=== PATIENT | female | born 1960 | race Caucasian/White ===

== ENCOUNTER 2018-05-06 15:55 | Emergency (ER) | payer MEDICARE, SELFPAY ==
[2018-05-06 15:56] VITALS: BP 143/80; PULSE 103; RESP 16; TEMP 36.6; O2SAT 96; BMI 28.3
[2018-05-06] MEDS: Ondansetron 4 MG/2 ML Vial IV (18:16)
[2018-05-06] MEDS: 0.9% Normal Saline 1,000 ML 1000 ML IV (18:16)
[2018-05-06] MEDS: Ketorolac 30 MG/ML Syringe IV (18:16)
[2018-05-06 18:24] LABS: Absolute Lymphocyte Count 1.89 X10^3/ul (0.83-4.51); Absolute Neutrophil Count 5.5 X10^3/uL (2.0-7.7); Basophil# 0.04 X10^3/uL; Basophil% 0.5 % (0-1); Eosinophil# 0.07 X10^3/uL; Eosinophils% 0.9 % (0-5); Hematocrit 41.3 % (37-47); Hemoglobin 13.6 g/dl (12.0-15.0); Lymphocyte # 1.89 X10^3/ul (4.0); Lymphocyte % 23.6 % (19-41); Mean Corp Hgb Conc 32.9 g/gl (32-36); Mean Corpuscular Hgb 28.6 pg (27.0-32.0); Mean Corpuscular Volume 86.9 fL (81-99); Mean Platelet Vol. 10.9 fl (6.2-12.0); Monocyte% 6.2 % (0-10); Neutrophil % 68.6 % (47-70); Platelet Count 201 K/mm3 (150-450); RBC Distribution Width CV 13.8 % (11.6-14.6); RBC Distribution Width SD 43.7 fl (35.1-43.9); Red Blood Count 4.75 M/mm3 (4.2-5.4)
[2018-05-06 18:24] LABS: Mucous, Urine 0 SEEN /hpf (<or=2+)
[2018-05-06 18:27] LABS: Color, Urine Yellow (Yellow); Glucose, Dipstick 1000 mg/dl (Normal); Ketone-Dipstick Negative (Negative); Leukocyte Esterase-Dipstick 500 /ul (Negative); Nitrite-Dipstick Negative (Negative); Occult Blood-Urine 50 /ul (Negative); Protein-Dipstick 100 mg/dl (Negative); Urine Bilirubin Dipstick Negative (Negative); Urine Clarity Cloudy (Clear); Urine Urobilinogen Normal (Normal)
[2018-05-06 18:29] LABS: POSITIVE COUNT NO; POSITIVE DIFFERENTIAL NO; POSITIVE MORPHOLOGY NO
[2018-05-06 18:36] LABS: Anion Gap 8 (5-15); BUN 15 mg/dL (7-18); BUN/Creat Ratio 17.2 RATIO (10-20); Calcium,Total 9.1 mg/dL (8.5-10.1); Chloride 100 mmol/L (98-107); Creatinine, Serum 0.87 mg/dL (0.55-1.02); EST Glomerular Filtration Rate 71 mL/min (>60); Est Glom Filt Rate - Afr Amer 85 mL/min (>60); Estimated Creatinine Clearance 52.54 ml/min; Glucose 303 mg/dL (74-106); Potassium 3.7 mmol/L (3.5-5.1); Sodium Level 137 mmol/L (136-145)
[2018-05-06 18:36] LABS: Bacteria 2+ /hpf (None Seen); Red Blood Cells-Urine 5-10 SEEN /hpf (0-5); Squamous Epithelial Cells - UA 10-25 SEEN /hpf (5-10); White Blood Cells >100 SEEN /hpf (0-5)
[2018-05-06 19:04] VITALS: BP 139/87; PULSE 89; RESP 18; O2SAT 96
--- NOTE | 2018-05-06 19:08 | ED.VISSUMM ---
- ER Visit Summary Date of Service: 05/06/18 Chief Complaint: Lightheaded, headache, dysuria History of Present Illness: The patient is a 58 F who goes to the [facility]. She reports that she woke up at noon today and is lightheaded. This does worsen when she stands. She has not passed out. No vertigo. She reports that she is congested and has the chills. Patient reports that she has lower abdominal pain 7-10 severity. It is a constant dull pain. She complains of dysuria and frequency that began yesterday. Patient also complains of a headache that was present when she woke this afternoon. It is 7 out of 10 severity. It is a constant, dull pain. It is occipital in location. Physical Examination: Vitals: Stable. Afebrile. General: Well-nourished and well-developed. Head: Normocephalic atraumatic. Neck: Supple, no lymphadenopathy. No JVD. Nontender. Cardiovascular: Regular rate and rhythm. No murmurs. Respiratory: No respiratory distress. Clear to auscultation bilaterally. Abdominal: Soft, nontender, nondistended, normal bowel sounds. No guarding, rebound, or peritoneal signs. Back: Nontender. Extremities: Nontender, no edema. Skin: Normal color, no rash. Neurologic: Alert and oriented ?3. Cranial nerves II through XII are intact. Normal strength and sensation. Psych: Normal affect. Test Results: CBC is normal. Chem-7 is more for glucose of 303. UA shows greater than 100 white blood cells, 5-10 red blood cells, and 2+ bacteria. However, there are 10-25 epithelial cells. Emergency Department Course and Treatment: Patient was given a liter bolus normal saline. She is given Toradol and Zofran IV. She is given Keflex p.o. She is resting comfortably. Treatment Plan: Patient will be discharged on Keflex and Zofran. Instructed to take her diabetic medications as previously prescribed. Follow-up with her primary care physician in 3-5 days if not improving. Return to the emergency department for any worsening symptoms. Disposition: To home in improved and stable condition. Impression: 1. UTI. 2. Cephalgia. This note was generated with Cinematiqueation software. It may contain incorrect words, spelling, and punctuation that were not noted in review of the chart prior to signing ED Disposition - Plan for ED Patient: Chief Complaint: General Illness Instructions: ED UTI Cystitis Female Prescriptions: Ondansetron [Zofran Odt] 4 mg PO Q8H PRN PRN #10 tablet PRN Reason: Nausea Cephalexin [Keflex] 500 mg PO Q12 #14 capsule Referrals: Love Barajas [Primary Care Provider] - 3-5 Days if not improving
[2018-05-06 19:48] VITALS: RESP 18
[2018-05-06] MEDS: Cephalexin 250 MG Capsule 500 MG PO (19:49)
== END 2018-05-06 19:50 | disposition home or self-care (01) ==
LOC: ED 18:36
PROVIDERS: Emergency Provider Emergency Medicine
DX: N39.0 Urinary tract infection, site not specified (principal); B96.89 Other specified bacterial agents as the cause of diseases classified elsewhere; R51 Headache; I10 Essential (primary) hypertension; E78.00 Pure hypercholesterolemia, unspecified; E11.9 Type 2 diabetes mellitus without complications; Z79.4 Long term (current) use of insulin; Z79.899 Other long term (current) drug therapy; Z86.73 Personal history of transient ischemic attack (TIA), and cerebral infarction without residual deficits
CPT/HCPCS: 80048; 81001; 85025; 96361; 96374; 96375; 99283; J7030; A4216; J2405

== ENCOUNTER 2018-05-10 12:25 | Inpatient (IN) | payer MEDICARE, MEDICAID, SELFPAY ==
[2018-05-10 12:28] VITALS: BP 126/93; BP 144/93; PULSE 96; PULSE 99; RESP 14; TEMP 36.7; O2SAT 95; O2SAT 98; BMI 29.1
--- NOTE | 2018-05-10 12:42 | CT_ITS ---
STUDY: CT BRAIN WITHOUT CONTRAST REASON FOR EXAM: Female, 58 years old. Status post fall RADIATION DOSAGE (If Supplied By Facility): CTDIvol = ( 44.99 ) mGy, DLP = ( 779.24 ) mGycm TECHNIQUE: Transaxial CT imaging of the brain was performed without administration of intravenous contrast material. Individualized dose optimization techniques were used for this CT. COMPARISON: November 24, 2015 CT scan head FINDINGS: Normal soft tissue structures. Normal calvarium. There is calcification of the left crit of the right vertebral arteries. There is dense calcification of the left-sided vertebral artery. This calcification of the cavernous carotid arteries. There is mild cerebral atrophy with widening of the extra-axial spaces and ventricular dilatation. There are areas of decreased attenuation within the white matter tracts of the supratentorial brain, consistent with microvascular disease changes. Normal basal ganglia and thalami. Normal brainstem. There is mild cerebellar atrophy. There is no intracranial hemorrhage. There are no findings of an acute ischemic infarction. Normal visualized paranasal sinuses. CT/Brain/Head without Contrast IMPRESSION: Mild atrophy. No visualized evidence of acute hemorrhage infarct or edema. Dense calcification of the left greater than right vertebral arteries for which hemodynamically significant atherosclerotic disease is not excluded. Electronically Signed: Soraya Plata MD at 14:24 EDT Tel , Service support ,
--- NOTE | 2018-05-10 12:42 | EKG12_ITS ---
Test Reason : FALL Blood Pressure : / mmHG Vent. Rate : 093 BPM Atrial Rate : 093 BPM P-R Int : 156 ms QRS Dur : 088 ms QT Int : 370 ms P-R-T Axes : 027 010 060 degrees QTc Int : 460 ms Normal sinus rhythm Inferior infarct , age undetermined Abnormal ECG Confirmed by ROSE CURTIS, KIERSTEN ([id number]), scientific publications editor GUILLAUME MARIA ([id number]) on 05/13/2018 3:12:20 PM Referred By: DENI Confirmed By:KIERSTEN ROSE MD
[2018-05-10 13:01] LABS: Absolute Lymphocyte Count 1.87 X10^3/ul (0.83-4.51); Absolute Neutrophil Count 9.8 X10^3/uL (2.0-7.7); Basophil# 0.03 X10^3/uL; Basophil% 0.2 % (0-1); Eosinophil# 0.03 X10^3/uL; Eosinophils% 0.2 % (0-5); Hematocrit 40.7 % (37-47); Hemoglobin 13.7 g/dl (12.0-15.0); Lymphocyte # 1.87 X10^3/ul (4.0); Mean Corp Hgb Conc 33.7 g/gl (32-36); Mean Corpuscular Hgb 28.8 pg (27.0-32.0); Mean Corpuscular Volume 85.7 fL (81-99); Monocyte# 0.71 X10^3/uL; Monocyte% 5.7 % (0-10); Neutrophil # 9.81 X10^3/uL (2.7-7.7); Neutrophil % 78.5 % (47-70); Platelet Count 203 K/mm3 (150-450); RBC Distribution Width CV 13.8 % (11.6-14.6); Red Blood Count 4.75 M/mm3 (4.2-5.4); White Blood Count 12.5 K/mm3 (4.4-11.0)
--- NOTE | 2018-05-10 13:01 | ED.DCSUM_ITS ---
- ER Visit Summary Date of Service: 05/10/18 Chief Complaint: Lightheadedness, near syncope, fall History of Present Illness: The patient is a 58 F presents to the emergency department after fall. The patient was seen here about 4 days ago. At that time, she was diagnosed with urinary tract infection. She was started on outpatient antibiotics, but never got a prescription filled. Today, she states that she has had generalized malaise and chills. She was walking towards a refrigerator. She got lightheaded and fell. She landed on her right knee and struck her face. She does not think that she lost consciousness. She states that her sugars been running high. She has been nauseated but denies any vomiting. She has had persistent dysuria. Physical Examination: Vital signs reviewed General: Well-nourished, well-developed Head: Normocephalic, superficial abrasion over right cheek, abrasion above teeth 8 and 9, but no malocclusion. Midface is stable. Eyes: Pupils equal and reactive, extraocular muscles intact Neck, supple, no lymphadenopathy Heart: Regular rate and rhythm Respiratory: No distress, clear bilaterally Abdomen: Soft, nontender, nondistended, no peritoneal signs Back: Nontender Extremities: Nontender, no edema, no cords Skin: Normal color no rash Neuro: Alert and oriented, no focal or lateralizing deficits Test Results: [] Emergency Department Course and Treatment: The patient presents with lightheadedness, near-syncopal event, and a mechanical fall. Her neuro exam does not display any lateralizing deficits. She denies any numbness or tingling. She states she has been lightheaded with change in position, but denies any persistent vertiginous symptoms. I did obtain a head CT given her trauma. There was calcifications in the posterior vasculature, but no bleeding. Again, I do not suspect posterior stroke at this time. The patient does appear to be dehydrated. She has decreased skin turgor and dry mucous membranes. IV was established. She was given 2 L of IV fluids. Her lactate is negative but she does have a leukocytosis and is hyperglycemic. Urine does show evidence of infection. With her systemic symptoms, I do suspect that she likely has pyelonephritis. Urine culture was obtained. Blood cultures were also obtained. The patient was started on Rocephin. She was discussed with the hospitalist and will be admitted. Treatment Plan: [] Disposition: Admission Impression: 1. Near-syncope 2. Pyelonephritis 3. Delirium This note was generated with appssavvy dictation software. It may contain incorrect words, spelling, and punctuation that were not noted in review of the chart prior to signing ED Disposition - Plan for ED Patient: Chief Complaint: Fall Referrals: Love Barajas [Primary Care Provider] -
[2018-05-10 13:02] LABS: POSITIVE COUNT NO; POSITIVE DIFFERENTIAL NO; POSITIVE MORPHOLOGY NO
[2018-05-10 13:22] LABS: Lactic Acid 1.4 mmol/L (0.4-2.0)
[2018-05-10 13:37] LABS: ALB/GLOB Ratio 0.8 RATIO (0.9-2.4); AST(SGOT) 10 U/L (15-37); Alanine Aminotransfer ALT/SGPT 21 U/L (13-56); Albumin, Serum 3.5 g/dL (3.2-5.0); Alkaline Phosphatase 119 U/L (45-117); Anion Gap 12 (5-15); BUN 17 mg/dL (7-18); BUN/Creat Ratio 17.2 RATIO (10-20); Calcium,Total 9.4 mg/dL (8.5-10.1); Chloride 102 mmol/L (98-107); Creatinine, Serum 0.99 mg/dL (0.55-1.02); EST Glomerular Filtration Rate 61 mL/min (>60); Est Glom Filt Rate - Afr Amer 74 mL/min (>60); Estimated Creatinine Clearance 46.17 ml/min; Globulin 4.3 g/dL (2.2-4.2); Glucose 446 mg/dL (74-106); Lipase 151 U/L (73-393); Potassium 3.9 mmol/L (3.5-5.1); Protein, Total 7.8 g/dL (6.4-8.2); Sodium Level 136 mmol/L (136-145)
[2018-05-10] MEDS: 0.9% Normal Saline 1,000 ML 1000 ML IV ×2 (13:42)
[2018-05-10 14:55] VITALS: BP 162/90; PULSE 89; RESP 13; O2SAT 96
[2018-05-10 15:16] LABS: Bacteria 0 SEEN /hpf (None Seen); Mucous, Urine 0 SEEN /hpf (<or=2+); Red Blood Cells-Urine 0 SEEN /hpf (0-5)
[2018-05-10 15:32] LABS: Color, Urine Yellow (Yellow); Glucose, Dipstick 1000 mg/dl (Normal); Ketone-Dipstick 15 mg/dl (Negative); Leukocyte Esterase-Dipstick 500 /ul (Negative); Nitrite-Dipstick Negative (Negative); Occult Blood-Urine 25 /ul (Negative); Protein-Dipstick 100 mg/dl (Negative); Urine Bilirubin Dipstick Negative (Negative); Urine Clarity Cloudy (Clear); Urine Urobilinogen Normal (Normal)
[2018-05-10 15:40] LABS: White Blood Cells >100 SEEN /hpf (0-5); Yeast-Urine 1+ /hpf (None Seen)
[2018-05-10 15:41] LABS: Squamous Epithelial Cells - UA 0-5 SEEN /hpf (5-10)
[2018-05-10 16:02] VITALS: BP 156/108; PULSE 91; RESP 14
--- NOTE | 2018-05-10 16:07 | PCM.HP.STD ---
Problem List (1) Encephalopathy acute Status: Acute (2) UTI (urinary tract infection) Status: Suspected Qualifiers: Urinary tract infection type: acute pyelonephritis Qualified Code(s): N10 - Acute pyelonephritis (3) HLD (hyperlipidemia) Status: Chronic Qualifiers: Hyperlipidemia type: unspecified Qualified Code(s): E78.5 - Hyperlipidemia, unspecified (4) Esophageal reflux Status: Chronic Qualifiers: Esophagitis presence: esophagitis presence not specified Qualified Code(s): K21.9 - Gastro-esophageal reflux disease without esophagitis (5) Type II diabetes mellitus, uncontrolled Status: Chronic Qualifiers: Glycemic state: with hyperglycemia Qualified Code(s): E11.65 - Type 2 diabetes mellitus with hyperglycemia (6) Anxiety and depression Status: Chronic (7) Cerebrovascular disease Status: Chronic Comment: Possible small ischemic strokes versus sequela of chronic migraine (8) Migraine Status: Chronic Qualifiers: Migraine type: unspecified Status migrainosus presence: without status migrainosus Intractability: not intractable Qualified Code(s): G43.909 - Migraine, unspecified, not intractable, without status migrainosus History of Present Illness Date of Admission: 05/10/18 Chief Complaint: Fatigue, malaise, falls, dysuria w/ recent UTI dx, failed to take her abx. The patient is a 58 y/o F w/ PMHx: ? PAF s/p ablation, CVA/TIA without deficits per her report, HTN, HLD, Migraines, Anxiety and Depression, GERD, IBS, Poorly controlled Diabetes Mellitus type II, Notable history of medication non-compliance who presents to the [facility] ED on 05/10/18 with history of ongoing malaise, fatigue and recent urinary tract infection diagnosis on 05/06/18 prescription given for Keflex however she did not feel this regimen and has had ongoing progressively worsening weakness, confusion as well as recent fall while walking in her kitchen on day of ED presentation with associated lightheadedness and dizziness noted to have hit her face with no loss of consciousness prompting ED presentation again. The workup included T 98, heart rate 99, BP 144/93, respiratory rate 14, 95% on room air, CBC with W BC 12.5, hemoglobin 13.7, platelet 203 with left shift, CMP notable for glucose 446, lactic acid 1.4, alkaline phosphatase 119, troponin less than 0.015, urinalysis notable with greater than 100 WBC although 0-5 squamous epithelial cells pending urine culture and blood culture ?2 urine drug screen unremarkable, CT head with chronic atrophy with no acute evidence of hemorrhage, infarct or edema with dense calcifications, left greater than right vertebral arteries. The ED patient administered IV fluids and IV Rocephin therapy. Past Medical History Past Medical History (Chronic Problems): Chronic Problems IBS (irritable bowel syndrome) (Chronic) HLD (hyperlipidemia) (Chronic) Esophageal reflux (Chronic) Type II diabetes mellitus, uncontrolled (Chronic) Anxiety and depression (Chronic) Cerebrovascular disease (Chronic) Possible small ischemic strokes versus sequela of chronic migraine Migraine (Chronic) reports hole in heart since (Chronic) Benign essential HTN (Chronic) Allergies codeine Adverse Reaction (Verified 05/06/18 15:56) Other pork derived (porcine) Adverse Reaction (Verified 05/06/18 15:56) Vomiting Home Medications: Ambulatory Orders Medication Instructions Recorded Amlodipine [Norvasc] 5 mg PO DAILY 01/01/15 Atorvastatin Calcium [Lipitor] 80 mg PO QHS 01/01/15 Insulin Detemir [Levemir FlexPen] 50 units SC BID 01/01/15 Lisinopril [Zestril] 20 mg PO DAILY 01/01/15 Ergocalciferol [Vitamin D] 50,000 unit PO Q7D 11/24/15 Clopidogrel Bisulfate [Plavix] 75 mg PO DAILY #30 tablet 11/26/15 Sertraline HCl [Zoloft] 100 mg PO DAILY 05/10/18 Surgical History: - - BLTL, Cardiac ablation per patient self-report, tonsillectomy. Psychiatric History: Anxiety, Depression COMMUNICATION SIGNALS INTELLIGENCE History: No pertinent COMMUNICATION SIGNALS INTELLIGENCE history Lives: With Family Smoking Status: Never smoker Tobacco Use: Secondhand - Patient continues to have secondhand prolonged tobacco smoke exposure. Alcohol: None Drugs: None - *Family History Maternal History Items: Heart Disease - \ Paternal History Items: Heart Disease - age 67, Hypertension - Father with OR/CAD, 69 years old. Review of Systems Constitutional: Reports: Anorexia, Malaise, Weakness, Fatigue. Denies: Chills, Fever, Weight Change HEENT: Denies: Head Aches, Sinus Congestion, Sinus Drainage Cardiovascular: Denies: Chest Pain, Palpitations Respiratory: Denies: Cough, Shortness of breath at rest, Sputum production Gastrointestinal: Reports: Abdominal Pain, Nausea. Denies: Vomiting Genitourinary: Reports: Dysuria, Hesitancy, Retention Musculoskeletal: Reports: Back Pain. Denies: Joint Pain, Joint Tenderness Skin: Denies: Rash, Wounds Neurological: Reports: Confusion. Denies: Focal weakness, Numbness, Tingling Psychiatric: Reports: Anxiety, Depression. Denies: Homicidal Ideations, Suicidal Ideations Hematologic/ Lymphatic: Denies: Easy Bruising, Easy Bleeding VTE Information - Inpt Only VTE Present on Admission: No VTE Mechan Device Prophylaxis: SCD's VTE Pharm Prophylaxis ordered?: Yes Patient Problems: Active and Suspected Problems Encephalopathy acute (Acute) UTI (urinary tract infection) (Suspected) Subjective: Seated upright in the ED bed, fatigued appearance. Objective: Physical Examination: General: awake, alert, oriented to self, place, some recent events, fatigued, remains cooperative, seated upright in the ED bed in no apparent distress. Skin: normal color, turgor, no icterus, cyanosis. HEENT: AT/NC, EOMI, mild L lid ptosis which is chronic, PERRLA, moderately dry MM, no carotid bruits or JVD noted. Lungs: CTA bilaterally, moderate effort, mild decrease BL bases, no rales, ronchi or wheezing. Heart: Regular rate and rhythm; no gallop, rub audible. Abdomen: soft, noted suprapubic TTP, ND, decreased BS, no HSM. Extremities: no cyanosis, clubbing, or edema. Neurological: patient awake, alert, oriented as noted, family notes currently improved from prior; cognitive function improved, but still not baseline intact; pupils equally reactive to light and accomodation; cranial nerves II-XII grossly normal, moving all 4 extremities, strength moderately to severely globally decreased secondary to acute presentation. Psychiatric: affect appears flat, no acute evidence of depressive or anxiety feelings. - Physical Exam Vital Signs Temp Pulse Resp BP Pulse Ox 98.0 F 91 14 156/108 H 96 05/10/18 12:28 05/10/18 16:02 05/10/18 16:02 05/10/18 16:02 05/10/18 14:55 Oxygen Delivery Method Room Air Weight: 154 lb 5.177 oz Body Mass Index (BMI) 29.1 Finger Stick Blood Glucose 204 Laboratory Tests Past 24 Hrs 05/10/18 05/10/18 05/10/18 12:42 12:42 12:42 WBC 12.5 H RBC 4.75 Hgb 13.7 Hct 40.7 MCV 85.7 MCH 28.8 MCHC 33.7 RDW 13.8 RDW Differential 43.0 Plt Count 203 MPV 11.0 Immature Gran % (Auto) 0.400 Neut % (Auto) 78.5 H Lymph % (Auto) 15.0 L Ceiba % (Auto) 5.7 Eos % (Auto) 0.2 Baso % (Auto) 0.2 Absolute Neuts (auto) 9.8 H Absolute Lymphs (auto) 1.87 Total Counted Not Reportable Sodium Potassium Chloride Carbon Dioxide Anion Gap BUN Creatinine Estim Creat Clear Calc Est GFR (MDRD) Af Amer Est GFR (MDRD) Non-Af BUN/Creatinine Ratio Glucose Lactic Acid 1.4 Calcium Total Bilirubin AST ALT Alkaline Phosphatase Troponin I Total Protein Albumin Globulin Albumin/Globulin Ratio Lipase Urine Color Urine Clarity Urine pH Ur Specific Flasher Urine Protein Urine Glucose (UA) Urine Ketones Urine Occult Blood Urine Nitrite Urine Bilirubin Urine Urobilinogen Ur Leukocyte Esterase Urine RBC Urine WBC Ur Squamous Epith Cells Urine Bacteria Urine Mucus Urine Yeast Urine Opiates Screen Urine Methadone Screen Ur Barbiturates Screen Ur Phencyclidine Scrn Ur Amphetamines Screen U Methamphetamin-MDMA U Benzodiazepines Scrn Urine Cocaine Screen U Cannabinoids Screen Ur Drug Screen Comment Acetone Level NEGATIVE 05/10/18 05/10/18 05/10/18 13:16 15:10 15:10 WBC RBC Hgb Hct MCV MCH MCHC RDW RDW Differential Plt Count MPV Immature Gran % (Auto) Neut % (Auto) Lymph % (Auto) Ceiba % (Auto) Eos % (Auto) Baso % (Auto) Absolute Neuts (auto) Absolute Lymphs (auto) Total Counted Sodium 136 Potassium 3.9 Chloride 102 Carbon Dioxide 22.0 Anion Gap 12 BUN 17 Creatinine 0.99 Estim Creat Clear Calc 46.17 Est GFR (MDRD) Af Amer 74 Est GFR (MDRD) Non-Af 61 BUN/Creatinine Ratio 17.2 Glucose 446 H Lactic Acid Calcium 9.4 Total Bilirubin 0.80 AST 10 L ALT 21 Alkaline Phosphatase 119 H Troponin I < 0.015 Total Protein 7.8 Albumin 3.5 Globulin 4.3 H Albumin/Globulin Ratio 0.8 L Lipase 151 Urine Color Yellow Urine Clarity Cloudy Urine pH 6.0 Ur Specific Flasher 1.010 Urine Protein 100 H Urine Glucose (UA) 1000 H Urine Ketones 15 H Urine Occult Blood 25 H Urine Nitrite Negative Urine Bilirubin Negative Urine Urobilinogen Normal Ur Leukocyte Esterase 500 H Urine RBC 0 SEEN Urine WBC >100 SEEN Ur Squamous Epith Cells 0-5 SEEN Urine Bacteria 0 SEEN Urine Mucus 0 SEEN Urine Yeast 1+ Urine Opiates Screen Pending Urine Methadone Screen Pending Ur Barbiturates Screen Pending Ur Phencyclidine Scrn Pending Ur Amphetamines Screen Pending U Methamphetamin-MDMA Pending U Benzodiazepines Scrn Pending Urine Cocaine Screen Pending U Cannabinoids Screen Pending Ur Drug Screen Comment Acetone Level Assessment/Plan All Active Problems Encephalopathy acute (Acute) The patient is a 58 y/o F w/ PMHx: ? PAF s/p ablation, CVA/TIA without deficits per her report, HTN, HLD, Migraines, Anxiety and Depression, GERD, IBS, Poorly controlled Diabetes Mellitus type II, Notable history of medication non-compliance who presents to the [facility] ED on 05/10/18 with history of ongoing malaise, fatigue and recent urinary tract infection diagnosis on 05/06/18 prescription given for Keflex however she did not feel this regimen and has had ongoing progressively worsening weakness, confusion as well as recent fall while walking in her kitchen on day of ED presentation with associated lightheadedness and dizziness noted to have hit her face with no loss of consciousness prompting ED presentation again. (1) Acute Encephalopathy secondary to Acute UTI, Suspected Pyelonephritis w/ Mechanical Fall: CT head with no acute findings, noted dense calcifications, left greater than right vertebral arteries. will admit to [facility] upon ED evaluation remarkable, pending UCx, admission CBC w/ WBC 12.5 with L shift, continue IVFs, monitor I/Os, continue IV Rocephin w/ transition as able pending sensitivities and speciation. Bld cx x 2 obtained in the ED. Fall precautions, PT, OT, CM consulted for discharge planning. (2) Diabetes mellitus type II w/ Hyperglycemia, Poorly Controlled w/ Non-compliance history: Will continue home insulin regimen, ADA diet, accu checks w/ ISS, nutrition consulted for education and teaching, HgbA1c obtained and notable 12.2%. Upon discharge will be an excellent candidate for referral to endocrine CAN CLOSING MACHINE OPERATOR. (3) Hx CVA/TIA: Maintain on plavix, BP regimen, statin therapy, uncontrolled DM with restart insulin regimen with further changes as needed, HgBA1c 12.2%, will need endocrinology CAN CLOSING MACHINE OPERATOR referral at discharge. (4) Anxiety and Depression: Maintain on home Zoloft regimen. (5) Hypertension: Continue home regimen including Norvasc, lisinopril, PRN hydralazine. (6) Hyperlipidemia: Continue home statin regimen. (7) Migraines: Not on regimen, from prior history complex migraine prior. (8) ? PAF/cardiac arrhythmia: s/p remote ablation history per patient, unclear type. (9) Incidental Vertebral Artery Calcification: CT head with no acute findings, noted dense calcifications, left greater than right vertebral arteries. Maintain on plavix, statin, BP regimen, DM interventions as noted. Will need to be considered for outpatient further imaging per PCP direction. (10) DVT prophylaxis: SCDs, Lovenox. (11) Psychosocial: Living with family, upon ED presentation patient disheveled, evident that she has not had a recent shower or bath, appearance of not being well cared for or caring for herself. Case management consulted for discharge planning. (12) CODE status: Discussed CODE status at length including difference between FULL code, DNR-CCA and DNR-CC status. Following discussions about the differences in these status, requested Full Code status. Encouraged living will and HCPOA set-up. Advanced Care Planning Face to Face Time: 18 minutes. Code Visit Inpatient E&M: 75773 Init Hosp L3 Procedures: 61171 Advncd Care Plan 30 Min
[2018-05-10 16:10] LABS: Amphetamine Urine VISTA NEGATIVE (<1000 ng/mL); Barbiturate Urine VISTA NEGATIVE (< 200 ng/mL); Benzodiazepine Urine VISTA NEGATIVE (< 200 ng/mL); Cocaine Urine VISTA NEGATIVE (< 300 ng/mL); Ecstacy Urine VISTA NEGATIVE (< 500 ng/mL); Methadone Urine VISTA NEGATIVE (< 300 ng/mL); PCP Urine VISTA NEGATIVE (< 25 ng/mL); THC Urine VISTA NEGATIVE (< 50 ng/mL); Vista UDS pH Range 6
[2018-05-10 16:17] VITALS: BP 165/99; PULSE 96; RESP 13; O2SAT 97
[2018-05-10] MEDS: Ceftriaxone 1 GM/50 ML BAG IV (16:18)
--- NOTE | 2018-05-10 16:19 | NURSING ---
MED SURG NEAR SYNCOPE, PYELONEPHRITIS WHITE
--- NOTE | 2018-05-10 16:36 | CM.ED ---
Social Work Note Face to face with the for initial assessment. Introduced self and role at [facility]. Pt is A&Ox4. Very poor dental hygiene. Pt reports to live with her [id number] in a trailer with 4 [address]. Denies access issues or use of DME. Denies weakness. Reports that she is independent with self care, but that her sister manages car dropper. She recently began receiving Disability due to hx of ministrokes. She receives $750/month. Discussed Medicaid with the pt and she is agreeable to completing an application. Informed that once complete she can take to [facility] or give to SW at the hospital to fax into [employer] for processing. Understanding expressed, and [id number] present as well and expresses understanding. Confirm that the pt see EDIE Boogie, at [facility] and she denies other specialists. Preferred pharmacy is [facility] in [place]. No further needs at this time, and pt made aware that GINA WINTER is available to assist with d/c planning, and [facility] to assist with Medicaid application. 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
[2018-05-10 16:37] VITALS: BMI 29.2
[2018-05-10 17:17] VITALS: BMI 29.0
[2018-05-10 18:20] LABS: Magnesium 1.8 mg/dL (1.6-2.6)
[2018-05-10] MEDS: 0.9% Normal Saline 1,000 ML 125 ML IV (18:26)
[2018-05-10 18:36] LABS: Hemoglobin A1c 12.2 % (4.2-6.3)
[2018-05-10 18:40] LABS: Bedside Glucose 282 mg/dL (70-110)
[2018-05-10 19:49] VITALS: BP 166/90; PULSE 106; RESP 18; TEMP 36.7; O2SAT 97
[2018-05-10 20:10] VITALS: O2SAT 98
[2018-05-10] MEDS: Insulin Lispro 100 UNIT/ML INSULN.PEN SC (21:50)
[2018-05-10] MEDS: Famotidine 20 MG Tablet PO (21:52)
[2018-05-10] MEDS: Atorvastatin Calcium 80 MG Tablet PO (21:52)
[2018-05-10 22:01] LABS: Bedside Glucose 324 mg/dL (70-110)
[2018-05-11] VITALS (7 sets, daily range): BP systolic 141–169; BP diastolic 85–98; PULSE 93–96; RESP 16–18; TEMP 36.4–36.9; O2SAT 93–98
[2018-05-11] MEDS: 0.9% Normal Saline 1,000 ML 125 ML IV (02:22)
--- NOTE | 2018-05-11 07:16 | PCM.PN.HOSP ---
Patient Problems: Active and Suspected Problems Encephalopathy acute (Acute) UTI (urinary tract infection) (Suspected) Subjective: Patient with no acute events overnight per self and per nursing report. Patient is more alert and interactive this morning following IV fluids and antibiotic therapy, still noting generalized weakness ongoing and malaise. She is now admitting that the left lid ptosis is worse than normal and that she has been having ongoing outpatient gait disturbances and additionally to her generalized weakness and dysphagia. Discussed with patient concerns for recurrent TIA/CVA especially given she has been noncompliant with her medications including BP regimen, Plavix, aspirin as well as diabetic regimen. Patient denies fevers, chills, nausea, emesis, abdominal pain, chest pain or dyspnea. Objective: Physical Examination: General: awake, alert, oriented to self, place, recent events, year, president, less fatigued, more interactive, NAD. Skin: normal color, turgor, no icterus, cyanosis. HEENT: AT/NC, EOMI, ongoing mildly increased appearance L lid ptosis, pupils now appearing L 1 mm decreased from R, remains RRLA, improved MMM. Lungs: CTA bilaterally, moderate effort, mild decrease BL bases, no rales, ronchi or wheezing. Heart: Regular rate and rhythm; no gallop, rub audible. Abdomen: soft, decreased suprapubic TTP, ND, decreased BS. Extremities: no cyanosis, clubbing, or edema. Neurological: patient awake, alert, oriented as noted; cognitive function improved since admission; ongoing mildly increased appearance L lid ptosis, pupils now appearing L 1 mm decreased from R, remains RRLA; cranial nerves II-XII grossly normal otherwise aside these alterations, moving all 4 extremities, strength remains moderately to severely globally decreased. Psychiatric: affect appears flat, no acute evidence of depressive or anxiety feelings. Vitals/I&O's: Vital Signs Temp Pulse Resp BP Pulse Ox 98.4 F 96 18 144/85 H 97 05/11/18 02:22 05/11/18 02:22 05/11/18 02:22 05/11/18 02:22 05/11/18 02:22 Oxygen Delivery Method Room Air Weight: 153 lb 14.122 oz Body Mass Index (BMI) 29.0 Laboratory Results 05/10/18 18:29: POC Glucose 282 H 05/10/18 21:49: POC Glucose 324 H Current Medications Acetaminophen (Tylenol) 650 mg PO Q6H PRN PRN PRN Reason: Mild Pain (scale 0-3)/T>100.7 Al Hydroxide/Mg Hydroxide (Mylanta Ii) 30 ml PO Q6H PRN PRN PRN Reason: Gastric burning Amlodipine Besylate (Norvasc) 5 mg PO DAILY [facility] Atorvastatin Calcium (Lipitor) 80 mg PO QHS [facility] Last Admin: 05/10/18 21:52 Dose: 80 mg Clopidogrel Bisulfate (Plavix) 75 mg PO DAILY [facility] Enoxaparin Sodium (Lovenox) 40 mg SC DAILY@1000 [facility] Famotidine (Pepcid) 20 mg PO BID [facility] Last Admin: 05/10/18 21:52 Dose: 20 mg Sodium Chloride () 1,000 mls @ 125 mls/hr IV .Q8H [facility] Last Admin: 05/11/18 02:22 Dose: 125 mls/hr Ceftriaxone Sodium (Rocephin) 1 gm in 50 mls @ 100 mls/hr IV Q24H [facility] Insulin Glargine (Lantus (Bkc)) 50 units SC BID [facility] Last Admin: 05/10/18 21:51 Dose: 50 u Insulin Human Lispro (Humalog Kwikpen (Bkc)) 0 unit SC ACHS [facility] PRN Reason: Protocol Last Admin: 05/10/18 21:50 Dose: 5 units Lisinopril (Zestril) 20 mg PO DAILY [facility] Magnesium Hydroxide (Milk Of Magnesia) 30 ml PO DAILY PRN PRN PRN Reason: Constipation Ondansetron HCl (Zofran) 4 mg IV Q8H PRN PRN PRN Reason: NAUSEA Promethazine HCl (Phenergan) 12.5 mg IV Q6H PRN PRN PRN Reason: NAUSEA/VOMITING Sertraline HCl (Zoloft) 100 mg PO DAILY [facility] Sodium Chloride () 5 - 30 ml IV UD PRN PRN Reason: SALINE FLUSH Medical Necessity - Tobacco Use Smoking Status: Never smoker Tobacco Use: Secondhand - Patient continues to have secondhand prolonged tobacco smoke exposure. Assessment/Plan All Active Problems Encephalopathy acute (Acute) The patient is a 58 y/o F w/ PMHx: ? PAF s/p ablation, CVA/TIA without deficits per her report, HTN, HLD, Migraines, Anxiety and Depression, GERD, IBS, Poorly controlled Diabetes Mellitus type II, Notable history of medication non-compliance who presents to the [facility] ED on 05/10/18 with history of ongoing malaise, fatigue and recent urinary tract infection diagnosis on 05/06/18 prescription given for Keflex however she did not feel this regimen and has had ongoing progressively worsening weakness, confusion as well as recent fall while walking in her kitchen on day of ED presentation with associated lightheadedness and dizziness noted to have hit her face with no loss of consciousness in addition to now reported worsened L lid ptosis, ongoing mild dysphia and gait instability. (1) Acute Encephalopathy secondary to Acute UTI, Suspected Pyelonephritis w/ Mechanical Fall: CT head with no acute findings, noted dense calcifications, left greater than right vertebral arteries. Admitted to [facility] upon ED evaluation remarkable, pending UCx, admission CBC w/ WBC 12.5 with L shift, continue IVFs, monitor I/Os, continue IV Rocephin w/ transition as able pending sensitivities and speciation. Bld cx x 2 obtained in the ED. Fall precautions, PT, OT, CM consulted for discharge planning. (2) Diabetes mellitus type II w/ Hyperglycemia, Poorly Controlled w/ Non-compliance history: BS trending 200-300 range, will increase lantus to 55 u BID, add scheduled TID w/ meals short-acting low dose and further adjust as needed. Maintain on ADA diet, accu checks w/ ISS, nutrition consulted for education and teaching, HgbA1c obtained and notable 12.2%. Upon discharge will be an excellent candidate for referral to endocrine [employer]NAGER. (3) Debility, Gait Disturbance, Generalized Weakness, Worsened L Lid Ptosis, Dysphagia, Pupillary Changes w/ Hx CVA/TIA w/ ? Recurrent Events: Patient with notable non-compliance. Now admitting this AM that L lid ptosis is more pronounced than normal and upon repeat examination noted 1 mm difference in pupils. Discussed w/ patient and will obtain MRI brain, MRA head and neck, will maintain on plavix given had not been taking in addition to asa therapy, BP regimen, statin therapy, uncontrolled DM with insulin regimen changes as noted. HgBA1c 12.2%, will need endocrinology [employer]IE[employer] MANAGER referral at discharge. Will transfer to PCU to maintain on NIHSS assessments pending this work-up. PT, OT, Speech, Nutrition consulted per protocol. ECHO requested. Neurology consulted. (4) Anxiety and Depression: Maintain on home Zoloft regimen. (5) Hypertension: Continue home regimen including Norvasc, lisinopril, PRN hydralazine. (6) Hyperlipidemia: Continue home statin regimen. (7) Migraines: Not on regimen, from prior history complex migraine prior. (8) ? PAF/cardiac arrhythmia: s/p remote ablation history per patient, unclear type. (9) Incidental Vertebral Artery Calcification: CT head with no acute findings, noted dense calcifications, left greater than right vertebral arteries. Maintain on plavix, statin, BP regimen, DM interventions as noted. Given now noted pupillary mild changes and now reported worsened lid ptosis will obtain further work-up as noted above. (10) DVT prophylaxis: SCDs, Lovenox. (11) Psychosocial: Living with family, upon ED presentation patient disheveled, evident that she has not had a recent shower or bath, appearance of not being well cared for or caring for herself. Case management consulted for discharge planning. (12) CODE status: Full Code. Code Visit Inpatient E&M: 53829 Subs Hosp L3
--- NOTE | 2018-05-11 07:20 | PN_ITS ---
Patient Problems: Active and Suspected Problems Encephalopathy acute (Acute) UTI (urinary tract infection) (Suspected) Subjective: Patient with no acute events overnight per self and per nursing report. Patient is more alert and interactive this morning following IV fluids and antibiotic therapy, still noting generalized weakness ongoing and malaise. She is now admitting that the left lid ptosis is worse than normal and that she has been having ongoing outpatient gait disturbances and additionally to her generalized weakness and dysphagia. Discussed with patient concerns for recurrent TIA/CVA especially given she has been noncompliant with her medications including BP regimen, Plavix, aspirin as well as diabetic regimen. Patient denies fevers, chills, nausea, emesis, abdominal pain, chest pain or dyspnea. Objective: Physical Examination: General: awake, alert, oriented to self, place, recent events, year, president, less fatigued, more interactive, NAD. Skin: normal color, turgor, no icterus, cyanosis. HEENT: AT/NC, EOMI, ongoing mildly increased appearance L lid ptosis, pupils now appearing L 1 mm decreased from R, remains RRLA, improved MMM. Lungs: CTA bilaterally, moderate effort, mild decrease BL bases, no rales, ronchi or wheezing. Heart: Regular rate and rhythm; no gallop, rub audible. Abdomen: soft, decreased suprapubic TTP, ND, decreased BS. Extremities: no cyanosis, clubbing, or edema. Neurological: patient awake, alert, oriented as noted; cognitive function improved since admission; ongoing mildly increased appearance L lid ptosis, pupils now appearing L 1 mm decreased from R, remains RRLA; cranial nerves II- XII grossly normal otherwise aside these alterations, moving all 4 extremities, strength remains moderately to severely globally decreased. Psychiatric: affect appears flat, no acute evidence of depressive or anxiety feelings. Vitals/I&O's: Vital Signs Temp Pulse Resp BP Pulse Ox 98.4 F 96 18 144/85 H 97 05/11/18 02:22 05/11/18 02:22 05/11/18 02:22 05/11/18 02:22 05/11/18 02:22 Oxygen Delivery Method Room Air Weight: 153 lb 14.122 oz Body Mass Index (BMI) 29.0 Laboratory Results 05/10/18 18:29: POC Glucose 282 H 05/10/18 21:49: POC Glucose 324 H Current Medications Acetaminophen (Tylenol) 650 mg PO Q6H PRN PRN PRN Reason: Mild Pain (scale 0-3)/T>100.7 Al Hydroxide/Mg Hydroxide (Mylanta Ii) 30 ml PO Q6H PRN PRN PRN Reason: Gastric burning Amlodipine Besylate (Norvasc) 5 mg PO DAILY [facility] Atorvastatin Calcium (Lipitor) 80 mg PO QHS [facility] Last Admin: 05/10/18 21:52 Dose: 80 mg Clopidogrel Bisulfate (Plavix) 75 mg PO DAILY [facility] Enoxaparin Sodium (Lovenox) 40 mg SC DAILY@1000 [facility] Famotidine (Pepcid) 20 mg PO BID [facility] Last Admin: 05/10/18 21:52 Dose: 20 mg Sodium Chloride () 1,000 mls @ 125 mls/hr IV .Q8H [facility] Last Admin: 05/11/18 02:22 Dose: 125 mls/hr Ceftriaxone Sodium (Rocephin) 1 gm in 50 mls @ 100 mls/hr IV Q24H [facility] Insulin Glargine (Lantus (Bkc)) 50 units SC BID [facility] Last Admin: 05/10/18 21:51 Dose: 50 u Insulin Human Lispro (Humalog Kwikpen (Bkc)) 0 unit SC ACHS [facility] PRN Reason: Protocol Last Admin: 05/10/18 21:50 Dose: 5 units Lisinopril (Zestril) 20 mg PO DAILY [facility] Magnesium Hydroxide (Milk Of Magnesia) 30 ml PO DAILY PRN PRN PRN Reason: Constipation Ondansetron HCl (Zofran) 4 mg IV Q8H PRN PRN PRN Reason: NAUSEA Promethazine HCl (Phenergan) 12.5 mg IV Q6H PRN PRN PRN Reason: NAUSEA/VOMITING Sertraline HCl (Zoloft) 100 mg PO DAILY [facility] Sodium Chloride () 5 - 30 ml IV UD PRN PRN Reason: SALINE FLUSH Medical Necessity - Tobacco Use Smoking Status: Never smoker Tobacco Use: Secondhand - Patient continues to have secondhand prolonged tobacco smoke exposure. Assessment/Plan All Active Problems Encephalopathy acute (Acute) The patient is a 58 y/o F w/ PMHx: ? PAF s/p ablation, CVA/TIA without deficits per her report, HTN, HLD, Migraines, Anxiety and Depression, GERD, IBS, Poorly controlled Diabetes Mellitus type II, Notable history of medication non- compliance who presents to the [facility] ED on 05/10/18 with history of ongoing malaise , fatigue and recent urinary tract infection diagnosis on 05/06/18 prescription given for Keflex however she did not feel this regimen and has had ongoing progressively worsening weakness, confusion as well as recent fall while walking in her kitchen on day of ED presentation with associated lightheadedness and dizziness noted to have hit her face with no loss of consciousness in addition to now reported worsened L lid ptosis, ongoing mild dysphia and gait instability. (1) Acute Encephalopathy secondary to Acute UTI, Suspected Pyelonephritis w/ Mechanical Fall: CT head with no acute findings, noted dense calcifications, left greater than right vertebral arteries. Admitted to [facility] upon ED evaluation remarkable, pending UCx, admission CBC w/ WBC 12.5 with L shift, continue IVFs, monitor I/Os, continue IV Rocephin w/ transition as able pending sensitivities and speciation. Bld cx x 2 obtained in the ED. Fall precautions, PT, OT, CM consulted for discharge planning. (2) Diabetes mellitus type II w/ Hyperglycemia, Poorly Controlled w/ Non- compliance history: BS trending 200-300 range, will increase lantus to 55 u BID , add scheduled TID w/ meals short-acting low dose and further adjust as needed. Maintain on ADA diet, accu checks w/ ISS, nutrition consulted for education and teaching, HgbA1c obtained and notable 12.2%. Upon discharge will be an excellent candidate for referral to endocrine [employer]. (3) Debility, Gait Disturbance, Generalized Weakness, Worsened L Lid Ptosis, Dysphagia, Pupillary Changes w/ Hx CVA/TIA w/ ? Recurrent Events: Patient with notable non-compliance. Now admitting this AM that L lid ptosis is more pronounced than normal and upon repeat examination noted 1 mm difference in pupils. Discussed w/ patient and will obtain MRI brain, MRA head and neck, will maintain on plavix given had not been taking in addition to asa therapy, BP regimen, statin therapy, uncontrolled DM with insulin regimen changes as noted. HgBA1c 12.2%, will need endocrinology [employer] referral at discharge. Will transfer to PCU to maintain on NIHSS assessments pending this work-up. PT, OT, Speech, Nutrition consulted per protocol. ECHO requested. Neurology consulted. (4) Anxiety and Depression: Maintain on home Zoloft regimen. (5) Hypertension: Continue home regimen including Norvasc, lisinopril, PRN hydralazine. (6) Hyperlipidemia: Continue home statin regimen. (7) Migraines: Not on regimen, from prior history complex migraine prior. (8) ? PAF/cardiac arrhythmia: s/p remote ablation history per patient, unclear type. (9) Incidental Vertebral Artery Calcification: CT head with no acute findings, noted dense calcifications, left greater than right vertebral arteries. Maintain on plavix, statin, BP regimen, DM interventions as noted. Given now noted pupillary mild changes and now reported worsened lid ptosis will obtain further work-up as noted above. (10) DVT prophylaxis: SCDs, Lovenox. (11) Psychosocial: Living with family, upon ED presentation patient disheveled, evident that she has not had a recent shower or bath, appearance of not being well cared for or caring for herself. Case management consulted for discharge planning. (12) CODE status: Full Code. Code Visit Inpatient E&M: 32750 Subs Hosp L3
[2018-05-11] MEDS: Insulin Lispro 100 UNIT/ML INSULN.PEN SC (07:36)
[2018-05-11 07:41] LABS: Absolute Lymphocyte Count 2.94 X10^3/ul (0.83-4.51); Absolute Neutrophil Count 10.3 X10^3/uL (2.0-7.7); Basophil# 0.04 X10^3/uL; Basophil% 0.3 % (0-1); Eosinophil# 0.06 X10^3/uL; Eosinophils% 0.4 % (0-5); Hemoglobin 12.3 g/dl (12.0-15.0); Lymphocyte # 2.94 X10^3/ul (4.0); Lymphocyte % 20.9 % (19-41); Mean Corp Hgb Conc 33.2 g/gl (32-36); Mean Corpuscular Hgb 28.7 pg (27.0-32.0); Mean Corpuscular Volume 86.4 fL (81-99); Monocyte# 0.75 X10^3/uL; Monocyte% 5.3 % (0-10); Neutrophil # 10.28 X10^3/uL (2.7-7.7); Neutrophil % 72.9 % (47-70); Platelet Count 188 K/mm3 (150-450); RBC Distribution Width CV 13.9 % (11.6-14.6); RBC Distribution Width SD 42.8 fl (35.1-43.9); Red Blood Count 4.28 M/mm3 (4.2-5.4); White Blood Count 14.1 K/mm3 (4.4-11.0)
[2018-05-11 07:50] LABS: Bedside Glucose 215 mg/dL (70-110)
[2018-05-11 07:57] LABS: POSITIVE COUNT NO; POSITIVE DIFFERENTIAL NO; POSITIVE MORPHOLOGY NO
[2018-05-11 08:10] LABS: BUN 11 mg/dL (7-18); BUN/Creat Ratio 17.1 RATIO (10-20); Calcium,Total 8.1 mg/dL (8.5-10.1); Chloride 106 mmol/L (98-107); Creatinine, Serum 0.64 mg/dL (0.55-1.02); EST Glomerular Filtration Rate 100 mL/min (>60); Est Glom Filt Rate - Afr Amer 121 mL/min (>60); Estimated Creatinine Clearance 71.42 ml/min; Glucose 213 mg/dL (74-106); Potassium 3.3 mmol/L (3.5-5.1); Sodium Level 140 mmol/L (136-145)
[2018-05-11 08:11] LABS: Anion Gap 10 (5-15)
--- NOTE | 2018-05-11 09:27 | MRI_ITS ---
STUDY: MRI BRAIN WITHOUT CONTRAST REASON FOR EXAM: Female, 58 years old. Slurred speech. TECHNIQUE: Standardized multiplanar fat and water weighted pulse sequences were obtained. COMPARISON: MRI of the brain with and without contrast 11/25/2015. FINDINGS: There are restricted diffusion abnormalities involving both cerebral peduncles and both right nucleus, left greater than on the right. They are also visible on the T2 FLAIR sequence. These are subacute ischemic infarcts. The shyann and medulla are normal. No restricted diffusion in the supratentorial brain. Normal size of the ventricles and extra-axial spaces for the patient's age. Few white matter T2 FLAIR hyperintensity foci are chronic white matter ischemic changes. They are unchanged. Normal bilateral basal ganglia. Normal thalami. There is no extra-axial fluid accumulation. Occluded distal basilar artery on MRA of the head. Normal flow voids in the anterior circulation. Occluded right vertebral artery is chronic and unchanged. Normal sella turcica, pituitary gland, infundibular stalk, optic chiasm and hypothalamus. Normal tectal plate and pineal gland. Normal cerebellum. Normal basal cisterns. Normal bilateral temporal bones. Normal bilateral internal auditory canals. No demonstrated orbital abnormality, within the constraints of a routine brain study. Normal visualized paranasal sinuses. Normal calvarium and skull base. Normal visualized soft tissue structures. Normal visualized upper cervical spine. MRI/Brain without Contrast IMPRESSION: 1. Subacute ischemic infarcts involving both cerebral peduncles, left greater than right and both red nuclei, left greater than right. 2. No other suspicious acute or subacute ischemic infarcts. 3. Chronic white matter ischemic changes in both cerebral hemispheres are unchanged. 4. 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 Electronically Signed: Piotr Simon MD at 11:51 EDT , Service support ,
--- NOTE | 2018-05-11 09:27 | MRI_ITS ---
STUDY: MRA OF THE HEAD WITHOUT CONTRAST REASON FOR EXAM: Female, 58 years old. Slurred speech. Fall yesterday. Left eye ptosis. TECHNIQUE: 3-D [id number] (TOF) imaging was performed with MIPs. The study was performed unenhanced. COMPARISON: MRA head 11/25/2015. FINDINGS: Normal bilateral petrous carotid arteries. Normal right cavernous carotid artery with a normal supraclinoid bifurcation. Normal left cavernous carotid artery with a normal supraclinoid bifurcation. Normal right A1 segment of the anterior cerebral artery. Normal left A1 segment of the anterior cerebral artery. Normal intact anterior communicating artery (ACOM). Normal bilateral A2 segments of the anterior cerebral arteries. Normal right M1 and M2 segments of the middle cerebral arteries, with a normal M1 bifurcation. Normal left M1 and M2 segments of the middle cerebral arteries, with a normal M1 bifurcation. Hypoplastic right posterior communicating artery (PCOM). Hypoplastic left posterior communicating artery (PCOM). Occluded right vertebral artery. Patent left vertebral artery. Tapered occlusion of the distal third of the basilar artery. Nonvisualization due to occlusion of the bilateral superior cerebellar (SCA) arteries are normal. Nonvisualization due to occlusion of the bilateral P1, P2 and visualized P3 segments of the posterior cerebral arteries. There is no demonstrated aneurysm of the [place]. MRI/MRA Head ONLY without Contrast IMPRESSION: 1. Abnormal MRA of the head. 2. Tapered occlusion of the distal third of the basilar artery and occlusion of both superior cerebellar arteries and both posterior cerebral arteries. These are new findings when compared to 11/25/2015. 3. Complete occlusion of the right vertebral artery. This is chronic occlusion as this was also occluded back on 11/25/2015. Electronically Signed: Piotr Simon MD at 11:33 EDT , Service support ,
--- NOTE | 2018-05-11 09:27 | MRI_ITS ---
STUDY: MRA NECK WITH AND WITHOUT CONTRAST REASON FOR EXAM: Female, 58 years old. Slurred speech. Left-sided ptosis. Fall. Symptoms x one day. TECHNIQUE: 3-D [id number] (TOF) imaging was performed in an 1.5 T MRI scanner. 8 ml of Gadavist was administered for the contrast enhanced images. COMPARISON: None. FINDINGS: RIGHT CAROTID ARTERIES: Normal right common carotid artery (CCA). Normal right internal carotid bulb. Normal origin of the right internal carotid (ICA) artery without a hemodynamically significant stenosis. Normal visualized cervical portion of the right internal carotid artery. Normal origin of the right external carotid artery (ECA). LEFT CAROTID ARTERIES: Normal left common carotid artery (CCA). Normal left internal carotid bulb. Normal origin of the left internal carotid (ICA) artery without a hemodynamically significant stenosis. Normal visualized cervical portion of the left internal carotid artery. Normal origin of the left external carotid artery (ECA). VERTEBRAL ARTERIES: Markedly hypoplastic cervical segment of the right vertebral artery and suspicious high-grade stenosis of the subclavian origin of the right vertebral artery. Occluded intradural segment of the right vertebral artery. Widely patent dominant left vertebral artery. AORTIC ARCH: Widely patent aortic arch and origins of the great vessels. MRI/MRA Neck WITH and W/O Contrast IMPRESSION: 1. Occluded intradural segment of the hypoplastic right vertebral artery and high-grade stenosis at the subclavian origin of the hypoplastic right vertebral artery. 2. Widely patent and normal left vertebral artery from its subclavian origin to its intradural segment. 3. Normal bilateral common carotid arteries, bilateral internal and external carotid arteries. 4. Normal aortic arch and origins of the great vessels. Electronically Signed: Piotr Simon MD at 12:43 EDT , Service support ,
[2018-05-11] MEDS: Ceftriaxone 1 GM/50 ML BAG IV (09:59)
[2018-05-11] MEDS: Aspirin 81 MG TAB.CHEW PO (09:59)
[2018-05-11] MEDS: Enoxaparin 40 MG/0.4 ML Syringe SC (10:03)
[2018-05-11] MEDS: Clopidogrel Bisulfate 75 MG Tablet PO (10:03)
[2018-05-11] MEDS: amLODIPine 5 MG Tablet PO (10:03)
[2018-05-11] MEDS: Famotidine 20 MG Tablet PO (10:04)
--- NOTE | 2018-05-11 10:15 | NURSING ---
REPORT CALLED TO GINA CARTER. UNABLE TO CONTACT SON REGARDING TRANSFER D/T WRONG PHONE NUMBER.
[2018-05-11] MEDS: Sertraline 100 MG Tablet PO (10:17)
[2018-05-11] MEDS: Lisinopril 20 MG Tablet PO (10:17)
[2018-05-11 12:05] LABS: Bedside Glucose 319 mg/dL (70-110)
--- NOTE | 2018-05-11 12:07 | PCM.DC.SUM ---
Discharge Date and Diagnosis - Problem List Patient Problems: Active and Suspected Problems Encephalopathy acute (Acute) UTI (urinary tract infection) (Suspected) Date of Admission: 05/10/18 Date of Discharge: 05/11/18 - Primary Discharge Diagnosis Active and Suspected Problems Debility, Gait Disturbance, Generalized Weakness, Worsened L Lid Ptosis, Dysphagia, Pupillary Changes secondary to subacute ischemic infarcts involving both cerebellar peduncles, left greater than right and both red nuclei, left greater than right (MRA Head findings as noted, MRA Neck read pending upon transfer) New Tapered occlusion distal third basilar artery and occlusion both superior cerebellar arteries and both posterior cerebellar arteries Chronic occlusion of the right vertebral artery Acute Encephalopathy secondary to Acute UTI, Suspected Pyelonephritis Weakness, Fatigue Debility, Falls, Multifactorial, secondary to #1 and #2 Prior History of TIA/Possible CVA without deficits ongoing Diabetes mellitus type II w/ Hyperglycemia, Poorly Controlled w/ Non-compliance history (12.2%) Anxiety and Depression: Maintain on home Zoloft regimen. Hypertension Hyperlipidemia Migraines ? PAF/cardiac arrhythmia s/p remote ablation history - Secondary Discharge Diagnosis Chronic Problems IBS (irritable bowel syndrome) (Chronic) HLD (hyperlipidemia) (Chronic) Esophageal reflux (Chronic) Type II diabetes mellitus, uncontrolled (Chronic) Anxiety and depression (Chronic) Cerebrovascular disease (Chronic) Possible small ischemic strokes versus sequela of chronic migraine Migraine (Chronic) reports hole in heart since (Chronic) Benign essential HTN (Chronic) Hospital Course and Treatment Imaging Results: 05/11/18 09:27 Brain without Contrast [MRI] Stat MRA Head ONLY without Contrast [MRI] Stat MRA Neck WITH and W/O Contrast [MRI] Stat 05/11/18 09:32 Echo Complete [ECHO] Routine Discussed case w/ Dr. Red, Neurologist w/ review of case and imaging results. Recommended immediately transfer to [facility] which was performed. Operations: None Procedures: EKG Summary of Care Provided: The patient is a 58 y/o F w/ PMHx: ? PAF s/p ablation, CVA/TIA without deficits per her report, HTN, HLD, Migraines, Anxiety and Depression, GERD, IBS, Poorly controlled Diabetes Mellitus type II, Notable history of medication non-compliance who presented to the [facility] ED on 05/10/18 with history of ongoing malaise, fatigue and recent urinary tract infection diagnosis on 05/06/18 prescription given for Keflex however she did not feel this regimen and has had ongoing progressively worsening weakness, confusion as well as recent fall while walking in her kitchen on day of ED presentation with associated lightheadedness and dizziness noted to have hit her face with no loss of consciousness in addition to now reported worsened L lid ptosis, ongoing mild dysphia and gait instability. On day #1 patient was treated given presentation for Acute Encephalopathy secondary to Acute UTI, Suspected Pyelonephritis. ED evaluation with CT head with no acute findings, noted dense calcifications, left greater than right vertebral arteries. Admitted to [facility] upon ED evaluation remarkable, pending UCx, admission CBC w/ WBC 12.5 with L shift, continued on IVFs, monitored I/Os, continued IV Rocephin. Patient interactive and mental status improved overnight and in AM on 05/11/18 upon evaluation patient w/ changes in examination with flat facies L sided w/ notably increased L lid ptosis, mild pupillary changes with admission that she has notable dysphagia. These new symptoms with history of CVA and poorly controlled HTN, DM also not taking her medications concerning for CVA. She was immediately transferred to the PCU, Neurology consulted and work-up initiated w/ MRI brain, MRA head and neck w/ results prior to transfer including MRI brain and MRA Head including subacute ischemic infarcts involving both cerebellar peduncles, left greater than right and both red nuclei, left greater than right, new tapered occlusion distal third basilar artery and occlusion both superior cerebellar arteries and both posterior cerebellar arteries and noted chronic occlusion of the right vertebral artery. Upon these findings, Neurology immediately contacted again and reviewed case. Recommendation for immediately transfer to [facility] via auto-launch. [facility] contacted and accepted patient. VS remained stable and were frequently assessed prior to transfer. Patient placed on oxygen supplementation prophylactically. Patient remained alert and interactive w/ no worsened deficits prior to transfer. Prolonged care time: Additional evaluation time above initial 70 minute evaluation including additional repeat evaluations, attempts to discuss with family, re-discussions w/ patient and arrangement of transfer and discussion with multiple specialists: 70 addition minutes above initial. Home Medications: Medications to take at Discharge Amlodipine [Norvasc] 5 mg PO DAILY 01/01/15 Atorvastatin Calcium [Lipitor] 80 mg PO QHS 01/01/15 Insulin Detemir [Levemir FlexPen] 50 units SC BID 05/08/15 Lisinopril [Zestril] 20 mg PO DAILY 01/01/15 Ergocalciferol [Vitamin D] 50,000 unit PO Q7D 11/24/15 Clopidogrel Bisulfate [Plavix] 75 mg PO DAILY #30 tablet 11/26/15 Sertraline HCl [Zoloft] 100 mg PO DAILY 05/10/18 Primary Care Physician: Love Barajas [Primary Care Provider] - Disposition: Acute care Hospital Minutes spent on discharge:: 70 Patient Condition:: Critical Medical Necessity - Tobacco Use Smoking Status: Never smoker Tobacco Use: Secondhand Meaningful Use Info Meaningful Use Diagnoses (Choose all that apply): Ischemic CVA - CVA Therapy Assessed for PT,OT and/or ST?: Yes - Ischemic Stroke Antithrombotic order at d/c?: Yes Dx of Atrial fib/flutter?: No Anticoagulant at discharge?: No Reason anticoagulant not ordered: Treatment not Indicated Statins at discharge?: Yes Primary Dx Acute Ischemic CVA?: Yes IV tPA ordered during stay?: No Reason IV t-PA not ordered: Medical Contraindication Code Visit Inpatient E&M: 86174 Disch Hosp Procedures: 32296 Prolonged InPt Service; first hour
--- NOTE | 2018-05-11 12:18 | DS.PCM_ITS ---
Discharge Date and Diagnosis - Problem List Patient Problems: Active and Suspected Problems Encephalopathy acute (Acute) UTI (urinary tract infection) (Suspected) Date of Admission: 05/10/18 Date of Discharge: 05/11/18 - Primary Discharge Diagnosis Active and Suspected Problems Debility, Gait Disturbance, Generalized Weakness, Worsened L Lid Ptosis, Dysphagia, Pupillary Changes secondary to subacute ischemic infarcts involving both cerebellar peduncles, left greater than right and both red nuclei, left greater than right (MRA Head findings as noted, MRA Neck read pending upon transfer) New Tapered occlusion distal third basilar artery and occlusion both superior cerebellar arteries and both posterior cerebellar arteries Chronic occlusion of the right vertebral artery Acute Encephalopathy secondary to Acute UTI, Suspected Pyelonephritis Weakness, Fatigue Debility, Falls, Multifactorial, secondary to #1 and #2 Prior History of TIA/Possible CVA without deficits ongoing Diabetes mellitus type II w/ Hyperglycemia, Poorly Controlled w/ Non-compliance history (12.2%) Anxiety and Depression: Maintain on home Zoloft regimen. Hypertension Hyperlipidemia Migraines ? PAF/cardiac arrhythmia s/p remote ablation history - Secondary Discharge Diagnosis Chronic Problems IBS (irritable bowel syndrome) (Chronic) HLD (hyperlipidemia) (Chronic) Esophageal reflux (Chronic) Type II diabetes mellitus, uncontrolled (Chronic) Anxiety and depression (Chronic) Cerebrovascular disease (Chronic) Possible small ischemic strokes versus sequela of chronic migraine Migraine (Chronic) reports hole in heart since (Chronic) Benign essential HTN (Chronic) Hospital Course and Treatment Imaging Results: 05/11/18 09:27 Brain without Contrast [MRI] Stat MRA Head ONLY without Contrast [MRI] Stat MRA Neck WITH and W/O Contrast [MRI] Stat 05/11/18 09:32 Echo Complete [ECHO] Routine Discussed case w/ Dr. Red, Neurologist w/ review of case and imaging results. Recommended immediately transfer to [facility] which was performed. Operations: None Procedures: EKG Summary of Care Provided: The patient is a 58 y/o F w/ PMHx: ? PAF s/p ablation, CVA/TIA without deficits per her report, HTN, HLD, Migraines, Anxiety and Depression, GERD, IBS, Poorly controlled Diabetes Mellitus type II, Notable history of medication non- compliance who presented to the [facility] ED on 05/10/18 with history of ongoing malaise, fatigue and recent urinary tract infection diagnosis on 05/06/18 prescription given for Keflex however she did not feel this regimen and has had ongoing progressively worsening weakness, confusion as well as recent fall while walking in her kitchen on day of ED presentation with associated lightheadedness and dizziness noted to have hit her face with no loss of consciousness in addition to now reported worsened L lid ptosis, ongoing mild dysphia and gait instability. On day #1 patient was treated given presentation for Acute Encephalopathy secondary to Acute UTI, Suspected Pyelonephritis. ED evaluation with CT head with no acute findings, noted dense calcifications, left greater than right vertebral arteries. Admitted to [facility] upon ED evaluation remarkable, pending UCx, admission CBC w/ WBC 12.5 with L shift, continued on IVFs, monitored I/Os, continued IV Rocephin. Patient interactive and mental status improved overnight and in AM on 05/11/18 upon evaluation patient w/ changes in examination with flat facies L sided w/ notably increased L lid ptosis, mild pupillary changes with admission that she has notable dysphagia. These new symptoms with history of CVA and poorly controlled HTN, DM also not taking her medications concerning for CVA. She was immediately transferred to the PCU, Neurology consulted and work-up initiated w/ MRI brain, MRA head and neck w/ results prior to transfer including MRI brain and MRA Head including subacute ischemic infarcts involving both cerebellar peduncles, left greater than right and both red nuclei, left greater than right, new tapered occlusion distal third basilar artery and occlusion both superior cerebellar arteries and both posterior cerebellar arteries and noted chronic occlusion of the right vertebral artery. Upon these findings, Neurology immediately contacted again and reviewed case. Recommendation for immediately transfer to [facility] via auto-launch. [facility] contacted and accepted patient. VS remained stable and were frequently assessed prior to transfer. Patient placed on oxygen supplementation prophylactically. Patient remained alert and interactive w/ no worsened deficits prior to transfer. Prolonged care time: Additional evaluation time above initial 70 minute evaluation including additional repeat evaluations, attempts to discuss with family, re-discussions w/ patient and arrangement of transfer and discussion with multiple specialists: 70 addition minutes above initial. Home Medications: Medications to take at Discharge Amlodipine [Norvasc] 5 mg PO DAILY 01/01/15 Atorvastatin Calcium [Lipitor] 80 mg PO QHS 01/01/15 Insulin Detemir [Levemir FlexPen] 50 units SC BID 05/08/15 Lisinopril [Zestril] 20 mg PO DAILY 01/01/15 Ergocalciferol [Vitamin D] 50,000 unit PO Q7D 11/24/15 Clopidogrel Bisulfate [Plavix] 75 mg PO DAILY #30 tablet 11/26/15 Sertraline HCl [Zoloft] 100 mg PO DAILY 05/10/18 Primary Care Physician: Love Barajas [Primary Care Provider] - Disposition: Acute care Hospital Minutes spent on discharge:: 70 Patient Condition:: Critical Medical Necessity - Tobacco Use Smoking Status: Never smoker Tobacco Use: Secondhand Meaningful Use Info Meaningful Use Diagnoses (Choose all that apply): Ischemic CVA - CVA Therapy Assessed for PT,OT and/or ST?: Yes - Ischemic Stroke Antithrombotic order at d/c?: Yes Dx of Atrial fib/flutter?: No Anticoagulant at discharge?: No Reason anticoagulant not ordered: Treatment not Indicated Statins at discharge?: Yes Primary Dx Acute Ischemic CVA?: Yes IV tPA ordered during stay?: No Reason IV t-PA not ordered: Medical Contraindication Code Visit Inpatient E&M: 97005 Disch Hosp Procedures: 85669 Prolonged InPt Service; first hour
--- NOTE | 2018-05-11 12:28 | NURSING ---
called report to RN @ , [facility], #[phone]
--- NOTE | 2018-05-11 12:55 | NURSING ---
[facility] here for patient. report given to [facility] FLOORPERSON & Nurses. MD in room with patient. Assisted to cot. Pt A&O x3.
== END 2018-05-11 12:58 | disposition short-term general hospital (02) | DRG 64 ==
LOC: ED 17:02 → MS3 17:17 → PCU 05-13 08:20
PROVIDERS: Admitting Provider Family Medicine; Emergency Provider Emergency Medicine; Visit Provider Family Medicine
DX: I63.9 Cerebral infarction, unspecified (principal); G93.40 Encephalopathy, unspecified; N12 Tubulo-interstitial nephritis, not specified as acute or chronic; E11.65 Type 2 diabetes mellitus with hyperglycemia; I10 Essential (primary) hypertension; E78.5 Hyperlipidemia, unspecified; Z86.73 Personal history of transient ischemic attack (TIA), and cerebral infarction without residual deficits; Z79.4 Long term (current) use of insulin; K21.9 Gastro-esophageal reflux disease without esophagitis; R13.10 Dysphagia, unspecified; H02.402 Unspecified ptosis of left eyelid; R26.9 Unspecified abnormalities of gait and mobility; R53.1 Weakness; F41.9 Anxiety disorder, unspecified; F32.9 Major depressive disorder, single episode, unspecified; I65.01 Occlusion and stenosis of right vertebral artery; I65.1 Occlusion and stenosis of basilar artery; I66.3 Occlusion and stenosis of cerebellar arteries; K58.9 Irritable bowel syndrome, unspecified
CPT/HCPCS: 36415; 70450; 70544; 70549; 70551; 80048; 80053; 80307; 81001; 82009; 82962; 83036; 83605; 83690; 83735; 84443; 84484; 85025; 87040; 93005; 97162; 97166; 99285; A9585; J7030; J7050; P9612; A4216; J2405

== ENCOUNTER 2018-05-17 22:16 | Emergency (ER) | payer MEDICARE, SELFPAY ==
[2018-05-17 22:17] VITALS: BP 155/93; PULSE 103; RESP 18; TEMP 37.8; O2SAT 99; BMI 29.7
--- NOTE | 2018-05-17 23:08 | ED.DCSUM_ITS ---
- ER Visit Summary Date of Service: 05/17/18 Chief Complaint: [] Feeding tube blocked History of Present Illness: The patient is a 58 F she recently was admitted to the hospital and had a stroke which left her with left-sided almost complete paralysis. She was discharged from [place] to [facility]. She was discharged to the assisted just today. Earlier today prior to discharge they placed a small nasogastric tube to supplement her feeds. She stated she is eating but was not eating enough. She stated that the small tube got blocked at the assisted and they sent her in. She denies any other complaints. She was recently treated for urinary tract infection with intravenous antibiotics while she was admitted to [place]. She is not on oral antibiotics currently. Physical Examination: [] Vital signs reviewed General: Well-nourished well-developed Head: Normocephalic atraumatic Eyes: Pupils equal round and reactive to light extraocular movements intact left -sided ptosis secondary to her previous stroke ENT: TMs clear no hemotympanum no trauma Neck: Nontender full range of motion Cardiovascular: Regular rate rhythm normal S1-S2 Respiratory: No distress clear to auscultation bilaterally chest nontender Abdomen: Soft nontender nondistended normal bowel sounds no masses Back: Nontender no CVA tenderness Extremities: Nontender weakness left side secondary to her stroke Skin: Normal color no trauma Neuro alert oriented left-sided paralysis with mild left facial droop which is chronic from her stroke Test Results: [] Emergency Department Course and Treatment: [] Patient given Tylenol and IV fluids. Attempt was made to flush her feeding tube. It is a Dobbhoff that we were unable to get to work again. She is only using this for supplemental feeding. She is tolerating orally therefore it can be changed as needed on Sunday as it cannot be done this weekend. Lab work obtained after straight cath. Lab work shows greater than 100 white blood cells and turbid urine. No bacteria seen on Aaron. Urine culture sent. White count 11.2 but down from 14.1. Potassium 3.4. Patient given a dose of ceftriaxone. [place] better after treatment. At this time I feel her urinary tract infection is likely group B strep again. This is what it was in the hospital here pansensitive. I discussed with the hospitalist Dr. Velasquez as well as Dr. Maier who is taking care of her at the assisted. At this time I do not think she needs to be admitted. She will be discharged with antibiotics ciprofloxacin. They will work on changing her Dobbhoff as an outpatient Treatment Plan: [] Disposition: [] Impression: [] Dobbhoff clogged Urinary tract infection with fever This note was generated with SOAK ([employer]) dictation software. It may contain incorrect words, spelling, and punctuation that were not noted in review of the chart prior to signing ED Disposition - Plan for ED Patient: Chief Complaint: Fever Referrals: Love Barajas [Primary Care Provider] -
[2018-05-17] MEDS: 0.9% Normal Saline 1,000 ML 150 ML IV (23:20)
[2018-05-17] MEDS: Acetaminophen 160 MG/5 ML UDC 650 MG PO (23:20)
[2018-05-17 23:27] LABS: Absolute Lymphocyte Count 2.49 X10^3/ul (0.83-4.51); Absolute Neutrophil Count 8.1 X10^3/uL (2.0-7.7); Anion Gap 11 (5-15); BUN 15 mg/dL (7-18); BUN/Creat Ratio 24.5 RATIO (10-20); Basophil# 0.03 X10^3/uL; Basophil% 0.3 % (0-1); Calcium,Total 8.8 mg/dL (8.5-10.1); Chloride 110 mmol/L (98-107); Creatinine, Serum 0.61 mg/dL (0.55-1.02); EST Glomerular Filtration Rate 106 mL/min (>60); Eosinophil# 0.06 X10^3/uL; Eosinophils% 0.5 % (0-5); Est Glom Filt Rate - Afr Amer 129 mL/min (>60); Estimated Creatinine Clearance 74.93 ml/min; Glucose 153 mg/dL (74-106); Hematocrit 36.4 % (37-47); Hemoglobin 11.8 g/dl (12.0-15.0); Lymphocyte # 2.49 X10^3/ul (4.0); Lymphocyte % 22.2 % (19-41); Mean Corp Hgb Conc 32.4 g/gl (32-36); Mean Corpuscular Hgb 28.9 pg (27.0-32.0); Mean Platelet Vol. 10.9 fl (6.2-12.0); Monocyte% 4.5 % (0-10); Neutrophil # 8.09 X10^3/uL (2.7-7.7); Neutrophil % 72.1 % (47-70); Platelet Count 255 K/mm3 (150-450); Potassium 3.4 mmol/L (3.5-5.1); RBC Distribution Width CV 14.2 % (11.6-14.6); RBC Distribution Width SD 45.4 fl (35.1-43.9); Red Blood Count 4.09 M/mm3 (4.2-5.4); Sodium Level 143 mmol/L (136-145); White Blood Count 11.2 K/mm3 (4.4-11.0)
[2018-05-17 23:35] LABS: POSITIVE COUNT NO; POSITIVE DIFFERENTIAL NO; POSITIVE MORPHOLOGY NO
[2018-05-17 23:37] VITALS: BP 171/95; PULSE 103; RESP 21
[2018-05-18 00:03] VITALS: BP 146/93; PULSE 96; RESP 19; O2SAT 96
[2018-05-18 00:05] LABS: Bacteria 0 SEEN /hpf (None Seen); Mucous, Urine 0 SEEN /hpf (<or=2+); Red Blood Cells-Urine 0 SEEN /hpf (0-5); Squamous Epithelial Cells - UA 0 SEEN /hpf (5-10)
[2018-05-18 00:07] LABS: Color, Urine Yellow (Yellow); Glucose, Dipstick Normal (Normal); Ketone-Dipstick 15 mg/dl (Negative); Leukocyte Esterase-Dipstick 500 /ul (Negative); Nitrite-Dipstick Negative (Negative); Occult Blood-Urine 50 /ul (Negative); Protein-Dipstick 100 mg/dl (Negative); Specific Gravity, Urine 1.025 (1.002-1.030); Urine Bilirubin Dipstick Negative (Negative); Urine Clarity Turbid (Clear); Urine Urobilinogen Normal (Normal)
[2018-05-18 00:18] VITALS: TEMP 36.9
[2018-05-18 00:19] LABS: White Blood Cells >100 SEEN /hpf (0-5)
[2018-05-18] MEDS: Ceftriaxone 1 GM/50 ML BAG IV (00:55)
[2018-05-18 01:00] VITALS: BP 169/96; PULSE 93; RESP 17; O2SAT 97
--- NOTE | 2018-05-18 01:25 | ED.DEP ---
ED Disposition - Plan for ED Patient: Disposition: Home or Assisted Living Chief Complaint: Fever Instructions: Understanding Urinary Tract Infections (UTIs) Prescriptions: Ciprofloxacin [Cipro] 500 mg PO BID #14 tab Referrals: Sergio Dean MD [STAFF PHYSICIAN] - Aranza Loza MD [STAFF PHYSICIAN] - Additional Instructions: Please follow-up with Dr. Loza on Sunday to evaluate your feeding tube
[2018-05-18 01:53] VITALS: BP 157/80; PULSE 97; RESP 19; O2SAT 95
--- NOTE | 2018-05-18 01:54 | ED.RN ---
REPORT CALLED TO [facility]
== END 2018-05-18 01:57 | disposition home or self-care (01) ==
PROVIDERS: Emergency Provider Emergency Medicine
DX: K94.23 Gastrostomy malfunction (principal); N39.0 Urinary tract infection, site not specified; B96.89 Other specified bacterial agents as the cause of diseases classified elsewhere; I69.364 Other paralytic syndrome following cerebral infarction affecting left non-dominant side; I10 Essential (primary) hypertension; E11.9 Type 2 diabetes mellitus without complications; E78.00 Pure hypercholesterolemia, unspecified; Z79.4 Long term (current) use of insulin; Z79.82 Long term (current) use of aspirin; Z79.01 Long term (current) use of anticoagulants; Z79.899 Other long term (current) drug therapy
CPT/HCPCS: 80048; 81001; 85025; 87086; 87088; 96365; 99285; J7030; P9612; A4216

== ENCOUNTER 2018-06-05 09:20 | Day surgery (SDC) | payer MEDICARE, SELFPAY ==
[2018-06-05 09:51] VITALS: BP 120/75; PULSE 103; RESP 14; TEMP 37.3; O2SAT 96; BMI 27.8
[2018-06-05 10:16] LABS: Bedside Glucose 222 mg/dL (70-110)
--- NOTE | 2018-06-05 11:42 | PCM.OPRPT ---
Report of Operation Date of Procedure: 06/05/18 Pre-Operative Diagnosis: failure to thrive, poor oral intake s/p CVA Post-Operative Diagnosis: same as above Surgery/Procedure Performed:: placement of percutaneous gastrostomy tube (PEG) Description of Surgical Findings:: no ulcers or masses seen in the stomach or duodenum Type of Anesthesia:: Local MAC Anesthesiologist: Mesfin Kimbrough Specimen's removed: none Estimated Blood Loss (mL): minimal Fluids Replaced: see anesthesia note Description of Procedure: After informed consent was given, the patient was brought to the endoscopy suite. Appropriate time out protocol was followed. Appropriate blood pressure and pulse oximetry and cardiac lead monitoring was placed. The patient was placed in the slightly recumbent position. After stable vital signs were noted, the posterior pharynx was sprayed x2 with xylocaine spray. The patient was then given IV conscious sedation. A bite block was placed. The upper endoscope was carefully lubricated and inserted into the patient?s mouth. The patient was asked to swallow and the endoscopy was easily passed into the patient?s esophagus. It was then advanced past the GE junction into the stomach. The stomach was maximally insufflated with gas. A point was chosen at the left upper quadrant of the abdominal wall for placement of the gastrostomy tube. It was confirmed by indentation within the stomach as visualized under endoscopy and transillumination through the abdominal wall. The skin of the abdominal wall was the cleansed with a sterile surgical skin preparation and sterile surgical drapes were placed. The skin and subcutaneous tissues at the proposed tube site were then infiltrated with 1% xylocaine. An angiocath was then inserted through the abdominal wall and into the stomach, visualized directly via the endoscope. The blue wire was then threaded into the angiocath and thus into the stomach lumen. The grasper loop device was then inserted into the biopsy port of the endoscope and was then used to grasp the blue loop from within the lumen of the stomach. The endoscope was then retracted back, bringing the blue loop out through the patient?s mouth. The blue loop was then attached to the gastrostomy tube according to extension service advisor?s guidelines. A small skin greer was made at the blue loop entrance site through the abdominal wall. The blue loop was then pulled through the abdominal wall, thus bringing the gastrostomy tube through the patient?s mouth and then into the stomach and then a portion out through the stomach and abdominal wall. The internal flange was seated flush with the mucosa and this was visualized endoscopically. The endoscope was advanced through the pylorus and into the duodenal bulb and then into the second portion of the duodenum. No lesions were noted. The endoscope was retracted back into the stomach and the flange was once again noted to be in proper position. Retroflex view into the fundus and body of the stomach revealed no suspicious lesions and no ulcers were noted. The endoscope was then retracted back into the esophagus. The esophagus appeared normal and the endoscope was removed completely intact. The gastrostomy tube was exiting out of the abdominal wall at the level ?2.5? with the skin. The external flange was then placed on the gastrostomy tube and its distal aspect was positioned at level ?3?. Triple antibiotic ointment was then placed around the skin opening and sterile dressing was applied around the gastrostomy tube. The patient was brought to Recovery Room in stable condition. - Complications none noted
--- NOTE | 2018-06-05 11:46 | PCM.HP.BLA ---
History and Physical Date of Admission: 06/05/18 Chief Complaint: failure to thrive, poor oral intake after CVA History of Present Illness: 58 y/o WF s/p CVA with poor oral intake after CVA and her primary care provider, Sammi Reeves has requested placement of PEG. Patient requires thickened feeds. She is a resident of a prison. The nurses state that the patient has poor po intake. Past Medical History: hypertension diabetes esophageal reflux anxiety/depressive disorder chronic migraine headaches Past Surgical History: tubes tied, cardiac ablation, tonsillectomy Medications: amlodipine atorvastatin insulin lisinopril vitamin D plavix aspirin zoloft Allergies: codeine pork derived products Social history: TOB use denies resident of prison Review of Systems Constitutional: Reports: Fever, Anorexia, Malaise, Weakness, Fatigue. Denies: Chills HEENT: Denies: Head Aches, Sinus Congestion, Sinus Drainage Cardiovascular: Denies: Chest Pain, Palpitations Respiratory: Denies: Cough, Shortness of breath at rest, Sputum production Gastrointestinal: Reports: Abdominal Pain, Nausea. Denies: Vomiting Genitourinary: Reports: Dysuria, Hesitancy, Retention Musculoskeletal: Reports: Back Pain. Denies: Joint Pain, Joint Tenderness Skin: Denies: Rash, Wounds Neurological: Reports: Confusion. Denies: Focal weakness, Numbness, Tingling Psychiatric: Reports: Anxiety, Depression. Denies: Homicidal Ideations, Suicidal Ideations Hematologic/ Lymphatic: Denies: Easy Bruising, Easy Bleeding Physical examination: Vital signs Temp 98.1F RR 16 BP 120/82 HR 78 General WD/WN WF in no apparent distress, alert and oriented, not septic appearing HEENT Normocephalic. EOM intact with sclera clear and no icterus noted. Neck is supple with no jugular venous distention noted. Trachea is midline. Lungs normal breath sounds. No rales/rhonchi/wheezing noted. No labored breathing noted, such as retractions. No cough heard. Heart normal S1 and S2 auscultated. No rubs/clicks/murmurs noted. Normal size and location by auscultation. Abdomen soft and benign. Normal bowel sounds Extremities no calf tenderness noted. Genitourinary/Rectal deferred Skin normal skin integrity. Neurological awake and alert, pupils equal and reactive, moves all 4 extremities - some weakness noted - but is more general than focal. Psychological flat affect, patient is appropriate Impression: failure to thrive poor po intake s/p CVA Discussion/Plan: I have discussed the above with the patient. I have offered placement of PEG. Patient is resident of a prison, attempted at Dob[place] tube feedings was unsuccesful. Patient also with poor motivation to take in adequate oral feeds. Will therefore place PEG. I have counseled the patient as to the risks of the procedure, including but not limited to: infection, bleeding, injury to any blood vessels/nerves, scar tissue, perforation of the GI tract, injury to any intraabdominal organs, njury to bowel/bladder, inability to complete the procedure, complications of anesthesia, postoperative pneumonia/cardiac problems/blood clots etc. the patient understands. She agrees to proceed. I have answered all questions to the patient?s satisfaction and the patient has no further questions.
[2018-06-05 11:49] VITALS: BP 108/65; BP 120/75; PULSE 105; RESP 16; TEMP 36.7; O2SAT 93
[2018-06-05 11:55] VITALS: BP 105/75; BP 120/75; PULSE 103; RESP 16; RESP 18; O2SAT 93; O2SAT 94
[2018-06-05 12:00] VITALS: BP 109/78; BP 120/75; PULSE 105; RESP 16; O2SAT 93
--- NOTE | 2018-06-05 12:04 | HP.PCM_ITS ---
History and Physical Date of Admission: 06/05/18 Chief Complaint: failure to thrive, poor oral intake after CVA History of Present Illness: 58 y/o WF s/p CVA with poor oral intake after CVA and her primary care provider, Sammi Reeves has requested placement of PEG. Patient requires thickened feeds. She is a resident of a half-way. The nurses state that the patient has poor po intake. Past Medical History: hypertension diabetes esophageal reflux anxiety/depressive disorder chronic migraine headaches Past Surgical History: tubes tied, cardiac ablation, tonsillectomy Medications: amlodipine atorvastatin insulin lisinopril vitamin D plavix aspirin zoloft Allergies: codeine pork derived products Social history: TOB use denies resident of half-way Review of Systems Constitutional: Reports: Fever, Anorexia, Malaise, Weakness, Fatigue. Denies: Chills HEENT: Denies: Head Aches, Sinus Congestion, Sinus Drainage Cardiovascular: Denies: Chest Pain, Palpitations Respiratory: Denies: Cough, Shortness of breath at rest, Sputum production Gastrointestinal: Reports: Abdominal Pain, Nausea. Denies: Vomiting Genitourinary: Reports: Dysuria, Hesitancy, Retention Musculoskeletal: Reports: Back Pain. Denies: Joint Pain, Joint Tenderness Skin: Denies: Rash, Wounds Neurological: Reports: Confusion. Denies: Focal weakness, Numbness, Tingling Psychiatric: Reports: Anxiety, Depression. Denies: Homicidal Ideations, Suicidal Ideations Hematologic/ Lymphatic: Denies: Easy Bruising, Easy Bleeding Physical examination: Vital signs Temp 98.1F RR 16 BP 120/82 HR 78 General WD/WN WF in no apparent distress, alert and oriented, not septic appearing HEENT Normocephalic. EOM intact with sclera clear and no icterus noted. Neck is supple with no jugular venous distention noted. Trachea is midline. Lungs normal breath sounds. No rales/rhonchi/wheezing noted. No labored breathing noted, such as retractions. No cough heard. Heart normal S1 and S2 auscultated. No rubs/clicks/murmurs noted. Normal size and location by auscultation. Abdomen soft and benign. Normal bowel sounds Extremities no calf tenderness noted. Genitourinary/Rectal deferred Skin normal skin integrity. Neurological awake and alert, pupils equal and reactive, moves all 4 extremities - some weakness noted - but is more general than focal. Psychological flat affect, patient is appropriate Impression: failure to thrive poor po intake s/p CVA Discussion/Plan: I have discussed the above with the patient. I have offered placement of PEG. Patient is resident of a half-way, attempted at [facility] tube feedings was unsuccesful. Patient also with poor motivation to take in adequate oral feeds. Will therefore place PEG. I have counseled the patient as to the risks of the procedure, including but not limited to: infection, bleeding, injury to any blood vessels/nerves, scar tissue, perforation of the GI tract, injury to any intraabdominal organs, njury to bowel/bladder, inability to complete the procedure, complications of anesthesia, postoperative pneumonia/cardiac problems/blood clots etc. the patient understands. She agrees to proceed. I have answered all questions to the patient?s satisfaction and the patient has no further questions.
[2018-06-05 12:05] VITALS: BP 120/75; BP 123/72; PULSE 105; RESP 16; TEMP 36.9; O2SAT 94
[2018-06-05 12:28] VITALS: BP 120/75
== END 2018-06-05 12:52 | disposition home or self-care (01) ==
LOC: EN 09:22 → AC 09:25
PROVIDERS: Referring Provider Surgery; Visit Provider Surgery
PROC: 0DJ08ZZ Inspection of Upper Intestinal Tract, Via Natural or Artificial Opening Endoscopic (ICD-10-PCS; CPT 43235; principal; 2018-06-05 10:55)
DX: I69.321 Dysphasia following cerebral infarction (principal); I69.354 Hemiplegia and hemiparesis following cerebral infarction affecting left non-dominant side; R62.7 Adult failure to thrive; I10 Essential (primary) hypertension; I48.91 Unspecified atrial fibrillation; E78.00 Pure hypercholesterolemia, unspecified; E11.9 Type 2 diabetes mellitus without complications; F32.9 Major depressive disorder, single episode, unspecified; F41.9 Anxiety disorder, unspecified; Z79.4 Long term (current) use of insulin; Z79.82 Long term (current) use of aspirin; Z79.01 Long term (current) use of anticoagulants; Z79.899 Other long term (current) drug therapy
CPT/HCPCS: 43246; 82962; J7120; A4216

== ENCOUNTER 2018-06-16 11:07 | Emergency (ER) | payer MEDICARE, SELFPAY ==
[2018-06-16 11:07] VITALS: BP 134/80; PULSE 93; RESP 15; TEMP 36.7; O2SAT 95; BMI 28.5
--- NOTE | 2018-06-16 11:48 | CT_ITS ---
STUDY: CT ABDOMEN AND PELVIS WITHOUT CONTRAST REASON FOR EXAM: Female, 58 years old. Abdominal pain, nausea and vomiting RADIATION DOSAGE (If Supplied By Facility): CTDIvol = ( 8.16 ) mGy, DLP = ( 450.79 ) mGycm TECHNIQUE: Transaxial images were obtained from the dome of the diaphragm to the symphysis pubis without oral contrast, and without intravenous contrast. Sagittal and coronal images were reconstructed. Individualized dose optimization techniques were used for this CT. COMPARISON: None. FINDINGS: The visualized lung bases are unremarkable. Mild cardiomegaly Normal liver. Prominent distention of the gallbladder. Several gallstones are noted near the gallbladder neck. No evidence of wall thickening. Normal spleen. Normal pancreas. Normal bilateral adrenal glands. Normal right kidney. Normal left kidney. There is a small hiatal hernia. Normal small intestine. There are multiple colonic diverticula consistent with diverticulosis. Fecal retention throughout the colon. There is non-visualization of the appendix. There is diffuse atherosclerotic calcification of the abdominal aorta, without a demonstrated aneurysm. Normal inferior vena cava. Normal retroperitoneum. Prominent distention of the urinary bladder. There is atrophy of the uterus. Normal abdominal wall. There are diffuse degenerative changes of the visualized lumbar spine. CT/Abdomen/Pelvis without Cont IMPRESSION: Prominent distention of the gallbladder with several stones. No evidence of wall thickening. Prominent distention of the urinary bladder. Fecal retention throughout the colon Electronically Signed: Nicanor Culver DO at 13:24 EDT Tel , Service support ,
[2018-06-16] MEDS: 0.9% Normal Saline 1,000 ML 1000 ML IV (12:04)
[2018-06-16] MEDS: Morphine 4 MG/ML Syringe IV (12:04)
[2018-06-16 12:40] LABS: Absolute Lymphocyte Count 2.19 X10^3/ul (0.83-4.51); Absolute Neutrophil Count 8.5 X10^3/uL (2.0-7.7); Basophil# 0.03 X10^3/uL; Basophil% 0.3 % (0-1); Eosinophil# 0.09 X10^3/uL; Eosinophils% 0.8 % (0-5); Hematocrit 30.3 % (37-47); Hemoglobin 9.8 g/dl (12.0-15.0); Lymphocyte # 2.19 X10^3/ul (4.0); Lymphocyte % 18.9 % (19-41); Mean Corp Hgb Conc 32.3 g/gl (32-36); Mean Corpuscular Hgb 29.2 pg (27.0-32.0); Mean Corpuscular Volume 90.2 fL (81-99); Mean Platelet Vol. 10.4 fl (6.2-12.0); Monocyte# 0.63 X10^3/uL; Monocyte% 5.4 % (0-10); Neutrophil # 8.54 X10^3/uL (2.7-7.7); Neutrophil % 73.6 % (47-70); POSITIVE COUNT NO; POSITIVE DIFFERENTIAL NO; POSITIVE MORPHOLOGY NO; Platelet Count 264 K/mm3 (150-450); RBC Distribution Width CV 15.4 % (11.6-14.6); RBC Distribution Width SD 46.1 fl (35.1-43.9); Red Blood Count 3.36 M/mm3 (4.2-5.4); White Blood Count 11.6 K/mm3 (4.4-11.0)
[2018-06-16 12:48] LABS: Bacteria 0 SEEN /hpf (None Seen); Mucous, Urine 0 SEEN /hpf (<or=2+); Red Blood Cells-Urine 0 SEEN /hpf (0-5); Squamous Epithelial Cells - UA 0 SEEN /hpf (5-10)
[2018-06-16 12:50] LABS: Color, Urine Yellow (Yellow); Glucose, Dipstick Normal (Normal); Ketone-Dipstick Negative (Negative); Leukocyte Esterase-Dipstick 500 /ul (Negative); Nitrite-Dipstick Negative (Negative); Occult Blood-Urine 25 /ul (Negative); Protein-Dipstick 15 mg/dl (Negative); Specific Gravity, Urine 1.005 (1.002-1.030); Urine Bilirubin Dipstick Negative (Negative); Urine Clarity Sl. Cloudy (Clear); Urine Urobilinogen Normal (Normal)
[2018-06-16 12:51] LABS: AST(SGOT) 18 U/L (15-37); Alanine Aminotransfer ALT/SGPT 24 U/L (13-56); Albumin, Serum 2.9 g/dL (3.2-5.0); Alkaline Phosphatase 103 U/L (45-117); Anion Gap 7 (5-15); BUN 28 mg/dL (7-18); BUN/Creat Ratio 48.4 RATIO (10-20); Bilirubin, Direct 0.13 mg/dL (0.00-0.30); Calcium,Total 8.4 mg/dL (8.5-10.1); Chloride 105 mmol/L (98-107); Creatinine, Serum 0.58 mg/dL (0.55-1.02); EST Glomerular Filtration Rate 113 mL/min (>60); Est Glom Filt Rate - Afr Amer 137 mL/min (>60); Estimated Creatinine Clearance 78.81 ml/min; Glucose 130 mg/dL (74-106); Lipase 293 U/L (73-393); Potassium 4.2 mmol/L (3.5-5.1); Protein, Total 6.9 g/dL (6.4-8.2); Sodium Level 138 mmol/L (136-145)
[2018-06-16 12:59] LABS: White Blood Cells 50-100 SEEN /hpf (0-5)
[2018-06-16 13:07] VITALS: BP 127/87; PULSE 99; RESP 16; O2SAT 98
--- NOTE | 2018-06-16 13:24 | ED.VISSUMM ---
- ER Visit Summary Date of Service: 06/16/18 Chief Complaint: Abdominal pain History of Present Illness: The patient is a 58 F who goes to the [facility]. Currently she is a residential and is [facility]. She reports that she has lower abdominal pain that began 2 days ago. Is gradually gotten worse. Is a dull pain that is 10 at 10 hours and 4-10 currently. Is worsened by movement and enema. Is relieved by pain medicine. She has had nausea without vomiting. Her last bowel was 2 days ago. Typically she goes once a week. She has had frequent urination, but no dysuria or hematuria. Patient has a complicated recent past medical history which includes a stroke in April that she was an inpatient at [facility]. She actually had a PEG tube placed August [address] Costello here. She denies ever having had a Wise catheter placed throughout this. Patient denies any fever, chills, sore throat, cough, chest pain, shortness of breath, headache, or other complaints. Physical Examination: Vitals: Stable. Afebrile. General: Well-nourished and well-developed. Head: Normocephalic atraumatic. Neck: Supple, no lymphadenopathy. No JVD. Nontender. Cardiovascular: Regular rate and rhythm. No murmurs. Respiratory: No respiratory distress. Clear to auscultation bilaterally. Abdominal: Soft, moderate suprapubic and left lower quadrant tenderness to palpation, nondistended, normal bowel sounds. No guarding, rebound, or peritoneal signs. Back: Nontender. Extremities: Nontender, no edema. Skin: Normal color, no rash. Neurologic: Alert and oriented ?3. Cranial nerves II through XII are intact. Normal strength and sensation. Psych: Normal affect. Test Results: CBC is remarkable for a white count of 11.6 with 74 segmented neutrophils and 19 lymphocytes. H&H is 9.8 and 30.3. Chem-7 is more for BUN of 28 and calcium of 8.4. LFTs marked for an albumin of 2.9. Lipase normal. UA has blood and 50-100 white blood cells with no bacteria. Clinical Impression(s) from Imaging Studies Abdomen/Pelvis CT 06/16/18 11:48 IMPRESSION: Prominent distention of the gallbladder with several stones. No evidence of wall thickening. Prominent distention of the urinary bladder. Fecal retention throughout the colon Electronically Signed: Nicanor Culver DO at 13:24 EDT Tel , Service support , Emergency Department Course and Treatment: I reviewed the patient's most recent urine culture May 17 which showed greater than 100 white blood cells on her urinalysis. The culture grew yeast with greater than 100,000 colony-forming units. At that time patient was given Rocephin and Cipro. Patient had her urine sent for culture again. She was given Diflucan here. She is also given a soapsuds enema with return of soft stool. Treatment Plan: Patient was discussed with Dr. Cadet. She will be discharged on Diflucan 200 mg p.o. daily times 14 days. Also given a prescription for magnesium citrate for them to give through her PEG tube at the residential. Return to the emergency department for any worsening symptoms. Disposition: To home in improved and stable condition. Impression: 1. Constipation. 2. Candidal UTI. This note was generated with [employer] dictation software. It may contain incorrect words, spelling, and punctuation that were not noted in review of the chart prior to signing ED Disposition - Plan for ED Patient: Chief Complaint: Abd Pain Instructions: ED Constipation Prescriptions: Fluconazole [Diflucan] 200 mg PO DAILY #14 tablet Magnesium Citrate [Citrate Of Magnesia] 300 ml PO X1 #1 bottle Referrals: Yair Yañez,Love Barajas [Primary Care Provider] - Additional Instructions: There is yeast growing in your urine. Take diflucan as prescribed for this.
--- NOTE | 2018-06-16 13:31 | ED.DCSUM_ITS ---
- ER Visit Summary Date of Service: 06/16/18 Chief Complaint: Abdominal pain History of Present Illness: The patient is a 58 F who goes to the [facility]. Currently she is a [place] [facility] and is Helio. She reports that she has lower abdominal pain that began 2 days ago. Is gradually gotten w orse. Is a dull pain that is 10 at 10 hours and 4-10 currently. Is worsened by movement and enema. Is relieved by pain medicine. She has had nausea without vomiting. Her last bowel was 2 days ago. Typically she goes once a week. She has had frequent urination, but no dysuria or hematuria. Patient has a complicated recent past medical history which includes a stroke in April that she was an inpatient at [facility] for. She actually had a PEG tube placed August [address] Costello here. She denies ever having had a Wise catheter placed throughout this. Patient denies any fever, chills, sore throat, cough, chest pain, shortness of breath, headache, or other complaints. Physical Examination: Vitals: Stable. Afebrile. General: Well-nourished and well-developed. Head: Normocephalic atraumatic. Neck: Supple, no lymphadenopathy. No JVD. Nontender. Cardiovascular: Regular rate and rhythm. No murmurs. Respiratory: No respiratory distress. Clear to auscultation bilaterally. Abdominal: Soft, moderate suprapubic and left lower quadrant tenderness to palpation, nondistended, normal bowel sounds. No guarding, rebound, or peritoneal signs. Back: Nontender. Extremities: Nontender, no edema. Skin: Normal color, no rash. Neurologic: Alert and oriented ?3. Cranial nerves II through XII are intact. Normal strength and sensation. Psych: Normal affect. Test Results: CBC is remarkable for a white count of 11.6 with 74 segmented neutrophils and 19 lymphocytes. H&H is 9.8 and 30.3. Chem-7 is more for BUN of 28 and calcium of 8.4. LFTs marked for an albumin of 2.9. Lipase normal. UA has blood and 50-100 white blood cells with no bacteria. Clinical Impression(s) from Imaging Studies Abdomen/Pelvis CT 06/16/18 11:48 IMPRESSION: Prominent distention of the gallbladder with several stones. No evidence of wall thickening. Prominent distention of the urinary bladder. Fecal retention throughout the colon Electronically Signed: Nicanor Culver DO at 13:24 EDT Tel , Service support , Emergency Department Course and Treatment: I reviewed the patient's most recent urine culture May 17 which showed greater than 100 white blood cells on her urinalysis. The culture grew yeast with greater than 100,000 colony-forming units. At that time patient was given Rocephin and Cipro. Patient had her urine sent for culture again. She was given Diflucan here. She is also given a soapsuds enema with return of soft stool. Treatment Plan: Patient was discussed with Dr. Cadet. She will be discharged on Diflucan 200 mg p.o. daily times 14 days. Also given a prescription for magnesium citrate for them to give through her PEG tube at the [place] [facility]. Return to the emergency department for any worsening symptoms. Disposition: To home in improved and stable condition. Impression: 1. Constipation. 2. Candidal UTI. This note was generated with [employer] dictation software. It may contain incorrect words, spelling, and punctuation that were not noted in review of the chart prior to signing ED Disposition - Plan for ED Patient: Chief Complaint: Abd Pain Instructions: ED Constipation Prescriptions: Fluconazole [Diflucan] 200 mg PO DAILY #14 tablet Magnesium Citrate [Citrate Of Magnesia] 300 ml PO X1 #1 bottle Referrals: [facility] Pari,Love Barajas [Primary Care Provider] - Additional Instructions: There is yeast growing in your urine. Take diflucan as prescribed for this.
[2018-06-16] MEDS: Fluconazole 100 MG Tablet 200 MG PO (14:23)
[2018-06-16 15:00] VITALS: BP 140/77; PULSE 99; RESP 16; O2SAT 100
[2018-06-16 15:14] VITALS: BP 144/70; PULSE 101; RESP 16; O2SAT 95
--- NOTE | 2018-06-16 15:22 | ED.RN ---
CALLED [facility] AND SPOKE TO JUANCARLOS AND GAVE REPORT. PT WILL BE RETURNING VIA [facility].
== END 2018-06-16 16:07 | disposition skilled nursing facility (03) ==
PROVIDERS: Emergency Provider Emergency Medicine
DX: K59.00 Constipation, unspecified (principal); B37.49 Other urogenital candidiasis; Z86.73 Personal history of transient ischemic attack (TIA), and cerebral infarction without residual deficits; I10 Essential (primary) hypertension; E10.9 Type 1 diabetes mellitus without complications; Z79.4 Long term (current) use of insulin; Z79.899 Other long term (current) drug therapy
CPT/HCPCS: 74176; 80048; 80076; 81001; 83690; 85025; 96361; 96374; 99285; J7030; A4216

== ENCOUNTER 2018-09-10 18:56 | Inpatient (IN) | payer MEDICARE, MEDICAID, SELFPAY ==
[2018-09-10] VITALS (8 sets, daily range): BP systolic 178–222; BP diastolic 97–129; PULSE 103–111; RESP 16–20; TEMP 36.5–37.5; O2SAT 97–98; BMI 25.7; BMI 26.1
--- NOTE | 2018-09-10 19:04 | CT_ITS ---
STUDY: CT BRAIN WITHOUT CONTRAST REASON FOR EXAM: Female, 58 years old. Confusion, headache. RADIATION DOSAGE (If Supplied By Facility): CTDIvol = ( 44.99 ) mGy, DLP = ( 745.49 ) mGycm TECHNIQUE: Transaxial CT imaging of the brain was performed without administration of intravenous contrast material. Individualized dose optimization techniques were used for this CT. COMPARISON: 05/10/2018. FINDINGS: Normal soft tissue structures. Normal calvarium. There is mild cerebral atrophy with widening of the extra-axial spaces and ventricular dilatation. Normal white matter tracts of the cerebral hemispheres. Normal basal ganglia and thalami. Normal brainstem. Normal cerebellum. There is no intracranial hemorrhage. There are no findings of an acute ischemic infarction. There is atherosclerotic calcification of the cavernous internal carotid arteries bilaterally and the left vertebral artery. Normal visualized paranasal sinuses. CT/Brain/Head without Contrast IMPRESSION: No acute process. Mild atrophy. Electronically Signed: Kami Rey MD at 19:52 EST Tel , Service support ,
--- NOTE | 2018-09-10 19:04 | EKG12_ITS ---
Test Reason : STROKE Blood Pressure : / mmHG Vent. Rate : 102 BPM Atrial Rate : 102 BPM P-R Int : 162 ms QRS Dur : 098 ms QT Int : 374 ms P-R-T Axes : 051 068 059 degrees QTc Int : 487 ms Sinus tachycardia Nonspecific ST abnormality Abnormal ECG Confirmed by EMELY CURTIS, PATTIE ([id number]), coding spec GUILLAUME MARIA ([id number]) on 09/12/2018 3:50:12 PM Referred By: Chuyita Wright Confirmed By:PATTIE HAN MD
[2018-09-10 19:06] LABS: Bedside Glucose 497 mg/dL (70-110)
[2018-09-10 19:13] LABS: Absolute Lymphocyte Count 1.85 X10^3/ul (0.83-4.51); Basophil# 0.02 X10^3/uL; Basophil% 0.2 % (0-1); Eosinophil# 0.05 X10^3/uL; Eosinophils% 0.6 % (0-5); Hematocrit 39.6 % (37-47); Hemoglobin 12.8 g/dl (12.0-15.0); Lymphocyte # 1.85 X10^3/ul (4.0); Lymphocyte % 21.7 % (19-41); Mean Corp Hgb Conc 32.3 g/gl (32-36); Mean Corpuscular Hgb 27.6 pg (27.0-32.0); Mean Corpuscular Volume 85.5 fL (81-99); Mean Platelet Vol. 11.1 fl (6.2-12.0); Monocyte# 0.56 X10^3/uL; Monocyte% 6.6 % (0-10); Neutrophil # 6.02 X10^3/uL (2.7-7.7); Neutrophil % 70.7 % (47-70); Platelet Count 242 K/mm3 (150-450); RBC Distribution Width CV 14.9 % (11.6-14.6); RBC Distribution Width SD 46.3 fl (35.1-43.9); Red Blood Count 4.63 M/mm3 (4.2-5.4); White Blood Count 8.5 K/mm3 (4.4-11.0)
[2018-09-10 19:14] LABS: POSITIVE COUNT NO; POSITIVE DIFFERENTIAL NO; POSITIVE MORPHOLOGY NO
[2018-09-10 19:20] LABS: Bacteria 0 SEEN /hpf (None Seen); Mucous, Urine 0 SEEN /hpf (<or=2+); Red Blood Cells-Urine 0 SEEN /hpf (0-5); White Blood Cells 0 SEEN /hpf (0-5)
--- NOTE | 2018-09-10 19:20 | RAD_ITS ---
HISTORY: HYPERTENSION. NAUSEA AND VOMITTING. CONFUSION. EXAM: XR Chest 1 View: COMPARISON: 11/24/15 chest radiograph. FINDINGS: # of images incl. paperwork: 1 LINES/DEVICES: None. LUNGS: Radiographically clear. No consolidation, edema or effusion. No pneumothorax. MEDIASTINUM AND CARDIOVASCULAR STRUCTURES: Cardiac silhouette not enlarged. Central airways and mediastinal contour are unremarkable. BONES AND SOFT TISSUES: Unremarkable. RAD/Chest 1 View (Portable) IMPRESSION: No radiographic evidence of acute cardiopulmonary disease. at 2013 Reported and signed by: Jose Starr MD Electronically Signed: Jose Starr, at 20:12 EST Tel , Service support ,
[2018-09-10] MEDS: 0.9% Normal Saline 1,000 ML 150 ML IV ×2 (19:21→23:49)
[2018-09-10 19:24] LABS: Partial Thromboplast Time 23.5 Seconds (24.1-36.2)
--- NOTE | 2018-09-10 19:30 | CM.ED ---
SOCIAL WORK NOTE THIS WORKER RESPONDED TO STROKE ALERT. MET WITH PT'S SON, OFELIA OUTSIDE ROOM. PT RECEIVING X-RAY AT THIS TIME. INTRODUCED THIS WORKER'S ROLE AND PROVIDED SUPPORT. SON STATES PT WITH HX OF CVA AND STATES PT HAS BEEN ACTING DIFFERENT FOR A FEW DAYS. SON REPORTS PT WAS IN A CORRECTION A FEW WEEKS AGO AND SIGNED HERSELF OUT D/T WANTING TO BE HOME FOR THE HOLIDAYS. SON INQUIRING ABOUT NURSING FACILITIES AND [facility]. EDUCATION PROVIDED AND ALL QUESTIONS ANSWERED. THIS WORKER TO REMAIN AVAILABLE FOR NEEDS.
[2018-09-10 19:39] LABS: Color, Urine Yellow (Yellow); Glucose, Dipstick 1000 mg/dl (Normal); Ketone-Dipstick Negative (Negative); Leukocyte Esterase-Dipstick Negative /ul (Negative); Nitrite-Dipstick Negative (Negative); Occult Blood-Urine 10 /ul (Negative); Protein-Dipstick 100 mg/dl (Negative); Specific Gravity, Urine 1.005 (1.002-1.030); Urine Bilirubin Dipstick Negative (Negative); Urine Clarity Clear (Clear); Urine Urobilinogen Normal (Normal)
[2018-09-10 19:43] LABS: ALB/GLOB Ratio 0.8 RATIO (0.9-2.4); AST(SGOT) 15 U/L (15-37); Alanine Aminotransfer ALT/SGPT 18 U/L (13-56); Albumin, Serum 3.4 g/dL (3.2-5.0); Alkaline Phosphatase 119 U/L (45-117); Anion Gap 9 (5-15); BUN 7 mg/dL (7-18); BUN/Creat Ratio 7.9 RATIO (10-20); Chloride 96 mmol/L (98-107); Creatinine, Serum 0.88 mg/dL (0.55-1.02); EST Glomerular Filtration Rate 69 mL/min (>60); Est Glom Filt Rate - Afr Amer 84 mL/min (>60); Estimated Creatinine Clearance 59.44 ml/min; Globulin 4.1 g/dL (2.2-4.2); Glucose 511 mg/dL (74-106); Protein, Total 7.5 g/dL (6.4-8.2); Sodium Level 135 mmol/L (136-145)
[2018-09-10] MEDS: Insulin Lispro 100 UNIT/ML INSULN.PEN 10 UNIT SC (20:03)
--- NOTE | 2018-09-10 20:08 | HP.PCM_ITS ---
Problem List (1) CVA (cerebral vascular accident) Status: Acute Qualifiers: CVA mechanism: unspecified Qualified Code(s): I63.9 - Cerebral infarction, unspecified (2) Encephalopathy acute Status: Acute (3) IBS (irritable bowel syndrome) Status: Chronic Qualifiers: Irritable bowel syndrome type: unspecified Qualified Code(s): K58.9 - Irritable bowel syndrome without diarrhea (4) HLD (hyperlipidemia) Status: Chronic Qualifiers: Hyperlipidemia type: unspecified Qualified Code(s): E78.5 - Hyperlipidemia, unspecified (5) Esophageal reflux Status: Chronic Qualifiers: Esophagitis presence: esophagitis presence not specified Qualified Code(s): K21.9 - Gastro-esophageal reflux disease without esophagitis (6) Type II diabetes mellitus, uncontrolled Status: Chronic Qualifiers: Glycemic state: with hyperglycemia Qualified Code(s): E11.65 - Type 2 diabetes mellitus with hyperglycemia (7) Anxiety and depression Status: Chronic (8) Cerebrovascular disease Status: Chronic Comment: Possible small ischemic strokes versus sequela of chronic migraine (9) Migraine Status: Chronic Qualifiers: Migraine type: unspecified Status migrainosus presence: without status migrainosus Intractability: not intractable Qualified Code(s): G43.909 - Migraine, unspecified, not intractable, without status migrainosus (10) Benign essential HTN Status: Chronic History of Present Illness Date of Admission: 09/10/18 Chief Complaint: Confusion, not following commands, abnormal behavior. The patient is a 58 y/o F w/ PMHx: PAF s/p ablation, CVA/TIA without deficits per her report, HTN, HLD, Migraines, Anxiety and Depression, GERD, IBS, Poorly controlled Diabetes Mellitus type II, Notable history of medication non- compliance who presents to the [facility] ED on 09/10/18 with history of onset increased fatigue, lethargy, confusion with recurrent mannerisms specifically noted per family to be continuously coming her hair with her fingers starting at approximately 1 1:30 PM. Family notes that she recently was in senior care facility but checked herself out. Family also notes that during this time she was incontinent of urine twice. Patient per family has had some tremors but from family description does not sound seizure-like activity. In the emergency room patient is following commands but slow to follow the commands. Work-up in the ED included T 97.8, heart rate 105, BP 188/97 but did increase to 222/108, respiratory rate 16, 98% on room air, CBC with WBC 8.5, hemoglobin 12.8, platelet 242 without market shift, coags unremarkable aside PTT 23.5, CMP with sodium 135, potassium 3, chloride 96, glucose 511, lactic acid 2, alkaline phosphatase 119, urinalysis with 100 protein, 1000 glucose, negative ketones, 10 occult blood otherwise not marked appearing, urine drug screen unremarkable, ethyl alcohol 18, acetone negative, chest x-ray with no acute radial pulmonary findings, CT head with no acute process with mild atrophy, EKG sinus tachycardia. In the ED given patient appearance stroke call initiated. Patient administered labetalol 10 mg IV x1, insulin subcu 10 units x1, normal saline IV fluids in addition to potassium supplementation. Past Medical History Past Medical History (Chronic Problems): Chronic Problems IBS (irritable bowel syndrome) (Chronic) HLD (hyperlipidemia) (Chronic) Esophageal reflux (Chronic) Type II diabetes mellitus, uncontrolled (Chronic) Anxiety and depression (Chronic) Cerebrovascular disease (Chronic) Possible small ischemic strokes versus sequela of chronic migraine Migraine (Chronic) reports hole in heart since (Chronic) Benign essential HTN (Chronic) Allergies codeine Adverse Reaction (Verified 09/10/18 19:08) Other gelatin Adverse Reaction (Verified 09/10/18 19:08) Unknown pork derived (porcine) Adverse Reaction (Verified 09/10/18 19:08) Vomiting Home Medications: Ambulatory Orders Medication Instructions Recorded Apixaban [Eliquis] 5 mg PO BID 06/16/18 Ascorbic Acid [Vitamin C] 500 mg PO DAILY 06/16/18 Atorvastatin Calcium 20 mg PO QHS 06/16/18 Lisinopril 20 mg PO DAILY 06/16/18 Sertraline HCl [Zoloft] 100 mg PO DAILY 06/16/18 Amlodipine Besylate 5 mg PO DAILY 09/10/18 Dicyclomine HCl 20 mg PO Q12H PRN PRN 09/10/18 Fluconazole [Diflucan] 200 mg PO DAILY 09/10/18 Hydrocodone/Acetaminophen 1 tab PO Q6H PRN PRN 09/10/18 [Hydrocodon-Acetaminophen 5-325] Metoprolol Tartrate 25 mg PO BID 09/10/18 Sertraline HCl [Zoloft] 50 mg PO DAILY 09/10/18 Surgical History: - - BLTL, Cardiac ablation per patient self-report, tonsillectomy. 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 VTE Information - Inpt Only VTE Present on Admission: No VTE Mechan Device Prophylaxis: SCD's VTE Pharm Prophylaxis ordered?: Yes Patient Problems: Active and Suspected Problems CVA (cerebral vascular accident) (Acute) Subjective: Seated upright in the ED bed, not following commands, fatigued, lethargic appearance. Objective: Physical Examination: General: awakens intermittently to stimuli, not alert, no answering orientation questions, will follow some commands, very slowly, NAD currently. Skin: normal color, turgor, no icterus, cyanosis except noted scabs on the BL LE extremities. HEENT: AT/NC, EOM difficult to assess secondary to lethargy, PERRLA, dry MM, no carotid bruits or JVD noted. Lungs: Diminished BS BL, > bases, moderate effort, mild decrease BL bases, no rales, ronchi or wheezing. Heart: Mildly tachycardic with regular rhythm; no gallop, rub audible. Abdomen: soft, NTTP, ND, normal BS, no HSM. Extremities: no cyanosis, clubbing, or edema. Neurological: awakens intermittently to stimuli, not alert, no answering orientation questions, will follow some commands, very slowly; cognitive function not baseline intact; pupils equally reactive to light and accomodation; cranial nerves difficult to assess but appear grossly normal, moving all 4 extremities, no focal deficits, strength severely globally decreased, negative babinski, difficult to assess HTS/FTN as not following commands. Psychiatric: affect appears lethargic, flat, no acute evidence of depressive or anxiety feelings. - Physical Exam Vital Signs Temp Pulse Resp BP Pulse Ox 97.7 F L 109 H 18 222/108 H 97 09/10/18 19:00 09/10/18 20:02 09/10/18 20:02 09/10/18 20:02 09/10/18 20:02 Oxygen Delivery Method Room Air Weight: 149 lb 14.629 oz Body Mass Index (BMI) 25.7 Finger Stick Blood Glucose 497 Laboratory Tests Past 24 Hrs 09/10/18 09/10/18 09/10/18 19:05 19:05 19:05 WBC 8.5 RBC 4.63 Hgb 12.8 Hct 39.6 MCV 85.5 MCH 27.6 MCHC 32.3 RDW 14.9 H RDW Differential 46.3 H Plt Count 242 MPV 11.1 Immature Gran % (Auto) 0.200 Neut % (Auto) 70.7 H Lymph % (Auto) 21.7 [place] % (Auto) 6.6 Eos % (Auto) 0.6 Baso % (Auto) 0.2 Absolute Neuts (auto) 6.0 Absolute Lymphs (auto) 1.85 Total Counted Not Reportable PT 13.0 INR 1.0 APTT 23.5 L Sodium 135 L Potassium 3.0 L Chloride 96 L Carbon Dioxide 30.0 Anion Gap 9 BUN 7 Creatinine 0.88 Estim Creat Clear Calc 59.44 Est GFR (MDRD) Af Amer 84 Est GFR (MDRD) Non-Af 69 BUN/Creatinine Ratio 7.9 L Glucose 511 H* Lactic Acid Calcium 9.0 Total Bilirubin 0.30 AST 15 ALT 18 Alkaline Phosphatase 119 H Troponin I 0.016 Total Protein 7.5 Albumin 3.4 Globulin 4.1 Albumin/Globulin Ratio 0.8 L Urine Color Urine Clarity Urine pH Ur Specific [place] Urine Protein Urine Glucose (UA) Urine Ketones Urine Occult Blood Urine Nitrite Urine Bilirubin Urine Urobilinogen Ur Leukocyte Esterase Urine RBC Urine WBC Ur Squamous Epith Cells Urine Bacteria Urine Mucus Urine Opiates Screen Urine Methadone Screen Ur Barbiturates Screen Ur Phencyclidine Scrn Ur Amphetamines Screen U Methamphetamin-MDMA U Benzodiazepines Scrn Urine Cocaine Screen U Cannabinoids Screen Ur Drug Screen Comment Ethyl Alcohol Acetone Level 09/10/18 09/10/18 09/10/18 19:05 19:05 19:13 WBC RBC Hgb Hct MCV MCH MCHC RDW RDW Differential Plt Count MPV Immature Gran % (Auto) Neut % (Auto) Lymph % (Auto) [place] % (Auto) Eos % (Auto) Baso % (Auto) Absolute Neuts (auto) Absolute Lymphs (auto) Total Counted PT INR APTT Sodium Potassium Chloride Carbon Dioxide Anion Gap BUN Creatinine Estim Creat Clear Calc Est GFR (MDRD) Af Amer Est GFR (MDRD) Non-Af BUN/Creatinine Ratio Glucose Lactic Acid Calcium Total Bilirubin AST ALT Alkaline Phosphatase Troponin I Total Protein Albumin Globulin Albumin/Globulin Ratio Urine Color Yellow Urine Clarity Clear Urine pH 7.0 Ur Specific [place] 1.005 Urine Protein 100 H Urine Glucose (UA) 1000 H Urine Ketones Negative Urine Occult Blood 10 H Urine Nitrite Negative Urine Bilirubin Negative Urine Urobilinogen Normal Ur Leukocyte Esterase Negative Urine RBC Pending Urine WBC Pending Ur Squamous Epith Cells Pending Urine Bacteria Pending Urine Mucus Pending Urine Opiates Screen Urine Methadone Screen Ur Barbiturates Screen Ur Phencyclidine Scrn Ur Amphetamines Screen U Methamphetamin-MDMA U Benzodiazepines Scrn Urine Cocaine Screen U Cannabinoids Screen Ur Drug Screen Comment Ethyl Alcohol 18.0 Acetone Level Pending 09/10/18 09/10/18 19:13 19:15 WBC RBC Hgb Hct MCV MCH MCHC RDW RDW Differential Plt Count MPV Immature Gran % (Auto) Neut % (Auto) Lymph % (Auto) [place] % (Auto) Eos % (Auto) Baso % (Auto) Absolute Neuts (auto) Absolute Lymphs (auto) Total Counted PT INR APTT Sodium Potassium Chloride Carbon Dioxide Anion Gap BUN Creatinine Estim Creat Clear Calc Est GFR (MDRD) Af Amer Est GFR (MDRD) Non-Af BUN/Creatinine Ratio Glucose Lactic Acid Pending Calcium Total Bilirubin AST ALT Alkaline Phosphatase Troponin I Total Protein Albumin Globulin Albumin/Globulin Ratio Urine Color Urine Clarity Urine pH Ur Specific [place] Urine Protein Urine Glucose (UA) Urine Ketones Urine Occult Blood Urine Nitrite Urine Bilirubin Urine Urobilinogen Ur Leukocyte Esterase Urine RBC Urine WBC Ur Squamous Epith Cells Urine Bacteria Urine Mucus Urine Opiates Screen Pending Urine Methadone Screen Pending Ur Barbiturates Screen Pending Ur Phencyclidine Scrn Pending Ur Amphetamines Screen Pending U Methamphetamin-MDMA Pending U Benzodiazepines Scrn Pending Urine Cocaine Screen Pending U Cannabinoids Screen Pending Ur Drug Screen Comment Ethyl Alcohol Acetone Level POC Glucose 09/10/18 18:59 POC Glucose 497 H* Assessment/Plan All Active Problems Encephalopathy acute (Acute) CVA (cerebral vascular accident) (Acute) The patient is a 58 y/o F w/ PMHx: PAF s/p ablation, CVA/TIA without deficits per her report, HTN, HLD, Migraines, Anxiety and Depression, GERD, IBS, Poorly controlled Diabetes Mellitus type II, Notable history of medication non- compliance who presents to the [facility] ED on 09/10/18 with history of onset increased fatigue, lethargy, confusion with recurrent mannerisms specifically noted per family to be continuously coming her hair with her fingers starting at approximately 1 1:30 PM. (1) Acute Encephalopathy, Unclear Specific Etiology, Possible Acute CVA with history of TIA/CVA Prior, ? Seizure activity, ? Atypical Severe Complex Migraine: Work-up in the ED included T 97.8, heart rate 105, BP 188/97 but did increase to 222/108, respiratory rate 16, 98% on room air, CBC with WBC 8.5, hemoglobin 12.8, platelet 242 without market shift, coags unremarkable aside PTT 23.5, CMP with sodium 135, potassium 3, chloride 96, glucose 511, lactic acid 2, alkaline phosphatase 119, urinalysis with 100 protein, 1000 glucose, negative ketones, 10 occult blood otherwise not marked appearing, urine drug screen unre markable, ethyl alcohol 18, acetone negative, chest x-ray with no acute radial pulmonary findings, CT head with no acute process with mild atrophy. Will admit to PCU, will obtain MRI Brain, MRA Head and Neck, ECHO, PT/OT/Speech/Nutrition evaluation per protocol. Will consult Neurology for evaluation. Will allow permissive HTN, holding oral regimen given encephalopathy, transition from eliquis to therapeutic lovenox in interim, holding oral home statin w/ AM FLP, fall precautions. Mag, TSH, Ammonia pending. EEG requested. Seizure precautions. (2) Diabetes mellitus type II w/ Hyperglycemia, Poorly Controlled w/ Non- compliance history: Will continue home insulin regimen, NPO status currently, aggressive IVFs, q 6 hour accu checks w/ ISS, nutrition consulted for education and teaching once more alert, HgbA1c pending, prior notably elevated 12.2%. (3) Hx CVA/TIA: Holding oral regimen, continued on long-acting insulin regimen, permissive HTN currently, FLP in AM, maintained on therapeutic lovenox as noted, MD ASA. (4) Anxiety and Depression: Holding home Zoloft regimen. (5) Hypertension: Permissive. (6) Hyperlipidemia: NPO status, holding home statin regimen. FLP in AM. (7) Migraines: Not on regimen, from prior history complex migraine prior, possibly contributing to current presentation. (8) PAF/cardiac arrhythmia: EKG w/ ST, s/p remote ablation history per patient, transitioned as noted in interim to therapeutic lovenox, holding oral intake, permissive. (9) Incidental Vertebral Artery Calcification: CT head with no acute findings, holding oral regimen as noted, was seen on prior CT head during prior admission, MRI brain, MRA head and neck pending as noted. (10) DVT prophylaxis: SCDs, therapeutic lovenox. Code Visit Inpatient E&M: 36812 Init Hosp L3
[2018-09-10 20:15] LABS: Squamous Epithelial Cells - UA 0-5 SEEN /hpf (5-10)
--- NOTE | 2018-09-10 20:19 | ED.RN ---
notified Dr. Boateng of [facility] 2.0
[2018-09-10 20:50] LABS: Amphetamine Urine VISTA NEGATIVE (<1000 ng/mL); Barbiturate Urine VISTA NEGATIVE (< 200 ng/mL); Benzodiazepine Urine VISTA NEGATIVE (< 200 ng/mL); Cocaine Urine VISTA NEGATIVE (< 300 ng/mL); Ecstacy Urine VISTA NEGATIVE (< 500 ng/mL); Methadone Urine VISTA NEGATIVE (< 300 ng/mL); PCP Urine VISTA NEGATIVE (< 25 ng/mL); THC Urine VISTA NEGATIVE (< 50 ng/mL); Vista UDS pH Range 6
--- NOTE | 2018-09-10 21:38 | ED.VISSUMM ---
- ER Visit Summary Date of Service: 09/10/18 Chief Complaint: [Confusion] History of Present Illness: The patient is a 58 F [presents to the emergency department via EMS with concern for possible stroke due to confusion that initially the family told EMS occurred 10 minutes prior to them calling. Family on arrival to the emergency department tell me that her symptoms started between 1 and 2 PM today. Patient started acting confused and playing with her hair and not responding appropriately. Patient had does have prior history of stroke. Patient is currently on Eliquis and has a history of atrial fibrillation. Patient also is a diabetic. Patient has been complaining of headaches frequently. She did vomit one time today. Patient denies any chest pain or shortness of breath.] Physical Examination: [HEENT-PERRLA, EOMI. Cranial nerves II through XII grossly intact. TMs clear. Mucous membranes moist. No adenopathy. Cardiovascular-regular rate and rhythm without murmur or ectopy Lungs-clear to auscultation, chest wall stable without crepitus or subcu emphysema Abdomen-normoactive bowel sounds, soft, nontender, no rebound or rigidity, no peritoneal signs. Neuro exam-no focal weakness noted. NIH stroke scale is 0. No facial droop. Patient behaving somewhat encephalopathic as she will follow some commands and answer some questions correctly but not others. Extremities-intact ?4, normal range of motion, normal pulses, atraumatic] Test Results: [EKG obtained on arrival showed a sinus rhythm with a ventricular rate of 102 bpm. Patient had nonspecific ST changes noted. CBC with differential showed a white count of 8.5, hemoglobin 12.8, hematocrit 39, platelets 242. Chemistries showed a sodium 135, potassium 3.0, chloride 96, CO2 30, BUN 7, creatinine 0.88, glucose was 511. Urinalysis just showed large glucose otherwise no signs of infection. CT scan of the brain without contrast showed nothing acute.] Emergency Department Course and Treatment: [Admit for further workup and evaluation. Patient did receive labetalol for elevated blood pressure of over 220 systolic. Patient received insulin 10 units subcutaneously.] Treatment Plan: [Admit. Patient is not a thrombolytic candidate as symptom onset greater than 5 hours on arrival to the emergency department and no focal deficits noted. Patient also on Eliquis.] Disposition: [Admit] Impression: [Confusion/encephalopathy Hyperglycemia Hypertension] This note was generated with [employer] dictation software. It may contain incorrect words, spelling, and punctuation that were not noted in review of the chart prior to signing ED Disposition - Plan for ED Patient: Chief Complaint: Confusion Referrals: Love Solorzano [Primary Care Provider] -
--- NOTE | 2018-09-10 22:50 | ECHOCS_ITS ---
Reason For Study: DYSPNEA/SOB Procedure This was a 2D Doppler, Color Flow transthoracic echocardiogram. The study was technically limited. The study was technically difficult. PT unable to be awakened to help with exam. Exam performed portable in patient room. Left Ventricle Normal size and thickness. The estimated ejection fraction is 75 %. Stage 1 diastolic dysfunction. No regional wall motion abnormalities noted. Right Ventricle Normal size and thickness. Normal systolic function. Atria Normal left atrium. Normal right atrium. Normal atrial septum. Mitral Valve Mild diffuse mitral valve thickening. Mild mitral annular calcification extending into the posterior leaflet. Tricuspid Valve Normal tricuspid valve. Unable to estimate RV systolic pressure due to inadequate jet, pulmonary artery pressure probably normal. Aortic Valve Normal aortic valve. Trisinus/trileaflet aortic valve. Pulmonic Valve Normal pulmonic valve. Great Vessels Normal aortic root. Normal arch. Normal inferior vena cava. Inferior vena cava collapse with sniff. Pericardium/Pleural No pericardial effusion. Medication Performed a rapid injection of agitated mix of 9 cc saline and 1cc air to assess for atrial septal defect. Diluted definity 1.5ml given slow IV push to enhance endocardial definition. MMode/2D Measurements & Calculations LVIDd: 3.4 cm IVSd: 0.87 cm Ao root diam: 3.2 cm LVIDs: 1.8 cm LVPWd: 0.99 cm RVDd: 2.6 cm FS: 46.5 % LAV(MOD-bp): 49.1 ml LA A4 area: 16.5 cm2 LA dimension(2D): 3.8 cm LAV(MOD-bp) Indexed: 28.4 ml/m2 LAV(MOD-sp2): 48.9 ml LAV(MOD-sp4): 48.6 ml RA A4 area: 8.2 cm2 Doppler Measurements & Calculations MV E max [place]ton: 113.9 cm/sec Lat Peak E' [place]: 8.1 cm/sec Med Peak E' [place]: 5.8 cm/sec MV A max [place]: 175.8 cm/sec E/E' lat: 14.1 E/E' med: 19.6 MV E/A: 0.65 Ao V2 max: 137.7 cm/sec LV V1 max: 122.0 cm/sec PA V2 max: 157.4 cm/sec Ao max P.6 mmHg LV V1 max P.0 mmHg PA V2 mean: 112.6 cm/sec PA V2 VTI: 24.7 cm Interpretation Summary The estimated ejection fraction is 75 %. Stage 1 diastolic dysfunction. Unable to estimate RV systolic pressure due to inadequate jet, pulmonary artery pressure probably normal. The study was technically difficult. There is no comparison study available. Contrast injection was performed. Ordering Physician: Cristin Velasquez Referring Physician: Chuyita Jackson Performed By: Angelica Rodriguez RDCS, RVT
[2018-09-10 23:16] LABS: Reflex Lactate? Y
[2018-09-10 23:20] LABS: Magnesium 1.5 mg/dL (1.6-2.6); Thyroid Stim Hormone (TSH) 2.39 uIU/mL (0.358-3.74)
[2018-09-10 23:27] LABS: Hemoglobin A1c 10.3 % (4.2-6.3)
[2018-09-10 23:46] LABS: Ammonia < 10.0 umol/L (11-32); Lactic Acid 2.1 mmol/L (0.4-2.0)
--- NOTE | 2018-09-10 23:47 | NURSING ---
Pts primary rn aware of critical lactic value of 2.1 at this time.
[2018-09-10] MEDS: Aspirin 300 MG Suppository RECTAL (23:49)
[2018-09-10] MEDS: Insulin Lispro 100 UNIT/ML INSULN.PEN SC (23:50)
[2018-09-10] MEDS: Enoxaparin 80 MG/0.8 ML Syringe 70 MG SC (23:51)
[2018-09-11] VITALS (17 sets, daily range): BP systolic 152–219; BP diastolic 81–129; PULSE 107–138; RESP 16–18; TEMP 36.9–38.9; O2SAT 93–98; BMI 26.1
[2018-09-11] MEDS: Ondansetron 4 MG/2 ML Vial IV (00:56)
[2018-09-11] MEDS: 0.9% NaCl Peripheral Flush Adult/Peds IV ×3 (00:57→21:40)
[2018-09-11 01:01] LABS: Bedside Glucose 388 mg/dL (70-110)
[2018-09-11] MEDS: Acetaminophen 650 MG Suppository RECTAL ×2 (03:11→09:45)
[2018-09-11] MEDS: Labetalol 20 MG/4 ML Vial 10 MG IV (04:05)
[2018-09-11] MEDS: Insulin Lispro 100 UNIT/ML INSULN.PEN SC ×4 (05:10→21:40)
[2018-09-11] MEDS: Enoxaparin 80 MG/0.8 ML Syringe 70 MG SC (05:10)
[2018-09-11] MEDS: 0.9% Normal Saline 1,000 ML 150 ML IV ×2 (05:14→17:24)
[2018-09-11 05:35] LABS: Absolute Lymphocyte Count 1.02 X10^3/ul (0.83-4.51); Absolute Neutrophil Count 12.4 X10^3/uL (2.0-7.7); Basophil# 0.02 X10^3/uL; Basophil% 0.1 % (0-1); Hematocrit 36.2 % (37-47); Hemoglobin 11.9 g/dl (12.0-15.0); Lymphocyte # 1.02 X10^3/ul (4.0); Lymphocyte % 7.3 % (19-41); Mean Corp Hgb Conc 32.9 g/gl (32-36); Mean Corpuscular Hgb 27.7 pg (27.0-32.0); Mean Corpuscular Volume 84.2 fL (81-99); Mean Platelet Vol. 11.4 fl (6.2-12.0); Monocyte# 0.46 X10^3/uL; Monocyte% 3.3 % (0-10); Neutrophil # 12.42 X10^3/uL (2.7-7.7); Neutrophil % 89.1 % (47-70); Platelet Count 262 K/mm3 (150-450); RBC Distribution Width CV 14.6 % (11.6-14.6)
[2018-09-11 05:41] LABS: POSITIVE COUNT NO; POSITIVE DIFFERENTIAL NO; POSITIVE MORPHOLOGY NO
--- NOTE | 2018-09-11 05:55 | EKG12_ITS ---
Test Reason : AM EKG Blood Pressure : / mmHG Vent. Rate : 118 BPM Atrial Rate : 118 BPM P-R Int : 142 ms QRS Dur : 090 ms QT Int : 350 ms P-R-T Axes : 051 063 058 degrees QTc Int : 490 ms Sinus tachycardia Confirmed by EMELY CURTIS, PATTIE ([id number]), editor school photograph GUILLAUME MARIA ([id number]) on 09/12/2018 4:09:29 PM Referred By: Chuyita Wright Confirmed By:PATTIE HAN MD
[2018-09-11 06:08] LABS: ALB/GLOB Ratio 0.8 RATIO (0.9-2.4); AST(SGOT) 14 U/L (15-37); Alanine Aminotransfer ALT/SGPT 19 U/L (13-56); Albumin, Serum 3.1 g/dL (3.2-5.0); Alkaline Phosphatase 105 U/L (45-117); Anion Gap 11 (5-15); BUN 9 mg/dL (7-18); Calcium,Total 8.2 mg/dL (8.5-10.1); Chloride 103 mmol/L (98-107); Cholesterol 236 mg/dL (200); Creatinine, Serum 0.82 mg/dL (0.55-1.02); EST Glomerular Filtration Rate 76 mL/min (>60); Est Glom Filt Rate - Afr Amer 92 mL/min (>60); Estimated Creatinine Clearance 55.74 ml/min; Globulin 3.7 g/dL (2.2-4.2); Glucose 398 mg/dL (74-106); High Density Lipoprotein 43 mg/dL; Potassium 3.1 mmol/L (3.5-5.1); Protein, Total 6.8 g/dL (6.4-8.2); Sodium Level 139 mmol/L (136-145); Triglycerides 280 mg/dL; Very Low Density Lipoprotein 56 mg/dL (5-40)
[2018-09-11 06:11] LABS: Bedside Glucose 392 mg/dL (70-110)
[2018-09-11] MEDS: Potassium Chloride 10mEq/100mL 10 MEQ/100 ML IV.SOLN. 100 MEQ IV BOLUS ×4 (07:34→10:46)
[2018-09-11 08:19] LABS: Oligoclonal Banding Comment REF LAB
--- NOTE | 2018-09-11 08:35 | RAD_ITS ---
STUDY: X-RAY CHEST REASON FOR EXAM: Female, 58 years old. Fever. Confusion. TECHNIQUE: Single AP portable view of the chest. COMPARISON: Comparison is made with prior study dated September 10, 2018. FINDINGS: EKG electrodes are seen. The lungs are clear and expanded. There is no demonstrated pleural abnormality. Normal size heart. Normal mediastinum and yuan. Normal visualized pulmonary arteries. There is atherosclerotic tortuosity of the aortic arch and descending thoracic aorta. There are diffuse degenerative changes of the visualized thoracic spine. Normal visualized ribs, clavicles, and shoulders. There is no demonstrated abnormality of the visualized soft tissue structures of the upper abdomen. RAD/Chest 1 View (Portable) IMPRESSION: No acute abnormalities seen. Electronically Signed: Darius Sales MD at 11:41 EST Tel [phone], Service support ,
--- NOTE | 2018-09-11 08:38 | MRI_ITS ---
STUDY: MRA OF THE HEAD WITHOUT CONTRAST REASON FOR EXAM: Female, 58 years old. CVA, confusion, h/a, lethargic TECHNIQUE: 3-D [id number] (TOF) imaging was performed with MIPs. The study was performed unenhanced. COMPARISON: MRA head May 11, 2018 FINDINGS: Normal bilateral petrous carotid arteries. Normal right cavernous carotid artery with a normal supraclinoid bifurcation. Normal left cavernous carotid artery with a normal supraclinoid bifurcation. Normal right A1 segment of the anterior cerebral artery. Normal left A1 segment of the anterior cerebral artery. Normal intact anterior communicating artery (ACOM). Normal bilateral A2 segments of the anterior cerebral arteries. Normal right M1 and M2 segments of the middle cerebral arteries, with a normal M1 bifurcation. Normal left M1 and M2 segments of the middle cerebral arteries, with a normal M1 bifurcation. Nonvisualized right posterior communicating artery (PCOM). Nonvisualized left posterior communicating artery (PCOM). Occluded right vertebral artery. Patent left vertebral artery. Tapered occlusion of the distal third of the basilar artery. Nonvisualization of the bilateral superior cerebellar (SCA) arteries are normal. Nonvisualization due to occlusion of the bilateral P1, P2 and visualized P3 segments of the posterior cerebral arteries. There is no demonstrated aneurysm of the ramona of Cristobal. 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 The left vertebral artery terminates into an tapering basilar artery and the posterior cerebral arteries are not adequately perfused. This can be seen previously. Consider vasculitis. Electronically Signed: Bernie Moses MD at 13:23 EST , Service support ,
--- NOTE | 2018-09-11 08:38 | MRI_ITS ---
STUDY: MRA NECK WITHOUT CONTRAST REASON FOR EXAM: Female, 58 years old. CVA, confusion, h/a, lethargic TECHNIQUE: Source images were obtained, MIPs were performed. The study was performed unenhanced. Technologist Notes Patient could not hold still COMPARISON: May 11, 2018 FINDINGS: RIGHT CAROTID ARTERIES: Normal right common carotid artery (CCA). Normal right common carotid bulb. Normal origin of the right internal carotid (ICA) artery without a hemodynamically significant stenosis. Normal visualized cervical portion of the right internal carotid artery. Normal origin of the right external carotid artery (ECA). LEFT CAROTID ARTERIES: Normal left common carotid artery (CCA). Normal left common carotid bulb. Normal origin of the left internal carotid (ICA) artery without a hemodynamically significant stenosis. Normal visualized cervical portion of the left internal carotid artery. Normal origin of the left external carotid artery (ECA). VERTEBRAL ARTERIES: Dominant left vertebral artery. Markedly attenuated right vertebral artery which on comparison CTA of the same date is noted to be chronically occluded MRI/MRA Neck without Contrast IMPRESSION: No acute abnormality. 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 Electronically Signed: Bernie Moses MD at 14:40 EST , Service support ,
--- NOTE | 2018-09-11 08:38 | MRI_ITS ---
STUDY: MRI BRAIN WITHOUT CONTRAST REASON FOR EXAM: Female, 58 years old. CVA, confusion, h/a, lethargic TECHNIQUE: Standardized multiplanar fat and water weighted pulse sequences were obtained. COMPARISON: None. FINDINGS: Normal size of the ventricles and extra-axial spaces for the patient's age. There are a limited number of small white matter hyperintensities, distributed throughout the deep white matter tracts of the cerebral hemispheres, consistent with mild to moderate chronic white matter ischemic changes. Old small lacunar infarct noted in association with the posterior aspect of the putamen on the left. There are focal areas of white matter disease in the centrum semiovale most prominently on the left superiorly. There is acute diffusion abnormality, acute infarct in association with the right occipital lobe, for instance refer to images 89 and 10 of the diffusion sequence series 5. There is no evidence of hemorrhage. There is no significant mass effect. Old punctate lacunar infarct of the left shyann noted. Normal thalami. There is no extra-axial fluid accumulation. The right vertebral artery is attenuated Normal sella turcica, pituitary gland, infundibular stalk, optic chiasm and hypothalamus. Normal tectal plate and pineal gland. Normal midbrain and medulla. Normal cerebellum. Normal basal cisterns. Normal bilateral temporal bones. Normal bilateral internal auditory canals. No demonstrated orbital abnormality, within the constraints of a routine brain study. Normal visualized paranasal sinuses. Normal calvarium and skull base. Normal visualized soft tissue structures. Normal visualized upper cervical spine. MRI/Brain without Contrast IMPRESSION: There is evidence of small acute infarct in association with the right occipital lobe. No hemorrhage. No significant mass effect. Flow void of the attenuated right vertebral artery not seen. N.B. : The above information has been verbally conveyed by Bernie Moses MD to Olivia Hughes RN, on 09/11/2018 13:20:26 (ET). Electronically Signed: Bernie Moses MD at 13:12 EST , Service support ,
[2018-09-11] MEDS: Vancomycin IV 1,000 MG/200 ML BAG 200 MG IV (09:26)
[2018-09-11] MEDS: Aspirin 300 MG Suppository RECTAL (09:45)
--- NOTE | 2018-09-11 10:14 | PCM.RX.CS ---
Consult Pharmacy has been consulted to manage selected antiobiotic: Vancomycin Type of Consult: New start Suspected Infection: Other Labs: Sodium 139 mmol/L (136-145) 09/11/18 05:04 Potassium 3.1 mmol/L (3.5-5.1) L 09/11/18 05:04 Chloride 103 mmol/L (98-107) 09/11/18 05:04 Carbon Dioxide 25.0 mmol/L (21.0-32.0) 09/11/18 05:04 Anion Gap 11 (5-15) 09/11/18 05:04 BUN 9 mg/dL (7-18) 09/11/18 05:04 Creatinine 0.82 mg/dL (0.55-1.02) 09/11/18 05:04 Est GFR (MDRD) Af Amer 92 mL/min (>60) 09/11/18 05:04 Est GFR (MDRD) Non-Af 76 mL/min (>60) 09/11/18 05:04 BUN/Creatinine Ratio 11.0 RATIO (10-20) 09/11/18 05:04 Glucose 398 mg/dL (74-106) H 09/11/18 05:04 Weight used for dosin.7 kg Estimated Creatinine Clearance: 56 ML/MIN Goal Trough: 10-15 mcg/mL Pharmacy Plan for Drug Dosing: Give initial 15 mg/kg standard dose of 1000mg IV x1, then continue with 1250mg IV q24h. Obtain trough before the 3rd total dose. Pharmacy Service will continue to monitor and adjust dosing as required. Follow-Up Labs: Trough Vancomycin Labs to be done on [date and time ordered]: 09/13/18 07:30
--- NOTE | 2018-09-11 10:21 | CASEMGMT ---
SW attempted to call patient's son for assessment as patient is confused. However, a recording came on indicating the prescriber has a voice mail that has not been set up. SW will try to reach him again later. Carmina MEREDITH MSW
[2018-09-11 11:41] LABS: Bedside Glucose 424 mg/dL (70-110)
--- NOTE | 2018-09-11 12:50 | EEG ---
- Electroencephalogram Date of service 09/11/2018 History EEG is being done in this 58 yr F to rule out seizures EEG Description: This is an 18 channel EEG with 10-20 lead placement system. Bipolar montages, Referential and Circumferential montages were reviewed. Photic stimulation was not performed as there was no photic lamp, Hyperventilation was performed. The posterior dominant rhythm is 11 HZ synchronous, symmetric, reacting to eye opening and closing. Photo stimulation was not performed as there was no photic lamp, Hyperventilation did not elicit any abnormal photoparoxysmal response. Sleep was identified. There is no abnormal background slowing noted. There was no epileptiform discharges or electrographic seizures noted during this recording. EEG Interpretation This is a normal awake and asleep EEG. There is no epileptiform discharges or electrographic seizures noted during the record.
--- NOTE | 2018-09-11 13:26 | CPS ---
patient unable to do incentivwe
--- NOTE | 2018-09-11 13:40 | CASEMGMT ---
Assessment- SW called patient's son, Silvino to complete assessment as patient is confused. Living situation- Patient lives in a 1 story home with 3 entry steps. Her 2 sons live with her. PCP: [facility] Specialists: None per her son Pharmacy: [facility]: walker, cane, built in seat in shower ADL's/IADL's: Patient is independent with bathing. Her sons assist with household duties. She utilizes a walker to get around. Per Silvino patient manages her own meds, but she does not do this properly. They try and help her, but she tells them not to worry about it. Past SNF/rehab: [facility] Past HH: Yes. Son did not know agency LW: No POA: No Silvino said that patient was at [facility] for rehab. However, she checked herself out because she wanted to be home for [place] and New Years. He did not feel she was ready to leave [facility]. SW asked him if her confusion does not get better would they want her to go back to [facility]. He said he wants her to get the help she needs. He said if she needs SNF that is what they want. SW told him SW will follow and assist with d/c planning. Plan: Undetermined at this time. Patient still getting tests and has not had therapy yet. Carmina MEREDITH MSW
--- NOTE | 2018-09-11 14:54 | CON.PCM_ITS ---
Problem List (1) Confusion Status: Acute (2) Cerebrovascular disease Status: Acute Comment: Possible small ischemic strokes versus sequela of chronic migraine Reason for Consult Date of Consultation: 09/11/18 Reason for Consultation: Confusion, DICKEY, fever, stroke History of Present Illness: The patient is a 58 year old CF with PMH HTN, HLD, DM, H/O stroke, PAF on Eliquis, anxiety/depression admitted with confusion. History obtained from medical records, history could not be obtained from patient. Per documentation patient was admitted with acute onset confusion, was found to have fever. Had persistent high SBP since admission and also complaints of DICKEY. Denies any new onset weakness, sensory loss, vision loss, jaw claudication or temporal tenderness. Per documentation patient was in the NH recently. No witnessed seizures. MRI brain done on admission reported to show acute right occipital infarct. 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 Given the presentation of fever, confusion and DICKEY, without any source of infection, patient was started on empirical meningitic antibiotics and acyclovir on admission. [] Past Medical History Past Medical History (Chronic Problems): Chronic Problems IBS (irritable bowel syndrome) (Chronic) HLD (hyperlipidemia) (Chronic) Esophageal reflux (Chronic) Type II diabetes mellitus, uncontrolled (Chronic) Anxiety and depression (Chronic) Migraine (Chronic) reports hole in heart since (Chronic) Benign essential HTN (Chronic) Allergies codeine Adverse Reaction (Verified 09/10/18 19:08) Other gelatin Adverse Reaction (Verified 09/10/18 19:08) Unknown pork derived (porcine) Adverse Reaction (Verified 09/10/18 19:08) Vomiting Home Medications: Ambulatory Orders Medication Instructions Recorded Apixaban [Eliquis] 5 mg PO BID 06/16/18 Ascorbic Acid [Vitamin C] 500 mg PO DAILY 06/16/18 Atorvastatin Calcium 20 mg PO QHS 06/16/18 Lisinopril 20 mg PO DAILY 06/16/18 Sertraline HCl [Zoloft] 100 mg PO DAILY 06/16/18 Amlodipine Besylate 5 mg PO DAILY 09/10/18 Dicyclomine HCl 20 mg PO Q12H PRN PRN 09/10/18 Fluconazole [Diflucan] 200 mg PO DAILY 09/10/18 Hydrocodone/Acetaminophen 1 tab PO Q6H PRN PRN 09/10/18 [Hydrocodon-Acetaminophen 5-325] Metoprolol Tartrate 25 mg PO BID 09/10/18 Sertraline HCl [Zoloft] 50 mg PO DAILY 09/10/18 Surgical History: - - BLTL, Cardiac ablation per patient self-report, tonsillectomy. 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 Review of Systems Constitutional: Reports: - - ROS could not be obtained due to confusion Patient Problems: Active and Suspected Problems CVA (cerebral vascular accident) (Acute) Confusion (Acute) - Physical Exam General: - - awake, confused, AoA x1 HEENT: Normocephalic Neck: Supple Lungs: Normal air movement Cardiovascular: Normal S1, Normal S2 Abdomen: Bowel Sounds Present Extremities: No cyanosis Neurological: - - consious, awake, confused, AoA x1, CN 2-12 grossly intact, power 5/5 all 4 extremities, denies any sensory loss, Reflexes + B/L B/S/T/K/A, gait deferred, NIHSS 0 at present Vital Signs Temp Pulse Resp BP Pulse Ox 98.6 F 112 H 18 171/83 H 98 09/11/18 13:30 09/11/18 13:30 09/11/18 13:30 09/11/18 13:30 09/11/18 13:30 Oxygen Delivery Method Room Air Weight: 62.7 kg Body Mass Index (BMI) 26.1 Finger Stick Blood Glucose 497 Intake and Output for Last 24 Hours 09/09/18 09/10/18 09/11/18 23:59 23:59 23:59 Intake Total 970 / 970 2355 / 2355 Balance 970 / 970 2355 / 2355 Laboratory Tests Past 24 Hrs 09/10/18 09/10/18 09/10/18 19:05 19:05 19:05 WBC 8.5 RBC 4.63 Hgb 12.8 Hct 39.6 MCV 85.5 MCH 27.6 MCHC 32.3 RDW 14.9 H RDW Differential 46.3 H Plt Count 242 MPV 11.1 Immature Gran % (Auto) 0.200 Neut % (Auto) 70.7 H Lymph % (Auto) 21.7 [place] % (Auto) 6.6 Eos % (Auto) 0.6 Baso % (Auto) 0.2 Absolute Neuts (auto) 6.0 Absolute Lymphs (auto) 1.85 Total Counted Not Reportable PT 13.0 INR 1.0 APTT 23.5 L Sodium 135 L Potassium 3.0 L Chloride 96 L Carbon Dioxide 30.0 Anion Gap 9 BUN 7 Creatinine 0.88 Estim Creat Clear Calc 59.44 Est GFR (MDRD) Af Amer 84 Est GFR (MDRD) Non-Af 69 BUN/Creatinine Ratio 7.9 L Glucose 511 H* Hemoglobin A1c Lactic Acid Calcium 9.0 Magnesium Total Bilirubin 0.30 AST 15 ALT 18 Alkaline Phosphatase 119 H Ammonia Troponin I 0.016 Total Protein 7.5 Albumin 3.4 Globulin 4.1 Albumin/Globulin Ratio 0.8 L Triglycerides Cholesterol LDL Cholesterol VLDL Cholesterol HDL Cholesterol TSH Urine Color Urine Clarity Urine pH Ur Specific [place] Urine Protein Urine Glucose (UA) Urine Ketones Urine Occult Blood Urine Nitrite Urine Bilirubin Urine Urobilinogen Ur Leukocyte Esterase Urine RBC Urine WBC Ur Squamous Epith Cells Urine Bacteria Urine Mucus CSF Albumin Serum IgG CSF IgG/Albumin CSF Albumin Index CSF IgG Index CSF IgG Local Synthesis CSF Myelin Basic Protein CSF/Ser Oligoclon Bands CSF VZV DNA (PCR) Urine Opiates Screen Urine Methadone Screen Ur Barbiturates Screen Ur Phencyclidine Scrn Ur Amphetamines Screen U Methamphetamin-MDMA U Benzodiazepines Scrn Urine Cocaine Screen U Cannabinoids Screen Ur Drug Screen Comment Ethyl Alcohol Acetone Level [place] RNA (RT-PCR) [place] Interp Enterovirus RNA (PCR) HSV I DNA PCR HSV II DNA PCR Culture Method 09/10/18 09/10/18 09/10/18 19:05 19:05 19:13 WBC RBC Hgb Hct MCV MCH MCHC RDW RDW Differential Plt Count MPV Immature Gran % (Auto) Neut % (Auto) Lymph % (Auto) [place] % (Auto) Eos % (Auto) Baso % (Auto) Absolute Neuts (auto) Absolute Lymphs (auto) Total Counted PT INR APTT Sodium Potassium Chloride Carbon Dioxide Anion Gap BUN Creatinine Estim Creat Clear Calc Est GFR (MDRD) Af Amer Est GFR (MDRD) Non-Af BUN/Creatinine Ratio Glucose Hemoglobin A1c Lactic Acid Calcium Magnesium Total Bilirubin AST ALT Alkaline Phosphatase Ammonia Troponin I Total Protein Albumin Globulin Albumin/Globulin Ratio Triglycerides Cholesterol LDL Cholesterol VLDL Cholesterol HDL Cholesterol TSH Urine Color Yellow Urine Clarity Clear Urine pH 7.0 Ur Specific [place] 1.005 Urine Protein 100 H Urine Glucose (UA) 1000 H Urine Ketones Negative Urine Occult Blood 10 H Urine Nitrite Negative Urine Bilirubin Negative Urine Urobilinogen Normal Ur Leukocyte Esterase Negative Urine RBC 0 SEEN Urine WBC 0 SEEN Ur Squamous Epith Cells 0-5 SEEN Urine Bacteria 0 SEEN Urine Mucus 0 SEEN CSF Albumin Serum IgG CSF IgG/Albumin CSF Albumin Index CSF IgG Index CSF IgG Local Synthesis CSF Myelin Basic Protein CSF/Ser Oligoclon Bands CSF VZV DNA (PCR) Urine Opiates Screen Urine Methadone Screen Ur Barbiturates Screen Ur Phencyclidine Scrn Ur Amphetamines Screen U Methamphetamin-MDMA U Benzodiazepines Scrn Urine Cocaine Screen U Cannabinoids Screen Ur Drug Screen Comment Ethyl Alcohol 18.0 Acetone Level NEGATIVE [place] RNA (RT-PCR) [place] Interp Enterovirus RNA (PCR) HSV I DNA PCR HSV II DNA PCR Culture Method 09/10/18 09/10/18 09/10/18 19:13 19:15 19:50 WBC RBC Hgb Hct MCV MCH MCHC RDW RDW Differential Plt Count MPV Immature Gran % (Auto) Neut % (Auto) Lymph % (Auto) [place] % (Auto) Eos % (Auto) Baso % (Auto) Absolute Neuts (auto) Absolute Lymphs (auto) Total Counted PT INR APTT Sodium Potassium Chloride Carbon Dioxide Anion Gap BUN Creatinine Estim Creat Clear Calc Est GFR (MDRD) Af Amer Est GFR (MDRD) Non-Af BUN/Creatinine Ratio Glucose Hemoglobin A1c 10.3 H Lactic Acid 2.0 Calcium Magnesium Total Bilirubin AST ALT Alkaline Phosphatase Ammonia Troponin I Total Protein Albumin Globulin Albumin/Globulin Ratio Triglycerides Cholesterol LDL Cholesterol VLDL Cholesterol HDL Cholesterol TSH Urine Color Urine Clarity Urine pH Ur Specific [place] Urine Protein Urine Glucose (UA) Urine Ketones Urine Occult Blood Urine Nitrite Urine Bilirubin Urine Urobilinogen Ur Leukocyte Esterase Urine RBC Urine WBC Ur Squamous Epith Cells Urine Bacteria Urine Mucus CSF Albumin Serum IgG CSF IgG/Albumin CSF Albumin Index CSF IgG Index CSF IgG Local Synthesis CSF Myelin Basic Protein CSF/Ser Oligoclon Bands CSF VZV DNA (PCR) Urine Opiates Screen NEGATIVE Urine Methadone Screen NEGATIVE Ur Barbiturates Screen NEGATIVE Ur Phencyclidine Scrn NEGATIVE Ur Amphetamines Screen NEGATIVE U Methamphetamin-MDMA NEGATIVE U Benzodiazepines Scrn NEGATIVE Urine Cocaine Screen NEGATIVE U Cannabinoids Screen NEGATIVE Ur Drug Screen Comment Ethyl Alcohol Acetone Level [place] RNA (RT-PCR) [place] Interp Enterovirus RNA (PCR) HSV I DNA PCR HSV II DNA PCR Culture Method 09/10/18 09/10/18 09/10/18 19:50 23:05 23:05 WBC RBC Hgb Hct MCV MCH MCHC RDW RDW Differential Plt Count MPV Immature Gran % (Auto) Neut % (Auto) Lymph % (Auto) [place] % (Auto) Eos % (Auto) Baso % (Auto) Absolute Neuts (auto) Absolute Lymphs (auto) Total Counted PT INR APTT Sodium Potassium Chloride Carbon Dioxide Anion Gap BUN Creatinine Estim Creat Clear Calc Est GFR (MDRD) Af Amer Est GFR (MDRD) Non-Af BUN/Creatinine Ratio Glucose Hemoglobin A1c Lactic Acid Calcium Magnesium 1.5 L Total Bilirubin AST ALT Alkaline Phosphatase Ammonia < 10.0 L Troponin I < 0.015 Total Protein Albumin Globulin Albumin/Globulin Ratio Triglycerides Cholesterol LDL Cholesterol VLDL Cholesterol HDL Cholesterol TSH 2.39 Urine Color Urine Clarity Urine pH Ur Specific [place] Urine Protein Urine Glucose (UA) Urine Ketones Urine Occult Blood Urine Nitrite Urine Bilirubin Urine Urobilinogen Ur Leukocyte Esterase Urine RBC Urine WBC Ur Squamous Epith Cells Urine Bacteria Urine Mucus CSF Albumin Serum IgG CSF IgG/Albumin CSF Albumin Index CSF IgG Index CSF IgG Local Synthesis CSF Myelin Basic Protein CSF/Ser Oligoclon Bands CSF VZV DNA (PCR) Urine Opiates Screen Urine Methadone Screen Ur Barbiturates Screen Ur Phencyclidine Scrn Ur Amphetamines Screen U Methamphetamin-MDMA U Benzodiazepines Scrn Urine Cocaine Screen U Cannabinoids Screen Ur Drug Screen Comment Ethyl Alcohol Acetone Level [place] RNA (RT-PCR) [place] Interp Enterovirus RNA (PCR) HSV I DNA PCR HSV II DNA PCR Culture Method 09/10/18 09/11/18 09/11/18 23:05 02:10 05:04 WBC 14.0 H RBC 4.30 Hgb 11.9 L Hct 36.2 L MCV 84.2 MCH 27.7 MCHC 32.9 RDW 14.6 RDW Differential 44.0 H Plt Count 262 MPV 11.4 Immature Gran % (Auto) 0.200 Neut % (Auto) 89.1 H Lymph % (Auto) 7.3 L [place] % (Auto) 3.3 Eos % (Auto) 0.0 Baso % (Auto) 0.1 Absolute Neuts (auto) 12.4 H Absolute Lymphs (auto) 1.02 Total Counted Not Reportable PT INR APTT Sodium Potassium Chloride Carbon Dioxide Anion Gap BUN Creatinine Estim Creat Clear Calc Est GFR (MDRD) Af Amer Est GFR (MDRD) Non-Af BUN/Creatinine Ratio Glucose Hemoglobin A1c Lactic Acid 2.1 H Calcium Magnesium Total Bilirubin AST ALT Alkaline Phosphatase Ammonia Troponin I < 0.015 Total Protein Albumin Globulin Albumin/Globulin Ratio Triglycerides Cholesterol LDL Cholesterol VLDL Cholesterol HDL Cholesterol TSH Urine Color Urine Clarity Urine pH Ur Specific [place] Urine Protein Urine Glucose (UA) Urine Ketones Urine Occult Blood Urine Nitrite Urine Bilirubin Urine Urobilinogen Ur Leukocyte Esterase Urine RBC Urine WBC Ur Squamous Epith Cells Urine Bacteria Urine Mucus CSF Albumin Serum IgG CSF IgG/Albumin CSF Albumin Index CSF IgG Index CSF IgG Local Synthesis CSF Myelin Basic Protein CSF/Ser Oligoclon Bands CSF VZV DNA (PCR) Urine Opiates Screen Urine Methadone Screen Ur Barbiturates Screen Ur Phencyclidine Scrn Ur Amphetamines Screen U Methamphetamin-MDMA U Benzodiazepines Scrn Urine Cocaine Screen U Cannabinoids Screen Ur Drug Screen Comment Ethyl Alcohol Acetone Level [place] RNA (RT-PCR) [place] Interp Enterovirus RNA (PCR) HSV I DNA PCR HSV II DNA PCR Culture Method 09/11/18 09/11/18 05:04 06:55 WBC RBC Hgb Hct MCV MCH MCHC RDW RDW Differential Plt Count MPV Immature Gran % (Auto) Neut % (Auto) Lymph % (Auto) [place] % (Auto) Eos % (Auto) Baso % (Auto) Absolute Neuts (auto) Absolute Lymphs (auto) Total Counted PT INR APTT Sodium 139 Potassium 3.1 L Chloride 103 Carbon Dioxide 25.0 Anion Gap 11 BUN 9 Creatinine 0.82 Estim Creat Clear Calc 55.74 Est GFR (MDRD) Af Amer 92 Est GFR (MDRD) Non-Af 76 BUN/Creatinine Ratio 11.0 Glucose 398 H Hemoglobin A1c Lactic Acid Calcium 8.2 L Magnesium Total Bilirubin 0.40 AST 14 L ALT 19 Alkaline Phosphatase 105 Ammonia Troponin I 0.026 Total Protein 6.8 Albumin 3.1 L Pending Globulin 3.7 Albumin/Globulin Ratio 0.8 L Triglycerides 280 H Cholesterol 236 H LDL Cholesterol 137 H VLDL Cholesterol 56 H HDL Cholesterol 43 TSH Urine Color Urine Clarity Urine pH Ur Specific [place] Urine Protein Urine Glucose (UA) Urine Ketones Urine Occult Blood Urine Nitrite Urine Bilirubin Urine Urobilinogen Ur Leukocyte Esterase Urine RBC Urine WBC Ur Squamous Epith Cells Urine Bacteria Urine Mucus CSF Albumin Pending Serum IgG Pending CSF IgG/Albumin Pending CSF Albumin Index Pending CSF IgG Index Pending CSF IgG Local Synthesis Pending CSF Myelin Basic Protein Pending CSF/Ser Oligoclon Bands Pending CSF VZV DNA (PCR) Pending Urine Opiates Screen Urine Methadone Screen Ur Barbiturates Screen Ur Phencyclidine Scrn Ur Amphetamines Screen U Methamphetamin-MDMA U Benzodiazepines Scrn Urine Cocaine Screen U Cannabinoids Screen Ur Drug Screen Comment Ethyl Alcohol Acetone Level [place] RNA (RT-PCR) Pending [place] Interp Pending Enterovirus RNA (PCR) Pending HSV I DNA PCR Pending HSV II DNA PCR Pending Culture Method Pending POC Glucose 09/11/18 09/11/18 09/10/18 11:25 05:08 23:15 POC Glucose 424 H 392 H 388 H 09/10/18 18:59 POC Glucose 497 H* Assessment/Plan All Active Problems Encephalopathy acute (Acute) CVA (cerebral vascular accident) (Acute) Confusion (Acute) Cerebrovascular disease (Acute) The patient is a 58 year old CF with PMH HTN, HLD, DM, H/O stroke, PAF on Eliquis, anxiety/depression admitted with confusion. History obtained from medical records, history could not be obtained from patient. Per documentation patient was admitted with acute onset confusion, was found to have fever. Had persistent high SBP since admission and also complaints of DICKEY. Denies any new onset weakness, sensory loss, vision loss, jaw claudication or temporal tenderness. Per documentation patient was in the NH recently. No witnessed seizures. MRI brain done on admission reported to show acute right occipital infarct and old brainstem stroke. 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 Given the presentation of fever, confusion and DICKEY, without any source of infection, patient was started on empirical meningitic antibiotics and acyclovir on admission. [] Impression Acute right occipital infarct MRA head- reported to be concerning for vasculitis R/O Meningo-encephalitis Plan -Check CTA head/neck -Check ESR, CRP, ANCA, ANCA, hypercoagulable panel -Check LP- for cell count, protein, glucose, gram stain/fungal stain, EBV/HSV/CMV PCR -MRI brain and MRA head/neck reviewed -TTE- EF 60%, normal LA size -EEG- nothing epileptiform -On empiric antibiotics for meningitis and on acyclovir, started by hospitalist -Restart Eliquis 5 mg PO BID after LP -ASA 81 mg PO once daily till then -Lipitor 80 mg PO q hs -LDL-137, [id number] -Better BS control, recommend Endocrinology consult -Stroke risk factors discussed and stroke education provided -Gi/DVT prophylaxis -PT/OT/ST -Please call with questions if any -Thank you for allowing us to participate in patient's care and management Code Visit Inpatient E&M: [id number] Init Hosp L3
--- NOTE | 2018-09-11 15:19 | CT_ITS ---
STUDY: CTA OF THE BRAIN REASON FOR EXAM: Female, 58 years old. Vasculitis, headache, CVA. RADIATION DOSAGE (If Supplied By Facility): CTDIvol = ( 27.64 ) mGy, DLP = ( 1444.03 ) mGycm TECHNIQUE: CT angiography was performed with a multi-detector CT scanner. Data acquisition was obtained from the skull base through the vertex following intravenous administration of ml of . MIP images were reconstructed from the axial data set. Post-processing of the angiographic images was performed, with multiplanar reformation and 3D reconstruction. Individualized dose optimization techniques were used for this CT. COMPARISON: MRI, MRA brain 09/11/2018. CT head 09/10/2018. FINDINGS: CT brain without contrast: There is no intracranial mass, hemorrhage, or acute territorial infarct. Mild involutional changes are present. There is no osseous abnormality. Paranasal sinuses are clear. CTA brain: Normal bilateral petrous carotid arteries. There is calcified plaque formation of the right cavernous carotid artery. There is a moderate stenosis of the terminal segment of the right ICA. There is calcified plaque formation of the left cavernous carotid artery. There is mild stenosis of the terminal segment of the left ICA. Normal right A1 segment of the anterior cerebral artery. Normal left A1 segment of the anterior cerebral artery. Anterior communicating artery is hypoplastic or aplastic. Normal bilateral A2 segments of the anterior cerebral arteries. Normal right M1 and M2 segments of the middle cerebral arteries, with a normal M1 bifurcation. Normal left M1 and M2 segments of the middle cerebral arteries, with a normal M1 bifurcation. There is non-visualization of the left posterior communicating artery (PCOM). There is nonvisualization of the right posterior communicating artery. There is a left dominant vertebral artery. The right vertebral artery is threadlike above the C2 level, irregular in caliber at the C1 level, and is not visualized above the foramen magnum. This is most likely due to occlusion, but could be due to termination as the posterior inferior cerebellar artery (normal variant). There is marked atherosclerotic calcification of the left vertebral artery. There is a moderate short segment stenosis of the distal basilar artery. The origins of the superior cerebellar arteries are patent bilaterally. The left posterior cerebral artery is not demonstrated, consistent with occlusion. The P1 segment of the right TRAIN ELECTRONIC TECHNICIAN is threadlike, consistent with hyperplasia, achalasia, or high-grade stenosis. The right posterior cerebral artery fills via collateral vessels from the right MCA with a contribution from the P1 segment. There is no demonstrated aneurysm of the [place] of [place]. CT/CTA Head W/WO Contrast IMPRESSION: 1. Moderate stenosis of the terminal right ICA. 2. Mild stenosis of the terminal left ICA. 3. Occluded distal right vertebral artery. Vertebral termination in the right PICA is considered less likely. 4. Moderate distal basilar stenosis. 5. Occluded left TRAIN ELECTRONIC TECHNICIAN. 6. Right TRAIN ELECTRONIC TECHNICIAN supply via small collateral vessels including a small right P1 segment. Electronically Signed: Kami Rey MD at 17:04 EST Tel , Service support ,
--- NOTE | 2018-09-11 15:19 | CT_ITS ---
STUDY: CTA NECK WITH AND WITHOUT CONTRAST REASON FOR EXAM: Female, 58 years old. Vasculitis, headache, CVA. RADIATION DOSAGE (If Supplied By Facility): CTDIvol = ( 27.64 ) mGy, DLP = ( 1444.03 ) mGycm TECHNIQUE: CT angiography with multi-detector data acquisition was performed from the aortic arch to the skull base prior to and after intravenous administration of 100 ml of Isovue 370 contrast. MIP images were reconstructed from the axial data set. Post-processing of the angiographic images was performed, with multiplanar reformation and 3D reconstruction. Individualized dose optimization techniques were used for this CT. COMPARISON: None. FINDINGS: AORTIC ARCH: Normal visualized aortic arch. Normal origins of the brachiocephalic, left common carotid, and left subclavian arteries. RIGHT CAROTID ARTERIES: Normal right common carotid artery (CCA). Normal right common carotid bulb. Normal origin of the right internal carotid (ICA) artery without a hemodynamically significant stenosis. Normal visualized cervical portion of the right internal carotid artery. Normal origin of the right external carotid artery (ECA). LEFT CAROTID ARTERIES: Normal left common carotid artery (CCA). There is moderate atherosclerotic plaque formation with moderate narrowing of the carotid bulb. There is mild atherosclerotic plaque formation of the origin of the left internal carotid artery with less than 50% cross sectional diameter stenosis. Normal visualized cervical portion of the left internal carotid artery. Normal origin of the left external carotid artery (ECA). VERTEBRAL ARTERIES: There is a left dominant vertebral artery. The vertebral artery is somewhat irregular, with significant areas of narrowing at the C1 level. CT/CTA Neck W/WO Contrast IMPRESSION: 1. Left ICA plaque with less than 50% stenosis. 2. Atherosclerotic disease of the distal right vertebral artery. Electronically Signed: Kami Rey MD at 17:12 EST Tel , Service support ,
[2018-09-11] MEDS: Glucerna Shake 120 ML LIQUID PO ×3 (15:21→21:51)
[2018-09-11 16:01] LABS: CRP 8.21 mg/L (0.0-3.0)
[2018-09-11 16:10] LABS: Erythrocyte Sedimentation Rate 23 mm/hr (0-30)
[2018-09-11 16:30] LABS: Bedside Glucose 395 mg/dL (70-110)
--- NOTE | 2018-09-11 17:58 | PCM.PN.HOSP ---
Patient Problems: Active and Suspected Problems CVA (cerebral vascular accident) (Acute) Confusion (Acute) Subjective: Patient is confused and disoriented. Patient is not talking coherent. Patient has incomprehensible speech. Complain of fever about 2-3 days ago. Patient had low-grade fever, T-max 102.1 Fahrenheit at 4:00. Vitals/I&O's: Vital Signs Temp Pulse Resp BP Pulse Ox 98.5 F 107 H 18 152/81 H 98 09/11/18 17:30 09/11/18 17:30 09/11/18 17:30 09/11/18 17:30 09/11/18 17:30 Oxygen Delivery Method Room Air Weight: 138 lb 3.677 oz Body Mass Index (BMI) 26.1 Finger Stick Blood Glucose 497 Intake and Output for Last 24 Hours 09/09/18 09/10/18 09/11/18 23:59 23:59 23:59 Intake Total 970 / 970 3756.3 / 3756.3 Balance 970 / 970 3756.3 / 3756.3 General: Confused, Disoriented, Lethargic HEENT: Atraumatic, PERRLA, EOMI, Normocephalic Oral: Dry Mucosa, - - Oral hygiene is poor Neck: Supple, No JVD, Negative Carotid Bruits Lungs: Clear to auscultation, Diminished - Air entry diminished. Cardiovascular: Regular rate, Normal S1, Normal S2, No murmurs Abdomen: Bowel Sounds Present, Soft, Non Tender, Non-Distended Extremities: Edema Musculoskeletal: Arthritic Changes, - Neurological: - - No neck rigidity. Babinski sign is negative. Patient does not follow command for complete neurological evaluation. Microbiology Past 72 Hours 09/11/18 05:20 Mucosa - Nose Respiratory Panel (PCR) - Final Laboratory Results 09/10/18 18:59: POC Glucose 497 H* 09/10/18 19:05: WBC 8.5, RBC 4.63, Hgb 12.8, Hct 39.6, MCV 85.5, MCH 27.6, MCHC 32.3, RDW 14.9 H, RDW Differential 46.3 H, Plt Count 242, MPV 11.1, Immature Gran % (Auto) 0.200, Neut % (Auto) 70.7 H, Lymph % (Auto) 21.7, [place] % (Auto) 6.6, Eos % (Auto) 0.6, Baso % (Auto) 0.2, Absolute Neuts (auto) 6.0, Absolute Lymphs (auto) 1.85, Total Counted Not Reportable 09/10/18 19:05: PT 13.0, INR 1.0, APTT 23.5 L 09/10/18 19:05: Sodium 135 L, Potassium 3.0 L, Chloride 96 L, Carbon Dioxide 30.0, Anion Gap 9, BUN 7, Creatinine 0.88, Estim Creat Clear Calc 59.44, Est GFR (MDRD) Af Amer 84, Est GFR (MDRD) Non-Af 69, BUN/Creatinine Ratio 7.9 L, Glucose 511 H*, Calcium 9.0, Total Bilirubin 0.30, AST 15, ALT 18, Alkaline Phosphatase 119 H, Troponin I 0.016, Total Protein 7.5, Albumin 3.4, Globulin 4.1, Albumin/Globulin Ratio 0.8 L 09/10/18 19:05: Ethyl Alcohol 18.0 09/10/18 19:05: Acetone Level NEGATIVE 09/10/18 19:13: Urine Color Yellow, Urine Clarity Clear, Urine pH 7.0, Ur Specific [place] 1.005, Urine Protein 100 H, Urine Glucose (UA) 1000 H, Urine Ketones Negative, Urine Occult Blood 10 H, Urine Nitrite Negative, Urine Bilirubin Negative, Urine Urobilinogen Normal, Ur Leukocyte Esterase Negative, Urine RBC 0 SEEN, Urine WBC 0 SEEN, Ur Squamous Epith Cells 0-5 SEEN, Urine Bacteria 0 SEEN, Urine Mucus 0 SEEN 09/10/18 19:13: Urine Opiates Screen NEGATIVE, Urine Methadone Screen NEGATIVE, Ur Barbiturates Screen NEGATIVE, Ur Phencyclidine Scrn NEGATIVE, Ur Amphetamines Screen NEGATIVE, U Methamphetamin-MDMA NEGATIVE, U Benzodiazepines Scrn NEGATIVE, Urine Cocaine Screen NEGATIVE, U Cannabinoids Screen NEGATIVE, Ur Drug Screen Comment 09/10/18 19:15: Lactic Acid 2.0 09/10/18 19:50: Hemoglobin A1c 10.3 H 09/10/18 19:50: Magnesium 1.5 L, TSH 2.39 09/10/18 23:05: Ammonia < 10.0 L 09/10/18 23:05: Troponin I < 0.015 09/10/18 23:05: Lactic Acid 2.1 H 09/10/18 23:15: POC Glucose 388 H 09/11/18 02:10: Troponin I < 0.015 09/11/18 05:04: WBC 14.0 H, RBC 4.30, Hgb 11.9 L, Hct 36.2 L, MCV 84.2, MCH 27.7, MCHC 32.9, RDW 14.6, RDW Differential 44.0 H, Plt Count 262, MPV 11.4, Immature Gran % (Auto) 0.200, Neut % (Auto) 89.1 H, Lymph % (Auto) 7.3 L, [place] % (Auto) 3.3, Eos % (Auto) 0.0, Baso % (Auto) 0.1, Absolute Neuts (auto) 12.4 H, Absolute Lymphs (auto) 1.02, Total Counted Not Reportable 09/11/18 05:04: Sodium 139, Potassium 3.1 L, Chloride 103, Carbon Dioxide 25.0, Anion Gap 11, BUN 9, Creatinine 0.82, Estim Creat Clear Calc 55.74, Est GFR (MDRD) Af Amer 92, Est GFR (MDRD) Non-Af 76, BUN/Creatinine Ratio 11.0, Glucose 398 H, Calcium 8.2 L, Total Bilirubin 0.40, AST 14 L, ALT 19, Alkaline Phosphatase 105, Troponin I 0.026, Total Protein 6.8, Albumin 3.1 L, Globulin 3.7, Albumin/Globulin Ratio 0.8 L, Triglycerides 280 H, Cholesterol 236 H, LDL Cholesterol 137 H, VLDL Cholesterol 56 H, HDL Cholesterol 43 09/11/18 05:04: ESR 23 09/11/18 05:04: C-React Prot Ext Range 8.21 H 09/11/18 05:08: POC Glucose 392 H 09/11/18 06:55: Albumin Pending, CSF Albumin Pending, Serum IgG Pending, CSF IgG/Albumin Pending, CSF Albumin Index Pending, CSF IgG Index Pending, CSF IgG Local Synthesis Pending, CSF Myelin Basic Protein Pending, CSF/Ser Oligoclon Bands Pending, CSF VZV DNA (PCR) Pending, [place] Nile RNA (RT-PCR) Pending, West Nile Interp Pending, Enterovirus RNA (PCR) Pending, HSV I DNA PCR Pending, HSV II DNA PCR Pending, Culture Method Pending 09/11/18 11:25: POC Glucose 424 H 09/11/18 16:22: POC Glucose 395 H Current Medications Acetaminophen (Tylenol) 650 mg RECTAL Q4H PRN PRN PRN Reason: fever, pain Last Admin: 09/11/18 09:45 Dose: 650 mg Atorvastatin Calcium (Lipitor) 40 mg PO QHS [facility] Hydralazine HCl (Apresoline Iv) 5 mg IV Q30M PRN PRN Reason: sbp > 220/120 Sodium Chloride () 1,000 mls @ 150 mls/hr IV .Q6H40M [facility] Last Admin: 09/11/18 17:24 Dose: 150 mls/hr Famotidine 20 mg/ Sodium (Chloride) 10 mls @ 300 mls/hr IV Q12 [facility] Last Admin: 09/11/18 10:46 Dose: 300 mls/hr Vancomycin IV Pharmacy to Dose (1 ea/ Sodium Chloride) 500 mls @ 250 mls/hr IV X1 PRN; Protocol PRN Reason: Rx to Dose Acyclovir Sodium 480 mg/ (Dextrose) 259.6 mls @ 259.6 mls/hr IV Q8 [facility] Last Admin: 09/11/18 15:22 Dose: 259.6 mls/hr Ceftriaxone Sodium 2 gm/ (Sodium Chloride) 50 mls @ 100 mls/hr IV Q12 [facility] Last Admin: 09/11/18 10:46 Dose: 100 mls/hr Vancomycin HCl 1,250 mg/ (Sodium Chloride) 275 mls @ 167 mls/hr IV Q24H [facility] Insulin Glargine (Lantus (Bkc)) 25 units SC DAILY [facility] Last Admin: 09/11/18 09:23 Dose: 25 u Insulin Glargine (Lantus (Bkc)) 15 units SC QHS [facility] Last Admin: 09/10/18 23:49 Dose: 15 unit Insulin Human Lispro (Humalog Kwikpen (Bkc)) 0 unit SC ACHS [facility]; Protocol Labetalol HCl (Trandate) 10 mg IV Q10M PRN PRN Reason: MAINTAIN BP < 200/110 Stop: 09/11/18 22:51 Last Admin: 09/11/18 04:05 Dose: 10 mg Magnesium Hydroxide (Milk Of Magnesia) 30 ml PO DAILY PRN PRN Reason: Constipation Nutritional Formula (Lactose Free) (Glucerna Shake) 120 ml PO 4X/DAY [facility] Last Admin: 09/11/18 17:40 Dose: 120 ml Ondansetron HCl (Zofran) 4 mg IV Q8H PRN PRN PRN Reason: NAUSEA Last Admin: 09/11/18 00:56 Dose: 4 mg Sodium Chloride () 5 - 15 ml IV UD PRN PRN Reason: SALINE FLUSH Last Admin: 09/11/18 08:12 Dose: 10 ml Medical Necessity - Tobacco Use Smoking Status: Unknown if ever smoked Tobacco Use: Secondhand Assessment/Plan All Active Problems Encephalopathy acute (Acute) CVA (cerebral vascular accident) (Acute) Confusion (Acute) Cerebrovascular disease (Acute) The patient is a 58 y/o F w/ PMHx: PAF s/p ablation, CVA/TIA without deficits per her report, HTN, HLD, Migraines, Anxiety and Depression, GERD, IBS, Poorly controlled Diabetes Mellitus type II, Notable history of medication non-compliance who presents [facility] with history of onset increased fatigue, lethargy, confusion with recurrent mannerisms specifically noted per family to be continuously coming her hair with her fingers starting at approximately 1 1:30 PM. 1 acute right occipital infarct: Patient had MRI and MRA of the head done. small acute infarct in association with the right occipital lobe. No hemorrhage. No significant mass effect. 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 Left vertebral artery terminates into tapering basilar artery and posterior cervical arteries are not adequately perfused. This was discussed with Dr. Red and he reviewed the images. CT angiogram of head shows moderate stenosis of terminal right ICA. Mild stenosis of terminal left ICA. Occluded distal right vertebral artery. Moderate distal basilar stenosis. Occluded left PUBLISHING DIRECTOR. Full stroke workup including LP for the concern of fever, small vessel vasculitis. Echo shows EF 60%. ESR, CRP and hypercoagulable workup. Dr. Red suggested continue empiric antibiotics and ruled out by LP. On aspirin and Lipitor. PT OT and speech evaluation. (2) Diabetes mellitus type II w/ Hyperglycemia, Poorly Controlled w/ Non-compliance history: Will continue home insulin regimen, NPO status currently, aggressive IVFs, q 6 hour accu checks w/ ISS, nutrition consulted for education and teaching once more alert, HgbA1c pending, prior notably elevated 12.2%. (3) Hx CVA/TIA: Holding oral regimen, continued on long-acting insulin regimen, permissive HTN currently, FLP in AM, maintained on therapeutic lovenox as noted, [place] ASA. (4) Anxiety and Depression: Holding home Zoloft regimen. (5) Hypertension: Permissive. (6) Hyperlipidemia: NPO status, holding home statin regimen. Lipid profile shows triglyceride 280, total cholesterol 236, LDL 137, HDL 43. High intensity statin (7) Migraines: Not on regimen, from prior history complex migraine prior, possibly contributing to current presentation. (8) PAF/cardiac arrhythmia: EKG w/ ST, s/p remote ablation history per patient, transitioned as noted in interim to therapeutic lovenox, holding oral intake, permissive. (9) Incidental Vertebral Artery Calcification: CT head with no acute findings, holding oral regimen as noted, was seen on prior CT head during prior admission, MRI brain, MRA head and neck pending as noted. (10) DVT prophylaxis: SCD. Discontinue Lovenox Clinical Impression(s) from Imaging Studies Brain CT 09/10/18 19:04 IMPRESSION: No acute process. Mild atrophy. Electronically Signed: Kami Rey MD at 19:52 EST Tel , Service support , Chest X-Ray 09/10/18 19:20 IMPRESSION: No radiographic evidence of acute cardiopulmonary disease. at 2013 Reported and signed by: Jose Starr MD Electronically Signed: Jose Starr, at 20:12 EST Tel , Service support , Chest X-Ray 09/11/18 08:35 IMPRESSION: No acute abnormalities seen. Brain MRI 09/11/18 08:38 IMPRESSION: There is evidence of small acute infarct in association with the right occipital lobe. No hemorrhage. No significant mass effect. Flow void of the attenuated right vertebral artery not seen. N.B. : The above information has been verbally conveyed by Bernie Moses MD to Olivia Hughes RN, on 09/11/2018 13:20:26 (ET). 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 The left vertebral artery terminates into an tapering basilar artery and the posterior cerebral arteries are not adequately perfused. This can be seen previously. Consider vasculitis. Neck MRA 09/11/18 08:38 IMPRESSION: No acute abnormality. 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 Head CTA 09/11/18 15:19 IMPRESSION: 1. Moderate stenosis of the terminal right ICA. 2. Mild stenosis of the terminal left ICA. 3. Occluded distal right vertebral artery. Vertebral termination in the right PICA is considered less likely. 4. Moderate distal basilar stenosis. 5. Occluded left PUBLISHING DIRECTOR. 6. Right PUBLISHING DIRECTOR supply via small collateral vessels including a small right P1 segment. Neck CTA 09/11/18 15:19 IMPRESSION: 1. Left ICA plaque with less than 50% stenosis. 2. Atherosclerotic disease of the distal right vertebral artery. Code Visit Inpatient E&M: 93119 Subs Hosp L3
[2018-09-11] MEDS: Atorvastatin Calcium 80 MG Tablet PO (21:48)
[2018-09-11 23:21] LABS: Bedside Glucose 361 mg/dL (70-110)
[2018-09-12] VITALS (14 sets, daily range): BP systolic 133–174; BP diastolic 77–115; PULSE 95–107; RESP 16–20; TEMP 36.7–37.2; O2SAT 95–99; BMI 26.1
--- NOTE | 2018-09-12 | CYSPIN_PTH ---
PATIENT: FERNANDO ZULETA LOC: PCU U#:[id number] AGE/SX: 58/F ROOM: [facility] RE09/10/[address]: Dr. Devang Greenberg MD : 1960 BED: 1 DIS: 09/14/2018 SPEC #: [id number] RECD: 09/12/18 09:45 STATUS: MICHAEL REQ #: [id number] LATRICIA: 09/12/18 00:[address]: Devang Greenberg DEPT: CYTOLOGY RECD BY: Raymundo Wagoner ENTERED: 09/12/18 12:02 SP TYPE: CYSPIN FL OTHR DR: MD Dr. Fawn Gomez MD Jodi Swihart, FORESTRY LABORER-C [facility] Tissues: Cerebrospinal Fluid Procedures: Pap Stain (control) Special Stain Group II Cytospin Fluid HEADER OPERATION: Lumbar puncture PRE-OP DIAGNOSIS: Lethargy, confusion TISSUE SUBMITTED: Cerebrospinal fluid for cytology DIAGNOSIS CYTOLOGY Cerebrospinal fluid for cytology (cytospin): Negative for malignant cells. AM:swathi 09/13/18 CYTOLOGY STUDY Slides are reviewed. CYTOLOGY GROSS Received is 3 ml of clear colorless fluid labeled with the patient's name and and designated per the requisition as CSF. Submitted for cytology preparation. 09/12/18 TC:5 CPT: 11827
[2018-09-12] MEDS: 0.9% Normal Saline 1,000 ML 150 ML IV ×2 (00:09→06:15)
[2018-09-12 05:36] LABS: Lyme Ab Screen Interpretation REF LAB
[2018-09-12 05:41] LABS: Absolute Lymphocyte Count 2.61 X10^3/ul (0.83-4.51); Absolute Neutrophil Count 9.8 X10^3/uL (2.0-7.7); Basophil# 0.02 X10^3/uL; Basophil% 0.2 % (0-1); Eosinophil# 0.02 X10^3/uL; Eosinophils% 0.2 % (0-5); Hematocrit 30.9 % (37-47); Lymphocyte # 2.61 X10^3/ul (4.0); Mean Corp Hgb Conc 32.4 g/gl (32-36); Mean Corpuscular Hgb 27.9 pg (27.0-32.0); Mean Corpuscular Volume 86.1 fL (81-99); Mean Platelet Vol. 11.1 fl (6.2-12.0); Monocyte# 0.63 X10^3/uL; Monocyte% 4.8 % (0-10); Neutrophil # 9.75 X10^3/uL (2.7-7.7); Neutrophil % 74.5 % (47-70); Platelet Count 223 K/mm3 (150-450); RBC Distribution Width CV 14.8 % (11.6-14.6); RBC Distribution Width SD 44.4 fl (35.1-43.9); Red Blood Count 3.59 M/mm3 (4.2-5.4); White Blood Count 13.1 K/mm3 (4.4-11.0)
[2018-09-12 05:42] LABS: POSITIVE COUNT NO; POSITIVE DIFFERENTIAL NO; POSITIVE MORPHOLOGY NO
[2018-09-12 06:01] LABS: Anion Gap 8 (5-15); BUN 11 mg/dL (7-18); BUN/Creat Ratio 18.2 RATIO (10-20); Calcium,Total 7.6 mg/dL (8.5-10.1); Chloride 108 mmol/L (98-107); EST Glomerular Filtration Rate 108 mL/min (>60); Est Glom Filt Rate - Afr Amer 130 mL/min (>60); Estimated Creatinine Clearance 76.18 ml/min; Glucose 258 mg/dL (74-106); Potassium 3.2 mmol/L (3.5-5.1); Sodium Level 140 mmol/L (136-145)
--- NOTE | 2018-09-12 06:49 | RAD_ITS ---
PROCEDURE: Fluoroscopic guided Lumbar Puncture. DATE: September 13, 2018. CLINICAL INDICATION: Lethargy and confusion. PHYSICIAN: Darius Sales M.D. MEDICATIONS: 1% lidocaine administered subcutaneously for local anesthesia. ACCESS SITE: Lower posterior back. NEEDLE: 22-gauge spinal needle. SPECIMEN: Approximately 12 mL clear]CSF fluid. FLUOROSCOPY TIME (if supplied): (2:16) minutes/seconds COMPLICATIONS: None immediate. The risks, benefits, and alternatives to the procedure were explained to the patient. The specific risks of bleeding, infection, and neurovascular injury were detailed and accepted. Witnessed informed consent was obtained. The patient was placed on the fluoroscopic table in the prone position. The level for needle entry was determined and marked. The overlying skin was cleaned and prepped in the usual sterile fashion. 2% lidocaine was administered subcutaneously for local anesthesia. Under fluoroscopic guidance a 22-gauge spinal needle was advanced. The thecal sac was entered at the L3- L4 vertebral level. The inner stylet was removed. There was spontaneous flow of clear CSF fluid. The patient was placed in a reversed Trendelenburg position. Approximately 12 mL of cerebrospinal fluid was collected using gravity. The specimen was collected and submitted to the laboratory for further evaluation. The needle was withdrawn,. Hemostasis was achieved and a sterile dressing placed. The patient tolerated the procedure well without any immediate complications. The patient was placed supine with head elevated and returned to the floor in stable condition. RAD/Fluoro Guided Lumbar Puncture IMPRESSION: Successful fluoroscopic-guided lumbar puncture. Electronically Signed: Darius Sales MD at 11:17 EST Tel [phone], Service support ,
[2018-09-12 06:56] LABS: Bedside Glucose 296 mg/dL (70-110)
[2018-09-12] MEDS: Insulin Lispro 100 UNIT/ML INSULN.PEN SC ×4 (07:40→22:59)
--- NOTE | 2018-09-12 10:00 | PCM.PN.HOSP ---
Patient Problems: Active and Suspected Problems CVA (cerebral vascular accident) (Acute) Confusion (Acute) Subjective: Seen and examined in the morning. Patient is awake, talking coherent and comprehensible speech. Patient wants to leave home tomorrow but was reconciled that she is still needs to stay in hospital as she is completely not on baseline and workup still going on. Vitals/I&O's: Vital Signs Temp Pulse Resp BP Pulse Ox 99.0 F 107 H 18 160/115 H 99 09/12/18 17:00 09/12/18 17:00 09/12/18 17:00 09/12/18 17:00 09/12/18 17:00 Oxygen Delivery Method Room Air Weight: 138 lb 3.677 oz Body Mass Index (BMI) 26.1 Finger Stick Blood Glucose 497 Intake and Output for Last 24 Hours 09/10/18 09/11/18 09/12/18 23:59 23:59 23:59 Intake Total 970 / 970 3876.3 / 3876.3 3770 / 3770 Balance 970 / 970 3876.3 / 3876.3 3770 / 3770 General: Oriented x3, Cooperative, Lethargic HEENT: Atraumatic, PERRLA, EOMI, Normocephalic Neck: Supple, No JVD, Negative Carotid Bruits Lungs: No rhonchi, No wheeze, No rales, Diminished - Air entry is diminished in bilateral lung bases Cardiovascular: Regular rate, Regular Rhythm, Normal S1, Normal S2, No murmurs, - - Has paroxysmal A. fib Abdomen: Bowel Sounds Present, Soft, Non Tender, Non-Distended Extremities: Capillary Refill Less than 3 Seconds, Edema Skin: No rashes, No breakdown Musculoskeletal: No Tenderness to Palpation of Joints or Extremities, Arthritic Changes, Muscle Wasting Neurological: Cranial nerves II-XII grossly intact, Deep Tendon Reflexes 2+/4 and Symmetrical, Neuro grossly intact Psych/Mental Status: Normal Affect, Appropriate Microbiology Past 72 Hours 09/12/18 09:45 Csf, Spinal Fluid Gram Stain - Final 09/11/18 05:20 Mucosa - Nose Respiratory Panel (PCR) - Final Laboratory Results 09/11/18 21:39: POC Glucose 361 H 09/12/18 05:20: Miscellaneous Test Pending 09/12/18 05:20: Protein C Antigen Pending, Functional Protein C Pending, Prot C Funct Activity Pending, Antithrombin III Ag Pending, Func Antithrombin III Pending, Factor V Leiden Mutat Pending, Beta-2-GPI IgG Ab Pending, Beta-2-GPI IgA Ab Pending, Beta-2-GPI IgM Ab Pending, Anti-Cardiolipin IgG Ab Pending, Anti-Cardiolipin IgM Ab Pending, Factor II DNA Analysis Pending 09/12/18 05:20: KRZYSZTOF Screen Pending, DHIRAJ-1 Antibody Pending, SS-A/Ro IgG Antibody Pending, SS-B/La IgG Antibody Pending, Sm (Payne) Antibody Pending, CABLE FERRY OPERATOR Antibody Pending, Scl-70 Scleroderma Ab Pending, Double Strand DNA Ab Pending, Centromere B Antibody Pending 09/12/18 05:20: c-ANCA Antibody Pending, p-ANCA Antibody Pending, Lyme Total Antibody Pending, Lyme Disease Interpret Pending 09/12/18 05:20: WBC 13.1 H, RBC 3.59 L, Hgb 10.0 L, Hct 30.9 L, MCV 86.1, MCH 27.9, MCHC 32.4, RDW 14.8 H, RDW Differential 44.4 H, Plt Count 223, MPV 11.1, Immature Gran % (Auto) 0.300, Neut % (Auto) 74.5 H, Lymph % (Auto) 20.0, Arroyo % (Auto) 4.8, Eos % (Auto) 0.2, Baso % (Auto) 0.2, Absolute Neuts (auto) 9.8 H, Absolute Lymphs (auto) 2.61, Total Counted Not Reportable 09/12/18 05:20: Sodium 140, Potassium 3.2 L, Chloride 108 H, Carbon Dioxide 24.0, Anion Gap 8, BUN 11, Creatinine 0.60, Estim Creat Clear Calc 76.18, Est GFR (MDRD) Af Amer 130, Est GFR (MDRD) Non-Af 108, BUN/Creatinine Ratio 18.2, Glucose 258 H, Calcium 7.6 L 09/12/18 05:20: Magnesium 1.9 09/12/18 06:43: POC Glucose 296 H 09/12/18 09:45: CSF Glucose 159 H, CSF Total Protein 86.0 H 09/12/18 09:45: Miscellaneous Test Pending 09/12/18 09:45: Miscellaneous Test Cancelled 09/12/18 09:45: Miscellaneous Cytology Pending 09/12/18 09:45: Fld Polynuclear WBCs # 0.003, Fld Polynuclear WBCs % 20.0, Fluid Mononuclear WBCs 0.012, Fld Mononuclear WBCs % 80.0, CSF Appearance CLEAR, CSF Color COLORLESS, CSF WBC 0.015 H, CSF RBC 2 H, CSF Cell Count Tube # 4, CSF Total Cell Counted 0.015 H, CSF Comment May follow 09/12/18 11:05: POC Glucose 239 H 09/12/18 16:26: POC Glucose 307 H Current Medications Acetaminophen (Tylenol) 650 mg PO Q4H PRN PRN PRN Reason: pain Last Admin: 09/12/18 12:58 Dose: 650 mg Aspirin (Aspirin, Baby) 81 mg PO DAILY@0800 [facility] Last Admin: 09/12/18 12:58 Dose: 81 mg Atorvastatin Calcium (Lipitor) 80 mg PO QHS [facility] Last Admin: 09/11/18 21:48 Dose: 80 mg Hydralazine HCl (Apresoline Iv) 5 mg IV Q30M PRN PRN Reason: sbp > 220/120 Famotidine 20 mg/ Sodium (Chloride) 10 mls @ 300 mls/hr IV Q12 [facility] Last Admin: 09/12/18 10:10 Dose: 300 mls/hr Vancomycin IV Pharmacy to Dose (1 ea/ Sodium Chloride) 500 mls @ 250 mls/hr IV X1 PRN; Protocol PRN Reason: Rx to Dose Acyclovir Sodium 480 mg/ (Dextrose) 259.6 mls @ 259.6 mls/hr IV Q8 [facility] Last Admin: 09/12/18 15:00 Dose: 259.6 mls/hr Ceftriaxone Sodium 2 gm/ (Sodium Chloride) 50 mls @ 100 mls/hr IV Q12 [facility] Last Admin: 09/12/18 10:10 Dose: 100 mls/hr Vancomycin HCl (Vancomycin) 1,000 mg in 200 mls @ 200 mls/hr IV Q12H [facility] Insulin Glargine (Lantus (Bkc)) 25 units SC DAILY [facility] Last Admin: 01/17/19 10:10 Dose: 25 u Insulin Glargine (Lantus (Bkc)) 15 units SC QHS [facility] Last Admin: 09/11/18 21:41 Dose: 15 unit Insulin Human Lispro (Humalog Kwikpen (Bkc)) 0 unit SC ACHS [facility]; Protocol Last Admin: 09/12/18 16:27 Dose: 6 units Magnesium Hydroxide (Milk Of Magnesia) 30 ml PO DAILY PRN PRN Reason: Constipation Nutritional Formula (Lactose Free) (Glucerna Shake) 120 ml PO 4X/DAY [facility] Last Admin: 09/12/18 12:59 Dose: 120 ml Ondansetron HCl (Zofran) 4 mg IV Q8H PRN PRN PRN Reason: NAUSEA Last Admin: 09/11/18 00:56 Dose: 4 mg Sodium Chloride () 5 - 15 ml IV UD PRN PRN Reason: SALINE FLUSH Last Admin: 09/12/18 10:11 Dose: 10 ml Medical Necessity - Tobacco Use Smoking Status: Unknown if ever smoked Tobacco Use: Secondhand Assessment/Plan All Active Problems Encephalopathy acute (Acute) CVA (cerebral vascular accident) (Acute) Confusion (Acute) Cerebrovascular disease (Acute) The patient is a 58 y/o F w/ PMHx: PAF s/p ablation, CVA/TIA without deficits per her report, HTN, HLD, Migraines, Anxiety and Depression, GERD, IBS, Poorly controlled Diabetes Mellitus type II, Notable history of medication non-compliance who presents to the [facility] ED on 09/10/18 with history of onset increased fatigue, lethargy, confusion with recurrent mannerisms specifically noted per family to be continuously coming her hair with her fingers starting at approximately 1 1:30 PM. 1 acute right occipital infarct: Patient had MRI and MRA of the head done. small acute infarct in association with the right occipital lobe. No hemorrhage. No significant mass effect. 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 Left vertebral artery terminates into tapering basilar artery and posterior cervical arteries are not adequately perfused. This was discussed with Dr. Red and he reviewed the images. CT angiogram of head shows moderate stenosis of terminal right ICA. Mild stenosis of terminal left ICA. Occluded distal right vertebral artery. Moderate distal basilar stenosis. Occluded left FELLER OPERATOR. The patient had lumbar puncture today. CSF fluid analysis shows 15 cells, 12 mononuclear and 3 polymorphs, glucose 159 H, CSF Total Protein 86.0 H. As the patient clinically had fever 102 when she was admitted and there is suspicion of meningitis, antibiotics discontinued and ID consulted called. Discussed with ID Dr. Estevez. Okay to resume Eliquis from tomorrow evening, after 36 hours of LP. Discontinue aspirin after Eliquis is restarted. Full stroke workup including LP for the concern of fever, small vessel vasculitis. Echo shows EF 60%. ESR, CRP and hypercoagulable workup. Dr. Red suggested continue empiric antibiotics and ruled out by LP. On aspirin and Lipitor. PT OT and speech evaluation. Hypokalemia: Potassium is 3.2. Magnesium 1.9. Potassium replacement ordered. (2) Diabetes mellitus type II w/ Hyperglycemia, Poorly Controlled w/ Non-compliance history: Will continue home insulin regimen, NPO status currently, aggressive IVFs, q 6 hour accu checks w/ ISS, nutrition consulted for education and teaching once more alert, HgbA1c pending, prior notably elevated 12.2%. (3) Hx CVA/TIA: Holding oral regimen, continued on long-acting insulin regimen, permissive HTN currently, FLP in AM, maintained on therapeutic lovenox as noted, CO ASA. (4) Anxiety and Depression: Holding home Zoloft regimen. (5) Hypertension: Permissive. (6) Hyperlipidemia: NPO status, holding home statin regimen. Lipid profile shows triglyceride 280, total cholesterol 236, LDL 137, HDL 43. High intensity statin (7) Migraines: Not on regimen, from prior history complex migraine prior, possibly contributing to current presentation. (8) PAF/cardiac arrhythmia: EKG w/ ST, s/p remote ablation history per patient, transitioned as noted in interim to therapeutic lovenox, holding oral intake, permissive. (9) Incidental Vertebral Artery Calcification: CT head with no acute findings, holding oral regimen as noted, was seen on prior CT head during prior admission, MRI brain, MRA head and neck pending as noted. (10) DVT prophylaxis: SCD. Discontinue Lovenox Microbiology Past 72 Hours 09/12/18 09:45 Csf, Spinal Fluid Gram Stain - Final 09/11/18 05:20 Mucosa - Nose Respiratory Panel (PCR) - Final Laboratory Results 09/12/18 05:20: WBC 13.1 H, RBC 3.59 L, Hgb 10.0 L, Hct 30.9 L, MCV 86.1, MCH 27.9, MCHC 32.4, RDW 14.8 H, RDW Differential 44.4 H, Plt Count 223, MPV 11.1, Immature Gran % (Auto) 0.300, Neut % (Auto) 74.5 H, Lymph % (Auto) 20.0, Arroyo % (Auto) 4.8, Eos % (Auto) 0.2, Baso % (Auto) 0.2, Absolute Neuts (auto) 9.8 H, Absolute Lymphs (auto) 2.61, Total Counted Not Reportable 09/12/18 05:20: Sodium 140, Potassium 3.2 L, Chloride 108 H, Carbon Dioxide 24.0, Anion Gap 8, BUN 11, Creatinine 0.60, Estim Creat Clear Calc 76.18, Est GFR (MDRD) Af Amer 130, Est GFR (MDRD) Non-Af 108, BUN/Creatinine Ratio 18.2, Glucose 258 H, Calcium 7.6 L 09/12/18 05:20: Magnesium 1.9 09/12/18 06:43: POC Glucose 296 H 09/12/18 09:45: CSF Glucose 159 H, CSF Total Protein 86.0 H 09/12/18 09:45: Fld Polynuclear WBCs # 0.003, Fld Polynuclear WBCs % 20.0, Fluid Mononuclear WBCs 0.012, Fld Mononuclear WBCs % 80.0, CSF Appearance CLEAR, CSF Color COLORLESS, CSF WBC 0.015 H, CSF RBC 2 H, CSF Cell Count Tube # 4, CSF Total Cell Counted 0.015 H, CSF Comment May follow 09/12/18 11:05: POC Glucose 239 H 09/12/18 16:26: POC Glucose 307 H Active Medications Acetaminophen (Tylenol) 650 mg PO Q4H PRN PRN PRN Reason: pain Last Admin: 09/12/18 12:58 Dose: 650 mg Aspirin (Aspirin, Baby) 81 mg PO DAILY@0800 [facility] Last Admin: 09/12/18 12:58 Dose: 81 mg Atorvastatin Calcium (Lipitor) 80 mg PO QHS [facility] Last Admin: 09/11/18 21:48 Dose: 80 mg Hydralazine HCl (Apresoline Iv) 5 mg IV Q30M PRN PRN Reason: sbp > 220/120 Famotidine 20 mg/ Sodium (Chloride) 10 mls @ 300 mls/hr IV Q12 [facility] Last Admin: 09/12/18 10:10 Dose: 300 mls/hr Vancomycin IV Pharmacy to Dose (1 ea/ Sodium Chloride) 500 mls @ 250 mls/hr IV X1 PRN; Protocol PRN Reason: Rx to Dose Acyclovir Sodium 480 mg/ (Dextrose) 259.6 mls @ 259.6 mls/hr IV Q8 [facility] Last Admin: 09/12/18 15:00 Dose: 259.6 mls/hr Ceftriaxone Sodium 2 gm/ (Sodium Chloride) 50 mls @ 100 mls/hr IV Q12 [facility] Last Admin: 09/12/18 10:10 Dose: 100 mls/hr Vancomycin HCl (Vancomycin) 1,000 mg in 200 mls @ 200 mls/hr IV Q12H [facility] Last Admin: 09/12/18 17:59 Dose: 200 mls/hr Insulin Glargine (Lantus (Bkc)) 25 units SC DAILY [facility] Last Admin: 09/12/18 10:10 Dose: 25 u Insulin Glargine (Lantus (Bkc)) 15 units SC QHS [facility] Last Admin: 09/11/18 21:41 Dose: 15 unit Insulin Human Lispro (Humalog Kwikpen (Bkc)) 0 unit SC ACHS [facility]; Protocol Last Admin: 09/12/18 16:27 Dose: 6 units Magnesium Hydroxide (Milk Of Magnesia) 30 ml PO DAILY PRN PRN Reason: Constipation Nutritional Formula (Lactose Free) (Glucerna Shake) 120 ml PO 4X/DAY [facility] Last Admin: 09/12/18 17:58 Dose: 120 ml Ondansetron HCl (Zofran) 4 mg IV Q8H PRN PRN PRN Reason: NAUSEA Last Admin: 09/11/18 00:56 Dose: 4 mg Sodium Chloride () 5 - 15 ml IV UD PRN PRN Reason: SALINE FLUSH Last Admin: 09/12/18 10:11 Dose: 10 ml Clinical Impression(s) from Imaging Studies Brain CT 09/10/18 19:04 IMPRESSION: No acute process. Mild atrophy. Electronically Signed: Kami Rey MD at 19:52 EST Tel , Service support , Chest X-Ray 09/10/18 19:20 IMPRESSION: No radiographic evidence of acute cardiopulmonary disease. at 2013 Reported and signed by: Jose Starr MD Electronically Signed: Jose Starr, at 20:12 EST Tel , Service support , Chest X-Ray 09/11/18 08:35 IMPRESSION: No acute abnormalities seen. Brain MRI 09/11/18 08:38 IMPRESSION: There is evidence of small acute infarct in association with the right occipital lobe. No hemorrhage. No significant mass effect. Flow void of the attenuated right vertebral artery not seen. N.B. : The above information has been verbally conveyed by Bernie Moses MD to Olivia Hughes RN, on 09/11/2018 13:20:26 (ET). 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 The left vertebral artery terminates into an tapering basilar artery and the posterior cerebral arteries are not adequately perfused. This can be seen previously. Consider vasculitis. Neck MRA 09/11/18 08:38 IMPRESSION: No acute abnormality. 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 Head CTA 09/11/18 15:19 IMPRESSION: 1. Moderate stenosis of the terminal right ICA. 2. Mild stenosis of the terminal left ICA. 3. Occluded distal right vertebral artery. Vertebral termination in the right PICA is considered less likely. 4. Moderate distal basilar stenosis. 5. Occluded left FELLER OPERATOR. 6. Right FELLER OPERATOR supply via small collateral vessels including a small right P1 segment. Neck CTA 09/11/18 15:19 IMPRESSION: 1. Left ICA plaque with less than 50% stenosis. 2. Atherosclerotic disease of the distal right vertebral artery. Code Visit Inpatient E&M: 56457 Subs Hosp L3
[2018-09-12 10:05] LABS: Cytology, Body Fluid / CSF SEE PATHOLOGY REPORT
[2018-09-12] MEDS: Glucerna Shake 120 ML LIQUID PO ×4 (10:10→23:23)
[2018-09-12] MEDS: 0.9% NaCl Peripheral Flush Adult/Peds IV (10:11)
[2018-09-12 10:21] LABS: Body Fluid Mononuclear WBC # 0.012 10^3/uL; Body Fluid Polynuclear WBC # 0.003 10^3/uL; Total Cell Count CSF 0.015 10^3/uL (0.000-0.000); White Count, CSF 0.015 10^3/uL (0.000-0.000)
[2018-09-12 10:31] LABS: Auto B Fluid Analyzer BKGD Ct COUNTS W/IN LIMITS (W/IN LIMITS); CSF Color COLORLESS (Colorless); Tested Tube # 4
[2018-09-12 10:32] LABS: Appearance CSF (character) CLEAR (Clear)
[2018-09-12 10:39] LABS: Glucose Spinal Fluid 159 mg/dL (40-75)
[2018-09-12 10:45] LABS: Magnesium 1.9 mg/dL (1.6-2.6)
[2018-09-12 11:20] LABS: Bedside Glucose 239 mg/dL (70-110)
[2018-09-12 11:32] LABS: RBC Count, Spinal Fluid 2 /mm-3 (None seen)
[2018-09-12 11:33] LABS: Body Fluid QC Type(s) BF1Q
[2018-09-12] MEDS: Aspirin 81 MG TAB.CHEW PO (12:58)
[2018-09-12] MEDS: Acetaminophen 325 MG Tablet 650 MG PO (12:58)
--- NOTE | 2018-09-12 13:01 | PCM.PN.NEU ---
Patient Problems: Active and Suspected Problems CVA (cerebral vascular accident) (Acute) Confusion (Acute) Subjective: No Issues overnight. Confusion is better. LP done shows CSF WBCs-15, RBCs-2, Protein 86. ESR 23. CTA head/neck reviewed- right vertebral artery occlusion, moderate basilar stenosis and left MORTGAGE PROTECTION SPECIALIST occlusion. - Physical Exam General: - - awake, alert, AoA x2 HEENT: Normocephalic Neck: Supple Lungs: Normal air movement Cardiovascular: Normal S1, Normal S2 Abdomen: Bowel Sounds Present Extremities: No cyanosis Neurological: - - consious, awake, confused, AoA x2, CN 2-12 grossly intact, power 5/5 all 4 extremities, denies any sensory loss, Reflexes + B/L B/S/T/K/A, gait deferred Vital Signs Temp Pulse Resp BP Pulse Ox 98.2 F 95 16 159/99 H 98 09/12/18 09:00 09/12/18 11:00 09/12/18 09:00 09/12/18 09:00 09/12/18 09:00 Oxygen Delivery Method Room Air Weight: 62.7 kg Body Mass Index (BMI) 26.1 Finger Stick Blood Glucose 497 Intake and Output for Last 24 Hours 09/10/18 09/11/18 09/12/18 23:59 23:59 23:59 Intake Total 970 / 970 3876.3 / 3876.3 3770 / 3770 Balance 970 / 970 3876.3 / 3876.3 3770 / 3770 Microbiology Past 72 Hours 09/12/18 09:45 Gram Stain - Final Csf, Spinal Fluid 09/11/18 05:20 Respiratory Panel (PCR) - Final Mucosa - Nose Laboratory Tests Past 24 Hrs 09/11/18 09/11/18 09/12/18 05:04 05:04 05:20 WBC RBC Hgb Hct MCV MCH MCHC RDW RDW Differential Plt Count MPV Immature Gran % (Auto) Neut % (Auto) Lymph % (Auto) [place] % (Auto) Eos % (Auto) Baso % (Auto) Absolute Neuts (auto) Absolute Lymphs (auto) Total Counted ESR 23 Protein C Antigen Functional Protein C Prot C Funct Activity Antithrombin III Ag Func Antithrombin III Factor V Leiden Mutat Sodium Potassium Chloride Carbon Dioxide Anion Gap BUN Creatinine Estim Creat Clear Calc Est GFR (MDRD) Af Amer Est GFR (MDRD) Non-Af BUN/Creatinine Ratio Glucose Calcium Magnesium C-React Prot Ext Range 8.21 H Fld Polynuclear WBCs # Fld Polynuclear WBCs % Fluid Mononuclear WBCs Fld Mononuclear WBCs % CSF Appearance CSF Color CSF WBC CSF RBC CSF Cell Count Tube # CSF Total Cell Counted CSF Comment CSF Glucose CSF Total Protein KRZYSZTOF Screen c-ANCA Antibody p-ANCA Antibody DHIRAJ-1 Antibody SS-A/Ro IgG Antibody SS-B/La IgG Antibody Sm ([place]) Antibody SKIN PASS OPERATOR Antibody Scl-70 Scleroderma Ab Double Strand DNA Ab Centromere B Antibody Beta-2-GPI IgG Ab Beta-2-GPI IgA Ab Beta-2-GPI IgM Ab Anti-Cardiolipin IgG Ab Anti-Cardiolipin IgM Ab Lyme Total Antibody Lyme Disease Interpret Factor II DNA Analysis Miscellaneous Cytology Miscellaneous Test Pending 09/12/18 09/12/18 09/12/18 05:20 05:20 05:20 WBC RBC Hgb Hct MCV MCH MCHC RDW RDW Differential Plt Count MPV Immature Gran % (Auto) Neut % (Auto) Lymph % (Auto) [place] % (Auto) Eos % (Auto) Baso % (Auto) Absolute Neuts (auto) Absolute Lymphs (auto) Total Counted ESR Protein C Antigen Pending Functional Protein C Pending Prot C Funct Activity Pending Antithrombin III Ag Pending Func Antithrombin III Pending Factor V Leiden Mutat Pending Sodium Potassium Chloride Carbon Dioxide Anion Gap BUN Creatinine Estim Creat Clear Calc Est GFR (MDRD) Af Amer Est GFR (MDRD) Non-Af BUN/Creatinine Ratio Glucose Calcium Magnesium C-React Prot Ext Range Fld Polynuclear WBCs # Fld Polynuclear WBCs % Fluid Mononuclear WBCs Fld Mononuclear WBCs % CSF Appearance CSF Color CSF WBC CSF RBC CSF Cell Count Tube # CSF Total Cell Counted CSF Comment CSF Glucose CSF Total Protein KRZYSZTOF Screen Pending c-ANCA Antibody Pending p-ANCA Antibody Pending DHIRAJ-1 Antibody Pending SS-A/Ro IgG Antibody Pending SS-B/La IgG Antibody Pending Sm ([place]) Antibody Pending SKIN PASS OPERATOR Antibody Pending Scl-70 Scleroderma Ab Pending Double Strand DNA Ab Pending Centromere B Antibody Pending Beta-2-GPI IgG Ab Pending Beta-2-GPI IgA Ab Pending Beta-2-GPI IgM Ab Pending Anti-Cardiolipin IgG Ab Pending Anti-Cardiolipin IgM Ab Pending Lyme Total Antibody Pending Lyme Disease Interpret Pending Factor II DNA Analysis Pending Miscellaneous Cytology Miscellaneous Test 09/12/18 09/12/18 09/12/18 05:20 05:20 05:20 WBC 13.1 H RBC 3.59 L Hgb 10.0 L Hct 30.9 L MCV 86.1 MCH 27.9 MCHC 32.4 RDW 14.8 H RDW Differential 44.4 H Plt Count 223 MPV 11.1 Immature Gran % (Auto) 0.300 Neut % (Auto) 74.5 H Lymph % (Auto) 20.0 [place] % (Auto) 4.8 Eos % (Auto) 0.2 Baso % (Auto) 0.2 Absolute Neuts (auto) 9.8 H Absolute Lymphs (auto) 2.61 Total Counted Not Reportable ESR Protein C Antigen Functional Protein C Prot C Funct Activity Antithrombin III Ag Func Antithrombin III Factor V Leiden Mutat Sodium 140 Potassium 3.2 L Chloride 108 H Carbon Dioxide 24.0 Anion Gap 8 BUN 11 Creatinine 0.60 Estim Creat Clear Calc 76.18 Est GFR (MDRD) Af Amer 130 Est GFR (MDRD) Non-Af 108 BUN/Creatinine Ratio 18.2 Glucose 258 H Calcium 7.6 L Magnesium 1.9 C-React Prot Ext Range Fld Polynuclear WBCs # Fld Polynuclear WBCs % Fluid Mononuclear WBCs Fld Mononuclear WBCs % CSF Appearance CSF Color CSF WBC CSF RBC CSF Cell Count Tube # CSF Total Cell Counted CSF Comment CSF Glucose CSF Total Protein KRZYSZTOF Screen c-ANCA Antibody p-ANCA Antibody DHIRAJ-1 Antibody SS-A/Ro IgG Antibody SS-B/La IgG Antibody Sm ([place]) Antibody SKIN PASS OPERATOR Antibody Scl-70 Scleroderma Ab Double Strand DNA Ab Centromere B Antibody Beta-2-GPI IgG Ab Beta-2-GPI IgA Ab Beta-2-GPI IgM Ab Anti-Cardiolipin IgG Ab Anti-Cardiolipin IgM Ab Lyme Total Antibody Lyme Disease Interpret Factor II DNA Analysis Miscellaneous Cytology Miscellaneous Test 09/12/18 09/12/18 09/12/18 09:45 09:45 09:45 WBC RBC Hgb Hct MCV MCH MCHC RDW RDW Differential Plt Count MPV Immature Gran % (Auto) Neut % (Auto) Lymph % (Auto) [place] % (Auto) Eos % (Auto) Baso % (Auto) Absolute Neuts (auto) Absolute Lymphs (auto) Total Counted ESR Protein C Antigen Functional Protein C Prot C Funct Activity Antithrombin III Ag Func Antithrombin III Factor V Leiden Mutat Sodium Potassium Chloride Carbon Dioxide Anion Gap BUN Creatinine Estim Creat Clear Calc Est GFR (MDRD) Af Amer Est GFR (MDRD) Non-Af BUN/Creatinine Ratio Glucose Calcium Magnesium C-React Prot Ext Range Fld Polynuclear WBCs # Fld Polynuclear WBCs % Fluid Mononuclear WBCs Fld Mononuclear WBCs % CSF Appearance CSF Color CSF WBC CSF RBC CSF Cell Count Tube # CSF Total Cell Counted CSF Comment CSF Glucose 159 H CSF Total Protein 86.0 H KRZYSZTOF Screen c-ANCA Antibody p-ANCA Antibody DHIRAJ-1 Antibody SS-A/Ro IgG Antibody SS-B/La IgG Antibody Sm ([place]) Antibody SKIN PASS OPERATOR Antibody Scl-70 Scleroderma Ab Double Strand DNA Ab Centromere B Antibody Beta-2-GPI IgG Ab Beta-2-GPI IgA Ab Beta-2-GPI IgM Ab Anti-Cardiolipin IgG Ab Anti-Cardiolipin IgM Ab Lyme Total Antibody Lyme Disease Interpret Factor II DNA Analysis Miscellaneous Cytology Miscellaneous Test Pending Cancelled 09/12/18 09/12/18 09:45 09:45 WBC RBC Hgb Hct MCV MCH MCHC RDW RDW Differential Plt Count MPV Immature Gran % (Auto) Neut % (Auto) Lymph % (Auto) [place] % (Auto) Eos % (Auto) Baso % (Auto) Absolute Neuts (auto) Absolute Lymphs (auto) Total Counted ESR Protein C Antigen Functional Protein C Prot C Funct Activity Antithrombin III Ag Func Antithrombin III Factor V Leiden Mutat Sodium Potassium Chloride Carbon Dioxide Anion Gap BUN Creatinine Estim Creat Clear Calc Est GFR (MDRD) Af Amer Est GFR (MDRD) Non-Af BUN/Creatinine Ratio Glucose Calcium Magnesium C-React Prot Ext Range Fld Polynuclear WBCs # 0.003 Fld Polynuclear WBCs % 20.0 Fluid Mononuclear WBCs 0.012 Fld Mononuclear WBCs % 80.0 CSF Appearance CLEAR CSF Color COLORLESS CSF WBC 0.015 H CSF RBC 2 H CSF Cell Count Tube # 4 CSF Total Cell Counted 0.015 H CSF Comment May follow CSF Glucose CSF Total Protein KRZYSZTOF Screen c-ANCA Antibody p-ANCA Antibody DHIRAJ-1 Antibody SS-A/Ro IgG Antibody SS-B/La IgG Antibody Sm ([place]) Antibody SKIN PASS OPERATOR Antibody Scl-70 Scleroderma Ab Double Strand DNA Ab Centromere B Antibody Beta-2-GPI IgG Ab Beta-2-GPI IgA Ab Beta-2-GPI IgM Ab Anti-Cardiolipin IgG Ab Anti-Cardiolipin IgM Ab Lyme Total Antibody Lyme Disease Interpret Factor II DNA Analysis Miscellaneous Cytology Pending Miscellaneous Test POC Glucose 09/12/18 09/12/18 09/11/18 11:05 06:43 21:39 POC Glucose 239 H 296 H 361 H 09/11/18 16:22 POC Glucose 395 H Medical Necessity - Tobacco Use Smoking Status: Unknown if ever smoked Tobacco Use: Secondhand Assessment/Plan All Active Problems Encephalopathy acute (Acute) CVA (cerebral vascular accident) (Acute) Confusion (Acute) Cerebrovascular disease (Acute) The patient is a 58 year old CF with PMH HTN, HLD, DM, H/O stroke, PAF on Eliquis, anxiety/depression admitted with confusion. Per documentation patient was admitted with acute onset confusion, was found to have fever. Had persistent high SBP since admission and also complaints of DICKEY. Denies any new onset weakness, sensory loss, vision loss, jaw claudication or temporal tenderness. Per documentation patient was in the NH recently. No witnessed seizures. MRI brain done on admission reported to show acute right occipital infarct and old brainstem stroke. 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 CTA head/neck-reported right vert occlusion, moderate basilar stenosis and left MORTGAGE PROTECTION SPECIALIST occlusion- likely atherosclerotic. Given the presentation of fever, confusion and DICKEY, without any source of infection, patient was started on empirical meningitic antibiotics and acyclovir on admission. [] Impression Acute right occipital infarct R/O Meningo-encephalitis Plan -CTA head/neck-reported right vert occlusion, moderate basilar stenosis and left MORTGAGE PROTECTION SPECIALIST occlusion- likely atherosclerotic. -ESR-23, Await ANCA, ANCA, hypercoagulable panel -LP- CSF WBCs-15, RBCs-2, Protein 86, gram stain/fungal stain, EBV/HSV/CMV PCR-pending -MRI brain and MRA head/neck reviewed -TTE- EF 60%, normal LA size -EEG- nothing epileptiform -On empiric antibiotics for meningitis and on acyclovir, started by hospitalist for fever, confusion and DICKEY. Recommend ID consult post LP for further evaluation -Eliquis 5 mg PO BID -Lipitor 80 mg PO q hs -LDL-137, Gmr2t-62.3 -Better BS control, recommend Endocrinology consult -Stroke risk factors discussed and stroke education provided -GI/DVT prophylaxis -PT/OT/ST -Please call with questions if any -Thank you for allowing us to participate in patient's care and management
--- NOTE | 2018-09-12 13:05 | PN.NEURO_ITS ---
Patient Problems: Active and Suspected Problems CVA (cerebral vascular accident) (Acute) Confusion (Acute) Subjective: No Issues overnight. Confusion is better. LP done shows CSF WBCs-15, RBCs-2, Protein 86. ESR 23. CTA head/neck reviewed- right vertebral artery occlusion, moderate basilar stenosis and left PHARMACY RESIDENT occlusion. - Physical Exam General: - - awake, alert, AoA x2 HEENT: Normocephalic Neck: Supple Lungs: Normal air movement Cardiovascular: Normal S1, Normal S2 Abdomen: Bowel Sounds Present Extremities: No cyanosis Neurological: - - consious, awake, confused, AoA x2, CN 2-12 grossly intact, power 5/5 all 4 extremities, denies any sensory loss, Reflexes + B/L B/S/T/K/A, gait deferred Vital Signs Temp Pulse Resp BP Pulse Ox 98.2 F 95 16 159/99 H 98 09/12/18 09:00 09/12/18 11:00 09/12/18 09:00 09/12/18 09:00 09/12/18 09:00 Oxygen Delivery Method Room Air Weight: 62.7 kg Body Mass Index (BMI) 26.1 Finger Stick Blood Glucose 497 Intake and Output for Last 24 Hours 09/10/18 09/11/18 09/12/18 23:59 23:59 23:59 Intake Total 970 / 970 3876.3 / 3876.3 3770 / 3770 Balance 970 / 970 3876.3 / 3876.3 3770 / 3770 Microbiology Past 72 Hours 09/12/18 09:45 Gram Stain - Final Csf, Spinal Fluid 09/11/18 05:20 Respiratory Panel (PCR) - Final Mucosa - Nose Laboratory Tests Past 24 Hrs 09/11/18 09/11/18 09/12/18 05:04 05:04 05:20 WBC RBC Hgb Hct MCV MCH MCHC RDW RDW Differential Plt Count MPV Immature Gran % (Auto) Neut % (Auto) Lymph % (Auto) [place] % (Auto) Eos % (Auto) Baso % (Auto) Absolute Neuts (auto) Absolute Lymphs (auto) Total Counted ESR 23 Protein C Antigen Functional Protein C Prot C Funct Activity Antithrombin III Ag Func Antithrombin III Factor V Leiden Mutat Sodium Potassium Chloride Carbon Dioxide Anion Gap BUN Creatinine Estim Creat Clear Calc Est GFR (MDRD) Af Amer Est GFR (MDRD) Non-Af BUN/Creatinine Ratio Glucose Calcium Magnesium C-React Prot Ext Range 8.21 H Fld Polynuclear WBCs # Fld Polynuclear WBCs % Fluid Mononuclear WBCs Fld Mononuclear WBCs % CSF Appearance CSF Color CSF WBC CSF RBC CSF Cell Count Tube # CSF Total Cell Counted CSF Comment CSF Glucose CSF Total Protein KRZYSZTOF Screen c-ANCA Antibody p-ANCA Antibody DHIRAJ-1 Antibody SS-A/Ro IgG Antibody SS-B/La IgG Antibody Sm ([place]) Antibody REGULATORY AFFAIRS STRATEGY SPECIALIST Antibody Scl-70 Scleroderma Ab Double Strand DNA Ab Centromere B Antibody Beta-2-GPI IgG Ab Beta-2-GPI IgA Ab Beta-2-GPI IgM Ab Anti-Cardiolipin IgG Ab Anti-Cardiolipin IgM Ab Lyme Total Antibody Lyme Disease Interpret Factor II DNA Analysis Miscellaneous Cytology Miscellaneous Test Pending 09/12/18 09/12/18 09/12/18 05:20 05:20 05:20 WBC RBC Hgb Hct MCV MCH MCHC RDW RDW Differential Plt Count MPV Immature Gran % (Auto) Neut % (Auto) Lymph % (Auto) [place] % (Auto) Eos % (Auto) Baso % (Auto) Absolute Neuts (auto) Absolute Lymphs (auto) Total Counted ESR Protein C Antigen Pending Functional Protein C Pending Prot C Funct Activity Pending Antithrombin III Ag Pending Func Antithrombin III Pending Factor V Leiden Mutat Pending Sodium Potassium Chloride Carbon Dioxide Anion Gap BUN Creatinine Estim Creat Clear Calc Est GFR (MDRD) Af Amer Est GFR (MDRD) Non-Af BUN/Creatinine Ratio Glucose Calcium Magnesium C-React Prot Ext Range Fld Polynuclear WBCs # Fld Polynuclear WBCs % Fluid Mononuclear WBCs Fld Mononuclear WBCs % CSF Appearance CSF Color CSF WBC CSF RBC CSF Cell Count Tube # CSF Total Cell Counted CSF Comment CSF Glucose CSF Total Protein KRZYSZTOF Screen Pending c-ANCA Antibody Pending p-ANCA Antibody Pending DHIRAJ-1 Antibody Pending SS-A/Ro IgG Antibody Pending SS-B/La IgG Antibody Pending Sm ([place]) Antibody Pending REGULATORY AFFAIRS STRATEGY SPECIALIST Antibody Pending Scl-70 Scleroderma Ab Pending Double Strand DNA Ab Pending Centromere B Antibody Pending Beta-2-GPI IgG Ab Pending Beta-2-GPI IgA Ab Pending Beta-2-GPI IgM Ab Pending Anti-Cardiolipin IgG Ab Pending Anti-Cardiolipin IgM Ab Pending Lyme Total Antibody Pending Lyme Disease Interpret Pending Factor II DNA Analysis Pending Miscellaneous Cytology Miscellaneous Test 09/12/18 09/12/18 09/12/18 05:20 05:20 05:20 WBC 13.1 H RBC 3.59 L Hgb 10.0 L Hct 30.9 L MCV 86.1 MCH 27.9 MCHC 32.4 RDW 14.8 H RDW Differential 44.4 H Plt Count 223 MPV 11.1 Immature Gran % (Auto) 0.300 Neut % (Auto) 74.5 H Lymph % (Auto) 20.0 [place] % (Auto) 4.8 Eos % (Auto) 0.2 Baso % (Auto) 0.2 Absolute Neuts (auto) 9.8 H Absolute Lymphs (auto) 2.61 Total Counted Not Reportable ESR Protein C Antigen Functional Protein C Prot C Funct Activity Antithrombin III Ag Func Antithrombin III Factor V Leiden Mutat Sodium 140 Potassium 3.2 L Chloride 108 H Carbon Dioxide 24.0 Anion Gap 8 BUN 11 Creatinine 0.60 Estim Creat Clear Calc 76.18 Est GFR (MDRD) Af Amer 130 Est GFR (MDRD) Non-Af 108 BUN/Creatinine Ratio 18.2 Glucose 258 H Calcium 7.6 L Magnesium 1.9 C-React Prot Ext Range Fld Polynuclear WBCs # Fld Polynuclear WBCs % Fluid Mononuclear WBCs Fld Mononuclear WBCs % CSF Appearance CSF Color CSF WBC CSF RBC CSF Cell Count Tube # CSF Total Cell Counted CSF Comment CSF Glucose CSF Total Protein KRZYSZTOF Screen c-ANCA Antibody p-ANCA Antibody DHIRAJ-1 Antibody SS-A/Ro IgG Antibody SS-B/La IgG Antibody Sm ([place]) Antibody REGULATORY AFFAIRS STRATEGY SPECIALIST Antibody Scl-70 Scleroderma Ab Double Strand DNA Ab Centromere B Antibody Beta-2-GPI IgG Ab Beta-2-GPI IgA Ab Beta-2-GPI IgM Ab Anti-Cardiolipin IgG Ab Anti-Cardiolipin IgM Ab Lyme Total Antibody Lyme Disease Interpret Factor II DNA Analysis Miscellaneous Cytology Miscellaneous Test 09/12/18 09/12/18 09/12/18 09:45 09:45 09:45 WBC RBC Hgb Hct MCV MCH MCHC RDW RDW Differential Plt Count MPV Immature Gran % (Auto) Neut % (Auto) Lymph % (Auto) [place] % (Auto) Eos % (Auto) Baso % (Auto) Absolute Neuts (auto) Absolute Lymphs (auto) Total Counted ESR Protein C Antigen Functional Protein C Prot C Funct Activity Antithrombin III Ag Func Antithrombin III Factor V Leiden Mutat Sodium Potassium Chloride Carbon Dioxide Anion Gap BUN Creatinine Estim Creat Clear Calc Est GFR (MDRD) Af Amer Est GFR (MDRD) Non-Af BUN/Creatinine Ratio Glucose Calcium Magnesium C-React Prot Ext Range Fld Polynuclear WBCs # Fld Polynuclear WBCs % Fluid Mononuclear WBCs Fld Mononuclear WBCs % CSF Appearance CSF Color CSF WBC CSF RBC CSF Cell Count Tube # CSF Total Cell Counted CSF Comment CSF Glucose 159 H CSF Total Protein 86.0 H KRZYSZTOF Screen c-ANCA Antibody p-ANCA Antibody DHIRAJ-1 Antibody SS-A/Ro IgG Antibody SS-B/La IgG Antibody Sm ([place]) Antibody REGULATORY AFFAIRS STRATEGY SPECIALIST Antibody Scl-70 Scleroderma Ab Double Strand DNA Ab Centromere B Antibody Beta-2-GPI IgG Ab Beta-2-GPI IgA Ab Beta-2-GPI IgM Ab Anti-Cardiolipin IgG Ab Anti-Cardiolipin IgM Ab Lyme Total Antibody Lyme Disease Interpret Factor II DNA Analysis Miscellaneous Cytology Miscellaneous Test Pending Cancelled 09/12/18 09/12/18 09:45 09:45 WBC RBC Hgb Hct MCV MCH MCHC RDW RDW Differential Plt Count MPV Immature Gran % (Auto) Neut % (Auto) Lymph % (Auto) [place] % (Auto) Eos % (Auto) Baso % (Auto) Absolute Neuts (auto) Absolute Lymphs (auto) Total Counted ESR Protein C Antigen Functional Protein C Prot C Funct Activity Antithrombin III Ag Func Antithrombin III Factor V Leiden Mutat Sodium Potassium Chloride Carbon Dioxide Anion Gap BUN Creatinine Estim Creat Clear Calc Est GFR (MDRD) Af Amer Est GFR (MDRD) Non-Af BUN/Creatinine Ratio Glucose Calcium Magnesium C-React Prot Ext Range Fld Polynuclear WBCs # 0.003 Fld Polynuclear WBCs % 20.0 Fluid Mononuclear WBCs 0.012 Fld Mononuclear WBCs % 80.0 CSF Appearance CLEAR CSF Color COLORLESS CSF WBC 0.015 H CSF RBC 2 H CSF Cell Count Tube # 4 CSF Total Cell Counted 0.015 H CSF Comment May follow CSF Glucose CSF Total Protein KRZYSZTOF Screen c-ANCA Antibody p-ANCA Antibody DHIRAJ-1 Antibody SS-A/Ro IgG Antibody SS-B/La IgG Antibody Sm ([place]) Antibody REGULATORY AFFAIRS STRATEGY SPECIALIST Antibody Scl-70 Scleroderma Ab Double Strand DNA Ab Centromere B Antibody Beta-2-GPI IgG Ab Beta-2-GPI IgA Ab Beta-2-GPI IgM Ab Anti-Cardiolipin IgG Ab Anti-Cardiolipin IgM Ab Lyme Total Antibody Lyme Disease Interpret Factor II DNA Analysis Miscellaneous Cytology Pending Miscellaneous Test POC Glucose 09/12/18 09/12/18 09/11/18 11:05 06:43 21:39 POC Glucose 239 H 296 H 361 H 09/11/18 16:22 POC Glucose 395 H Medical Necessity - Tobacco Use Smoking Status: Unknown if ever smoked Tobacco Use: Secondhand Assessment/Plan All Active Problems Encephalopathy acute (Acute) CVA (cerebral vascular accident) (Acute) Confusion (Acute) Cerebrovascular disease (Acute) The patient is a 58 year old CF with PMH HTN, HLD, DM, H/O stroke, PAF on Eliquis, anxiety/depression admitted with confusion. Per documentation patient was admitted with acute onset confusion, was found to have fever. Had persistent high SBP since admission and also complaints of DICKEY. Denies any new onset weakness, sensory loss, vision loss, jaw claudication or temporal tenderness. Per documentation patient was in the NH recently. No witnessed seizures. MRI brain done on admission reported to show acute right occipital infarct and old brainstem stroke. 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 CTA head/neck-reported right vert occlusion, moderate basilar stenosis and left PHARMACY RESIDENT occlusion- likely atherosclerotic. Given the presentation of fever, confusion and DICKEY, without any source of infection, patient was started on empirical meningitic antibiotics and acyclovir on admission. [] Impression Acute right occipital infarct R/O Meningo-encephalitis Plan -CTA head/neck-reported right vert occlusion, moderate basilar stenosis and left PHARMACY RESIDENT occlusion- likely atherosclerotic. -ESR-23, Await ANCA, ANCA, hypercoagulable panel -LP- CSF WBCs-15, RBCs-2, Protein 86, gram stain/fungal stain, EBV/HSV/CMV PCR- pending -MRI brain and MRA head/neck reviewed -TTE- EF 60%, normal LA size -EEG- nothing epileptiform -On empiric antibiotics for meningitis and on acyclovir, started by hospitalist for fever, confusion and DICKEY. Recommend ID consult post LP for further evaluation -Eliquis 5 mg PO BID -Lipitor 80 mg PO q hs -LDL-137, Hki5v-96.3 -Better BS control, recommend Endocrinology consult -Stroke risk factors discussed and stroke education provided -GI/DVT prophylaxis -PT/OT/ST -Please call with questions if any -Thank you for allowing us to participate in patient's care and management
--- NOTE | 2018-09-12 14:34 | PHA.PHARE_ITS ---
Consult Pharmacy has been consulted to manage selected antiobiotic: Vancomycin Type of Consult: Follow-up Suspected Infection: Sepsis Prior Doses of Antibiotics Received/Current Regimen: VANCOMYCIN 1250MG IV Q24H: 09/12 @0739 Labs: Sodium 140 mmol/L (136-145) 09/12/18 05:20 Potassium 3.2 mmol/L (3.5-5.1) L 09/12/18 05:20 Chloride 108 mmol/L (98-107) H 09/12/18 05:20 Carbon Dioxide 24.0 mmol/L (21.0-32.0) 09/12/18 05:20 Anion Gap 8 (5-15) 09/12/18 05:20 BUN 11 mg/dL (7-18) 09/12/18 05:20 Creatinine 0.60 mg/dL (0.55-1.02) 09/12/18 05:20 Est GFR (MDRD) Af Amer 130 mL/min (>60) 09/12/18 05:20 Est GFR (MDRD) Non-Af 108 mL/min (>60) 09/12/18 05:20 BUN/Creatinine Ratio 18.2 RATIO (10-20) 09/12/18 05:20 Glucose 258 mg/dL (74-106) H 09/12/18 05:20 Microbiology: Microbiology 09/12/18 09:45 Csf, Spinal Fluid Gram Stain - Final 09/11/18 05:20 Mucosa - Nose Respiratory Panel (PCR) - Final Weight used for dosin.7 kg Estimated Creatinine Clearance: 76ML/MIN Goal Trough: 15-20 mcg/mL Pharmacy Plan for Drug Dosing: The patient had an improvement in SCr, as well as WBC present in CSF fluid. For these reason, trough will be increased to 15-20 until meningitis can be ruled o ut. Will also adjust the dose based on improved renal function. PLAN/RECOMMENDATIONS 1. Start vancomycin 1000mg IV Q12hrs 09/12/18 @1900 2. Trough scheduled 09/14/18 @0630 (Prior to 4th dose of new regimen) 3. Pharmacy Service will continue to monitor and adjust dosing as required.
[2018-09-12 16:45] LABS: Bedside Glucose 307 mg/dL (70-110)
[2018-09-12] MEDS: Vancomycin IV 1,000 MG/200 ML BAG 200 MG IV (17:59)
--- NOTE | 2018-09-12 18:03 | PN_ITS ---
Patient Problems: Active and Suspected Problems CVA (cerebral vascular accident) (Acute) Confusion (Acute) Subjective: Seen and examined in the morning. Patient is awake, talking coherent and comprehensible speech. Patient wants to leave home tomorrow but was reconciled that she is still needs to stay in hospital as she is completely not on baseline and workup still going on. Vitals/I&O's: Vital Signs Temp Pulse Resp BP Pulse Ox 99.0 F 107 H 18 160/115 H 99 09/12/18 17:00 09/12/18 17:00 09/12/18 17:00 09/12/18 17:00 09/12/18 17:00 Oxygen Delivery Method Room Air Weight: 138 lb 3.677 oz Body Mass Index (BMI) 26.1 Finger Stick Blood Glucose 497 Intake and Output for Last 24 Hours 09/10/18 09/11/18 09/12/18 23:59 23:59 23:59 Intake Total 970 / 970 3876.3 / 3876.3 3770 / 3770 Balance 970 / 970 3876.3 / 3876.3 3770 / 3770 General: Oriented x3, Cooperative, Lethargic HEENT: Atraumatic, PERRLA, EOMI, Normocephalic Neck: Supple, No JVD, Negative Carotid Bruits Lungs: No rhonchi, No wheeze, No rales, Diminished - Air entry is diminished in bilateral lung bases Cardiovascular: Regular rate, Regular Rhythm, Normal S1, Normal S2, No murmurs, - - Has paroxysmal A. fib Abdomen: Bowel Sounds Present, Soft, Non Tender, Non-Distended Extremities: Capillary Refill Less than 3 Seconds, Edema Skin: No rashes, No breakdown Musculoskeletal: No Tenderness to Palpation of Joints or Extremities, Arthritic Changes, Muscle Wasting Neurological: Cranial nerves II-XII grossly intact, Deep Tendon Reflexes 2+/4 and Symmetrical, Neuro grossly intact Psych/Mental Status: Normal Affect, Appropriate Microbiology Past 72 Hours 09/12/18 09:45 Csf, Spinal Fluid Gram Stain - Final 09/11/18 05:20 Mucosa - Nose Respiratory Panel (PCR) - Final Laboratory Results 09/11/18 21:39: POC Glucose 361 H 09/12/18 05:20: Miscellaneous Test Pending 09/12/18 05:20: Protein C Antigen Pending, Functional Protein C Pending, Prot C Funct Activity Pending, Antithrombin III Ag Pending, Func Antithrombin III Pending, Factor V Leiden Mutat Pending, Beta-2-GPI IgG Ab Pending, Beta-2-GPI IgA Ab Pending, Beta-2-GPI IgM Ab Pending, Anti-Cardiolipin IgG Ab Pending, Anti-Cardiolipin IgM Ab Pending, Factor II DNA Analysis Pending 09/12/18 05:20: KRZYSZTOF Screen Pending, DHIRAJ-1 Antibody Pending, SS-A/Ro IgG Antibody Pending, SS-B/La IgG Antibody Pending, Sm (Payne) Antibody Pending, CURBSTONE SETTER Antibody Pending, Scl-70 Scleroderma Ab Pending, Double Strand DNA Ab Pending, Centromere B Antibody Pending 09/12/18 05:20: c-ANCA Antibody Pending, p-ANCA Antibody Pending, Lyme Total Antibody Pending, Lyme Disease Interpret Pending 09/12/18 05:20: WBC 13.1 H, RBC 3.59 L, Hgb 10.0 L, Hct 30.9 L, MCV 86.1, MCH 27.9, MCHC 32.4, RDW 14.8 H, RDW Differential 44.4 H, Plt Count 223, MPV 11.1, Immature Gran % (Auto) 0.300, Neut % (Auto) 74.5 H, Lymph % (Auto) 20.0, [place] % (Auto) 4.8, Eos % (Auto) 0.2, Baso % (Auto) 0.2, Absolute Neuts (auto) 9.8 H, Absolute Lymphs (auto) 2.61, Total Counted Not Reportable 09/12/18 05:20: Sodium 140, Potassium 3.2 L, Chloride 108 H, Carbon Dioxide 24.0, Anion Gap 8, BUN 11, Creatinine 0.60, Estim Creat Clear Calc 76.18, Est GFR (MDRD) Af Amer 130, Est GFR (MDRD) Non-Af 108, BUN/Creatinine Ratio 18.2, Glucose 258 H, Calcium 7.6 L 09/12/18 05:20: Magnesium 1.9 09/12/18 06:43: POC Glucose 296 H 09/12/18 09:45: CSF Glucose 159 H, CSF Total Protein 86.0 H 09/12/18 09:45: Miscellaneous Test Pending 09/12/18 09:45: Miscellaneous Test Cancelled 09/12/18 09:45: Miscellaneous Cytology Pending 09/12/18 09:45: Fld Polynuclear WBCs # 0.003, Fld Polynuclear WBCs % 20.0, Fluid Mononuclear WBCs 0.012, Fld Mononuclear WBCs % 80.0, CSF Appearance CLEAR, CSF Color COLORLESS, CSF WBC 0.015 H, CSF RBC 2 H, CSF Cell Count Tube # 4, CSF Total Cell Counted 0.015 H, CSF Comment May follow 09/12/18 11:05: POC Glucose 239 H 09/12/18 16:26: POC Glucose 307 H Current Medications Acetaminophen (Tylenol) 650 mg PO Q4H PRN PRN PRN Reason: pain Last Admin: 09/12/18 12:58 Dose: 650 mg Aspirin (Aspirin, Baby) 81 mg PO DAILY@0800 [facility] Last Admin: 09/12/18 12:58 Dose: 81 mg Atorvastatin Calcium (Lipitor) 80 mg PO QHS [facility] Last Admin: 09/11/18 21:48 Dose: 80 mg Hydralazine HCl (Apresoline Iv) 5 mg IV Q30M PRN PRN Reason: sbp > 220/120 Famotidine 20 mg/ Sodium (Chloride) 10 mls @ 300 mls/hr IV Q12 [facility] Last Admin: 09/12/18 10:10 Dose: 300 mls/hr Vancomycin IV Pharmacy to Dose (1 ea/ Sodium Chloride) 500 mls @ 250 mls/hr IV X1 PRN; Protocol PRN Reason: Rx to Dose Acyclovir Sodium 480 mg/ (Dextrose) 259.6 mls @ 259.6 mls/hr IV Q8 [facility] Last Admin: 09/12/18 15:00 Dose: 259.6 mls/hr Ceftriaxone Sodium 2 gm/ (Sodium Chloride) 50 mls @ 100 mls/hr IV Q12 [facility] Last Admin: 09/12/18 10:10 Dose: 100 mls/hr Vancomycin HCl (Vancomycin) 1,000 mg in 200 mls @ 200 mls/hr IV Q12H [facility] Insulin Glargine (Lantus (Bkc)) 25 units SC DAILY [facility] Last Admin: 01/17/19 10:10 Dose: 25 u Insulin Glargine (Lantus (Bkc)) 15 units SC QHS [facility] Last Admin: 09/11/18 21:41 Dose: 15 unit Insulin Human Lispro (Humalog Kwikpen (Bkc)) 0 unit SC ACHS [facility]; Protocol Last Admin: 09/12/18 16:27 Dose: 6 units Magnesium Hydroxide (Milk Of Magnesia) 30 ml PO DAILY PRN PRN Reason: Constipation Nutritional Formula (Lactose Free) (Glucerna Shake) 120 ml PO 4X/DAY [facility] Last Admin: 09/12/18 12:59 Dose: 120 ml Ondansetron HCl (Zofran) 4 mg IV Q8H PRN PRN PRN Reason: NAUSEA Last Admin: 09/11/18 00:56 Dose: 4 mg Sodium Chloride () 5 - 15 ml IV UD PRN PRN Reason: SALINE FLUSH Last Admin: 09/12/18 10:11 Dose: 10 ml Medical Necessity - Tobacco Use Smoking Status: Unknown if ever smoked Tobacco Use: Secondhand Assessment/Plan All Active Problems Encephalopathy acute (Acute) CVA (cerebral vascular accident) (Acute) Confusion (Acute) Cerebrovascular disease (Acute) The patient is a 58 y/o F w/ PMHx: PAF s/p ablation, CVA/TIA without deficits per her report, HTN, HLD, Migraines, Anxiety and Depression, GERD, IBS, Poorly controlled Diabetes Mellitus type II, Notable history of medication non- compliance who presents to the [facility] ED on 09/10/18 with history of onset increased fatigue, lethargy, confusion with recurrent mannerisms specifically noted per family to be continuously coming her hair with her fingers starting at approximately 1 1:30 PM. 1 acute right occipital infarct: Patient had MRI and MRA of the head done. small acute infarct in association with the right occipital lobe. No hemorrhage. No significant mass effect. 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 Left vertebral artery terminates into tapering basilar artery and posterior cervical arteries are not adequately perfused. This was discussed with Dr. Red and he reviewed the images. CT angiogram of head shows moderate stenosis of terminal right ICA. Mild stenosis of terminal left ICA. Occluded distal right vertebral artery. Moderate distal basilar stenosis. 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 The patient had lumbar puncture today. CSF fluid analysis shows 15 cells, 12 mononuclear and 3 polymorphs, glucose 159 H, CSF Total Protein 86.0 H. As the patient clinically had fever 102 when she was admitted and there is suspicion of meningitis, antibiotics discontinued and ID consulted called. Discussed with ID Dr. Estevez. Okay to resume Eliquis from tomorrow evening, after 36 hours of LP. Discontinue aspirin after Eliquis is restarted. Full stroke workup including LP for the concern of fever, small vessel vasculitis. Echo shows EF 60%. ESR, CRP and hypercoagulable workup. Dr. Red suggested continue empiric antibiotics and ruled out by LP. On aspirin and Lipitor. PT OT and speech evaluation. Hypokalemia: Potassium is 3.2. Magnesium 1.9. Potassium replacement ordered. (2) Diabetes mellitus type II w/ Hyperglycemia, Poorly Controlled w/ Non- compliance history: Will continue home insulin regimen, NPO status currently, aggressive IVFs, q 6 hour accu checks w/ ISS, nutrition consulted for education and teaching once more alert, HgbA1c pending, prior notably elevated 12.2%. (3) Hx CVA/TIA: Holding oral regimen, continued on long-acting insulin regimen, permissive HTN currently, FLP in AM, maintained on therapeutic lovenox as noted, MD ASA. (4) Anxiety and Depression: Holding home Zoloft regimen. (5) Hypertension: Permissive. (6) Hyperlipidemia: NPO status, holding home statin regimen. Lipid profile sh ows triglyceride 280, total cholesterol 236, LDL 137, HDL 43. High intensity statin (7) Migraines: Not on regimen, from prior history complex migraine prior, possibly contributing to current presentation. (8) PAF/cardiac arrhythmia: EKG w/ ST, s/p remote ablation history per patient, transitioned as noted in interim to therapeutic lovenox, holding oral intake, permissive. (9) Incidental Vertebral Artery Calcification: CT head with no acute findings, holding oral regimen as noted, was seen on prior CT head during prior admission, MRI brain, MRA head and neck pending as noted. (10) DVT prophylaxis: SCD. Discontinue Lovenox Microbiology Past 72 Hours 09/12/18 09:45 Csf, Spinal Fluid Gram Stain - Final 09/11/18 05:20 Mucosa - Nose Respiratory Panel (PCR) - Final Laboratory Results 09/12/18 05:20: WBC 13.1 H, RBC 3.59 L, Hgb 10.0 L, Hct 30.9 L, MCV 86.1, MCH 27.9, MCHC 32.4, RDW 14.8 H, RDW Differential 44.4 H, Plt Count 223, MPV 11.1, Immature Gran % (Auto) 0.300, Neut % (Auto) 74.5 H, Lymph % (Auto) 20.0, [place] % (Auto) 4.8, Eos % (Auto) 0.2, Baso % (Auto) 0.2, Absolute Neuts (auto) 9.8 H, Absolute Lymphs (auto) 2.61, Total Counted Not Reportable 09/12/18 05:20: Sodium 140, Potassium 3.2 L, Chloride 108 H, Carbon Dioxide 24.0, Anion Gap 8, BUN 11, Creatinine 0.60, Estim Creat Clear Calc 76.18, Est GFR (MDRD) Af Amer 130, Est GFR (MDRD) Non-Af 108, BUN/Creatinine Ratio 18.2, Glucose 258 H, Calcium 7.6 L 09/12/18 05:20: Magnesium 1.9 09/12/18 06:43: POC Glucose 296 H 09/12/18 09:45: CSF Glucose 159 H, CSF Total Protein 86.0 H 09/12/18 09:45: Fld Polynuclear WBCs # 0.003, Fld Polynuclear WBCs % 20.0, Fluid Mononuclear WBCs 0.012, Fld Mononuclear WBCs % 80.0, CSF Appearance CLEAR, CSF Color COLORLESS, CSF WBC 0.015 H, CSF RBC 2 H, CSF Cell Count Tube # 4, CSF Total Cell Counted 0.015 H, CSF Comment May follow 09/12/18 11:05: POC Glucose 239 H 09/12/18 16:26: POC Glucose 307 H Active Medications Acetaminophen (Tylenol) 650 mg PO Q4H PRN PRN PRN Reason: pain Last Admin: 09/12/18 12:58 Dose: 650 mg Aspirin (Aspirin, Baby) 81 mg PO DAILY@0800 [facility] Last Admin: 09/12/18 12:58 Dose: 81 mg Atorvastatin Calcium (Lipitor) 80 mg PO QHS [facility] Last Admin: 09/11/18 21:48 Dose: 80 mg Hydralazine HCl (Apresoline Iv) 5 mg IV Q30M PRN PRN Reason: sbp > 220/120 Famotidine 20 mg/ Sodium (Chloride) 10 mls @ 300 mls/hr IV Q12 [facility] Last Admin: 09/12/18 10:10 Dose: 300 mls/hr Vancomycin IV Pharmacy to Dose (1 ea/ Sodium Chloride) 500 mls @ 250 mls/hr IV X1 PRN; Protocol PRN Reason: Rx to Dose Acyclovir Sodium 480 mg/ (Dextrose) 259.6 mls @ 259.6 mls/hr IV Q8 [facility] Last Admin: 09/12/18 15:00 Dose: 259.6 mls/hr Ceftriaxone Sodium 2 gm/ (Sodium Chloride) 50 mls @ 100 mls/hr IV Q12 [facility] Last Admin: 09/12/18 10:10 Dose: 100 mls/hr Vancomycin HCl (Vancomycin) 1,000 mg in 200 mls @ 200 mls/hr IV Q12H [facility] Last Admin: 09/12/18 17:59 Dose: 200 mls/hr Insulin Glargine (Lantus (Bkc)) 25 units SC DAILY [facility] Last Admin: 09/12/18 10:10 Dose: 25 u Insulin Glargine (Lantus (Bkc)) 15 units SC QHS [facility] Last Admin: 09/11/18 21:41 Dose: 15 unit Insulin Human Lispro (Humalog Kwikpen (Bkc)) 0 unit SC ACHS [facility]; Protocol Last Admin: 09/12/18 16:27 Dose: 6 units Magnesium Hydroxide (Milk Of Magnesia) 30 ml PO DAILY PRN PRN Reason: Constipation Nutritional Formula (Lactose Free) (Glucerna Shake) 120 ml PO 4X/DAY [facility] Last Admin: 09/12/18 17:58 Dose: 120 ml Ondansetron HCl (Zofran) 4 mg IV Q8H PRN PRN PRN Reason: NAUSEA Last Admin: 09/11/18 00:56 Dose: 4 mg Sodium Chloride () 5 - 15 ml IV UD PRN PRN Reason: SALINE FLUSH Last Admin: 09/12/18 10:11 Dose: 10 ml Clinical Impression(s) from Imaging Studies Brain CT 09/10/18 19:04 IMPRESSION: No acute process. Mild atrophy. Electronically Signed: Kami Rey MD at 19:52 EST Tel , Service support , Chest X-Ray 09/10/18 19:20 IMPRESSION: No radiographic evidence of acute cardiopulmonary disease. at 2013 Reported and signed by: Jose Starr MD Electronically Signed: Jose Starr, at 20:12 EST Tel , Service support , Chest X-Ray 09/11/18 08:35 IMPRESSION: No acute abnormalities seen. Brain MRI 09/11/18 08:38 IMPRESSION: There is evidence of small acute infarct in association with the right occipital lobe. No hemorrhage. No significant mass effect. Flow void of the attenuated right vertebral artery not seen. N.B. : The above information has been verbally conveyed by Bernie Moses MD to Olivia Hughes RN, on 09/11/2018 13:20:26 (ET). 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 The left vertebral artery terminates into an tapering basilar artery and the posterior cerebral arteries are not adequately perfused. This can be seen previously. Consider vasculitis. Neck MRA 09/11/18 08:38 IMPRESSION: No acute abnormality. 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 Head CTA 09/11/18 15:19 IMPRESSION: 1. Moderate stenosis of the terminal right ICA. 2. Mild stenosis of the terminal left ICA. 3. Occluded distal right vertebral artery. Vertebral termination in the right PICA is considered less likely. 4. Moderate distal basilar stenosis. 5. 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 6. Right MEDICINE TEACHER supply via small collateral vessels including a small right P1 segment. Neck CTA 09/11/18 15:19 IMPRESSION: 1. Left ICA plaque with less than 50% stenosis. 2. Atherosclerotic disease of the distal right vertebral artery. Code Visit Inpatient E&M: 46798 Subs Hosp L3
[2018-09-12] MEDS: Atorvastatin Calcium 80 MG Tablet PO (23:00)
[2018-09-13] VITALS (15 sets, daily range): BP systolic 135–175; BP diastolic 80–96; PULSE 90–106; RESP 14–24; TEMP 36.7–37; O2SAT 97–98; BMI 26.1
[2018-09-13 00:46] LABS: Bedside Glucose 271 mg/dL (70-110)
[2018-09-13] MEDS: Acetaminophen 325 MG Tablet 650 MG PO (01:08)
[2018-09-13] MEDS: 0.9% NaCl Peripheral Flush Adult/Peds IV ×10 (02:37→21:57)
[2018-09-13] MEDS: hydrALAZINE 20 MG/ML Vial 10 MG IV (02:37)
--- NOTE | 2018-09-13 02:45 | EKG12_ITS ---
Test Reason : CP Blood Pressure : / mmHG Vent. Rate : 103 BPM Atrial Rate : 103 BPM P-R Int : 148 ms QRS Dur : 086 ms QT Int : 364 ms P-R-T Axes : 056 057 052 degrees QTc Int : 476 ms Sinus tachycardia Otherwise normal ECG When compared with ECG of 11-SEP-2018 05:59, No significant change was found Confirmed by ROSE CURTIS, KIERSTEN ([id number]), food expeditor CYNDY RENDON ([id number]) on 09/16/2018 9:51:25 AM Referred By: Chuyita Wright Confirmed By:KIERSTEN ROSE MD
[2018-09-13] MEDS: Vancomycin IV 1,000 MG/200 ML BAG 200 MG IV (06:54)
[2018-09-13 07:16] LABS: Absolute Lymphocyte Count 2.05 X10^3/ul (0.83-4.51); Absolute Neutrophil Count 8.1 X10^3/uL (2.0-7.7); Basophil# 0.02 X10^3/uL; Basophil% 0.2 % (0-1); Eosinophil# 0.03 X10^3/uL; Eosinophils% 0.3 % (0-5); Hematocrit 33.7 % (37-47); Hemoglobin 10.9 g/dl (12.0-15.0); Lymphocyte # 2.05 X10^3/ul (4.0); Lymphocyte % 19.1 % (19-41); Mean Corp Hgb Conc 32.3 g/gl (32-36); Mean Corpuscular Hgb 27.5 pg (27.0-32.0); Mean Corpuscular Volume 84.9 fL (81-99); Monocyte% 4.6 % (0-10); Neutrophil # 8.07 X10^3/uL (2.7-7.7); Platelet Count 201 K/mm3 (150-450); RBC Distribution Width CV 14.7 % (11.6-14.6); Red Blood Count 3.97 M/mm3 (4.2-5.4); White Blood Count 10.8 K/mm3 (4.4-11.0)
[2018-09-13 07:19] LABS: POSITIVE COUNT NO; POSITIVE DIFFERENTIAL NO; POSITIVE MORPHOLOGY NO
[2018-09-13 07:37] LABS: Anion Gap 9 (5-15); BUN 6 mg/dL (7-18); BUN/Creat Ratio 10.5 RATIO (10-20); Calcium,Total 8.2 mg/dL (8.5-10.1); Chloride 109 mmol/L (98-107); Creatinine, Serum 0.57 mg/dL (0.55-1.02); EST Glomerular Filtration Rate 114 mL/min (>60); Est Glom Filt Rate - Afr Amer 138 mL/min (>60); Estimated Creatinine Clearance 80.19 ml/min; Glucose 297 mg/dL (74-106); Potassium 3.7 mmol/L (3.5-5.1); Sodium Level 140 mmol/L (136-145)
[2018-09-13 08:06] LABS: Bedside Glucose 280 mg/dL (70-110)
[2018-09-13] MEDS: Insulin Lispro 100 UNIT/ML INSULN.PEN SC ×4 (09:26→22:08)
[2018-09-13] MEDS: Aspirin 81 MG TAB.CHEW PO (09:26)
[2018-09-13] MEDS: Glucerna Shake 120 ML LIQUID PO (09:32)
[2018-09-13 10:27] LABS: Pathologist Review Reviewed
[2018-09-13 12:41] LABS: Bedside Glucose 235 mg/dL (70-110)
--- NOTE | 2018-09-13 14:12 | CON.PCM_ITS ---
Problem List (1) Encephalopathy acute Status: Acute Reason for Consult: (+) csf Consulted by: Dr. Greenberg History of Present Illness: The patient is a 58 year old F who presented 09/10 with sudden onset confusion, severe headache, fever, not feeling well. She doesn't remember much of what happened. No recent illness, sick contacts, travel, or bug bites. No h/o cold sores or shingles. No rash. No neck pain. Mild photophobia. Came to ED, had fever to 102.1, so abx started with acyclovir, vanc, and ceftriaxone. Neuro consulted. Had LP 09/12, feeling better, no headache, no further fever. No confusion today. Full ROS performed and neg except as noted above. - Medical History Past Medical History (Chronic Problems): Chronic Problems IBS (irritable bowel syndrome) (Chronic) HLD (hyperlipidemia) (Chronic) Esophageal reflux (Chronic) Type II diabetes mellitus, uncontrolled (Chronic) Anxiety and depression (Chronic) Migraine (Chronic) reports hole in heart since (Chronic) Benign essential HTN (Chronic) Allergies/Adverse Reactions: Allergies codeine Adverse Reaction (Verified 09/10/18 19:08) Other gelatin Adverse Reaction (Verified 09/10/18 19:08) Unknown pork derived (porcine) Adverse Reaction (Verified 09/10/18 19:08) Vomiting Home Medications: Ambulatory Orders Medication Instructions Recorded Apixaban [Eliquis] 5 mg PO BID 06/16/18 Ascorbic Acid [Vitamin C] 500 mg PO DAILY 06/16/18 Atorvastatin Calcium 20 mg PO QHS 06/16/18 Lisinopril 20 mg PO DAILY 06/16/18 Sertraline HCl [Zoloft] 100 mg PO DAILY 06/16/18 Amlodipine Besylate 5 mg PO DAILY 09/10/18 Dicyclomine HCl 20 mg PO Q12H PRN PRN 09/10/18 Fluconazole [Diflucan] 200 mg PO DAILY 09/10/18 Hydrocodone/Acetaminophen 1 tab PO Q6H PRN PRN 09/10/18 [Hydrocodon-Acetaminophen 5-325] Metoprolol Tartrate 25 mg PO BID 09/10/18 Sertraline HCl [Zoloft] 50 mg PO DAILY 09/10/18 Vital Signs Temp Pulse Resp BP Pulse Ox 98.6 F 101 H 14 175/96 H 97 09/13/18 09:12 09/13/18 09:12 09/13/18 09:12 09/13/18 09:12 09/13/18 09:12 Oxygen Delivery Method Room Air Weight: 62.7 kg Body Mass Index (BMI) 26.1 Finger Stick Blood Glucose 497 Microbiology Past 72 Hours 09/12/18 09:45 Gram Stain - Final Csf, Spinal Fluid CSF Culture - Preliminary No growth in 24 hours. Final to follow. 09/11/18 07:05 Blood Culture - Preliminary Blood Culture (Wb) - Left Hand No growth in 48 hours. 09/11/18 06:55 Blood Culture - Preliminary Blood Culture (Wb) - Left Hand No growth in 48 hours. 09/11/18 05:20 Respiratory Panel (PCR) - Final Mucosa - Nose Laboratory Tests Past 24 Hrs 09/12/18 09/13/18 09/13/18 09:45 05:58 05:58 WBC 10.8 RBC 3.97 L Hgb 10.9 L Hct 33.7 L MCV 84.9 MCH 27.5 MCHC 32.3 RDW 14.7 H RDW Differential 45.0 H Plt Count 201 MPV 11.0 Immature Gran % (Auto) 0.800 Neut % (Auto) 75.0 H Lymph % (Auto) 19.1 [place] % (Auto) 4.6 Eos % (Auto) 0.3 Baso % (Auto) 0.2 Absolute Neuts (auto) 8.1 H Absolute Lymphs (auto) 2.05 Total Counted Not Reportable Sodium 140 Potassium 3.7 Chloride 109 H Carbon Dioxide 22.0 Anion Gap 9 BUN 6 L Creatinine 0.57 Estim Creat Clear Calc 80.19 Est GFR (MDRD) Af Amer 138 Est GFR (MDRD) Non-Af 114 BUN/Creatinine Ratio 10.5 Glucose 297 H Calcium 8.2 L CSF Comment Reviewed - Other Studies Radiology: [] reviewed Other Studies: [] Route of nutrition/ use of supplements: [] Nutritional Intake: [] IV Site: [] Wise Catheter: [] - Physical Exam General: Alert, Oriented x3, Cooperative, No apparent distress HEENT: Atraumatic, PERRLA, EOMI Neck: Supple, No Nodes Lungs: Clear to auscultation, Normal air movement Cardiovascular: Regular rate, Regular Rhythm, No murmurs Abdomen: Soft, Non Tender, Non-Distended Extremities: Edema - mild BLE Skin: No rashes IV Site: Peripheral, without redness Musculoskeletal: No Tenderness to Palpation of Joints or Extremities Neurological: Cranial nerves II-XII grossly intact - Assessment/Plan Antibiotics: [] Assessment/Plan: [] Active and Suspected Problems CVA (cerebral vascular accident) (Acute) Confusion (Acute) Encephalopathy with fever, mildly elevated CSF wbc with mono predominant - no sign of bacteria meningitis. Will stop vanc/ceftriaxone. Cont acyclovir while pcr pending, but overall low suspicion for HSV. Will follow, thank you, d/w field case manager.
[2018-09-13] MEDS: Metoprolol Tartrate 5 MG/5 ML Vial IV (15:50)
--- NOTE | 2018-09-13 16:00 | PN_ITS ---
Patient Problems: Active and Suspected Problems CVA (cerebral vascular accident) (Acute) Confusion (Acute) Subjective: Patient is confused earlier on the day as per nursing staff and wants to go home leave the hospital. She does not remember prior events when she was admitted. Seen by ID. Clinically no signs of bacterial meningitis. Vitals/I&O's: Vital Signs Temp Pulse Resp BP Pulse Ox 98.1 F 98 16 166/95 H 98 09/13/18 15:33 09/13/18 15:33 09/13/18 15:33 09/13/18 15:33 09/13/18 15:33 Oxygen Delivery Method Room Air Weight: 138 lb 3.677 oz Body Mass Index (BMI) 26.1 Finger Stick Blood Glucose 497 Intake and Output for Last 24 Hours 09/11/18 09/12/18 09/13/18 23:59 23:59 23:59 Intake Total 3876.3 / 3876.3 5162.2 / 5162.2 734 / 734 Balance 3876.3 / 3876.3 5162.2 / 5162.2 734 / 734 General: Alert, Oriented x3, Cooperative HEENT: Atraumatic, PERRLA, EOMI, Normocephalic Neck: Supple, No JVD, Negative Carotid Bruits, No Nuchal Rigidity Lungs: Clear to auscultation, No rhonchi, No wheeze, No rales, Diminished - Air entry diminished in bilateral lung bases Cardiovascular: Regular rate, Normal S1, Normal S2, No murmurs Abdomen: Bowel Sounds Present, Soft, Non Tender, Non-Distended Extremities: No edema, Capillary Refill Less than 3 Seconds Skin: No rashes, No breakdown Musculoskeletal: No Tenderness to Palpation of Joints or Extremities, Arthritic Changes Neurological: Cranial nerves II-XII grossly intact, Deep Tendon Reflexes 2+/4 and Symmetrical, Neuro grossly intact, Motor Exam 5/5 strength throughout Psych/Mental Status: Normal Affect, Appropriate Microbiology Past 72 Hours 09/12/18 09:45 Csf, Spinal Fluid Gram Stain - Final 09/12/18 09:45 Csf, Spinal Fluid CSF Culture - Preliminary No growth in 24 hours. Final to follow. 09/11/18 07:05 Blood Culture (Wb) - Left Hand Blood Culture - Preliminary No growth in 48 hours. 09/11/18 06:55 Blood Culture (Wb) - Left Hand Blood Culture - Preliminary No growth in 48 hours. 09/11/18 05:20 Mucosa - Nose Respiratory Panel (PCR) - Final Laboratory Results 09/12/18 09:45: Miscellaneous Cytology SEE PATHOLOGY REPORT 09/12/18 09:45: CSF Comment Reviewed 09/12/18 16:26: POC Glucose 307 H 09/12/18 22:57: POC Glucose 271 H 09/13/18 05:58: WBC 10.8, RBC 3.97 L, Hgb 10.9 L, Hct 33.7 L, MCV 84.9, MCH 27.5, MCHC 32.3, RDW 14.7 H, RDW Differential 45.0 H, Plt Count 201, MPV 11.0, Immature Gran % (Auto) 0.800, Neut % (Auto) 75.0 H, Lymph % (Auto) 19.1, [place] % (Auto) 4.6, Eos % (Auto) 0.3, Baso % (Auto) 0.2, Absolute Neuts (auto) 8.1 H, Absolute Lymphs (auto) 2.05, Total Counted Not Reportable 09/13/18 05:58: Sodium 140, Potassium 3.7, Chloride 109 H, Carbon Dioxide 22.0, Anion Gap 9, BUN 6 L, Creatinine 0.57, Estim Creat Clear Calc 80.19, Est GFR (M DRD) Af Amer 138, Est GFR (MDRD) Non-Af 114, BUN/Creatinine Ratio 10.5, Glucose 297 H, Calcium 8.2 L 09/13/18 07:04: POC Glucose 280 H 09/13/18 12:31: POC Glucose 235 H Current Medications Acetaminophen (Tylenol) 650 mg PO Q4H PRN PRN PRN Reason: pain Last Admin: 09/13/18 01:08 Dose: 650 mg Aspirin (Aspirin, Baby) 81 mg PO DAILY@0800 [facility] Last Admin: 09/13/18 09:26 Dose: 81 mg Atorvastatin Calcium (Lipitor) 80 mg PO QHS [facility] Last Admin: 09/12/18 23:00 Dose: 80 mg Famotidine 20 mg/ Sodium (Chloride) 10 mls @ 300 mls/hr IV Q12 [facility] Last Admin: 09/13/18 12:31 Dose: 300 mls/hr Acyclovir Sodium 480 mg/ (Dextrose) 259.6 mls @ 259.6 mls/hr IV Q8 [facility] Last Admin: 09/13/18 15:38 Dose: 259.6 mls/hr Insulin Glargine (Lantus (Bkc)) 25 units SC DAILY [facility] Last Admin: 09/13/18 09:26 Dose: 25 u Insulin Glargine (Lantus (Bkc)) 15 units SC QHS [facility] Last Admin: 09/12/18 23:00 Dose: 15 unit Insulin Human Lispro (Humalog Kwikpen (Bkc)) 0 unit SC ACHS [facility]; Protocol Last Admin: 09/13/18 12:32 Dose: 4 units Magnesium Hydroxide (Milk Of Magnesia) 30 ml PO DAILY PRN PRN Reason: Constipation Metoprolol Tartrate (Lopressor (Beta Ondina)) 5 mg IV Q8H PRN PRN PRN Reason: SBP > 160, hold for HR < 60 Nutritional Formula (Lactose Free) (Glucerna Shake) 120 ml PO 4X/DAY [facility] Last Admin: 09/13/18 15:39 Dose: Not Given Ondansetron HCl (Zofran) 4 mg IV Q8H PRN PRN PRN Reason: NAUSEA Last Admin: 09/11/18 00:56 Dose: 4 mg Sodium Chloride () 5 - 15 ml IV UD PRN PRN Reason: SALINE FLUSH Last Admin: 09/13/18 09:23 Dose: 10 ml Medical Necessity - Tobacco Use Smoking Status: Unknown if ever smoked Tobacco Use: Secondhand Assessment/Plan All Active Problems Encephalopathy acute (Acute) CVA (cerebral vascular accident) (Acute) Confusion (Acute) Cerebrovascular disease (Acute) The patient is a 58 y/o F w/ PMHx: PAF s/p ablation, CVA/TIA without deficits per her report, HTN, HLD, Migraines, Anxiety and Depression, GERD, IBS, Poorly controlled Diabetes Mellitus type II, Notable history of medication non- compliance who presents to the [facility] ED on 09/10/18 with history of onset increased fatigue, lethargy, confusion with recurrent mannerisms specifically noted per f amily to be continuously coming her hair with her fingers starting at approximately 1 1:30 PM. 1 acute right occipital infarct: Patient had MRI and MRA of the head done. small acute infarct in association with the right occipital lobe. No hemorrhage. No significant mass effect. 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 Left vertebral artery terminates into tapering basilar artery and posterior cervical arteries are not adequately perfused. This was discussed with Dr. Red and he reviewed the images. CT angiogram of head shows moderate stenosis of terminal right ICA. Mild stenosis of terminal left ICA. Occluded distal right vertebral artery. Moderate distal basilar stenosis. 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 The patient had lumbar puncture today. CSF fluid analysis shows 15 cells, 12 mononuclear and 3 polymorphs, glucose 159 H, CSF Total Protein 86.0 H. As the patient clinically had fever 102 when she was admitted and there is suspicion of meningitis, antibiotics discontinued and ID consulted called. Discussed with ID Dr. Estevez. Okay to resume Eliquis from tomorrow evening, after 36 hours of LP. Discontinue aspirin after Eliquis is restarted. Full stroke workup including LP for the concern of fever, small vessel vasculitis. Echo shows EF 60%. ESR, CRP and hypercoagulable workup. On aspirin and Lipitor. Seen by ID. Low suspicion of bacterial meningitis. Recommended discontinue vancomycin and ceftriaxone. Continue acyclovir until HSV PCR is reported. PT OT and speech evaluation. Hypokalemia: Potassium is 3.2. Magnesium 1.9. Potassium replacement . Repeat K3.7. (2) Diabetes mellitus type II w/ Hyperglycemia, Poorly Controlled w/ Non- compliance history: Will continue home insulin regimen, NPO status currently, aggressive IVFs, q 6 hour accu checks w/ ISS, nutrition consulted for education and teaching once more alert, HgbA1c pending, prior notably elevated 12.2%. (3) Hx CVA/TIA: Holding oral regimen, continued on long-acting insulin regimen, permissive HTN currently, FLP in AM, maintained on therapeutic lovenox as noted, [place] ASA. (4) Anxiety and Depression: Holding home Zoloft regimen. (5) Hypertension: Permissive. (6) Hyperlipidemia: NPO status, holding home statin regimen. Lipid profile shows triglyceride 280, total cholesterol 236, LDL 137, HDL 43. High intensity statin (7) Migraines: Not on regimen, from prior history complex migraine prior, possibly contributing to current presentation. (8) PAF/cardiac arrhythmia: EKG w/ ST, s/p remote ablation history per patient, transitioned as noted in interim to therapeutic lovenox, holding oral intake, permissive. (9) Incidental Vertebral Artery Calcification: CT head with no acute findings, holding oral regimen as noted, was seen on prior CT head during prior admission, MRI brain, MRA head and neck pending as noted. (10) DVT prophylaxis: SCD. Discontinue Lovenox Microbiology Past 72 Hours 09/12/18 09:45 Csf, Spinal Fluid Gram Stain - Final 09/11/18 05:20 Mucosa - Nose Respiratory Panel (PCR) - Final Laboratory Results 09/12/18 05:20: WBC 13.1 H, RBC 3.59 L, Hgb 10.0 L, Hct 30.9 L, MCV 86.1, MCH 27.9, MCHC 32.4, RDW 14.8 H, RDW Differential 44.4 H, Plt Count 223, MPV 11.1, Immature Gran % (Auto) 0.300, Neut % (Auto) 74.5 H, Lymph % (Auto) 20.0, [place] % (Auto) 4.8, Eos % (Auto) 0.2, Baso % (Auto) 0.2, Absolute Neuts (auto) 9.8 H, Absolute Lymphs (auto) 2.61, Total Counted Not Reportable 09/12/18 05:20: Sodium 140, Potassium 3.2 L, Chloride 108 H, Carbon Dioxide 24.0, Anion Gap 8, BUN 11, Creatinine 0.60, Estim Creat Clear Calc 76.18, Est GFR (MDRD) Af Amer 130, Est GFR (MDRD) Non-Af 108, BUN/Creatinine Ratio 18.2, Glucose 258 H, Calcium 7.6 L 09/12/18 05:20: Magnesium 1.9 09/12/18 06:43: POC Glucose 296 H 09/12/18 09:45: CSF Glucose 159 H, CSF Total Protein 86.0 H 09/12/18 09:45: Fld Polynuclear WBCs # 0.003, Fld Polynuclear WBCs % 20.0, Fluid Mononuclear WBCs 0.012, Fld Mononuclear WBCs % 80.0, CSF Appearance CLEAR, CSF Color COLORLESS, CSF WBC 0.015 H, CSF RBC 2 H, CSF Cell Count Tube # 4, CSF Total Cell Counted 0.015 H, CSF Comment May follow 09/12/18 11:05: POC Glucose 239 H 09/12/18 16:26: POC Glucose 307 H Active Medications Acetaminophen (Tylenol) 650 mg PO Q4H PRN PRN PRN Reason: pain Last Admin: 09/13/18 01:08 Dose: 650 mg Aspirin (Aspirin, Baby) 81 mg PO DAILY@0800 [facility] Last Admin: 09/13/18 09:26 Dose: 81 mg Atorvastatin Calcium (Lipitor) 80 mg PO QHS [facility] Last Admin: 09/12/18 23:00 Dose: 80 mg Famotidine 20 mg/ Sodium (Chloride) 10 mls @ 300 mls/hr IV Q12 [facility] Last Admin: 09/13/18 12:31 Dose: 300 mls/hr Acyclovir Sodium 480 mg/ (Dextrose) 259.6 mls @ 259.6 mls/hr IV Q8 [facility] Last Admin: 09/13/18 15:38 Dose: 259.6 mls/hr Insulin Glargine (Lantus (Bkc)) 25 units SC DAILY [facility] Last Admin: 09/13/18 09:26 Dose: 25 u Insulin Glargine (Lantus (Bkc)) 15 units SC QHS [facility] Last Admin: 09/12/18 23:00 Dose: 15 unit Insulin Human Lispro (Humalog Kwikpen (Bkc)) 0 unit SC ACHS [facility]; Protocol Last Admin: 09/13/18 16:22 Dose: 2 units Magnesium Hydroxide (Milk Of Magnesia) 30 ml PO DAILY PRN PRN Reason: Constipation Metoprolol Tartrate (Lopressor (Beta Ondina)) 5 mg IV Q8H PRN PRN PRN Reason: SBP > 160, hold for HR < 60 Nutritional Formula (Lactose Free) (Glucerna Shake) 120 ml PO 4X/DAY [facility] Last Admin: 09/13/18 15:39 Dose: Not Given Ondansetron HCl (Zofran) 4 mg IV Q8H PRN PRN PRN Reason: NAUSEA Last Admin: 09/11/18 00:56 Dose: 4 mg Sodium Chloride () 5 - 15 ml IV UD PRN PRN Reason: SALINE FLUSH Last Admin: 09/13/18 09:23 Dose: 10 ml Clinical Impression(s) from Imaging Studies Brain CT 09/10/18 19:04 IMPRESSION: No acute process. Mild atrophy. Electronically Signed: Kami Rey MD at 19:52 EST Tel , Service support , Chest X-Ray 09/10/18 19:20 IMPRESSION: No radiographic evidence of acute cardiopulmonary disease. at 2013 Reported and signed by: Jose Starr MD Electronically Signed: Jose Starr, at 20:12 EST Tel , Service support , Chest X-Ray 09/11/18 08:35 IMPRESSION: No acute abnormalities seen. Brain MRI 09/11/18 08:38 IMPRESSION: There is evidence of small acute infarct in association with the right occipital lobe. No hemorrhage. No significant mass effect. Flow void of the attenuated right vertebral artery not seen. N.B. : The above information has been verbally conveyed by Bernie Moses MD to Olivia Hughes RN, on 09/11/2018 13:20:26 (ET). 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 The left vertebral artery terminates into an tapering basilar artery and the posterior cerebral arteries are not adequately perfused. This can be seen previously. Consider vasculitis. Neck MRA 09/11/18 08:38 IMPRESSION: No acute abnormality. 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 Head CTA 09/11/18 15:19 IMPRESSION: 1. Moderate stenosis of the terminal right ICA. 2. Mild stenosis of the terminal left ICA. 3. Occluded distal right vertebral artery. Vertebral termination in the right PICA is considered less likely. 4. Moderate distal basilar stenosis. 5. 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 6. Right [employer]ER supply via small collateral vessels including a small right P1 segment. Neck CTA 09/11/18 15:19 IMPRESSION: 1. Left ICA plaque with less than 50% stenosis. 2. Atherosclerotic disease of the distal right vertebral artery. Code Visit Inpatient E&M: 76298 Subs Hosp L3
[2018-09-13 16:12] LABS: Cytoplasmic Ab (C-ANCA) <1:20 titer (Neg:<1:20)
[2018-09-13 16:40] LABS: Bedside Glucose 196 mg/dL (70-110)
[2018-09-13] MEDS: Atorvastatin Calcium 80 MG Tablet PO (21:57)
[2018-09-14] VITALS (7 sets, daily range): BP systolic 154–161; BP diastolic 86–98; PULSE 94–110; RESP 14–17; TEMP 36.6–36.8; O2SAT 95–97; BMI 26.1
[2018-09-14 00:36] LABS: Bedside Glucose 210 mg/dL (70-110)
[2018-09-14 06:39] LABS: Anion Gap 9 (5-15); BUN 6 mg/dL (7-18); BUN/Creat Ratio 11.4 RATIO (10-20); Calcium,Total 8.5 mg/dL (8.5-10.1); Chloride 110 mmol/L (98-107); Creatinine, Serum 0.52 mg/dL (0.55-1.02); EST Glomerular Filtration Rate 127 mL/min (>60); Est Glom Filt Rate - Afr Amer 153 mL/min (>60); Glucose 117 mg/dL (74-106); Potassium 3.4 mmol/L (3.5-5.1); Sodium Level 142 mmol/L (136-145)
[2018-09-14 07:05] LABS: Bedside Glucose 118 mg/dL (70-110)
--- NOTE | 2018-09-14 07:23 | NURSING ---
Pt seems to be hallucinating. She stated, the clock is gone and the phone is taking pictures. She also mentioned a man shining a light and children in the corner. Pt repeatedly states that she is going home. She is repetitive and asked if/when the doctor was coming in. Pt does answer orientation questions appropriately.
[2018-09-14] MEDS: Aspirin 81 MG TAB.CHEW PO (07:56)
[2018-09-14] MEDS: Glucerna Shake 120 ML LIQUID PO (07:56)
[2018-09-14 11:14] LABS: ANTINUCLEAR ANTIBODIES DIRECT Negative (Negative)
[2018-09-14 11:15] LABS: Lyme Scn Total Ab w/Rflx <0.91 ISR (0.00-0.90); Perinuclear Ab (P-ANCA) <1:20 titer (Neg:<1:20)
[2018-09-14] MEDS: Insulin Lispro 100 UNIT/ML INSULN.PEN SC (11:47)
[2018-09-14 11:50] LABS: Bedside Glucose 240 mg/dL (70-110)
[2018-09-14] MEDS: Acetaminophen 325 MG Tablet 650 MG PO (12:10)
--- NOTE | 2018-09-14 12:29 | NURSING ---
This nurse assuming care
--- NOTE | 2018-09-14 12:50 | NURSING ---
Dr. Greenberg at bedside speaking with patient. Patient states she is leaving the hospital. Discussed with patient that per PT suggestion she should stay and be placed at a SNF for rehabilitation. Patient refused same and states again she is leaving the hospital. Per Dr. Greenberg, patient to be discharged AMA.
--- NOTE | 2018-09-14 12:58 | NURSING ---
RN called and spoke with patient's son, Juan Pablo and informed him that patient is refusing to stay at the hospital and is leaving AMA. Patient will need a ride home, and per the previous RN, Juan Pablo was suppose to come to the hospital around 12pm. Per Juan Pablo, he is not coming to the hospital because of current road conditions. RN informed son that the hospital may be able to find her a ride home. Son agrees to same.
--- NOTE | 2018-09-14 13:19 | NURSING ---
Patient demanding to leave AMA. 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 Juan Pablo made aware that [facility] will transport patient home around 2pm, he states he will be at home at this time.
--- NOTE | 2018-09-14 13:38 | NURSING ---
Patient discharged with coat and shoes on.
--- NOTE | 2018-09-14 15:17 | PCM.DC.SUM ---
Discharge Date and Diagnosis Date of Admission: 09/10/18 Date of Discharge: 09/14/18 - Secondary Discharge Diagnosis Chronic Problems IBS (irritable bowel syndrome) (Chronic) HLD (hyperlipidemia) (Chronic) Esophageal reflux (Chronic) Type II diabetes mellitus, uncontrolled (Chronic) Anxiety and depression (Chronic) Migraine (Chronic) reports hole in heart since (Chronic) Benign essential HTN (Chronic) Hospital Course and Treatment Operations: None Summary of Care Provided: [] The patient is a 58 y/o F w/ PMHx: PAF s/p ablation, CVA/TIA without deficits per her report, HTN, HLD, Migraines, Anxiety and Depression, GERD, IBS, Poorly controlled Diabetes Mellitus type II, Notable history of medication non-compliance who presents to the [facility] ED on 09/10/18 with history of onset increased fatigue, lethargy, confusion with recurrent mannerisms specifically noted per family to be continuously coming her hair with her fingers starting at approximately 1 1:30 PM. 1 acute right occipital infarct: Patient had MRI and MRA of the head done. small acute infarct in association with the right occipital lobe. No hemorrhage. No significant mass effect. 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 Left vertebral artery terminates into tapering basilar artery and posterior cervical arteries are not adequately perfused. This was discussed with Dr. Red and he reviewed the images. CT angiogram of head shows moderate stenosis of terminal right ICA. Mild stenosis of terminal left ICA. Occluded distal right vertebral artery. Moderate distal basilar stenosis. 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 The patient had lumbar puncture today. CSF fluid analysis shows 15 cells, 12 mononuclear and 3 polymorphs, glucose 159 H, CSF Total Protein 86.0 H. As the patient clinically had fever 102 when she was admitted and there is suspicion of meningitis, antibiotics discontinued and ID consulted called. Discussed with ID Dr. Estevez. Okay to resume Eliquis from tomorrow evening, after 36 hours of LP. Discontinue aspirin after Eliquis is restarted. Full stroke workup including LP for the concern of fever, small vessel vasculitis. Echo shows EF 60%. ESR, CRP and hypercoagulable workup. On aspirin and Lipitor. Seen by ID. Low suspicion of bacterial meningitis. Recommended discontinue vancomycin and ceftriaxone. Continue acyclovir until HSV PCR is reported. PT OT and speech evaluation done. Physical therapist notes he states moderate/severe disability with unsteadiness. They recommended not safe for discharge to home. Recommended SNF placement. This was communicated to the patient and son. Patient was cautioned about gait unsteadiness, fall and accident versus stated her son takes care of her. She refused for SNF placement and signed AMA. Hypokalemia: Potassium is 3.2. Magnesium 1.9. Potassium replacement . (2) Diabetes mellitus type II w/ Hyperglycemia, Poorly Controlled w/ Non-compliance history: Blood sugar was controlled. (3) Hx CVA/TIA: continued on long-acting insulin regimen, permissive HTN currently, (4) Anxiety and Depression: Holding home Zoloft regimen. (5) Hypertension: Permissive. (6) Hyperlipidemia: holding home statin regimen. Lipid profile shows triglyceride 280, total cholesterol 236, LDL 137, HDL 43. High intensity statin (7) Migraines: Not on regimen, from prior history complex migraine prior, possibly contributing to current presentation. (8) PAF/cardiac arrhythmia: EKG w/ ST, s/p remote ablation history per patient, transitioned as noted in interim to therapeutic lovenox, holding oral intake, permissive. (9) Incidental Vertebral Artery Calcification: CT head with no acute findings, holding oral regimen as noted, was seen on prior CT head during prior admission, MRI brain, MRA head and neck pending as noted. (10) DVT prophylaxis: SCD. Discussed with the ID, Dr. Estevez. He said if she does not need further acyclovir and he will follow-up HSV PCR on CSF analysis. This was communicated to the patient. Subjective: Seen and examined. Patient is awake alert oriented x3. Denies hallucination. Patient wants to go home. - Physical Exam General: Alert, Oriented x3, Cooperative HEENT: Atraumatic, PERRLA, EOMI, Normocephalic Neck: Supple, No JVD, Negative Carotid Bruits Lungs: Clear to auscultation, Diminished - Air entry diminished slightly in bilateral lung bases Cardiovascular: Regular rate, No murmurs Abdomen: Bowel Sounds Present, Soft, Non Tender, Non-Distended Extremities: No edema, Capillary Refill Less than 3 Seconds Skin: No rashes, No breakdown Musculoskeletal: No Tenderness to Palpation of Joints or Extremities, Arthritic Changes Neurological: Cranial nerves II-XII grossly intact, Deep Tendon Reflexes 2+/4 and Symmetrical, Neuro grossly intact, - - Bilateral lower extremity mild weakness Psych/Mental Status: Normal Affect, Appropriate Vital Signs Temp Pulse Resp BP Pulse Ox 97.9 F 103 H 14 161/98 H 97 09/14/18 12:52 09/14/18 12:52 09/14/18 12:52 09/14/18 12:52 09/14/18 12:52 Oxygen Delivery Method Room Air Weight: 138 lb 3.677 oz Body Mass Index (BMI) 26.1 Finger Stick Blood Glucose 497 Intake and Output for Last 24 Hours 09/12/18 09/13/18 09/14/18 23:59 23:59 23:59 Intake Total 5162.2 / 5162.2 1365 / 1365 725 / 725 Balance 5162.2 / 5162.2 1365 / 1365 725 / 725 Microbiology Past 72 Hours 09/12/18 09:45 Gram Stain - Final Csf, Spinal Fluid CSF Culture - Preliminary No growth in 24 hours. Final to follow. 09/11/18 07:05 Blood Culture - Preliminary Blood Culture (Wb) - Left Hand No growth in 48 hours. 09/11/18 06:55 Blood Culture - Preliminary Blood Culture (Wb) - Left Hand No growth in 48 hours. 09/11/18 05:20 Respiratory Panel (PCR) - Final Mucosa - Nose Laboratory Tests Past 24 Hrs 09/12/18 09/12/18 09/12/18 05:20 05:20 09:45 Sodium Potassium Chloride Carbon Dioxide Anion Gap BUN Creatinine Estim Creat Clear Calc Est GFR (MDRD) Af Amer Est GFR (MDRD) Non-Af BUN/Creatinine Ratio Glucose Calcium KRZYSZTOF Screen Negative c-ANCA Antibody <1:20 Atypical p-ANCA <1:20 p-ANCA Antibody <1:20 Lyme Total Antibody <0.91 Miscellaneous Cytology SEE PATHOLOGY REPORT 09/14/18 06:10 Sodium 142 Potassium 3.4 L Chloride 110 H Carbon Dioxide 23.0 Anion Gap 9 BUN 6 L Creatinine 0.52 L Estim Creat Clear Calc 87.90 Est GFR (MDRD) Af Amer 153 Est GFR (MDRD) Non-Af 127 BUN/Creatinine Ratio 11.4 Glucose 117 H Calcium 8.5 KRZYSZTOF Screen c-ANCA Antibody Atypical p-ANCA p-ANCA Antibody Lyme Total Antibody Miscellaneous Cytology POC Glucose 09/14/18 09/14/1809/13/19 11:45 06:59 22:07 POC Glucose 240 H 118 H 210 H 09/13/18 16:21 POC Glucose 196 H Home Medications: Medications to take at Discharge Apixaban [Eliquis] 5 mg PO BID 06/16/18 Ascorbic Acid [Vitamin C] 500 mg PO DAILY 06/16/18 Atorvastatin Calcium 20 mg PO QHS 06/16/18 Lisinopril 20 mg PO DAILY 06/16/18 Sertraline HCl [Zoloft] 100 mg PO DAILY 06/16/18 Amlodipine Besylate 5 mg PO DAILY 09/10/18 Dicyclomine HCl 20 mg PO Q12H PRN PRN 09/10/18 Fluconazole [Diflucan] 200 mg PO DAILY 09/10/18 Hydrocodone/Acetaminophen [Hydrocodon-Acetaminophen 5-325] 1 tab PO Q6H PRN PRN 09/10/18 Metoprolol Tartrate 25 mg PO BID 09/10/18 Sertraline HCl [Zoloft] 50 mg PO DAILY 09/10/18 Primary Care Physician: Love Solorzano [Primary Care Provider] - Medical Necessity - Tobacco Use Smoking Status: Unknown if ever smoked Tobacco Use: Secondhand Meaningful Use Info Meaningful Use Diagnoses (Choose all that apply): None applicable Code Visit Inpatient E&M: 14702 Disch Hosp
[2018-09-18 20:07] LABS: Protein C Antigen 100 % (60-150); Protein C, Functional 114 % (73-180)
[2018-09-20 09:55] LABS: Anti-Cardiolipin Ab, IgG, Qn < 9 GPL U/mL (0-14); Anti-Cardiolipin Ab, IgM, Qn < 9 MPL U/mL (0-12); Anti-Thrombin 3 AG, Immunol 89 % (72-124); Antithrombin 3 Function 110 % (75-135); Beta-2-Glycoprotein I IgA <9 (0-25); Beta-2-Glycoprotein I IgG <9 (0-20); Beta-2-Glycoprotein I IgM <9 (0-32)
[2018-09-23 10:42] LABS: Oligoclonal Banding REF LAB
== END 2018-09-14 13:44 | disposition left against medical advice (07) | DRG 65 ==
LOC: ED 21:45 → PCU 22:49
PROVIDERS: Psychiatry & Neurology Neurology; Admitting Provider Family Medicine; Emergency Provider Emergency Medicine; Referring Provider Nurse Practitioner Family; Visit Provider Internal Medicine
DX: I63.211 Cerebral infarction due to unspecified occlusion or stenosis of right vertebral artery (principal); G93.49 Other encephalopathy; E11.65 Type 2 diabetes mellitus with hyperglycemia; E78.5 Hyperlipidemia, unspecified; F41.9 Anxiety disorder, unspecified; F32.9 Major depressive disorder, single episode, unspecified; I10 Essential (primary) hypertension; K58.9 Irritable bowel syndrome, unspecified; E87.6 Hypokalemia; G43.909 Migraine, unspecified, not intractable, without status migrainosus; K21.9 Gastro-esophageal reflux disease without esophagitis; Z77.22 Contact with and (suspected) exposure to environmental tobacco smoke (acute) (chronic); I65.23 Occlusion and stenosis of bilateral carotid arteries; I67.2 Cerebral atherosclerosis; Z86.73 Personal history of transient ischemic attack (TIA), and cerebral infarction without residual deficits; Z79.01 Long term (current) use of anticoagulants; Z79.4 Long term (current) use of insulin; Z79.899 Other long term (current) drug therapy
CPT/HCPCS: 36415; 62270; 70450; 70496; 70498; 70544; 70547; 70551; 71045; 77003; 80048; 80053; 80061; 80307; 80320; 81001; 81240; 81241; 82009; 82040; 82042; 82140; 82784; 82945; 82962; 83036; 83605; 83735; 83873; 83916; 84157; 84443; 84484; 85025; 85300; 85301; 85302; 85303; 85610; 85652; 85730; 86038; 86140; 86146; 86147; 86225; 86235; 86256; 86618; 87040; 87070; 87101; 87205; 87498; 87529; 87633; 87798; 88108; 88313; 89050; 89051; 92523; 93005; 93306; 95819; 97116; 97162; 97166; 97530; 97535; 99285; J7030; J7040; J7050; Q9957; Q9967; A4216; C8929; G0480; J0696; J2405; J3490

== ENCOUNTER 2018-11-30 13:21 | Inpatient (IN) | payer MEDICARE, MEDICAID, SELFPAY ==
[2018-09-14 00:08] VITALS: BMI 26.1
[2018-11-30] VITALS (13 sets, daily range): BP systolic 123–161; BP diastolic 67–99; PULSE 85–106; RESP 18–24; TEMP 36.7–37.3; O2SAT 84–97; BMI 25.2; BMI 25.1
--- NOTE | 2018-11-30 13:28 | CT_ITS ---
STUDY: CT ABDOMEN AND PELVIS WITHOUT CONTRAST REASON FOR EXAM: Female, 58 years old. Abdominal pain with right-sided arm weakness since midnight, sepsis RADIATION DOSAGE (If Supplied By Facility): CTDIvol = ( 7.68 ) mGy, DLP = ( 399.13 ) mGycm TECHNIQUE: Transaxial images were obtained from the dome of the diaphragm to the symphysis pubis without oral contrast, and without intravenous contrast. Sagittal and coronal images were reconstructed. Individualized dose optimization techniques were used for this CT. COMPARISON: 06/16/2018 FINDINGS: There is airspace consolidation involving the left lower lobe with groundglass opacity of the right lower lobe.. Mitral valvular calcifications are demonstrated. Normal liver. There is a solitary gallstone. Normal spleen. Normal pancreas. Normal bilateral adrenal glands. Normal right kidney. Normal left kidney. Normal visualized stomach. Normal small intestine. There is no colon wall thickening identified. However, there is moderate amount of fluid in the rectosigmoid colon. There is also fluid in the right side of the colon. There is non-visualization of the appendix. There is diffuse atherosclerotic calcification of the abdominal aorta, without a demonstrated aneurysm. Normal inferior vena cava. Normal retroperitoneum. Urinary bladder wall thickening may be artifact under distention versus cystitis. Normal abdominal wall. Normal osseous structures. CT/Abdomen/Pelvis without Cont IMPRESSION: 1. Left more than right lower lobe pulmonary infiltrate/consolidation suggesting pneumonia. 2. Rectosigmoid (and right colon) fluid suggesting diarrheal disease/gastroenteritis 3. Circumferential wall thickening of the urinary bladder may be artifact of under distention although cystitis cannot be excluded. Electronically Signed: Siddhartha Park MD at 14:22 EDT , Service support ,
--- NOTE | 2018-11-30 13:28 | RAD_ITS ---
STUDY: X-RAY CHEST REASON FOR EXAM: Female, 58 years old. Right arm weakness TECHNIQUE: AP COMPARISON: 09/11/2018 FINDINGS: EKG leads project over the chest. Right perihilar opacity extending into the right lung base as well as consolidation in the left lung base. No sizable pleural effusion documented. Normal size heart. Normal visualized pulmonary arteries. Normal visualized aortic arch and descending thoracic aorta. No acute bony process. There is no demonstrated abnormality of the visualized soft tissue structures of the upper abdomen. RAD/Chest 1 View (Portable) IMPRESSION: 1. Bilateral lower lobe airspace disease with nodular fullness of the right hilum. Pneumonia considered most likely but follow-up to complete resolution is recommended. Electronically Signed: Siddhartha Park MD at 15:36 EDT , Service support ,
--- NOTE | 2018-11-30 13:28 | EKG12_ITS ---
Test Reason : STROKE TEAM Blood Pressure : / mmHG Vent. Rate : 094 BPM Atrial Rate : 094 BPM P-R Int : 152 ms QRS Dur : 106 ms QT Int : 414 ms P-R-T Axes : 035 045 040 degrees QTc Int : 517 ms Normal sinus rhythm Nonspecific ST abnormality Prolonged QT Abnormal ECG Confirmed by ROSE CURTIS, KIERSTEN ([id number]), industrial editor DEVEN OLGUIN ([id number]) on 12/02/2018 11:07:25 AM Referred By: TIARA Confirmed By:KIERSTEN ROSE MD
--- NOTE | 2018-11-30 13:29 | CT_ITS ---
STUDY: CT BRAIN WITHOUT CONTRAST REASON FOR EXAM: Female, 58 years old. Right arm weakness since midnight RADIATION DOSAGE (If Supplied By Facility): CTDIvol = ( 44.99 ) mGy, DLP = ( 812.98 ) mGycm TECHNIQUE: Transaxial CT imaging of the brain was performed without administration of intravenous contrast material. Individualized dose optimization techniques were used for this CT. COMPARISON: CT from 09/10/2018, brain MRI of 09/11/2018 FINDINGS: Normal soft tissue structures. Normal calvarium. There is mild cerebral atrophy with widening of the extra-axial spaces and ventricular dilatation. There are areas of decreased attenuation within the white matter tracts of the supratentorial brain, consistent with microvascular disease changes. Area of diminished density of the right occipital lobe has undergone expected evolution since the prior CT and MRI. Normal basal ganglia and thalami. Normal brainstem. Normal cerebellum. There is atherosclerosis of the bilateral carotid siphons and left vertebral artery. There is no intracranial hemorrhage. There are no findings of an acute ischemic infarction. Normal visualized paranasal sinuses. CT/Brain/Head without Contrast IMPRESSION: 1. No acute intracranial hemorrhage or mass effect. 2. Expected evolution of right occipital (ADMIN ASST territory) infarction as described on prior MRI of 09/11/2018. 3. Central parenchymal volume loss. White matter changes that are nonspecific but most commonly associated with chronic small vessel ischemic disease. N.B. : The above information has been verbally conveyed by Siddhartha Park MD to Steven Jacksonlaila on 11/30/2018 13:56:39 (ET). Electronically Signed: Siddhartha Park MD at 13:59 EDT , Service support ,
--- NOTE | 2018-11-30 13:30 | RAD_ITS ---
STUDY: X-RAY - LEFT FOOT CLINICAL: Female, 58 years old. Seeping left foot wound TECHNIQUE: 3 view(s) of the foot. COMPARISON: None. FINDINGS: There is a plantar calcaneal spur. Normal visualized subtalar, talonavicular, calcaneocuboid, tarsal and tarsometatarsal articulations. There is loss of cortical definition of the second metatarsal head and possibly the third metatarsal head. Normal metatarsophalangeal joint of the great toe. Normal tibial and fibular sesamoid bones. Normal interphalangeal joint of the great toe. Normal phalanges of the great toe. Normal second through fifth metatarsophalangeal joints. Normal interphalangeal joints and phalanges of the lesser toes. Soft tissue swelling of the forefoot particularly involving the first through third toes with small locules of air between the first and second and second and third toes. RAD/Foot min 3 Views IMPRESSION: 1. Soft tissue swelling with soft tissue gas of the forefoot suggesting cellulitis/infection. Loss of cortical definition of the second and possibly third metatarsal heads suspicious for osteomyelitis. Electronically Signed: Siddhartha Park MD at 15:37 EDT , Service support ,
--- NOTE | 2018-11-30 13:32 | ED.VISSUMM ---
- ER Visit Summary Date of Service: 11/30/18 Chief Complaint: [] Multiple complaints including weakness cough shortness of breath infected left foot, weakness to the right upper extremity History of Present Illness: The patient is a 58 F [] the patient has multiple complaints of various time stages, she indicates basically she has had a chronic cough long-standing for days, she thinks she stepped on something injuring her left foot and it has been red tender and draining, she had worsening shortness of breath, she had nonspecific abdominal pain copious diarrhea, all of these again for nonspecific periods of time, last night she felt as if her right arm was weak and she could not move it the way she normally does that persisted and because of all the above per medics were called She is a very vague un informative historian, she complete simply keeps saying she does not know she has no med list with her she does not know her doctors she has not seen a doctor and sent some time she apparently was with her son Recently the house lost water so they have had no water for about 3 or 4 days Physical Examination: [] She is tachycardic to 107 she is afebrile her blood pressure is 161/99 she is awake she is alert she is answering questions to the best of her ability she clearly has poor hygiene she has a diaper full of diarrheal stool she has an obvious left foot infection with drainage and redness she can barely lift her right upper extremity off the bed Her HEENT exam is otherwise unremarkable cranial nerves appear to be intact, her neck is supple her lungs are diminished bilaterally heart tones are slightly tachycardic to 110 the abdomen is soft with a nonspecific vague diffuse discomfort no rebound guarding organomegaly the pelvis is stable the left foot there is drainage from around the dorsal surface second toe and redness and warmth and some questionable crepitance, neurologically she is awake oriented to herself [facility] cannot provide details, when you ask her to move her right upper extremity she can barely lift it off the bed she cannot hold it for a 5-second count it falls back down there is no obvious trauma to that extremity, she is otherwise moving all of her other 3 extremities, her speech is clear and understandable, her NIH would be related to the right upper extremity about a 2 and again her symptoms began either yesterday evening or around midnight yesterday Test Results: [] Emergency Department Course and Treatment: [] Multiple issues her pulse ox is noted to be about 85% on room air she is complaining of shortness of breath abdominal pain the left foot the right upper arm given all the above comprehensive evaluations pursued Treatment Plan: [] The patient screening labs show white count of 27,000, potassium 1.9, the lactate is almost 4, she has received blood cultures urine cultures IV fluids judiciously as I was concerned 30 cc/kg could cause complications such as CHF she is remained hemodynamically stable here in the department, she received appropriate antibiotics fluid resuscitation and I have asked the hospital see her for admission and further management, please note other studies are still pending they will be on the chart for review by the admitting team Disposition: [] Admit stable Impression: [] By lobar pneumonia, left foot infection, sepsis, lactic acidosis hypokalemia This note was generated with [employer] dictation software. It may contain incorrect words, spelling, and punctuation that were not noted in review of the chart prior to signing ED Disposition - Plan for ED Patient: Referrals: Chuyita Wright NP-C [Primary Care Provider] -
[2018-11-30 13:48] LABS: Absolute Lymphocyte Count 0.85 X10^3/ul (0.83-4.51); Absolute Neutrophil Count 24.9 X10^3/uL (2.0-7.7); Basophil# 0.01 X10^3/uL; Differential Indicated SCAN CRITERIA MET; Hematocrit 36.9 % (37-47); Hemoglobin 12.4 g/dl (12.0-15.0); Lymphocyte # 0.85 X10^3/ul (4.0); Lymphocyte % 3.2 % (19-41); Mean Corp Hgb Conc 33.6 g/gl (32-36); Mean Corpuscular Hgb 26.2 pg (27.0-32.0); Mean Corpuscular Volume 77.8 fL (81-99); Mean Platelet Vol. 10.9 fl (6.2-12.0); Monocyte# 0.54 X10^3/uL; Neutrophil # 24.86 X10^3/uL (2.7-7.7); Neutrophil % 93.8 % (47-70); POSITIVE COUNT NO; POSITIVE DIFFERENTIAL YES; POSITIVE MORPHOLOGY YES; Platelet Count 394 K/mm3 (150-450); RBC Distribution Width CV 14.7 % (11.6-14.6); RBC Distribution Width SD 40.3 fl (35.1-43.9); Red Blood Count 4.74 M/mm3 (4.2-5.4); White Blood Count 26.5 K/mm3 (4.4-11.0)
[2018-11-30 13:50] LABS: International Normalized Ratio 1.3; Prothrombin Time (Protime)PT. 15.8 SECONDS (11.7-14.9)
[2018-11-30] MEDS: Albuterol 2.5 MG/3 ML VIAL.NEB. INHALATION (14:05)
[2018-11-30] MEDS: Ondansetron 4 MG/2 ML Vial IV ×2 (14:12→19:48)
[2018-11-30] MEDS: morphine 8 MG/ML Syringe IV (14:12)
[2018-11-30] MEDS: 0.9% Normal Saline 1,000 ML 150 ML IV (14:13)
[2018-11-30 14:15] LABS: BNP,B-Type NATRIURETIC PEPTIDE 206.5 pg/mL (0-100)
[2018-11-30 14:21] LABS: Bedside Glucose 412 mg/dL (70-110)
[2018-11-30 14:32] LABS: Anion Gap 12 (5-15); BUN 11 mg/dL (7-18); BUN/Creat Ratio 11.2 RATIO (10-20); Calcium,Total 7.3 mg/dL (8.5-10.1); Chloride 96 mmol/L (98-107); Creatinine, Serum 0.98 mg/dL (0.55-1.02); EST Glomerular Filtration Rate 62 mL/min (>60); Est Glom Filt Rate - Afr Amer 74 mL/min (>60); Glucose 412 mg/dL (74-106); Lactic Acid 3.7 mmol/L (0.4-2.0); Potassium 1.9 mmol/L (3.5-5.1); Sodium Level 135 mmol/L (136-145)
--- NOTE | 2018-11-30 14:46 | ED.RN ---
potassium of 1.9 and lactic of 3.[address] lackey. verbalized understanding
[2018-11-30 15:11] LABS: Mucous, Urine 0 SEEN /hpf (<or=2+); White Blood Cells 0 SEEN /hpf (0-5)
[2018-11-30 15:17] LABS: Magnesium 0.8 mg/dL (1.6-2.6)
[2018-11-30 15:25] LABS: Color, Urine Yellow (Yellow); Glucose, Dipstick 1000 mg/dl (Normal); Ketone-Dipstick 5 mg/dl (Negative); Nitrite-Dipstick Negative (Negative); Occult Blood-Urine 25 /ul (Negative); Protein-Dipstick 500 mg/dl (Negative); Urine Bilirubin Dipstick Negative (Negative); Urine Clarity Clear (Clear); Urine Urobilinogen Normal (Normal)
[2018-11-30 15:32] LABS: Red Blood Cells-Urine 0-5 SEEN /hpf (0-5); Squamous Epithelial Cells - UA 0-5 SEEN /hpf (5-10)
[2018-11-30 15:33] LABS: Bacteria RARE /hpf (None Seen); Leukocyte Esterase-Dipstick 1+ /ul (Negative)
[2018-11-30] MEDS: 0.9% Normal Saline 1,000 ML 999 ML IV (15:33)
[2018-11-30] MEDS: Potassium Chloride 10mEq/100mL 10 MEQ/100 ML IV.SOLN. 100 MEQ IV BOLUS ×4 (15:33→18:35)
--- NOTE | 2018-11-30 15:49 | PCM.HP.STD ---
<Lucho Stephens - Last Filed: 11/30/18 16:25> Problem List (1) Severe sepsis Status: Acute (2) Acute respiratory failure with hypoxia Status: Acute (3) Pneumonia Status: Acute (4) Hypokalemia Status: Acute (5) Gastroenteritis Status: Acute (6) Hypomagnesemia Status: Acute (7) Osteomyelitis Status: Acute (8) Paroxysmal atrial fibrillation Status: Chronic (9) CVA (cerebral vascular accident) Status: Acute (10) Anxiety and depression Status: Chronic (11) Benign essential HTN Status: Chronic (12) Esophageal reflux Status: Chronic (13) HLD (hyperlipidemia) Status: Chronic (14) IBS (irritable bowel syndrome) Status: Chronic (15) Type II diabetes mellitus, uncontrolled Status: Chronic History of Present Illness Date of Admission: 11/30/18 Chief Complaint: right upper extremity weakness The patient is a 58 year old F with pmhx of recent hospitalization for right occipital infarct and meningitis workup - ruled out, hx of DMt2, paroxysmal Afib, HTN, HLD, IBS, anxiety and depression, who presents to the ER with multiple complaints - her primary complaint is Right upper extremity weakness. This began about 2 days prior, spontaneously while are rest sitting. She is unable to lift her arm and has little ladies locker room attendant strength. She denies double vision, DICKEY, numbness/tingling, change in speech, ataxia, or affected lower extremity. She also complains of SOB and was hypoxic in the ER. She has a nonproductive cough. CXR and CT abdomen shows BL infiltrates. She denies fever or chills. She also has had ongoing diarrhea for those past two days as well and has diffuse abdominal pain, CT abdomen here shows gastroenteritis. She has nausea without vomiting. She has not been eating or drinking much for the last two days. In addition she appears to have an infection in her foot. She stepped on a staple on the ground one week prior and has circumferential cellulitic changes with pus drainage on the distal portion of her foot. Xray shows possible osteomyelitis. In addition to all of this her medications ran out 3 days ago and she has not taken any prescription meds since then. [] Past Medical History Past Medical History (Chronic Problems): Chronic Problems CVA (cerebral vascular accident) (Chronic) Paroxysmal atrial fibrillation (Chronic) IBS (irritable bowel syndrome) (Chronic) HLD (hyperlipidemia) (Chronic) Esophageal reflux (Chronic) Type II diabetes mellitus, uncontrolled (Chronic) Anxiety and depression (Chronic) Cerebrovascular disease (Chronic) Possible small ischemic strokes versus sequela of chronic migraine Migraine (Chronic) reports hole in heart since (Chronic) Benign essential HTN (Chronic) Allergies codeine Adverse Reaction (Verified 11/30/18 13:28) Other pork derived (porcine) Adverse Reaction (Verified 11/30/18 13:28) Vomiting Home Medications: Ambulatory Orders Medication Instructions Recorded Apixaban [Eliquis] 5 mg PO BID 06/16/18 Ascorbic Acid [Vitamin C] 500 mg PO DAILY 06/16/18 Atorvastatin Calcium 20 mg PO QHS 06/16/18 Lisinopril 20 mg PO DAILY 06/16/18 Sertraline HCl [Zoloft] 100 mg PO DAILY 06/16/18 Amlodipine Besylate 5 mg PO DAILY 09/10/18 Dicyclomine HCl 20 mg PO Q12H PRN PRN 09/10/18 Fluconazole [Diflucan] 200 mg PO DAILY 09/10/18 Hydrocodone/Acetaminophen 1 tab PO Q6H PRN PRN 09/10/18 [Hydrocodon-Acetaminophen 5-325] Metoprolol Tartrate 25 mg PO BID 09/10/18 Sertraline HCl [Zoloft] 50 mg PO DAILY 09/10/18 Surgical History: - - BLTL, Cardiac ablation per patient self-report, tonsillectomy. Psychiatric History: Anxiety, Depression BUSINESS SYSTEMS DEVELOPER History: No pertinent BUSINESS SYSTEMS DEVELOPER history Lives: Alone Smoking Status: Never smoker Tobacco Use: Non-smoker Alcohol: None Drugs: None - *Family History Maternal History Items: Heart Disease - \ Paternal History Items: Heart Disease - age 67, Hypertension - Father with PA/CAD, 69 years old. Review of Systems Constitutional: Reports: Malaise, Weakness, Fatigue. Denies: Chills, Fever, Weight Change HEENT: Denies: Head Aches, Sinus Congestion, Sinus Drainage Cardiovascular: Denies: Chest Pain, Chest Pressure, Chest Tightness, Edema, Heaviness, Palpitations Respiratory: Reports: Cough, Shortness of Breath, Shortness of breath at rest, Shortness of breath upon exertion. Denies: Sputum production Gastrointestinal: Reports: Abdominal Pain, Diarrhea, Nausea. Denies: Vomiting Genitourinary: Denies: Dysuria Musculoskeletal: Reports: Foot Pain, - - foot wound, pus drainage. Denies: Joint Pain, Joint Tenderness Skin: Denies: Rash, Wounds Neurological: Reports: Focal weakness. Denies: Balance problems, Blurred vision, Double vision, Change in Speech, Slurred speech, Confusion, Difficulty swallowing, Headaches, Incoordination, Numbness, Tingling Psychiatric: Denies: Anxiety, Depression, Homicidal Ideations, Suicidal Ideations Hematologic/ Lymphatic: Denies: Easy Bruising, Easy Bleeding VTE Information - Inpt Only VTE Present on Admission: No VTE Mechan Device Prophylaxis: None VTE Pharm Prophylaxis ordered?: Yes Patient Problems: Active and Suspected Problems Hypokalemia (Acute) Gastroenteritis (Acute) Acute respiratory failure with hypoxia (Acute) Severe sepsis (Acute) Hypomagnesemia (Acute) Osteomyelitis (Acute) CVA (cerebral vascular accident) (Acute) Gram-negative pneumonia (Acute) Foot abscess, left (Acute) - Physical Exam General: Alert, Oriented x3, Cooperative, - - disheveled, unclean, malodorous HEENT: Atraumatic, PERRLA, EOMI, Normocephalic Neck: Supple, No JVD, Negative Carotid Bruits Lungs: Rales - BL Cardiovascular: Regular rate, No murmurs Abdomen: Bowel Sounds Present, Tender - diffusely tender to light palp Extremities: No edema, Capillary Refill Less than 3 Seconds Skin: Ulcer/ Wound - wounds circumferentially Musculoskeletal: No Tenderness to Palpation of Joints or Extremities Neurological: Cranial nerves II-XII grossly intact, - - ladies locker room attendant strength decreased R hand, weakness Right upper extremity. Sensation intact. Psych/Mental Status: Normal Affect, Appropriate Vital Signs Temp Pulse Resp BP Pulse Ox 99.1 F 96 20 H 143/95 H 88 11/30/18 15:35 11/30/18 15:35 11/30/18 15:35 11/30/18 15:35 11/30/18 15:35 Oxygen Flow Rate (L/min) 3 Oxygen Delivery Method Nasal Cannula Weight: 128 lb 15.527 oz Body Mass Index (BMI) 25.2 Finger Stick Blood Glucose 497 Laboratory Tests Past 24 Hrs 11/30/18 11/30/18 11/30/18 13:30 13:30 13:30 WBC 26.5 H RBC 4.74 Hgb 12.4 Hct 36.9 L MCV 77.8 L MCH 26.2 L MCHC 33.6 RDW 14.7 H RDW Differential 40.3 Plt Count 394 MPV 10.9 Immature Gran % (Auto) 1.000 H Neut % (Auto) 93.8 H Lymph % (Auto) 3.2 L [place] % (Auto) 2.0 Eos % (Auto) 0.0 Baso % (Auto) 0.0 Absolute Neuts (auto) 24.9 H Absolute Lymphs (auto) 0.85 Total Counted Not Reportable PT 15.8 H INR 1.3 Sodium 135 L Potassium 1.9 L* Chloride 96 L Carbon Dioxide 27.0 Anion Gap 12 BUN 11 Creatinine 0.98 Estim Creat Clear Calc 44.40 Est GFR (MDRD) Af Amer 74 Est GFR (MDRD) Non-Af 62 BUN/Creatinine Ratio 11.2 Glucose 412 H Lactic Acid Calcium 7.3 L Magnesium Troponin I 0.030 B-Natriuretic Peptide Urine Color Urine Clarity Urine pH Ur Specific [place] Urine Protein Urine Glucose (UA) Urine Ketones Urine Occult Blood Urine Nitrite Urine Bilirubin Urine Urobilinogen Ur Leukocyte Esterase Urine RBC Urine WBC Ur Squamous Epith Cells Urine Bacteria Urine Mucus 11/30/18 11/30/18 11/30/18 13:30 13:30 13:30 WBC RBC Hgb Hct MCV MCH MCHC RDW RDW Differential Plt Count MPV Immature Gran % (Auto) Neut % (Auto) Lymph % (Auto) Fre[place] % (Auto) Eos % (Auto) Baso % (Auto) Absolute Neuts (auto) Absolute Lymphs (auto) Total Counted PT INR Sodium Potassium Chloride Carbon Dioxide Anion Gap BUN Creatinine Estim Creat Clear Calc Est GFR (MDRD) Af Amer Est GFR (MDRD) Non-Af BUN/Creatinine Ratio Glucose Lactic Acid 3.7 H Calcium Magnesium 0.8 L* Troponin I B-Natriuretic Peptide 206.5 H Urine Color Urine Clarity Urine pH Ur Specific [place] Urine Protein Urine Glucose (UA) Urine Ketones Urine Occult Blood Urine Nitrite Urine Bilirubin Urine Urobilinogen Ur Leukocyte Esterase Urine RBC Urine WBC Ur Squamous Epith Cells Urine Bacteria Urine Mucus 11/30/18 15:05 WBC RBC Hgb Hct MCV MCH MCHC RDW RDW Differential Plt Count MPV Immature Gran % (Auto) Neut % (Auto) Lymph % (Auto) Fre[place] % (Auto) Eos % (Auto) Baso % (Auto) Absolute Neuts (auto) Absolute Lymphs (auto) Total Counted PT INR Sodium Potassium Chloride Carbon Dioxide Anion Gap BUN Creatinine Estim Creat Clear Calc Est GFR (MDRD) Af Amer Est GFR (MDRD) Non-Af BUN/Creatinine Ratio Glucose Lactic Acid Calcium Magnesium Troponin I B-Natriuretic Peptide Urine Color Yellow Urine Clarity Clear Urine pH 6.0 Ur Specific [place] 1.020 Urine Protein 500 H Urine Glucose (UA) 1000 H Urine Ketones 5 H Urine Occult Blood 25 H Urine Nitrite Negative Urine Bilirubin Negative Urine Urobilinogen Normal Ur Leukocyte Esterase 1+ Urine RBC 0-5 SEEN Urine WBC 0 SEEN Ur Squamous Epith Cells 0-5 SEEN Urine Bacteria RARE Urine Mucus 0 SEEN POC Glucose 11/30/18 13:21 POC Glucose 412 H Assessment/Plan All Active Problems Encephalopathy acute (Acute) Hypokalemia (Acute) Gastroenteritis (Acute) Acute respiratory failure with hypoxia (Acute) Severe sepsis (Acute) Hypomagnesemia (Acute) Osteomyelitis (Acute) CVA (cerebral vascular accident) (Acute) Gram-negative pneumonia (Acute) Foot abscess, left (Acute) 1. Suspected Acute CVA - pt off home meds. New RUE weakness not explained by prior infarct. CT brain shows evolution of the prior right occipital infarct. Obtain MRI brain, MRA head and neck, echocardiogram, PTOT and ST evals. NIH checks. Resume eliquis, lipitor. 2. Acute severe sepsis 2/2 multiple infectious sources - as evidenced by leukocytosis, tachypnea, tachycardia, lactic acidosis. Infectious sources include pneumonia, osteomyelitis, and gastroenteritis. Obtain blood cultures, repeat lactate, provide IV fluids. 3. Acute BL HCAP - vanc and zosyn, mucinex, pep therapy, aerosols. cough is nonproductive at this time. Afebrile at this time. Rales on exam. Recently admitted to the hospital 4. L foot suspected osteomyelitis and cellulitis - abx as above. Foot XR shows possible osteo and cellulitis. Consult to Podiatry and wound care. MRI foot. NWB on this extremity for now. Culture the seeping drainage. 5. Acute gastroenteritis - suspect viral. seen on CT. symptoms c/w as well with nausea, abd pain, copious diarrhea. Supportive care, IV fluids, antiemetics. 6. Hypokalemia, hypomagnesemia, hyponatremia - replete. check phos. 2/2 malnutrition and gastroenteritis, pt eating and drinking little at home. Dietary eval. 7. T2DM with hyperglycemia - no acidosis at this time, urine with copious glucose and protein. Again, the pt has not been taking any of her medications. Provide SSI and start weight based long acting insulin, titrate to response. 8. PAfib - continue eliquis, lopressor. Echo as above. She is currently in SR. EKG shows SR with nonspecific ST changes, Long QTc: 517 - avoid QT prolonging agents. 9. HTN - stable 10. Anx/Depression - zoloft. DVT ppx: eliquis DC planning: PTOT. Not caring for self at home as she is very disheveled and not taking her medications. This patient was seen by Lucho Stephens PA-C under the supervision of Dr. Mancia. <Emeterio Mancia - Last Filed: 11/30/18 18:39> Problem List (1) CVA (cerebral vascular accident) Status: Acute (2) Gram-negative pneumonia Status: Acute (3) Foot abscess, left Status: Acute (4) Encephalopathy acute Status: Acute (5) CVA (cerebral vascular accident) Status: Chronic Qualifiers: Laterality of affected vessel: right (6) Confusion Status: Inactive (7) Hypokalemia Status: Inactive (8) Gastroenteritis Status: Acute (9) Acute respiratory failure with hypoxia Status: Acute (10) Hypomagnesemia Status: Acute (11) Paroxysmal atrial fibrillation Status: Chronic (12) Osteomyelitis Status: Acute (13) IBS (irritable bowel syndrome) Status: Chronic Qualifiers: (14) HLD (hyperlipidemia) Status: Chronic (15) Esophageal reflux Status: Chronic Qualifiers: (16) Type II diabetes mellitus, uncontrolled Status: Chronic Qualifiers: (17) Anxiety and depression Status: Chronic (18) Cerebrovascular disease Status: Chronic Comment: Possible small ischemic strokes versus sequela of chronic migraine (19) Migraine Status: Chronic Qualifiers: Migraine type: unspecified Status migrainosus presence: without status migrainosus Intractability: not intractable Qualified Code(s): G43.909 - Migraine, unspecified, not intractable, without status migrainosus (20) reports hole in heart since Status: Chronic (21) Benign essential HTN Status: Chronic History of Present Illness Chief Complaint: right arm weakness The patient is a 58 year old F presents with right arm weakness. Difficult to get a history from the patient and her son if she is previously had a right arm weakness initially saying she did but is worse or saying that it was normal and now is worse. Irregardless it is worse was a consensus that I got. Patient also had stepped on something with her left foot and her foot has gotten more swollen and erythematous. Drainage was noted. Patient apparently ran out of water at her house several days ago and has not taken any medications, nor drink any fluids, nor taken a shower since then. Patient also been having vomiting and diarrhea. [] Past Medical History Allergies codeine Adverse Reaction (Verified 11/30/18 13:28) Other pork derived (porcine) Adverse Reaction (Verified 11/30/18 13:28) Vomiting Surgical History: - Psychiatric History: Anxiety, Depression BUSINESS SYSTEMS DEVELOPER History: No pertinent BUSINESS SYSTEMS DEVELOPER history Lives: Alone Smoking Status: Never smoker Tobacco Use: Non-smoker Alcohol: None Drugs: None - *Family History Maternal History Items: Heart Disease Paternal History Items: Heart Disease, Hypertension Review of Systems Constitutional: Reports: Malaise, Weakness, Fatigue. Denies: Chills, Fever, Weight Change HEENT: Denies: Head Aches, Sinus Congestion, Sinus Drainage Cardiovascular: Denies: Chest Pain, Chest Pressure, Chest Tightness, Edema, Heaviness, Palpitations Respiratory: Reports: Cough, Shortness of Breath, Shortness of breath at rest, Shortness of breath upon exertion. Denies: Sputum production Gastrointestinal: Reports: Abdominal Pain, Diarrhea, Nausea. Denies: Vomiting Genitourinary: Denies: Dysuria Musculoskeletal: Reports: Foot Pain, -. Denies: Joint Pain, Joint Tenderness Neurological: Reports: Focal weakness. Denies: Balance problems, Blurred vision, Double vision, Change in Speech, Slurred speech, Confusion, Difficulty swallowing, Headaches, Incoordination, Numbness, Tingling Psychiatric: Denies: Anxiety, Depression, Homicidal Ideations, Suicidal Ideations Hematologic/ Lymphatic: Denies: Easy Bruising, Easy Bleeding VTE Information - Inpt Only VTE Present on Admission: No VTE Pharm Prophylaxis ordered?: Yes - Physical Exam General: Alert, Cooperative, - HEENT: Atraumatic, Normocephalic Neck: No Nodes, Thyroid Normal Size and Texture Lungs: - - Coarse breath sounds in the bases Cardiovascular: Regular rate, No murmurs Abdomen: Bowel Sounds Present, Tender Extremities: No edema, No Calf Tenderness Skin: Ulcer/ Wound Musculoskeletal: No Tenderness to Palpation of Joints or Extremities Neurological: Cranial nerves II-XII grossly intact, - Psych/Mental Status: Appropriate, Flat Affect Vital Signs Temp Pulse Resp BP Pulse Ox 37.3 C H 96 20 H 158/73 H 97 11/30/18 17:00 11/30/18 17:36 11/30/18 17:00 11/30/18 17:00 11/30/18 17:00 Oxygen Flow Rate (L/min) 2 Oxygen Delivery Method Nasal Cannula Weight: 58.4 kg Body Mass Index (BMI) 25.1 Finger Stick Blood Glucose 497 Laboratory Tests Past 24 Hrs 11/30/18 11/30/18 11/30/18 13:30 13:30 13:30 WBC 26.5 H RBC 4.74 Hgb 12.4 Hct 36.9 L MCV 77.8 L MCH 26.2 L MCHC 33.6 RDW 14.7 H RDW Differential 40.3 Plt Count 394 MPV 10.9 Immature Gran % (Auto) 1.000 H Neut % (Auto) 93.8 H Lymph % (Auto) 3.2 L [place] % (Auto) 2.0 Eos % (Auto) 0.0 Baso % (Auto) 0.0 Absolute Neuts (auto) 24.9 H Absolute Lymphs (auto) 0.85 Total Counted Not Reportable ESR PT 15.8 H INR 1.3 Sodium 135 L Potassium 1.9 L* Chloride 96 L Carbon Dioxide 27.0 Anion Gap 12 BUN 11 Creatinine 0.98 Estim Creat Clear Calc 44.40 Est GFR (MDRD) Af Amer 74 Est GFR (MDRD) Non-Af 62 BUN/Creatinine Ratio 11.2 Glucose 412 H Hemoglobin A1c Lactic Acid Calcium 7.3 L Magnesium Troponin I 0.030 B-Natriuretic Peptide Urine Color Urine Clarity Urine pH Ur Specific [place] Urine Protein Urine Glucose (UA) Urine Ketones Urine Occult Blood Urine Nitrite Urine Bilirubin Urine Urobilinogen Ur Leukocyte Esterase Urine RBC Urine WBC Ur Squamous Epith Cells Urine Bacteria Urine Mucus 11/30/18 11/30/18 11/30/18 13:30 13:30 13:30 WBC RBC Hgb Hct MCV MCH MCHC RDW RDW Differential Plt Count MPV Immature Gran % (Auto) Neut % (Auto) Lymph % (Auto) [place] % (Auto) Eos % (Auto) Baso % (Auto) Absolute Neuts (auto) Absolute Lymphs (auto) Total Counted ESR PT INR Sodium Potassium Chloride Carbon Dioxide Anion Gap BUN Creatinine Estim Creat Clear Calc Est GFR (MDRD) Af Amer Est GFR (MDRD) Non-Af BUN/Creatinine Ratio Glucose Hemoglobin A1c Lactic Acid 3.7 H Calcium Magnesium 0.8 L* Troponin I B-Natriuretic Peptide 206.5 H Urine Color Urine Clarity Urine pH Ur Specific [place] Urine Protein Urine Glucose (UA) Urine Ketones Urine Occult Blood Urine Nitrite Urine Bilirubin Urine Urobilinogen Ur Leukocyte Esterase Urine RBC Urine WBC Ur Squamous Epith Cells Urine Bacteria Urine Mucus 11/30/18 11/30/18 11/30/18 15:05 18:00 18:00 WBC RBC Hgb Hct MCV MCH MCHC RDW RDW Differential Plt Count MPV Immature Gran % (Auto) Neut % (Auto) Lymph % (Auto) [place] % (Auto) Eos % (Auto) Baso % (Auto) Absolute Neuts (auto) Absolute Lymphs (auto) Total Counted ESR Pending PT INR Sodium Potassium Chloride Carbon Dioxide Anion Gap BUN Creatinine Estim Creat Clear Calc Est GFR (MDRD) Af Amer Est GFR (MDRD) Non-Af BUN/Creatinine Ratio Glucose Hemoglobin A1c Pending Lactic Acid Calcium Magnesium Troponin I B-Natriuretic Peptide Urine Color Yellow Urine Clarity Clear Urine pH 6.0 Ur Specific [place] 1.020 Urine Protein 500 H Urine Glucose (UA) 1000 H Urine Ketones 5 H Urine Occult Blood 25 H Urine Nitrite Negative Urine Bilirubin Negative Urine Urobilinogen Normal Ur Leukocyte Esterase 1+ Urine RBC 0-5 SEEN Urine WBC 0 SEEN Ur Squamous Epith Cells 0-5 SEEN Urine Bacteria RARE Urine Mucus 0 SEEN 11/30/18 18:00 WBC RBC Hgb Hct MCV MCH MCHC RDW RDW Differential Plt Count MPV Immature Gran % (Auto) Neut % (Auto) Lymph % (Auto) [place] % (Auto) Eos % (Auto) Baso % (Auto) Absolute Neuts (auto) Absolute Lymphs (auto) Total Counted ESR PT INR Sodium Potassium Chloride Carbon Dioxide Anion Gap BUN Creatinine Estim Creat Clear Calc Est GFR (MDRD) Af Amer Est GFR (MDRD) Non-Af BUN/Creatinine Ratio Glucose Hemoglobin A1c Lactic Acid Pending Calcium Magnesium Troponin I B-Natriuretic Peptide Urine Color Urine Clarity Urine pH Ur Specific [place] Urine Protein Urine Glucose (UA) Urine Ketones Urine Occult Blood Urine Nitrite Urine Bilirubin Urine Urobilinogen Ur Leukocyte Esterase Urine RBC Urine WBC Ur Squamous Epith Cells Urine Bacteria Urine Mucus POC Glucose 11/30/18 11/30/18 17:13 13:21 POC Glucose 357 H 412 H Clinical Impression(s) from Imaging Studies Abdomen/Pelvis CT 11/30/18 13:28 IMPRESSION: 1. Left more than right lower lobe pulmonary infiltrate/consolidation suggesting pneumonia. 2. Rectosigmoid (and right colon) fluid suggesting diarrheal disease/gastroenteritis 3. Circumferential wall thickening of the urinary bladder may be artifact of under distention although cystitis cannot be excluded. Electronically Signed: Siddhartha Park MD at 14:22 EDT , Service support , Chest X-Ray 11/30/18 13:28 IMPRESSION: 1. Bilateral lower lobe airspace disease with nodular fullness of the right hilum. Pneumonia considered most likely but follow-up to complete resolution is recommended. Electronically Signed: Siddhartha Park MD at 15:36 EDT , Service support , Brain CT 11/30/18 13:29 IMPRESSION: 1. No acute intracranial hemorrhage or mass effect. 2. Expected evolution of right occipital (CHIROPRACTOR ASSISTANT territory) infarction as described on prior MRI of 09/11/2018. 3. Central parenchymal volume loss. White matter changes that are nonspecific but most commonly associated with chronic small vessel ischemic disease. N.B. : The above information has been verbally conveyed by Siddhartha Park MD to Steven Jacksonlaila on 11/30/2018 13:56:39 (ET). Electronically Signed: Siddhartha Park MD at 13:59 EDT , Service support , ADDENDUM: 11/30/18 1406 IMPRESSION: 1. No acute intracranial hemorrhage or mass effect. 2. Expected evolution of right occipital (CHIROPRACTOR ASSISTANT territory) infarction as described on prior MRI of 09/11/2018. 3. Central parenchymal volume loss. White matter changes that are nonspecific but most commonly associated with chronic small vessel ischemic disease. N.B. : The above information has been verbally conveyed by Siddhartha Park MD to Steven Casey on 11/30/2018 13:56:39 (ET). Electronically Signed: Siddhartha Park MD at 13:59 EDT , Service support , Foot X-Ray 11/30/18 13:30 IMPRESSION: 1. Soft tissue swelling with soft tissue gas of the forefoot suggesting cellulitis/infection. Loss of cortical definition of the second and possibly third metatarsal heads suspicious for osteomyelitis. Electronically Signed: Siddhartha Park MD at 15:37 EDT , Service support , Assessment/Plan Patient seen and examined independently. Data reviewed. I agree with the above note by the physician surgeon's assistant. 1. Suspected acute/subacute stroke. Symptoms began several days ago. Unclear if patient has had chronic or no weakness in her right upper extremity but irregardless, it is worse now. This patient undergo a work workup for stroke including an MRI of the brain, MRA of the head neck, echocardiogram, neurology consults, physical and occupational therapy evaluate and treat. 2. Acute suspected gram-negative pneumonia: Patient has been hospitalized in the past 3 months we will treat her empirically for healthcare acquired pneumonia with vancomycin and Zosyn. Follow-up sputum culture, urinary antigens for Streptococcus and Legionella and adjust antibiotics accordingly. Pulmonary toilet. 3. Left foot abscess and cellulitis: Possible osteomyelitis as well based on the x-ray findings. Patient be on broad-spectrum antibiotics with vancomycin and Zosyn. Discussed with Dr. Schmidt, podiatry, he will see patient in consultation. He may do a bedside I&D on the patient but in regards to more invasive surgery that we will have to await further evaluation and other stroke and medical optimization from her pneumonia before she can likely undergo surgery unless the condition of her foot changes dramatically where that would need to be done emergently. 4. Severe hypokalemia: Secondary to vomiting diarrhea. Continue with replacement of potassium and reevaluate and adjust accordingly. 5. Severe hypomagnesemia: As above for hypokalemia. Replace and reevaluate. 6. Gastroenteritis: Supportive management IV fluids. 7. Diabetes mellitus type 2: Continue with a sliding scale for now. 8. Paroxysmal atrial fibrillation: Continue with Eliquis and Lopressor. 9. Prolonged QTC: Likely due to the electrolyte derangements. Collect those and repeat EKG in the morning. 10. DVT prophylaxis: Patient is low risk as she is already on Eliquis. 11. Disposition: Given the new events. Would anticipate patient requiring higher level of care such as a long-term facility upon discharge. Case management to assess and work with the patient and her family in regards to that. Code Visit Inpatient E&M: [id number] Init Hosp L3
--- NOTE | 2018-11-30 15:53 | ED.RN ---
TOP OF LEFT FOOT, NEAR TOES DRAINING. BOTTOM OF GREAT TOE RED AND SWOLLEN.
--- NOTE | 2018-11-30 15:54 | HP.PCM_ITS ---
Addendum entered and electronically signed by JEF Capellan 11/30/18 16:26: Code Visit Edit problem 3: Acute hypoxic respiratory failure 2/2 acute BL HCAP. Pt requiring up to 3 liters o2 to maintain good sats, normally uses none at home. Original Note: <Lucho Stephens - Last Filed: 11/30/18 16:25> Problem List (1) Severe sepsis Status: Acute (2) Acute respiratory failure with hypoxia Status: Acute (3) Pneumonia Status: Acute (4) Hypokalemia Status: Acute (5) Gastroenteritis Status: Acute (6) Hypomagnesemia Status: Acute (7) Osteomyelitis Status: Acute (8) Paroxysmal atrial fibrillation Status: Chronic (9) CVA (cerebral vascular accident) Status: Acute (10) Anxiety and depression Status: Chronic (11) Benign essential HTN Status: Chronic (12) Esophageal reflux Status: Chronic (13) HLD (hyperlipidemia) Status: Chronic (14) IBS (irritable bowel syndrome) Status: Chronic (15) Type II diabetes mellitus, uncontrolled Status: Chronic History of Present Illness Date of Admission: 11/30/18 Chief Complaint: right upper extremity weakness The patient is a 58 year old F with pmhx of recent hospitalization for right occipital infarct and meningitis workup - ruled out, hx of DMt2, paroxysmal Afib, HTN, HLD, IBS, anxiety and depression, who presents to the ER with multiple complaints - her primary complaint is Right upper extremity weakness. This began about 2 days prior, spontaneously while are rest sitting. She is unable to lift her arm and has little competitive intelligence manager strength. She denies double vision, DICKEY, numbness/tingling, change in speech, ataxia, or affected lower extremity. She also complains of SOB and was hypoxic in the ER. She has a nonproductive cough. CXR and CT abdomen shows BL infiltrates. She denies fever or chills. She also has had ongoing diarrhea for those past two days as well and has diffuse abdominal pain, CT abdomen here shows gastroenteritis. She has nausea without vomiting. She has not been eating or drinking much for the last two days. In a ddition she appears to have an infection in her foot. She stepped on a staple on the ground one week prior and has circumferential cellulitic changes with pus drainage on the distal portion of her foot. Xray shows possible osteomyelitis. In addition to all of this her medications ran out 3 days ago and she has not taken any prescription meds since then. [] Past Medical History Past Medical History (Chronic Problems): Chronic Problems CVA (cerebral vascular accident) (Chronic) Paroxysmal atrial fibrillation (Chronic) IBS (irritable bowel syndrome) (Chronic) HLD (hyperlipidemia) (Chronic) Esophageal reflux (Chronic) Type II diabetes mellitus, uncontrolled (Chronic) Anxiety and depression (Chronic) Cerebrovascular disease (Chronic) Possible small ischemic strokes versus sequela of chronic migraine Migraine (Chronic) reports hole in heart since (Chronic) Benign essential HTN (Chronic) Allergies codeine Adverse Reaction (Verified 11/30/18 13:28) Other pork derived (porcine) Adverse Reaction (Verified 11/30/18 13:28) Vomiting Home Medications: Ambulatory Orders Medication Instructions Recorded Apixaban [Eliquis] 5 mg PO BID 06/16/18 Ascorbic Acid [Vitamin C] 500 mg PO DAILY 06/16/18 Atorvastatin Calcium 20 mg PO QHS 06/16/18 Lisinopril 20 mg PO DAILY 06/16/18 Sertraline HCl [Zoloft] 100 mg PO DAILY 06/16/18 Amlodipine Besylate 5 mg PO DAILY 09/10/18 Dicyclomine HCl 20 mg PO Q12H PRN PRN 09/10/18 Fluconazole [Diflucan] 200 mg PO DAILY 09/10/18 Hydrocodone/Acetaminophen 1 tab PO Q6H PRN PRN 09/10/18 [Hydrocodon-Acetaminophen 5-325] Metoprolol Tartrate 25 mg PO BID 09/10/18 Sertraline HCl [Zoloft] 50 mg PO DAILY 09/10/18 Surgical History: - - BLTL, Cardiac ablation per patient self-report, tonsillectomy. Psychiatric History: Anxiety, Depression GUM SPRAYER History: No pertinent GUM SPRAYER history Lives: Alone Smoking Status: Never smoker Tobacco Use: Non-smoker Alcohol: None Drugs: None - *Family History Maternal History Items: Heart Disease - \ Paternal History Items: Heart Disease - age 67, Hypertension - Father with AR/CAD, 69 years old. Review of Systems Constitutional: Reports: Malaise, Weakness, Fatigue. Denies: Chills, Fever, Weight Change HEENT: Denies: Head Aches, Sinus Congestion, Sinus Drainage Cardiovascular: Denies: Chest Pain, Chest Pressure, Chest Tightness, Edema, Heaviness, Palpitations Respiratory: Reports: Cough, Shortness of Breath, Shortness of breath at rest, Shortness of breath upon exertion. Denies: Sputum production Gastrointestinal: Reports: Abdominal Pain, Diarrhea, Nausea. Denies: Vomiting Genitourinary: Denies: Dysuria Musculoskeletal: Reports: Foot Pain, - - foot wound, pus drainage. Denies: Joint Pain, Joint Tenderness Skin: Denies: Rash, Wounds Neurological: Reports: Focal weakness. Denies: Balance problems, Blurred vision, Double vision, Change in Speech, Slurred speech, Confusion, Difficulty swallowing, Headaches, Incoordination, Numbness, Tingling Psychiatric: Denies: Anxiety, Depression, Homicidal Ideations, Suicidal Ideations Hematologic/ Lymphatic: Denies: Easy Bruising, Easy Bleeding VTE Information - Inpt Only VTE Present on Admission: No VTE Mechan Device Prophylaxis: None VTE Pharm Prophylaxis ordered?: Yes Patient Problems: Active and Suspected Problems Hypokalemia (Acute) Gastroenteritis (Acute) Acute respiratory failure with hypoxia (Acute) Severe sepsis (Acute) Hypomagnesemia (Acute) Osteomyelitis (Acute) CVA (cerebral vascular accident) (Acute) Gram-negative pneumonia (Acute) Foot abscess, left (Acute) - Physical Exam General: Alert, Oriented x3, Cooperative, - - disheveled, unclean, malodorous HEENT: Atraumatic, PERRLA, EOMI, Normocephalic Neck: Supple, No JVD, Negative Carotid Bruits Lungs: Rales - BL Cardiovascular: Regular rate, No murmurs Abdomen: Bowel Sounds Present, Tender - diffusely tender to light palp Extremities: No edema, Capillary Refill Less than 3 Seconds Skin: Ulcer/ Wound - wounds circumferentially Musculoskeletal: No Tenderness to Palpation of Joints or Extremities Neurological: Cranial nerves II-XII grossly intact, - - competitive intelligence manager strength decreased R hand, weakness Right upper extremity. Sensation intact. Psych/Mental Status: Normal Affect, Appropriate Vital Signs Temp Pulse Resp BP Pulse Ox 99.1 F 96 20 H 143/95 H 88 11/30/18 15:35 11/30/18 15:35 11/30/18 15:35 11/30/18 15:35 11/30/18 15:35 Oxygen Flow Rate (L/min) 3 Oxygen Delivery Method Nasal Cannula Weight: 128 lb 15.527 oz Body Mass Index (BMI) 25.2 Finger Stick Blood Glucose 497 Laboratory Tests Past 24 Hrs 11/30/18 11/30/18 11/30/18 13:30 13:30 13:30 WBC 26.5 H RBC 4.74 Hgb 12.4 Hct 36.9 L MCV 77.8 L MCH 26.2 L MCHC 33.6 RDW 14.7 H RDW Differential 40.3 Plt Count 394 MPV 10.9 Immature Gran % (Auto) 1.000 H Neut % (Auto) 93.8 H Lymph % (Auto) 3.2 L Gaston % (Auto) 2.0 Eos % (Auto) 0.0 Baso % (Auto) 0.0 Absolute Neuts (auto) 24.9 H Absolute Lymphs (auto) 0.85 Total Counted Not Reportable PT 15.8 H INR 1.3 Sodium 135 L Potassium 1.9 L* Chloride 96 L Carbon Dioxide 27.0 Anion Gap 12 BUN 11 Creatinine 0.98 Estim Creat Clear Calc 44.40 Est GFR (MDRD) Af Amer 74 Est GFR (MDRD) Non-Af 62 BUN/Creatinine Ratio 11.2 Glucose 412 H Lactic Acid Calcium 7.3 L Magnesium Troponin I 0.030 B-Natriuretic Peptide Urine Color Urine Clarity Urine pH Ur Specific [place] Urine Protein Urine Glucose (UA) Urine Ketones Urine Occult Blood Urine Nitrite Urine Bilirubin Urine Urobilinogen Ur Leukocyte Esterase Urine RBC Urine WBC Ur Squamous Epith Cells Urine Bacteria Urine Mucus 11/30/18 11/30/18 11/30/18 13:30 13:30 13:30 WBC RBC Hgb Hct MCV MCH MCHC RDW RDW Differential Plt Count MPV Immature Gran % (Auto) Neut % (Auto) Lymph % (Auto) Gaston % (Auto) Eos % (Auto) Baso % (Auto) Absolute Neuts (auto) Absolute Lymphs (auto) Total Counted PT INR Sodium Potassium Chloride Carbon Dioxide Anion Gap BUN Creatinine Estim Creat Clear Calc Est GFR (MDRD) Af Amer Est GFR (MDRD) Non-Af BUN/Creatinine Ratio Glucose Lactic Acid 3.7 H Calcium Magnesium 0.8 L* Troponin I B-Natriuretic Peptide 206.5 H Urine Color Urine Clarity Urine pH Ur Specific [place] Urine Protein Urine Glucose (UA) Urine Ketones Urine Occult Blood Urine Nitrite Urine Bilirubin Urine Urobilinogen Ur Leukocyte Esterase Urine RBC Urine WBC Ur Squamous Epith Cells Urine Bacteria Urine Mucus 11/30/18 15:05 WBC RBC Hgb Hct MCV MCH MCHC RDW RDW Differential Plt Count MPV Immature Gran % (Auto) Neut % (Auto) Lymph % (Auto) Gaston % (Auto) Eos % (Auto) Baso % (Auto) Absolute Neuts (auto) Absolute Lymphs (auto) Total Counted PT INR Sodium Potassium Chloride Carbon Dioxide Anion Gap BUN Creatinine Estim Creat Clear Calc Est GFR (MDRD) Af Amer Est GFR (MDRD) Non-Af BUN/Creatinine Ratio Glucose Lactic Acid Calcium Magnesium Troponin I B-Natriuretic Peptide Urine Color Yellow Urine Clarity Clear Urine pH 6.0 Ur Specific [place] 1.020 Urine Protein 500 H Urine Glucose (UA) 1000 H Urine Ketones 5 H Urine Occult Blood 25 H Urine Nitrite Negative Urine Bilirubin Negative Urine Urobilinogen Normal Ur Leukocyte Esterase 1+ Urine RBC 0-5 SEEN Urine WBC 0 SEEN Ur Squamous Epith Cells 0-5 SEEN Urine Bacteria RARE Urine Mucus 0 SEEN POC Glucose 11/30/18 13:21 POC Glucose 412 H Assessment/Plan All Active Problems Encephalopathy acute (Acute) Hypokalemia (Acute) Gastroenteritis (Acute) Acute respiratory failure with hypoxia (Acute) Severe sepsis (Acute) Hypomagnesemia (Acute) Osteomyelitis (Acute) CVA (cerebral vascular accident) (Acute) Gram-negative pneumonia (Acute) Foot abscess, left (Acute) 1. Suspected Acute CVA - pt off home meds. New RUE weakness not explained by prior infarct. CT brain shows evolution of the prior right occipital infarct. Obtain MRI brain, MRA head and neck, echocardiogram, PTOT and ST evals. NIH checks. Resume eliquis, lipitor. 2. Acute severe sepsis 2/2 multiple infectious sources - as evidenced by leukocytosis, tachypnea, tachycardia, lactic acidosis. Infectious sources include pneumonia, osteomyelitis, and gastroenteritis. Obtain blood cultures, repeat lactate, provide IV fluids. 3. Acute BL HCAP - vanc and zosyn, mucinex, pep therapy, aerosols. cough is nonproductive at this time. Afebrile at this time. Rales on exam. Recently admitted to the hospital 4. L foot suspected osteomyelitis and cellulitis - abx as above. Foot XR shows possible osteo and cellulitis. Consult to Podiatry and wound care. MRI foot. NWB on this extremity for now. Culture the seeping drainage. 5. Acute gastroenteritis - suspect viral. seen on CT. symptoms c/w as well with nausea, abd pain, copious diarrhea. Supportive care, IV fluids, antiemetics. 6. Hypokalemia, hypomagnesemia, hyponatremia - replete. check phos. 2/2 malnutrition and gastroenteritis, pt eating and drinking little at home. Dietary eval. 7. T2DM with hyperglycemia - no acidosis at this time, urine with copious glucose and protein. Again, the pt has not been taking any of her medications. Provide SSI and start weight based long acting insulin, titrate to response. 8. PAfib - continue eliquis, lopressor. Echo as above. She is currently in SR. EKG shows SR with nonspecific ST changes, Long QTc: 517 - avoid QT prolonging agents. 9. HTN - stable 10. Anx/Depression - zoloft. DVT ppx: eliquis DC planning: PTOT. Not caring for self at home as she is very disheveled and not taking her medications. This patient was seen by Lucho Stephens PA-C under the supervision of Dr. Mancia. <Emeterio Mancia - Last Filed: 11/30/18 18:39> Problem List (1) CVA (cerebral vascular accident) Status: Acute (2) Gram-negative pneumonia Status: Acute (3) Foot abscess, left Status: Acute (4) Encephalopathy acute Status: Acute (5) CVA (cerebral vascular accident) Status: Chronic Qualifiers: Laterality of affected vessel: right (6) Confusion Status: Inactive (7) Hypokalemia Status: Inactive (8) Gastroenteritis Status: Acute (9) Acute respiratory failure with hypoxia Status: Acute (10) Hypomagnesemia Status: Acute (11) Paroxysmal atrial fibrillation Status: Chronic (12) Osteomyelitis Status: Acute (13) IBS (irritable bowel syndrome) Status: Chronic Qualifiers: (14) HLD (hyperlipidemia) Status: Chronic (15) Esophageal reflux Status: Chronic Qualifiers: (16) Type II diabetes mellitus, uncontrolled Status: Chronic Qualifiers: (17) Anxiety and depression Status: Chronic (18) Cerebrovascular disease Status: Chronic Comment: Possible small ischemic strokes versus sequela of chronic migraine (19) Migraine Status: Chronic Qualifiers: Migraine type: unspecified Status migrainosus presence: without status migrainosus Intractability: not intractable Qualified Code(s): G43.909 - Migraine, unspecified, not intractable, without status migrainosus (20) reports hole in heart since Status: Chronic (21) Benign essential HTN Status: Chronic History of Present Illness Chief Complaint: right arm weakness The patient is a 58 year old F presents with right arm weakness. Difficult to get a history from the patient and her son if she is previously had a right arm weakness initially saying she did but is worse or saying that it was normal and now is worse. Irregardless it is worse was a consensus that I got. Patient also had stepped on something with her left foot and her foot has gotten more swollen and erythematous. Drainage was noted. Patient apparently ran out of water at her house several days ago and has not taken any medications, nor drink any fluids, nor taken a shower since then. Patient also been having vomiting and diarrhea. [] Past Medical History Allergies codeine Adverse Reaction (Verified 11/30/18 13:28) Other pork derived (porcine) Adverse Reaction (Verified 11/30/18 13:28) Vomiting Surgical History: - Psychiatric History: Anxiety, Depression GUM SPRAYER History: No pertinent GUM SPRAYER history Lives: Alone Smoking Status: Never smoker Tobacco Use: Non-smoker Alcohol: None Drugs: None - *Family History Maternal History Items: Heart Disease Paternal History Items: Heart Disease, Hypertension Review of Systems Constitutional: Reports: Malaise, Weakness, Fatigue. Denies: Chills, Fever, Weight Change HEENT: Denies: Head Aches, Sinus Congestion, Sinus Drainage Cardiovascular: Denies: Chest Pain, Chest Pressure, Chest Tightness, Edema, Heaviness, Palpitations Respiratory: Reports: Cough, Shortness of Breath, Shortness of breath at rest, Shortness of breath upon exertion. Denies: Sputum production Gastrointestinal: Reports: Abdominal Pain, Diarrhea, Nausea. Denies: Vomiting Genitourinary: Denies: Dysuria Musculoskeletal: Reports: Foot Pain, -. Denies: Joint Pain, Joint Tenderness Neurological: Reports: Focal weakness. Denies: Balance problems, Blurred vision, Double vision, Change in Speech, Slurred speech, Confusion, Difficulty swallowing, Headaches, Incoordination, Numbness, Tingling Psychiatric: Denies: Anxiety, Depression, Homicidal Ideations, Suicidal Ideations Hematologic/ Lymphatic: Denies: Easy Bruising, Easy Bleeding VTE Information - Inpt Only VTE Present on Admission: No VTE Pharm Prophylaxis ordered?: Yes - Physical Exam General: Alert, Cooperative, - HEENT: Atraumatic, Normocephalic Neck: No Nodes, Thyroid Normal Size and Texture Lungs: - - Coarse breath sounds in the bases Cardiovascular: Regular rate, No murmurs Abdomen: Bowel Sounds Present, Tender Extremities: No edema, No Calf Tenderness Skin: Ulcer/ Wound Musculoskeletal: No Tenderness to Palpation of Joints or Extremities Neurological: Cranial nerves II-XII grossly intact, - Psych/Mental Status: Appropriate, Flat Affect Vital Signs Temp Pulse Resp BP Pulse Ox 37.3 C H 96 20 H 158/73 H 97 11/30/18 17:00 11/30/18 17:36 11/30/18 17:00 11/30/18 17:00 11/30/18 17:00 Oxygen Flow Rate (L/min) 2 Oxygen Delivery Method Nasal Cannula Weight: 58.4 kg Body Mass Index (BMI) 25.1 Finger Stick Blood Glucose 497 Laboratory Tests Past 24 Hrs 11/30/18 11/30/18 11/30/18 13:30 13:30 13:30 WBC 26.5 H RBC 4.74 Hgb 12.4 Hct 36.9 L MCV 77.8 L MCH 26.2 L MCHC 33.6 RDW 14.7 H RDW Differential 40.3 Plt Count 394 MPV 10.9 Immature Gran % (Auto) 1.000 H Neut % (Auto) 93.8 H Lymph % (Auto) 3.2 L Gaston % (Auto) 2.0 Eos % (Auto) 0.0 Baso % (Auto) 0.0 Absolute Neuts (auto) 24.9 H Absolute Lymphs (auto) 0.85 Total Counted Not Reportable ESR PT 15.8 H INR 1.3 Sodium 135 L Potassium 1.9 L* Chloride 96 L Carbon Dioxide 27.0 Anion Gap 12 BUN 11 Creatinine 0.98 Estim Creat Clear Calc 44.40 Est GFR (MDRD) Af Amer 74 Est GFR (MDRD) Non-Af 62 BUN/Creatinine Ratio 11.2 Glucose 412 H Hemoglobin A1c Lactic Acid Calcium 7.3 L Magnesium Troponin I 0.030 B-Natriuretic Peptide Urine Color Urine Clarity Urine pH Ur Specific [place] Urine Protein Urine Glucose (UA) Urine Ketones Urine Occult Blood Urine Nitrite Urine Bilirubin Urine Urobilinogen Ur Leukocyte Esterase Urine RBC Urine WBC Ur Squamous Epith Cells Urine Bacteria Urine Mucus 11/30/18 11/30/18 11/30/18 13:30 13:30 13:30 WBC RBC Hgb Hct MCV MCH MCHC RDW RDW Differential Plt Count MPV Immature Gran % (Auto) Neut % (Auto) Lymph % (Auto) Gaston % (Auto) Eos % (Auto) Baso % (Auto) Absolute Neuts (auto) Absolute Lymphs (auto) Total Counted ESR PT INR Sodium Potassium Chloride Carbon Dioxide Anion Gap BUN Creatinine Estim Creat Clear Calc Est GFR (MDRD) Af Amer Est GFR (MDRD) Non-Af BUN/Creatinine Ratio Glucose Hemoglobin A1c Lactic Acid 3.7 H Calcium Magnesium 0.8 L* Troponin I B-Natriuretic Peptide 206.5 H Urine Color Urine Clarity Urine pH Ur Specific [place] Urine Protein Urine Glucose (UA) Urine Ketones Urine Occult Blood Urine Nitrite Urine Bilirubin Urine Urobilinogen Ur Leukocyte Esterase Urine RBC Urine WBC Ur Squamous Epith Cells Urine Bacteria Urine Mucus 11/30/18 11/30/18 11/30/18 15:05 18:00 18:00 WBC RBC Hgb Hct MCV MCH MCHC RDW RDW Differential Plt Count MPV Immature Gran % (Auto) Neut % (Auto) Lymph % (Auto) Gaston % (Auto) Eos % (Auto) Baso % (Auto) Absolute Neuts (auto) Absolute Lymphs (auto) Total Counted ESR Pending PT INR Sodium Potassium Chloride Carbon Dioxide Anion Gap BUN Creatinine Estim Creat Clear Calc Est GFR (MDRD) Af Amer Est GFR (MDRD) Non-Af BUN/Creatinine Ratio Glucose Hemoglobin A1c Pending Lactic Acid Calcium Magnesium Troponin I B-Natriuretic Peptide Urine Color Yellow Urine Clarity Clear Urine pH 6.0 Ur Specific [place] 1.020 Urine Protein 500 H Urine Glucose (UA) 1000 H Urine Ketones 5 H Urine Occult Blood 25 H Urine Nitrite Negative Urine Bilirubin Negative Urine Urobilinogen Normal Ur Leukocyte Esterase 1+ Urine RBC 0-5 SEEN Urine WBC 0 SEEN Ur Squamous Epith Cells 0-5 SEEN Urine Bacteria RARE Urine Mucus 0 SEEN 11/30/18 18:00 WBC RBC Hgb Hct MCV MCH MCHC RDW RDW Differential Plt Count MPV Immature Gran % (Auto) Neut % (Auto) Lymph % (Auto) Gaston % (Auto) Eos % (Auto) Baso % (Auto) Absolute Neuts (auto) Absolute Lymphs (auto) Total Counted ESR PT INR Sodium Potassium Chloride Carbon Dioxide Anion Gap BUN Creatinine Estim Creat Clear Calc Est GFR (MDRD) Af Amer Est GFR (MDRD) Non-Af BUN/Creatinine Ratio Glucose Hemoglobin A1c Lactic Acid Pending Calcium Magnesium Troponin I B-Natriuretic Peptide Urine Color Urine Clarity Urine pH Ur Specific [place] Urine Protein Urine Glucose (UA) Urine Ketones Urine Occult Blood Urine Nitrite Urine Bilirubin Urine Urobilinogen Ur Leukocyte Esterase Urine RBC Urine WBC Ur Squamous Epith Cells Urine Bacteria Urine Mucus POC Glucose 11/30/18 11/30/18 17:13 13:21 POC Glucose 357 H 412 H Clinical Impression(s) from Imaging Studies Abdomen/Pelvis CT 11/30/18 13:28 IMPRESSION: 1. Left more than right lower lobe pulmonary infiltrate/consolidation suggesting pneumonia. 2. Rectosigmoid (and right colon) fluid suggesting diarrheal disease/gastroenteritis 3. Circumferential wall thickening of the urinary bladder may be artifact of under distention although cystitis cannot be excluded. Electronically Signed: Siddhartha Park MD at 14:22 EDT , Service support , Chest X-Ray 11/30/18 13:28 IMPRESSION: 1. Bilateral lower lobe airspace disease with nodular fullness of the right hilum. Pneumonia considered most likely but follow-up to complete resolution is recommended. Electronically Signed: Siddharhta Park MD at 15:36 EDT , Service support , Brain CT 11/30/18 13:29 IMPRESSION: 1. No acute intracranial hemorrhage or mass effect. 2. Expected evolution of right occipital (CREW LEADER territory) infarction as described on prior MRI of 09/11/2018. 3. Central parenchymal volume loss. White matter changes that are nonspecific but most commonly associated with chronic small vessel ischemic disease. N.B. : The above information has been verbally conveyed by Siddhartha Park MD to Steven Carmela on 11/30/2018 13:56:39 (ET). Electronically Signed: Siddhartha Park MD at 13:59 EDT , Service support , ADDENDUM: 11/30/18 1406 IMPRESSION: 1. No acute intracranial hemorrhage or mass effect. 2. Expected evolution of right occipital (CREW LEADER territory) infarction as described on prior MRI of 09/11/2018. 3. Central parenchymal volume loss. White matter changes that are nonspecific but most commonly associated with chronic small vessel ischemic disease. N.B. : The above information has been verbally conveyed by Siddhartha Park MD to Steven Casey on 11/30/2018 13:56:39 (ET). Electronically Signed: Siddhartha Park MD at 13:59 EDT , Service support , Foot X-Ray 11/30/18 13:30 IMPRESSION: 1. Soft tissue swelling with soft tissue gas of the forefoot suggesting cellulitis/infection. Loss of cortical definition of the second and possibly third metatarsal heads suspicious for osteomyelitis. Electronically Signed: Siddhartha Park MD at 15:37 EDT , Service support , Assessment/Plan Patient seen and examined independently. Data reviewed. I agree with the above note by the physician habilitation assistant. 1. Suspected acute/subacute stroke. Symptoms began several days ago. Unclear if patient has had chronic or no weakness in her right upper extremity but irregardless, it is worse now. This patient undergo a work workup for stroke including an MRI of the brain, MRA of the head neck, echocardiogram, neurology consults, physical and occupational therapy evaluate and treat. 2. Acute suspected gram-negative pneumonia: Patient has been hospitalized in the past 3 months we will treat her empirically for healthcare acquired pneumonia with vancomycin and Zosyn. Follow-up sputum culture, urinary antigens for Streptococcus and Legionella and adjust antibiotics accordingly. Pulmonary toilet. 3. Left foot abscess and cellulitis: Possible osteomyelitis as well based on the x-ray findings. Patient be on broad-spectrum antibiotics with vancomycin and Zosyn. Discussed with Dr. Schmidt, podiatry, he will see patient in consultation. He may do a bedside I&D on the patient but in regards to more invasive surgery that we will have to await further evaluation and other stroke and medical optimization from her pneumonia before she can likely undergo surgery unless the condition of her foot changes dramatically where that would need to be done emergently. 4. Severe hypokalemia: Secondary to vomiting diarrhea. Continue with replacement of potassium and reevaluate and adjust accordingly. 5. Severe hypomagnesemia: As above for hypokalemia. Replace and reevaluate. 6. Gastroenteritis: Supportive management IV fluids. 7. Diabetes mellitus type 2: Continue with a sliding scale for now. 8. Paroxysmal atrial fibrillation: Continue with Eliquis and Lopressor. 9. Prolonged QTC: Likely due to the electrolyte derangements. Collect those and repeat EKG in the morning. 10. DVT prophylaxis: Patient is low risk as she is already on Eliquis. 11. Disposition: Given the new events. Would anticipate patient requiring higher level of care such as a fpc facility upon discharge. Case management to assess and work with the patient and her family in regards to that. Code Visit Inpatient E&M: 86006 Init Hosp L3
--- NOTE | 2018-11-30 16:35 | ED.RN ---
hospitalist physician did not want us to give additional morphine and zofran as ED physician ordered. ED physician aware.
--- NOTE | 2018-11-30 17:19 | ECHOCS_ITS ---
Reason For Study: TIA/CVA Procedure This was a 2D Doppler, Color Flow transthoracic echocardiogram. The study was technically difficult. Contrast injection was performed. Exam performed portable in patient room. Left Ventricle Normal LV size. Left ventricular systolic function is normal. The estimated ejection fraction is 65 %. Transmitral doppler flow suggestive of impaired relaxation of left ventricle. No regional wall motion abnormalities noted. Right Ventricle Normal RV size. Normal systolic function. Atria The left atrium is mildly enlarged. Normal right atrium. No doppler evidence for ASD. Mitral Valve There is moderate mitral annular calcification. Extension of the mitral annular calcification onto the posterior mitral valve leaflet. Mild (1+) mitral valve insufficiency. Tricuspid Valve Normal tricuspid valve. Trivial tricuspid valve insufficiency. Unable to estimate RV systolic pressure/pulmonary artery pressure due to technically difficult study. Aortic Valve Trisinus/trileaflet aortic valve. Mild focal aortic valve thickening. Pulmonic Valve The pulmonic valve is not well visualized. Great Vessels The aortic root is not well visualized. Pericardium/Pleural No pericardial effusion. Medication Diluted definity 3ml given slow IV push to enhance endocardial definition. MMode/2D Measurements & Calculations LVIDd: 3.8 cm IVSd: 1.8 cm LAV(MOD-sp4): 47.9 ml LVIDs: 2.7 cm LVPWd: 1.3 cm RVDd: 3.3 cm FS: 28.3 % LVAd ap4: 30.5 cm2 SV(MOD-sp4): 56.3 ml SV(sp4-el): 64.9 ml EDV(MOD-sp4): 94.9 ml EDV(sp4-el): 103.4 ml LVAs ap4: 17.2 cm2 ESV(MOD-sp4): 38.6 ml ESV(sp4-el): 38.5 ml EF(MOD-sp4): 59.3 % EF(sp4-el): 62.7 % LA A4 area: 17.6 cm2 RA A4 area: 10.3 cm2 Time Measurements MV dec time: 0.18 sec Doppler Measurements & Calculations MV E max nilton: 125.1 cm/sec Lat Peak E' [place]: 8.2 cm/sec Med Peak E' [place]: 5.2 cm/sec MV A max nilton: 131.0 cm/sec E/E' lat: 15.3 E/E' med: 23.9 MV E/A: 0.95 MV V2 max: 149.3 cm/sec MV P1/2t max nilton: 135.8 cm/sec Ao V2 max: 120.0 cm/sec MV max P.9 mmHg MV P1/2t: 67.6 msec Ao max P.8 mmHg MV V2 mean: 92.2 cm/sec Ao V2 mean: 77.1 cm/sec MV mean P.1 mmHg MV dec slope: 588.3 cm/sec2 Ao mean P.7 mmHg MV V2 VTI: 32.0 cm MVA(P1/2t): 3.3 cm2 Ao V2 VTI: 23.0 cm LV V1 max: 99.3 cm/sec MR max nilton: 564.9 cm/sec LV V1 max P.9 mmHg MR max P.6 mmHg LV V1 mean P.4 mmHg LV V1 mean: 73.1 cm/sec LV V1 VTI: 21.8 cm Interpretation Summary The study was technically difficult. Contrast injection was performed. Left ventricular systolic function is normal. The estimated ejection fraction is 65 %. The left atrium is mildly enlarged. There is moderate mitral annular calcification. Extension of the mitral annular calcification onto the posterior mitral valve leaflet. Mild (1+) mitral valve insufficiency. Trivial tricuspid valve insufficiency. Mild focal aortic valve thickening. Unable to estimate RV systolic pressure/pulmonary artery pressure due to technically difficult study. Transmitral doppler flow suggestive of impaired relaxation of left ventricle Ordering Physician: Emeterio Mancia Referring Physician: MARY GARZA Performed By: Vinny Dickerson RCS
[2018-11-30 17:31] LABS: Bedside Glucose 357 mg/dL (70-110)
[2018-11-30 18:04] LABS: Reflex Lactate? Y
--- NOTE | 2018-11-30 18:06 | PCM.RX.CS ---
Consult Pharmacy has been consulted to manage selected antiobiotic: Vancomycin Type of Consult: New start Suspected Infection: Sepsis Prior Doses of Antibiotics Received/Current Regimen: VANCOMYCIN 1250MG IV X1 IN ED 11/30 @1530 Labs: Sodium 135 mmol/L (136-145) L 11/30/18 13:30 Potassium 1.9 mmol/L (3.5-5.1) L* 11/30/18 13:30 Chloride 96 mmol/L (98-107) L 11/30/18 13:30 Carbon Dioxide 27.0 mmol/L (21.0-32.0) 11/30/18 13:30 Anion Gap 12 (5-15) 11/30/18 13:30 BUN 11 mg/dL (7-18) 11/30/18 13:30 Creatinine 0.98 mg/dL (0.55-1.02) 11/30/18 13:30 Est GFR (MDRD) Af Amer 74 mL/min (>60) 11/30/18 13:30 Est GFR (MDRD) Non-Af 62 mL/min (>60) 11/30/18 13:30 BUN/Creatinine Ratio 11.2 RATIO (10-20) 11/30/18 13:30 Glucose 412 mg/dL (74-106) H 11/30/18 13:30 Estimated Creatinine Clearance: 44ML/MIN Goal Trough: 15-20 mcg/mL Pharmacy Plan for Drug Dosing: PLAN/RECOMMENDATIONS 1. Vancomycin 500mg IV Q12hrs to start 12/01/18 @0330 2. Trough scheduled prior to 4th dose 12/02/18 @0300 3. Pharmacy Service will continue to monitor and adjust dosing as required.
[2018-11-30 18:34] LABS: Erythrocyte Sedimentation Rate 69 mm/hr (0-30)
[2018-11-30] MEDS: Ipratropium/Albuterol Sulfate 3 ML AMPUL.NEB INHALATION ×2 (18:37→23:10)
[2018-11-30 18:40] LABS: Hemoglobin A1c 10.9 % (4.2-6.3)
[2018-11-30 18:55] LABS: Lactic Acid 3.3 mmol/L (0.4-2.0)
[2018-11-30] MEDS: Ketorolac 15 MG/ML Vial IV (19:48)
[2018-11-30 20:26] LABS: M R Staph aureus DNA By PCR Negative (Negative); Probe Check PASS; Staph aureus DNA By PCR NEGATIVE (Negative)
--- NOTE | 2018-11-30 20:37 | PCM.CONS.GEN ---
Reason for Consult Date of Consultation: 11/30/18 Reason for Consultation: ulcer/abscess/cellulitis/suspected osteomyelitis left foot History of Present Illness: The patient is a 58 year old non controlled diabetic F with history of afib, htn, hld, ibs, anxiety and depression. She was admitted through the ER with multiple complaints earlier today with her main complaint on arrival being right upper extremity weakness. She is currently diagnosed as acute/subacute stroke. Patient also has pneumonia, gastroenteritis, as well as left foot ulcer with abscess, cellulitis, and suspected osteomyelitis. Patient says she stepped on a staple about a week ago on what she says was the ball of her foot between her 2nd and 3rd toes. She says she noticed some redness and swelling to her foot starting about 2 or 3 days ago. She says this has stayed about the same and has not worsened. She also has an open ulcer in the first webspace. Patient says she was unaware of this ulcer. She has not been doing anything to treat the foot on her own other than trying to use some peroxide. She says she has never seen podiatry in the past and that if she ever had any issues with her feet in the past that she would just let them heal on their own. Patient is a poor historian and hard to get information from. [] Past Medical History Past Medical History (Chronic Problems): Chronic Problems CVA (cerebral vascular accident) (Chronic) Paroxysmal atrial fibrillation (Chronic) IBS (irritable bowel syndrome) (Chronic) HLD (hyperlipidemia) (Chronic) Esophageal reflux (Chronic) Type II diabetes mellitus, uncontrolled (Chronic) Anxiety and depression (Chronic) Cerebrovascular disease (Chronic) Possible small ischemic strokes versus sequela of chronic migraine Migraine (Chronic) reports hole in heart since (Chronic) Benign essential HTN (Chronic) Allergies codeine Adverse Reaction (Verified 11/30/18 13:28) Other pork derived (porcine) Adverse Reaction (Verified 11/30/18 13:28) Vomiting Home Medications: Ambulatory Orders Medication Instructions Recorded Apixaban [Eliquis] 5 mg PO BID 06/16/18 Ascorbic Acid [Vitamin C] 500 mg PO DAILY 06/16/18 Atorvastatin Calcium 20 mg PO QHS 06/16/18 Lisinopril 20 mg PO DAILY 06/16/18 Sertraline HCl [Zoloft] 100 mg PO DAILY 06/16/18 Amlodipine Besylate 5 mg PO DAILY 09/10/18 Dicyclomine HCl 20 mg PO Q12H PRN PRN 09/10/18 Fluconazole [Diflucan] 200 mg PO DAILY 09/10/18 Hydrocodone/Acetaminophen 1 tab PO Q6H PRN PRN 09/10/18 [Hydrocodon-Acetaminophen 5-325] Metoprolol Tartrate 25 mg PO BID 09/10/18 Sertraline HCl [Zoloft] 50 mg PO DAILY 09/10/18 Surgical History: - Psychiatric History: Anxiety, Depression 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 Lives: Alone Smoking Status: Never smoker Tobacco Use: Non-smoker Alcohol: None Drugs: None - *Family History Maternal History Items: Heart Disease Paternal History Items: Heart Disease, Hypertension Review of Systems Constitutional: Denies: Anorexia, Chills, Fever Cardiovascular: Denies: Chest Pain Respiratory: Reports: Cough, Shortness of Breath Gastrointestinal: Reports: Abdominal Pain, Diarrhea Skin: Reports: - - ulcers to left foot Patient Problems: Active and Suspected Problems Hypokalemia (Acute) Gastroenteritis (Acute) Acute respiratory failure with hypoxia (Acute) Severe sepsis (Acute) Hypomagnesemia (Acute) Osteomyelitis (Acute) CVA (cerebral vascular accident) (Acute) Gram-negative pneumonia (Acute) Foot abscess, left (Acute) - Physical Exam General: Alert, Oriented x3, Cooperative Extremities: Capillary Refill Less than 3 Seconds - to distal digits of left foot, No Calf Tenderness - negative caron and schroeder signs, Diminished Peripheral Pulses, Edema - slight edema to left forefoot Skin: Ulcer/ Wound - Ulcer measureing approximately 1.8 cm x 0.8 cm to first webspace between first and second toes. Ulcer probes medially and laterally. Small amount of purulence appreciated from ulcer site. Another ulcer approximately 0.2 cm x 0.2 cm dorsal 2nd interspace that probes deep as well. Small amount of purulence noted to this area as well. Slight malodor noted. There is cellulitis surrounding the very distal foot just proximal to 1,2,3 toes. This area is outlined with marker. No streaking cellulitis going proximal was noted. Musculoskeletal: Tenderness - very minor tenderness to distal left foot Neurological: - - epicritic sensation absent to feet Psych/Mental Status: Normal Affect, Appropriate Vital Signs Temp Pulse Resp BP Pulse Ox 99.2 F H 102 H 22 H 158/73 H 91 11/30/18 17:00 11/30/18 18:37 11/30/18 18:37 11/30/18 17:00 11/30/18 18:37 Oxygen Flow Rate (L/min) 3 Oxygen Delivery Method Nasal Cannula Weight: 58.4 kg Body Mass Index (BMI) 25.1 Finger Stick Blood Glucose 497 Microbiology Past 72 Hours 11/30/18 18:05 Streptococcus pneumoniae Antigen (M - Final Urine Catheter - Catheter Streptococcus pneumonia Ag 11/30/18 18:05 Legionella Antigen - Final Urine Catheter - Catheter Laboratory Tests Past 24 Hrs 11/30/18 11/30/18 11/30/18 13:30 13:30 13:30 WBC 26.5 H RBC 4.74 Hgb 12.4 Hct 36.9 L MCV 77.8 L MCH 26.2 L MCHC 33.6 RDW 14.7 H RDW Differential 40.3 Plt Count 394 MPV 10.9 Immature Gran % (Auto) 1.000 H Neut % (Auto) 93.8 H Lymph % (Auto) 3.2 L [place] % (Auto) 2.0 Eos % (Auto) 0.0 Baso % (Auto) 0.0 Absolute Neuts (auto) 24.9 H Absolute Lymphs (auto) 0.85 Total Counted Not Reportable ESR PT 15.8 H INR 1.3 Sodium 135 L Potassium 1.9 L* Chloride 96 L Carbon Dioxide 27.0 Anion Gap 12 BUN 11 Creatinine 0.98 Estim Creat Clear Calc 44.40 Est GFR (MDRD) Af Amer 74 Est GFR (MDRD) Non-Af 62 BUN/Creatinine Ratio 11.2 Glucose 412 H Hemoglobin A1c Lactic Acid Calcium 7.3 L Magnesium Troponin I 0.030 C-React Prot Ext Range B-Natriuretic Peptide Urine Color Urine Clarity Urine pH Ur Specific Council Urine Protein Urine Glucose (UA) Urine Ketones Urine Occult Blood Urine Nitrite Urine Bilirubin Urine Urobilinogen Ur Leukocyte Esterase Urine RBC Urine WBC Ur Squamous Epith Cells Urine Bacteria Urine Mucus S.aureus Protein A PCR MRSA (PCR) 11/30/18 11/30/18 11/30/18 13:30 13:30 13:30 WBC RBC Hgb Hct MCV MCH MCHC RDW RDW Differential Plt Count MPV Immature Gran % (Auto) Neut % (Auto) Lymph % (Auto) [place] % (Auto) Eos % (Auto) Baso % (Auto) Absolute Neuts (auto) Absolute Lymphs (auto) Total Counted ESR PT INR Sodium Potassium Chloride Carbon Dioxide Anion Gap BUN Creatinine Estim Creat Clear Calc Est GFR (MDRD) Af Amer Est GFR (MDRD) Non-Af BUN/Creatinine Ratio Glucose Hemoglobin A1c Lactic Acid 3.7 H Calcium Magnesium 0.8 L* Troponin I C-React Prot Ext Range B-Natriuretic Peptide 206.5 H Urine Color Urine Clarity Urine pH Ur Specific Council Urine Protein Urine Glucose (UA) Urine Ketones Urine Occult Blood Urine Nitrite Urine Bilirubin Urine Urobilinogen Ur Leukocyte Esterase Urine RBC Urine WBC Ur Squamous Epith Cells Urine Bacteria Urine Mucus S.aureus Protein A PCR MRSA (PCR) 11/30/18 11/30/18 11/30/18 13:30 15:05 18:00 WBC RBC Hgb Hct MCV MCH MCHC RDW RDW Differential Plt Count MPV Immature Gran % (Auto) Neut % (Auto) Lymph % (Auto) [place] % (Auto) Eos % (Auto) Baso % (Auto) Absolute Neuts (auto) Absolute Lymphs (auto) Total Counted ESR 69 H PT INR Sodium Potassium Chloride Carbon Dioxide Anion Gap BUN Creatinine Estim Creat Clear Calc Est GFR (MDRD) Af Amer Est GFR (MDRD) Non-Af BUN/Creatinine Ratio Glucose Hemoglobin A1c Lactic Acid Calcium Magnesium Troponin I C-React Prot Ext Range Pending B-Natriuretic Peptide Urine Color Yellow Urine Clarity Clear Urine pH 6.0 Ur Specific Council 1.020 Urine Protein 500 H Urine Glucose (UA) 1000 H Urine Ketones 5 H Urine Occult Blood 25 H Urine Nitrite Negative Urine Bilirubin Negative Urine Urobilinogen Normal Ur Leukocyte Esterase 1+ Urine RBC 0-5 SEEN Urine WBC 0 SEEN Ur Squamous Epith Cells 0-5 SEEN Urine Bacteria RARE Urine Mucus 0 SEEN S.aureus Protein A PCR MRSA (PCR) 11/30/18 11/30/18 11/30/18 18:00 18:00 18:45 WBC RBC Hgb Hct MCV MCH MCHC RDW RDW Differential Plt Count MPV Immature Gran % (Auto) Neut % (Auto) Lymph % (Auto) [place] % (Auto) Eos % (Auto) Baso % (Auto) Absolute Neuts (auto) Absolute Lymphs (auto) Total Counted ESR PT INR Sodium Potassium Chloride Carbon Dioxide Anion Gap BUN Creatinine Estim Creat Clear Calc Est GFR (MDRD) Af Amer Est GFR (MDRD) Non-Af BUN/Creatinine Ratio Glucose Hemoglobin A1c 10.9 H Lactic Acid 3.3 H Calcium Magnesium Troponin I C-React Prot Ext Range B-Natriuretic Peptide Urine Color Urine Clarity Urine pH Ur Specific Council Urine Protein Urine Glucose (UA) Urine Ketones Urine Occult Blood Urine Nitrite Urine Bilirubin Urine Urobilinogen Ur Leukocyte Esterase Urine RBC Urine WBC Ur Squamous Epith Cells Urine Bacteria Urine Mucus S.aureus Protein A PCR NEGATIVE MRSA (PCR) Negative POC Glucose 11/30/18 11/30/18 17:13 13:21 POC Glucose 357 H 412 H Assessment/Plan All Active Problems Encephalopathy acute (Acute) Hypokalemia (Acute) Gastroenteritis (Acute) Acute respiratory failure with hypoxia (Acute) Severe sepsis (Acute) Hypomagnesemia (Acute) Osteomyelitis (Acute) CVA (cerebral vascular accident) (Acute) Gram-negative pneumonia (Acute) Foot abscess, left (Acute) Ulcers left foot Abscess left foot Cellulitis left foot Suspected osteomyelitis left foot DM with neuropathy Other comorbidities This patient was carefully examined and evaluated in detail this evening for open ulcers to left foot. Patient has WBC of 26.5 on admission. Her ESR is 69 and her CRP is 291. Hemoglobin A1c 10.9. Patient is currently afebrile. Blood and ulcer cultures are pending. MRSA pcr is negative. Patient currently on IV antibiotics. 3 view left foot x rays read by radiologist as showing soft tissue swelling with some gas in soft tissue in what appears to be 1st interspace where ulcer is noted as well as 2nd interspace where small ulcer noted. The x-rays also show loss of cortical definition of the second and possibly third met heads suspicious for osteomyelitis. MRI was ordered by Dr. Mancia. I discussed the case with Dr. Mancia and he does not feel the patient can be cleared for surgery at this time and says that before any surgery can happen the patient will have to have further evaluation and other stroke and medical optimization from her pneumonia before she can be cleared. I discussed the patient's case with her in great detail and let her know that she is going to need to have a surgery on her foot once she is stabilized. Currently, I discussed the patient's options with her. I discussed a beside incision and drainage along with all of the risks and benefits and alternative options associated with the procedure. She was able to repeat these back. I answered all questions to her satisfaction. She understands and agrees to proceed with incision and drainage of abscess areas of left foot. Signed consent was obtained. Once complete, the left foot was injected with 10 mL of 1% lidocaine plain about the planned i&d site. Next the foot was cleansed and prepped in typical aseptic fashion. Betadine painted to forefoot. Next, an approximately 1 cm incision was made overlying small ulcer to dorsal 2nd interspace. This area was carefully deepened and spread apart using hemostat. The same exact procedure was then performed to the medial aspect of the 1st MPJ area. Lastly, some of the adherent slough and fibrotic non viable appearing tissue was removed from the ulcer site in between the first and second toes. Once all of this was complete, the fore foot was milked multiple times and was able to express approximately between 1 and 2 mL of purulence. Next, the sites were all flushed multiple times with copious amounts of sterile saline mixed with betadine. The forefoot was then milked again and no more purulence was able to be expressed. At this time, all of the aforementioned areas were packed with 1/4'' iodoform packing and then the foot was dressed with 4x4s, ABDs, kerlix and a lightly wrapped ALLIE bandage. Patient tolerated this procedure well and without complication. A total of less than 5 mL of blood lost. Patient is to keep her foot elevated. She is to be non weight bearing to her left foot and if she absolutely has to be up, she is to be heel weight bearing to left foot. Nursing can reinforce dressing as needed. Continued medical management of this patient is appreciated by medical team. Podiatry will continue to follow this patient closely while in house.
[2018-11-30] MEDS: 0.9% Normal Saline 1,000 ML 100 ML IV (23:06)
[2018-11-30] MEDS: 0.9% NaCl Peripheral Flush Adult/Peds IV (23:09)
[2018-11-30] MEDS: Insulin Lispro 100 UNIT/ML INSULN.PEN SQ (23:16)
[2018-11-30 23:26] LABS: Bedside Glucose 396 mg/dL (70-110)
--- NOTE | 2018-11-30 23:50 | RAD_ITS ---
STUDY: X-RAY CHEST REASON FOR EXAM: Female, 58 years old. Shortness of breath TECHNIQUE: 1 view COMPARISON: November 30, 2018 FINDINGS: There are opacities in the lower halves of both lungs consistent with areas of pneumonia. A small left-sided effusion is suspected. The heart is normal in size. Normal visualized thoracic spine. Normal visualized ribs, clavicles, and shoulders. There is no demonstrated abnormality of the visualized soft tissue structures of the upper abdomen. RAD/Chest 1 View (Portable) IMPRESSION: Opacities in the lower halves of both lungs suggestive of pneumonias. Small left-sided effusion is suspected Electronically Signed: Surjit Gill MD at 0:12 EDT Tel , Service support ,
[2018-12-01] VITALS (28 sets, daily range): BP systolic 99–146; BP diastolic 54–93; PULSE 76–103; RESP 15–23; TEMP 36.7–37.4; O2SAT 90–100; BMI 25.1
[2018-12-01] MEDS: 0.9% NaCl Peripheral Flush Adult/Peds IV ×12 (00:10→17:19)
[2018-12-01] MEDS: Sodium Chloride 0.65% 1 SPRAY SPRAY.BTL NASAL (00:11)
--- NOTE | 2018-12-01 00:21 | CPS ---
placed pt on 50% venturi mask at this time
[2018-12-01] MEDS: proMETHazine 25 MG/ML Syringe 12.5 MG IV (01:31)
[2018-12-01] MEDS: Furosemide 40 MG/4 ML Vial IV (01:31)
[2018-12-01 01:42] LABS: Anion Gap 9 (5-15); BUN 15 mg/dL (7-18); BUN/Creat Ratio 15.8 RATIO (10-20); Calcium,Total 6.3 mg/dL (8.5-10.1); Chloride 104 mmol/L (98-107); Creatinine, Serum 0.95 mg/dL (0.55-1.02); EST Glomerular Filtration Rate 64 mL/min (>60); Est Glom Filt Rate - Afr Amer 77 mL/min (>60); Glucose 388 mg/dL (74-106); Magnesium 2.1 mg/dL (1.6-2.6); Potassium 2.2 mmol/L (3.5-5.1); Sodium Level 138 mmol/L (136-145)
[2018-12-01] MEDS: Insulin Lispro 100 UNIT/ML INSULN.PEN SQ ×6 (01:42→22:37)
[2018-12-01 01:51] LABS: Bedside Glucose 319 mg/dL (70-110)
[2018-12-01] MEDS: Potassium Chloride 10mEq/100mL 10 MEQ/100 ML IV.SOLN. 100 MEQ IV BOLUS ×10 (02:22→18:38)
[2018-12-01 03:05] LABS: Bedside Glucose 332 mg/dL (70-110)
--- NOTE | 2018-12-01 03:10 | NURSING ---
Critical blood culture result given to Isabella Pittman RN.
--- NOTE | 2018-12-01 03:27 | CPS ---
placed pt on 4 lpm nasal cannula
[2018-12-01] MEDS: Vancomycin IV 500 MG/100 ML BAG 100 MG IV ×2 (03:44→17:20)
--- NOTE | 2018-12-01 05:55 | EKG12_ITS ---
Test Reason : AM EKG Blood Pressure : / mmHG Vent. Rate : 079 BPM Atrial Rate : 079 BPM P-R Int : 164 ms QRS Dur : 106 ms QT Int : 430 ms P-R-T Axes : 045 066 091 degrees QTc Int : 493 ms Normal sinus rhythm Prolonged QT Abnormal ECG When compared with ECG of 30-NOV-2018 14:02, MANUAL COMPARISON REQUIRED, DATA IS UNCONFIRMED Confirmed by ROSE CURTIS, KIERSTEN ([id number]), greeting card editor DEVEN OLGUIN ([id number]) on 12/03/2018 8:09:32 AM Referred By: LIZ Confirmed By:KIERSTEN ROSE MD
[2018-12-01 06:25] LABS: Bedside Glucose 275 mg/dL (70-110)
[2018-12-01] MEDS: Ipratropium/Albuterol Sulfate 3 ML AMPUL.NEB INHALATION ×4 (06:51→19:30)
[2018-12-01 06:54] LABS: Cholesterol 92 mg/dL (200); High Density Lipoprotein 30 mg/dL; Triglycerides 99 mg/dL; Very Low Density Lipoprotein 20 mg/dL (5-40)
[2018-12-01 08:47] LABS: Absolute Lymphocyte Count 1.72 X10^3/ul (0.83-4.51); Absolute Neutrophil Count 15.9 X10^3/uL (2.0-7.7); Basophil# 0.02 X10^3/uL; Basophil% 0.1 % (0-1); Hematocrit 28.5 % (37-47); Hemoglobin 9.3 g/dl (12.0-15.0); Lymphocyte # 1.72 X10^3/ul (4.0); Lymphocyte % 9.4 % (19-41); Mean Corp Hgb Conc 32.6 g/gl (32-36); Mean Corpuscular Hgb 27.1 pg (27.0-32.0); Mean Corpuscular Volume 83.1 fL (81-99); Mean Platelet Vol. 10.8 fl (6.2-12.0); Monocyte% 2.7 % (0-10); Neutrophil # 15.87 X10^3/uL (2.7-7.7); Neutrophil % 87.2 % (47-70); POSITIVE COUNT NO; POSITIVE DIFFERENTIAL NO; POSITIVE MORPHOLOGY NO; Platelet Count 265 K/mm3 (150-450); RBC Distribution Width CV 14.7 % (11.6-14.6); RBC Distribution Width SD 43.6 fl (35.1-43.9); Red Blood Count 3.43 M/mm3 (4.2-5.4); White Blood Count 18.2 K/mm3 (4.4-11.0)
[2018-12-01 08:52] LABS: Anion Gap 9 (5-15); BUN 15 mg/dL (7-18); BUN/Creat Ratio 16.6 RATIO (10-20); Calcium,Total 6.8 mg/dL (8.5-10.1); Chloride 105 mmol/L (98-107); EST Glomerular Filtration Rate 68 mL/min (>60); Est Glom Filt Rate - Afr Amer 82 mL/min (>60); Estimated Creatinine Clearance 48.34 ml/min; Glucose 279 mg/dL (74-106); Phosphorus 1.9 mg/dL (2.5-4.9); Potassium 2.3 mmol/L (3.5-5.1); Sodium Level 140 mmol/L (136-145)
--- NOTE | 2018-12-01 09:00 | MRI_ITS ---
STUDY: MRA NECK WITH AND WITHOUT CONTRAST REASON FOR EXAM: Female, 58 years old. CVA and right-sided weakness TECHNIQUE: 3-D [id number] (TOF) imaging was performed in an 1.5 T MRI scanner. 12ml IV Dotarem was administered for the contrast enhanced images. COMPARISON: 09/11/2018 FINDINGS: Bovine aortic arch is noted. RIGHT CAROTID ARTERIES: Normal right common carotid artery (CCA). Normal right common carotid bulb. Normal origin of the right internal carotid (ICA) artery without a hemodynamically significant stenosis. Normal visualized cervical portion of the right internal carotid artery. Normal origin of the right external carotid artery (ECA). LEFT CAROTID ARTERIES: Normal left common carotid artery (CCA). Normal left common carotid bulb. Normal origin of the left internal carotid (ICA) artery without a hemodynamically significant stenosis. Normal visualized cervical portion of the left internal carotid artery. Normal origin of the left external carotid artery (ECA). 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 No significant stenoses are detected involving the carotid arteries in the neck. Electronically Signed: Monty Arias MD at 16:33 EDT Tel , Service support ,
--- NOTE | 2018-12-01 09:00 | MRI_ITS ---
STUDY: MRA OF THE HEAD WITHOUT CONTRAST REASON FOR EXAM: Female, 58 years old. CVA CVA MRA - Head/Neck rt side weakness. TECHNIQUE: 3-D [id number] (TOF) imaging was performed with MIPs. The study was performed unenhanced. COMPARISON: CTA dated September 11, 2018 FINDINGS: Normal bilateral petrous carotid arteries. There is atheromatous plaque formation of the right cavernous carotid artery, with a mild stenosis (less than 50%). There is atheromatous plaque formation of the left cavernous carotid artery, with a mild stenosis (less than 50%). Normal right A1 segments of the anterior cerebral artery. Normal left A1 segments of the anterior cerebral artery. Normal intact anterior communicating artery (ACOM). Normal bilateral A2 segments of the anterior cerebral arteries. Normal right M1 and M2 segments of the middle cerebral arteries, with a normal M1 bifurcation. Normal left M1 and M2 segments of the middle cerebral arteries, with a normal M1 bifurcation. There is non-visualization of the right posterior communicating artery (PCOM). There is non-visualization of the left posterior communicating artery (PCOM). Again noted is occlusion of the distal right vertebral artery and narrowing of the distal basilar artery. Again noted are the conclusion of the bilateral posterior cerebral arteries. There is no demonstrated aneurysm of the [place]. There is no major vessel occlusion or hemodynamically significant stenosis. There is no demonstrated abnormality of the visualized brain. MRI/MRA Head ONLY without Contrast IMPRESSION: Unchanged right vertebral and bilateral posterior cerebral arteries occlusions. Basilar stenosis. Patent anterior circulation. Electronically Signed: Skip Cavazos MD at 11:03 EDT Tel , Service support ,
--- NOTE | 2018-12-01 09:00 | MRI_ITS ---
We are attempting to reach [facility] to discuss findings. An addendum with communication details will be sent when the communication is complete. STUDY: MRI BRAIN WITHOUT CONTRAST REASON FOR EXAM: Female, 58 years old. CVA CVA MRI - Brain/Head/Neck. Rt side weakness. TECHNIQUE: Standardized multiplanar fat and water weighted pulse sequences were obtained. COMPARISON: 11/30/2018 CT of the head and MRI dated September 11, 2018 FINDINGS: There is mild cerebral atrophy with widening of the extra-axial spaces and ventricular dilatation. There are multiple white matter hyperintensities, distributed throughout the deep white matter tracts of the cerebral hemispheres, consistent with moderate chronic white matter ischemic changes. There is a 1 cm restricted diffusion at the left swain radiata with drop of signal on ADC map, consistent with acute infarction. Again noted is the small right occipital chronic infarct. Normal bilateral basal ganglia. Normal thalami. There is no extra-axial fluid accumulation. Normal flow voids within the major intracranial circulation suggesting patency by spin echo criteria. Normal sella turcica, pituitary gland, infundibular stalk, optic chiasm and hypothalamus. Normal tectal plate and pineal gland. Right cerebellar chronic lacunar infarcts are noted. There are chronic white matter ischemic changes of the shy[place]. The midbrain and medulla are otherwise normal. MRI/Brain without Contrast IMPRESSION: Acute left swain radiata infarct. Chronic right occipital infarct. Chronic right cerebellar lacunar infarcts. Moderate chronic microvascular ischemic changes. Electronically Signed: Skip Cavazos MD at 10:57 EDT Tel , Service support ,
--- NOTE | 2018-12-01 10:10 | CON.PCM_ITS ---
Reason for Consult Date of Consultation: 12/01/18 Reason for Consultation: Arm weakness History of Present Illness: She is a 58-year-old right-handed white female who has not taken her medication she says for about 6 weeks. She says she ran out of medications and could not make it to the pharmacy. She also apparently has missed several doctor's appointments and has been dismissed from that practice due to failure to show. Approximately 2-3 days ago she noticed right arm weakness and eventually came to the hospital. She says the symptoms are stable. No other complaints. Denies any speech, vision or swallowing complaints. Denies any weakness in her leg. Per admit note: The patient is a 58 year old F with pmhx of recent hospitalization for right occipital infarct and meningitis workup - ruled out, hx of DMt2, paroxysmal Afib, HTN, HLD, IBS, anxiety and depression, who presents to the ER with multiple complaints - her primary complaint is Right upper extremity weakness. This began about 2 days prior, spontaneously while are rest sitting. She is unable to lift her arm and has little grant specialist strength. She denies double vision, DICKEY, numbness/tingling, change in speech, ataxia, or affected lower extremity. She also complains of SOB and was hypoxic in the ER. She has a nonproductive cough. CXR and CT abdomen shows BL infiltrates. She denies fever or chills. She also has had ongoing diarrhea for those past two days as well and has diffuse abdominal pain, CT abdomen here shows gastroenteritis. She has nausea without vomiting. She has not been eating or drinking much for the last two days. In addition she appears to have an infection in her foot. She stepped on a staple on the ground one week prior and has circumferential cellulitic changes with pus drainage on the distal portion of her foot. Xray shows possible osteomyelitis. In addition to all of this her medications ran out 3 days ago and she has not taken any prescription meds since then. Past Medical History Past Medical History (Chronic Problems): Chronic Problems CVA (cerebral vascular accident) (Chronic) Paroxysmal atrial fibrillation (Chronic) IBS (irritable bowel syndrome) (Chronic) HLD (hyperlipidemia) (Chronic) Esophageal reflux (Chronic) Type II diabetes mellitus, uncontrolled (Chronic) Anxiety and depression (Chronic) Cerebrovascular disease (Chronic) Possible small ischemic strokes versus sequela of chronic migraine Migraine (Chronic) reports hole in heart since (Chronic) Benign essential HTN (Chronic) Allergies codeine Adverse Reaction (Verified 11/30/18 13:28) Other pork derived (porcine) Adverse Reaction (Verified 11/30/18 13:28) Vomiting Home Medications: Ambulatory Orders Medication Instructions Recorded Apixaban [Eliquis] 5 mg PO BID 06/16/18 Ascorbic Acid [Vitamin C] 500 mg PO DAILY 06/16/18 Atorvastatin Calcium 20 mg PO QHS 06/16/18 Lisinopril 20 mg PO DAILY 06/16/18 Sertraline HCl [Zoloft] 100 mg PO DAILY 06/16/18 Amlodipine Besylate 5 mg PO DAILY 09/10/18 Dicyclomine HCl 20 mg PO Q12H PRN PRN 09/10/18 Fluconazole [Diflucan] 200 mg PO DAILY 09/10/18 Hydrocodone/Acetaminophen 1 tab PO Q6H PRN PRN 09/10/18 [Hydrocodon-Acetaminophen 5-325] Metoprolol Tartrate 25 mg PO BID 09/10/18 Sertraline HCl [Zoloft] 50 mg PO DAILY 09/10/18 Surgical History: - Psychiatric History: Anxiety, Depression [employer] History: No pertinent [employer] history Lives: Alone Smoking Status: Never smoker Tobacco Use: Non-smoker Alcohol: None Drugs: None - *Family History Maternal History Items: Heart Disease Paternal History Items: Heart Disease, Hypertension Review of Systems Constitutional: Denies: Chills, Fever, Weight Change HEENT: Denies: Head Aches, Sinus Congestion, Sinus Drainage Cardiovascular: Denies: Chest Pain, Palpitations Respiratory: Denies: Cough, Shortness of breath at rest, Sputum production Gastrointestinal: Denies: Abdominal Pain, Nausea, Vomiting Genitourinary: Denies: Dysuria Musculoskeletal: Denies: Joint Pain, Joint Tenderness Skin: Denies: Rash, Wounds Neurological: Denies: Numbness, Tingling, Focal weakness Psychiatric: Denies: Anxiety, Depression, Homicidal Ideations, Suicidal Ideations Hematologic/ Lymphatic: Denies: Easy Bruising, Easy Bleeding Patient Problems: Active and Suspected Problems Hypokalemia (Acute) Gastroenteritis (Acute) Acute respiratory failure with hypoxia (Acute) Severe sepsis (Acute) Hypomagnesemia (Acute) Osteomyelitis (Acute) CVA (cerebral vascular accident) (Acute) Gram-negative pneumonia (Acute) Foot abscess, left (Acute) - Physical Exam Vital Signs Temp Pulse Resp BP Pulse Ox 36.9 C 81 17 99/63 90 12/01/18 05:00 12/01/18 07:00 12/01/18 07:00 12/01/18 07:00 12/01/18 07:00 Oxygen Flow Rate (L/min) 4 Oxygen Delivery Method Nasal Cannula Weight: 58.4 kg Body Mass Index (BMI) 25.1 Finger Stick Blood Glucose 497 Intake and Output for Last 24 Hours 11/29/18 11/30/18 12/01/18 23:59 23:59 23:59 Intake Total 1520 / 1520 820 / 820 Output Total 100 / 100 950 / 950 Balance 1420 / 1420 -130 / -130 Microbiology Past 72 Hours 11/30/18 13:30 Bacteria Detection (PCR) - Final Blood Culture (Wb) #2 - Left Forearm Streptococcus pneumoniae Blood Culture - Preliminary 11/30/18 18:05 Streptococcus pneumoniae Antigen (M - Final Urine Catheter - Catheter Streptococcus pneumonia Ag 11/30/18 18:05 Legionella Antigen - Final Urine Catheter - Catheter Laboratory Tests Past 24 Hrs 11/30/18 11/30/18 11/30/18 13:30 13:30 13:30 WBC 26.5 H RBC 4.74 Hgb 12.4 Hct 36.9 L MCV 77.8 L MCH 26.2 L MCHC 33.6 RDW 14.7 H RDW Differential 40.3 Plt Count 394 MPV 10.9 Immature Gran % (Auto) 1.000 H Neut % (Auto) 93.8 H Lymph % (Auto) 3.2 L [place] % (Auto) 2.0 Eos % (Auto) 0.0 Baso % (Auto) 0.0 Absolute Neuts (auto) 24.9 H Absolute Lymphs (auto) 0.85 Total Counted Not Reportable ESR PT 15.8 H INR 1.3 Sodium 135 L Potassium 1.9 L* Chloride 96 L Carbon Dioxide 27.0 Anion Gap 12 BUN 11 Creatinine 0.98 Estim Creat Clear Calc 44.40 Est GFR (MDRD) Af Amer 74 Est GFR (MDRD) Non-Af 62 BUN/Creatinine Ratio 11.2 Glucose 412 H Hemoglobin A1c Lactic Acid Calcium 7.3 L Phosphorus Magnesium Troponin I 0.030 C-React Prot Ext Range B-Natriuretic Peptide Triglycerides Cholesterol LDL Cholesterol VLDL Cholesterol HDL Cholesterol Urine Color Urine Clarity Urine pH Ur Specific [place] Urine Protein Urine Glucose (UA) Urine Ketones Urine Occult Blood Urine Nitrite Urine Bilirubin Urine Urobilinogen Ur Leukocyte Esterase Urine RBC Urine WBC Ur Squamous Epith Cells Urine Bacteria Urine Mucus S.aureus Protein A PCR MRSA (PCR) 11/30/18 11/30/18 11/30/18 13:30 13:30 13:30 WBC RBC Hgb Hct MCV MCH MCHC RDW RDW Differential Plt Count MPV Immature Gran % (Auto) Neut % (Auto) Lymph % (Auto) [place] % (Auto) Eos % (Auto) Baso % (Auto) Absolute Neuts (auto) Absolute Lymphs (auto) Total Counted ESR PT INR Sodium Potassium Chloride Carbon Dioxide Anion Gap BUN Creatinine Estim Creat Clear Calc Est GFR (MDRD) Af Amer Est GFR (MDRD) Non-Af BUN/Creatinine Ratio Glucose Hemoglobin A1c Lactic Acid 3.7 H Calcium Phosphorus Magnesium 0.8 L* Troponin I C-React Prot Ext Range B-Natriuretic Peptide 206.5 H Triglycerides Cholesterol LDL Cholesterol VLDL Cholesterol HDL Cholesterol Urine Color Urine Clarity Urine pH Ur Specific [place] Urine Protein Urine Glucose (UA) Urine Ketones Urine Occult Blood Urine Nitrite Urine Bilirubin Urine Urobilinogen Ur Leukocyte Esterase Urine RBC Urine WBC Ur Squamous Epith Cells Urine Bacteria Urine Mucus S.aureus Protein A PCR MRSA (PCR) 11/30/18 11/30/18 11/30/18 13:30 15:05 18:00 WBC RBC Hgb Hct MCV MCH MCHC RDW RDW Differential Plt Count MPV Immature Gran % (Auto) Neut % (Auto) Lymph % (Auto) [place] % (Auto) Eos % (Auto) Baso % (Auto) Absolute Neuts (auto) Absolute Lymphs (auto) Total Counted ESR 69 H PT INR Sodium Potassium Chloride Carbon Dioxide Anion Gap BUN Creatinine Estim Creat Clear Calc Est GFR (MDRD) Af Amer Est GFR (MDRD) Non-Af BUN/Creatinine Ratio Glucose Hemoglobin A1c Lactic Acid Calcium Phosphorus Magnesium Troponin I C-React Prot Ext Range 291.00 H B-Natriuretic Peptide Triglycerides Cholesterol LDL Cholesterol VLDL Cholesterol HDL Cholesterol Urine Color Yellow Urine Clarity Clear Urine pH 6.0 Ur Specific [place] 1.020 Urine Protein 500 H Urine Glucose (UA) 1000 H Urine Ketones 5 H Urine Occult Blood 25 H Urine Nitrite Negative Urine Bilirubin Negative Urine Urobilinogen Normal Ur Leukocyte Esterase 1+ Urine RBC 0-5 SEEN Urine WBC 0 SEEN Ur Squamous Epith Cells 0-5 SEEN Urine Bacteria RARE Urine Mucus 0 SEEN S.aureus Protein A PCR MRSA (PCR) 11/30/18 11/30/18 11/30/18 18:00 18:00 18:45 WBC RBC Hgb Hct MCV MCH MCHC RDW RDW Differential Plt Count MPV Immature Gran % (Auto) Neut % (Auto) Lymph % (Auto) [place] % (Auto) Eos % (Auto) Baso % (Auto) Absolute Neuts (auto) Absolute Lymphs (auto) Total Counted ESR PT INR Sodium Potassium Chloride Carbon Dioxide Anion Gap BUN Creatinine Estim Creat Clear Calc Est GFR (MDRD) Af Amer Est GFR (MDRD) Non-Af BUN/Creatinine Ratio Glucose Hemoglobin A1c 10.9 H Lactic Acid 3.3 H Calcium Phosphorus Magnesium Troponin I C-React Prot Ext Range B-Natriuretic Peptide Triglycerides Cholesterol LDL Cholesterol VLDL Cholesterol HDL Cholesterol Urine Color Urine Clarity Urine pH Ur Specific [place] Urine Protein Urine Glucose (UA) Urine Ketones Urine Occult Blood Urine Nitrite Urine Bilirubin Urine Urobilinogen Ur Leukocyte Esterase Urine RBC Urine WBC Ur Squamous Epith Cells Urine Bacteria Urine Mucus S.aureus Protein A PCR NEGATIVE MRSA (PCR) Negative 11/30/18 12/01/18 12/01/18 23:45 06:10 06:10 WBC RBC Hgb Hct MCV MCH MCHC RDW RDW Differential Plt Count MPV Immature Gran % (Auto) Neut % (Auto) Lymph % (Auto) [place] % (Auto) Eos % (Auto) Baso % (Auto) Absolute Neuts (auto) Absolute Lymphs (auto) Total Counted ESR PT INR Sodium 138 140 Potassium 2.2 L* 2.3 L* Chloride 104 105 Carbon Dioxide 25.0 26.0 Anion Gap 9 9 BUN 15 15 Creatinine 0.95 0.90 Estim Creat Clear Calc 45.80 48.34 Est GFR (MDRD) Af Amer 77 82 Est GFR (MDRD) Non-Af 64 68 BUN/Creatinine Ratio 15.8 16.6 Glucose 388 H 279 H Hemoglobin A1c Lactic Acid Calcium 6.3 L* 6.8 L Phosphorus 1.9 L Magnesium 2.1 Troponin I C-React Prot Ext Range B-Natriuretic Peptide Triglycerides 99 Cholesterol 92 LDL Cholesterol 42 VLDL Cholesterol 20 HDL Cholesterol 30 L Urine Color Urine Clarity Urine pH Ur Specific [place] Urine Protein Urine Glucose (UA) Urine Ketones Urine Occult Blood Urine Nitrite Urine Bilirubin Urine Urobilinogen Ur Leukocyte Esterase Urine RBC Urine WBC Ur Squamous Epith Cells Urine Bacteria Urine Mucus S.aureus Protein A PCR MRSA (PCR) 12/01/18 12/01/18 06:10 06:10 WBC 18.2 H RBC 3.43 L Hgb 9.3 L Hct 28.5 L MCV 83.1 MCH 27.1 MCHC 32.6 RDW 14.7 H RDW Differential 43.6 Plt Count 265 MPV 10.8 Immature Gran % (Auto) 0.600 Neut % (Auto) 87.2 H Lymph % (Auto) 9.4 L [place] % (Auto) 2.7 Eos % (Auto) 0.0 Baso % (Auto) 0.1 Absolute Neuts (auto) 15.9 H Absolute Lymphs (auto) 1.72 Total Counted Not Reportable ESR PT INR Sodium Potassium Chloride Carbon Dioxide Anion Gap BUN Creatinine Estim Creat Clear Calc Est GFR (MDRD) Af Amer Est GFR (MDRD) Non-Af BUN/Creatinine Ratio Glucose Hemoglobin A1c Lactic Acid Calcium Phosphorus Cancelled Magnesium Troponin I C-React Prot Ext Range B-Natriuretic Peptide Triglycerides Cholesterol LDL Cholesterol VLDL Cholesterol HDL Cholesterol Urine Color Urine Clarity Urine pH Ur Specific [place] Urine Protein Urine Glucose (UA) Urine Ketones Urine Occult Blood Urine Nitrite Urine Bilirubin Urine Urobilinogen Ur Leukocyte Esterase Urine RBC Urine WBC Ur Squamous Epith Cells Urine Bacteria Urine Mucus S.aureus Protein A PCR MRSA (PCR) POC Glucose 12/01/18 12/01/18 12/01/18 06:11 02:49 01:40 POC Glucose 275 H 332 H 319 H 11/30/18 11/30/18 11/30/18 22:57 17:13 13:21 POC Glucose 396 H 357 H 412 H MRI reviewed there is an acute left subcortical infarct. MRI from 09/14 showed an acute right occipital infarct. Assessment/Plan All Active Problems Encephalopathy acute (Acute) Hypokalemia (Acute) Gastroenteritis (Acute) Acute respiratory failure with hypoxia (Acute) Severe sepsis (Acute) Hypomagnesemia (Acute) Osteomyelitis (Acute) CVA (cerebral vascular accident) (Acute) Gram-negative pneumonia (Acute) Foot abscess, left (Acute) acute left subcortical infarct, noncompliance. agree with restart anticoagulation echo pt/ot/sp consider rehab
--- NOTE | 2018-12-01 11:49 | PCM.PROGNOTE ---
Patient Problems: Active and Suspected Problems Hypokalemia (Acute) Gastroenteritis (Acute) Acute respiratory failure with hypoxia (Acute) Severe sepsis (Acute) Hypomagnesemia (Acute) Osteomyelitis (Acute) CVA (cerebral vascular accident) (Acute) Gram-negative pneumonia (Acute) Foot abscess, left (Acute) Subjective: This patient with multiple comorbidities was examined and evaluated resting in bed again today. She is being seen by podiatry for ulcers to left foot with abscess and cellulitis. Patient says her foot feels a little better today. She also relates that she feels a little better overall today as well. She continues to deny feelings of fever, chills, and vomiting. - Physical Exam General: Alert, Oriented x3, Cooperative Extremities: Capillary Refill Less than 3 Seconds - To distal digits of the left foot, No Calf Tenderness - Negative Binh and Agrawal signs, Diminished Peripheral Pulses, Edema - Slightly improved edema to left forefoot Skin: Ulcer/ Wound - Ulcer measureing approximately to first webspace between first and second toes. Ulcer probes medially and laterally. No purulence appreciated from ulcer site today. Incision to dorsal 2nd interspace that probes deep as well. No aisha purulence noted to this area as well today. Incision to medial first MPJ with no purulence noted at this site as well. Improvement in malodor. The cellulitis has slightly improved since the patient was seen last evening. This area is outlined with marker last night. No streaking cellulitis going proximal was noted. Musculoskeletal: Tenderness - With manipulation of left foot Neurological: - - Epicritic sensation absent in feet Psych/Mental Status: Normal Affect, Appropriate Vital Signs Temp Pulse Resp BP Pulse Ox 98.5 F 87 22 H 99/63 94 12/01/18 05:00 12/01/18 10:55 12/01/18 10:55 12/01/18 07:00 12/01/18 10:55 Oxygen Flow Rate (L/min) 4 Oxygen Delivery Method Nasal Cannula Weight: 58.4 kg Body Mass Index (BMI) 25.1 Finger Stick Blood Glucose 497 Intake and Output for Last 24 Hours 11/29/18 11/30/18 12/01/18 23:59 23:59 23:59 Intake Total 1520 / 1520 820 / 820 Output Total 100 / 100 950 / 950 Balance 1420 / 1420 -130 / -130 Microbiology Past 72 Hours 11/30/18 13:30 Bacteria Detection (PCR) - Final Blood Culture (Wb) #2 - Left Forearm Streptococcus pneumoniae Blood Culture - Preliminary 11/30/18 18:05 Streptococcus pneumoniae Antigen (M - Final Urine Catheter - Catheter Streptococcus pneumonia Ag 11/30/18 18:05 Legionella Antigen - Final Urine Catheter - Catheter Laboratory Tests Past 24 Hrs 11/30/18 11/30/18 11/30/18 13:30 13:30 13:30 WBC 26.5 H RBC 4.74 Hgb 12.4 Hct 36.9 L MCV 77.8 L MCH 26.2 L MCHC 33.6 RDW 14.7 H RDW Differential 40.3 Plt Count 394 MPV 10.9 Immature Gran % (Auto) 1.000 H Neut % (Auto) 93.8 H Lymph % (Auto) 3.2 L [place] % (Auto) 2.0 Eos % (Auto) 0.0 Baso % (Auto) 0.0 Absolute Neuts (auto) 24.9 H Absolute Lymphs (auto) 0.85 Total Counted Not Reportable ESR PT 15.8 H INR 1.3 Sodium 135 L Potassium 1.9 L* Chloride 96 L Carbon Dioxide 27.0 Anion Gap 12 BUN 11 Creatinine 0.98 Estim Creat Clear Calc 44.40 Est GFR (MDRD) Af Amer 74 Est GFR (MDRD) Non-Af 62 BUN/Creatinine Ratio 11.2 Glucose 412 H Hemoglobin A1c Lactic Acid Calcium 7.3 L Phosphorus Magnesium Troponin I 0.030 C-React Prot Ext Range B-Natriuretic Peptide Triglycerides Cholesterol LDL Cholesterol VLDL Cholesterol HDL Cholesterol Urine Color Urine Clarity Urine pH Ur Specific [place] Urine Protein Urine Glucose (UA) Urine Ketones Urine Occult Blood Urine Nitrite Urine Bilirubin Urine Urobilinogen Ur Leukocyte Esterase Urine RBC Urine WBC Ur Squamous Epith Cells Urine Bacteria Urine Mucus S.aureus Protein A PCR MRSA (PCR) 11/30/18 11/30/18 11/30/18 13:30 13:30 13:30 WBC RBC Hgb Hct MCV MCH MCHC RDW RDW Differential Plt Count MPV Immature Gran % (Auto) Neut % (Auto) Lymph % (Auto) [place] % (Auto) Eos % (Auto) Baso % (Auto) Absolute Neuts (auto) Absolute Lymphs (auto) Total Counted ESR PT INR Sodium Potassium Chloride Carbon Dioxide Anion Gap BUN Creatinine Estim Creat Clear Calc Est GFR (MDRD) Af Amer Est GFR (MDRD) Non-Af BUN/Creatinine Ratio Glucose Hemoglobin A1c Lactic Acid 3.7 H Calcium Phosphorus Magnesium 0.8 L* Troponin I C-React Prot Ext Range B-Natriuretic Peptide 206.5 H Triglycerides Cholesterol LDL Cholesterol VLDL Cholesterol HDL Cholesterol Urine Color Urine Clarity Urine pH Ur Specific [place] Urine Protein Urine Glucose (UA) Urine Ketones Urine Occult Blood Urine Nitrite Urine Bilirubin Urine Urobilinogen Ur Leukocyte Esterase Urine RBC Urine WBC Ur Squamous Epith Cells Urine Bacteria Urine Mucus S.aureus Protein A PCR MRSA (PCR) 11/30/18 11/30/18 11/30/18 13:30 15:05 18:00 WBC RBC Hgb Hct MCV MCH MCHC RDW RDW Differential Plt Count MPV Immature Gran % (Auto) Neut % (Auto) Lymph % (Auto) [place] % (Auto) Eos % (Auto) Baso % (Auto) Absolute Neuts (auto) Absolute Lymphs (auto) Total Counted ESR 69 H PT INR Sodium Potassium Chloride Carbon Dioxide Anion Gap BUN Creatinine Estim Creat Clear Calc Est GFR (MDRD) Af Amer Est GFR (MDRD) Non-Af BUN/Creatinine Ratio Glucose Hemoglobin A1c Lactic Acid Calcium Phosphorus Magnesium Troponin I C-React Prot Ext Range 291.00 H B-Natriuretic Peptide Triglycerides Cholesterol LDL Cholesterol VLDL Cholesterol HDL Cholesterol Urine Color Yellow Urine Clarity Clear Urine pH 6.0 Ur Specific [place] 1.020 Urine Protein 500 H Urine Glucose (UA) 1000 H Urine Ketones 5 H Urine Occult Blood 25 H Urine Nitrite Negative Urine Bilirubin Negative Urine Urobilinogen Normal Ur Leukocyte Esterase 1+ Urine RBC 0-5 SEEN Urine WBC 0 SEEN Ur Squamous Epith Cells 0-5 SEEN Urine Bacteria RARE Urine Mucus 0 SEEN S.aureus Protein A PCR MRSA (PCR) 11/30/18 11/30/18 11/30/18 18:00 18:00 18:45 WBC RBC Hgb Hct MCV MCH MCHC RDW RDW Differential Plt Count MPV Immature Gran % (Auto) Neut % (Auto) Lymph % (Auto) [place] % (Auto) Eos % (Auto) Baso % (Auto) Absolute Neuts (auto) Absolute Lymphs (auto) Total Counted ESR PT INR Sodium Potassium Chloride Carbon Dioxide Anion Gap BUN Creatinine Estim Creat Clear Calc Est GFR (MDRD) Af Amer Est GFR (MDRD) Non-Af BUN/Creatinine Ratio Glucose Hemoglobin A1c 10.9 H Lactic Acid 3.3 H Calcium Phosphorus Magnesium Troponin I C-React Prot Ext Range B-Natriuretic Peptide Triglycerides Cholesterol LDL Cholesterol VLDL Cholesterol HDL Cholesterol Urine Color Urine Clarity Urine pH Ur Specific [place] Urine Protein Urine Glucose (UA) Urine Ketones Urine Occult Blood Urine Nitrite Urine Bilirubin Urine Urobilinogen Ur Leukocyte Esterase Urine RBC Urine WBC Ur Squamous Epith Cells Urine Bacteria Urine Mucus S.aureus Protein A PCR NEGATIVE MRSA (PCR) Negative 11/30/18 12/01/18 12/01/18 23:45 06:10 06:10 WBC RBC Hgb Hct MCV MCH MCHC RDW RDW Differential Plt Count MPV Immature Gran % (Auto) Neut % (Auto) Lymph % (Auto) [place] % (Auto) Eos % (Auto) Baso % (Auto) Absolute Neuts (auto) Absolute Lymphs (auto) Total Counted ESR PT INR Sodium 138 140 Potassium 2.2 L* 2.3 L* Chloride 104 105 Carbon Dioxide 25.0 26.0 Anion Gap 9 9 BUN 15 15 Creatinine 0.95 0.90 Estim Creat Clear Calc 45.80 48.34 Est GFR (MDRD) Af Amer 77 82 Est GFR (MDRD) Non-Af 64 68 BUN/Creatinine Ratio 15.8 16.6 Glucose 388 H 279 H Hemoglobin A1c Lactic Acid Calcium 6.3 L* 6.8 L Phosphorus 1.9 L Magnesium 2.1 Troponin I C-React Prot Ext Range B-Natriuretic Peptide Triglycerides 99 Cholesterol 92 LDL Cholesterol 42 VLDL Cholesterol 20 HDL Cholesterol 30 L Urine Color Urine Clarity Urine pH Ur Specific [place] Urine Protein Urine Glucose (UA) Urine Ketones Urine Occult Blood Urine Nitrite Urine Bilirubin Urine Urobilinogen Ur Leukocyte Esterase Urine RBC Urine WBC Ur Squamous Epith Cells Urine Bacteria Urine Mucus S.aureus Protein A PCR MRSA (PCR) 12/01/18 12/01/18 06:10 06:10 WBC 18.2 H RBC 3.43 L Hgb 9.3 L Hct 28.5 L MCV 83.1 MCH 27.1 MCHC 32.6 RDW 14.7 H RDW Differential 43.6 Plt Count 265 MPV 10.8 Immature Gran % (Auto) 0.600 Neut % (Auto) 87.2 H Lymph % (Auto) 9.4 L [place] % (Auto) 2.7 Eos % (Auto) 0.0 Baso % (Auto) 0.1 Absolute Neuts (auto) 15.9 H Absolute Lymphs (auto) 1.72 Total Counted Not Reportable ESR PT INR Sodium Potassium Chloride Carbon Dioxide Anion Gap BUN Creatinine Estim Creat Clear Calc Est GFR (MDRD) Af Amer Est GFR (MDRD) Non-Af BUN/Creatinine Ratio Glucose Hemoglobin A1c Lactic Acid Calcium Phosphorus Cancelled Magnesium Troponin I C-React Prot Ext Range B-Natriuretic Peptide Triglycerides Cholesterol LDL Cholesterol VLDL Cholesterol HDL Cholesterol Urine Color Urine Clarity Urine pH Ur Specific [place] Urine Protein Urine Glucose (UA) Urine Ketones Urine Occult Blood Urine Nitrite Urine Bilirubin Urine Urobilinogen Ur Leukocyte Esterase Urine RBC Urine WBC Ur Squamous Epith Cells Urine Bacteria Urine Mucus S.aureus Protein A PCR MRSA (PCR) POC Glucose 12/01/18 12/01/18 12/01/18 06:11 02:49 01:40 POC Glucose 275 H 332 H 319 H 11/30/18 11/30/18 11/30/18 22:57 17:13 13:21 POC Glucose 396 H 357 H 412 H Medical Necessity - Tobacco Use Smoking Status: Never smoker Tobacco Use: Non-smoker Assessment/Plan All Active Problems Encephalopathy acute (Acute) Hypokalemia (Acute) Gastroenteritis (Acute) Acute respiratory failure with hypoxia (Acute) Severe sepsis (Acute) Hypomagnesemia (Acute) Osteomyelitis (Acute) CVA (cerebral vascular accident) (Acute) Gram-negative pneumonia (Acute) Foot abscess, left (Acute) Ulcers left foot Abscess left foot Cellulitis left foot Suspected osteomyelitis left foot DM with neuropathy Other comorbidities This patient was carefully examined and evaluated in detail again today for open ulcers to left foot. Patient's WBC of down to 18.2 today. Her ESR was 69 and her CRP was 291 when taken yesterday. Hemoglobin A1c 10.9. Patient is currently afebrile with vital signs stable. Blood and urine cultures showing strep pneumoniae on preliminary results. Ulcer cultures are still pending currently. MRSA pcr is negative. Patient currently on IV antibiotics. 3 view left foot x rays read by radiologist as showing soft tissue swelling with some gas in soft tissue in what appears to be 1st interspace where ulcer is noted as well as 2nd interspace where small ulcer noted. The x-rays also show loss of cortical definition of the second and possibly third met heads suspicious for osteomyelitis. MRI was ordered by Dr. Mancia, but will not be completed until tomorrow. I discussed the case with Dr. Garcia today and he still feels the patient is unable be cleared for surgery at this time and says that before any surgery can happen the patient will have to have further evaluation and further neurological workup and medical optimization from her pneumonia before she can be cleared. He anticipates either Sunday or Sunday. I discussed the patient's case with the patient in great detail and let her know that she is going to need to have a surgical procedure on her foot once she is stabilized. The aforementioned ulcers/i&d sites to left foot were carefully examined today. The cellulitis has slightly improved. Each of the areas were then flushed with copious amounts of sterile saline mixed with some betadine. Once complete, all of the aforementioned areas were packed with 1/4'' iodoform packing and then the foot was dressed with 4x4s, ABDs, kerlix and a lightly wrapped ALLIE bandage. Patient is to keep her foot elevated. She is to be non weight bearing to her left foot and if she absolutely has to be up, she is to be heel weight bearing to left foot. Nursing can reinforce dressing as needed. Continued medical management of this patient is appreciated by medical team. Podiatry will continue to follow this patient closely while in house.
--- NOTE | 2018-12-01 12:07 | PN_ITS ---
<Lucho Stephens - Last Filed: 12/01/18 11:56> Patient Problems: Active and Suspected Problems Hypokalemia (Acute) Gastroenteritis (Acute) Acute respiratory failure with hypoxia (Acute) Severe sepsis (Acute) Hypomagnesemia (Acute) Osteomyelitis (Acute) CVA (cerebral vascular accident) (Acute) Gram-negative pneumonia (Acute) Foot abscess, left (Acute) Subjective: Pt c/o foot and abdominal pain. No N/V. Diarrhea continues. No fevers or chills. She is SOB at rest with o2, and continues to have a nonproductive cough. She now admits to not taking eliquis for 4-6 weeks, no diabetic meds for 1 week. Ongoing R sided weakness. - Physical Exam General: Alert, Oriented x3, Cooperative HEENT: Atraumatic, PERRLA, EOMI, Normocephalic Neck: Supple, No JVD, Negative Carotid Bruits Lungs: Diminished, Rales, Rhonchi Cardiovascular: Regular rate, No murmurs Abdomen: Bowel Sounds Present, Soft, Non Tender Extremities: No edema, Capillary Refill Less than 3 Seconds Skin: Ulcer/ Wound - left foot MTP area with wounds, surrounding erythema, deep wound in 08/28 webspace Musculoskeletal: No Tenderness to Palpation of Joints or Extremities Neurological: Cranial nerves II-XII grossly intact Psych/Mental Status: Normal Affect, Appropriate, Alert and oriented to time, place, person, mood and affect Vital Signs Temp Pulse Resp BP Pulse Ox 98.5 F 87 22 H 99/63 94 12/01/18 05:00 12/01/18 10:55 12/01/18 10:55 12/01/18 07:00 12/01/18 10:55 Oxygen Flow Rate (L/min) 4 Oxygen Delivery Method Nasal Cannula Weight: 128 lb 11.999 oz Body Mass Index (BMI) 25.1 Finger Stick Blood Glucose 497 Intake and Output for Last 24 Hours 11/29/18 11/30/18 12/01/18 23:59 23:59 23:59 Intake Total 1520 / 1520 820 / 820 Output Total 100 / 100 950 / 950 Balance 1420 / 1420 -130 / -130 Microbiology Past 72 Hours 11/30/18 13:30 Bacteria Detection (PCR) - Final Blood Culture (Wb) #2 - Left Forearm Streptococcus pneumoniae Blood Culture - Preliminary 11/30/18 18:05 Streptococcus pneumoniae Antigen (M - Final Urine Catheter - Catheter Streptococcus pneumonia Ag 11/30/18 18:05 Legionella Antigen - Final Urine Catheter - Catheter Laboratory Tests Past 24 Hrs 11/30/18 11/30/18 11/30/18 13:30 13:30 13:30 WBC 26.5 H RBC 4.74 Hgb 12.4 Hct 36.9 L MCV 77.8 L MCH 26.2 L MCHC 33.6 RDW 14.7 H RDW Differential 40.3 Plt Count 394 MPV 10.9 Immature Gran % (Auto) 1.000 H Neut % (Auto) 93.8 H Lymph % (Auto) 3.2 L [place] % (Auto) 2.0 Eos % (Auto) 0.0 Baso % (Auto) 0.0 Absolute Neuts (auto) 24.9 H Absolute Lymphs (auto) 0.85 Total Counted Not Reportable ESR PT 15.8 H INR 1.3 Sodium 135 L Potassium 1.9 L* Chloride 96 L Carbon Dioxide 27.0 Anion Gap 12 BUN 11 Creatinine 0.98 Estim Creat Clear Calc 44.40 Est GFR (MDRD) Af Amer 74 Est GFR (MDRD) Non-Af 62 BUN/Creatinine Ratio 11.2 Glucose 412 H Hemoglobin A1c Lactic Acid Calcium 7.3 L Phosphorus Magnesium Troponin I 0.030 C-React Prot Ext Range B-Natriuretic Peptide Triglycerides Cholesterol LDL Cholesterol VLDL Cholesterol HDL Cholesterol Urine Color Urine Clarity Urine pH Ur Specific [place] Urine Protein Urine Glucose (UA) Urine Ketones Urine Occult Blood Urine Nitrite Urine Bilirubin Urine Urobilinogen Ur Leukocyte Esterase Urine RBC Urine WBC Ur Squamous Epith Cells Urine Bacteria Urine Mucus S.aureus Protein A PCR MRSA (PCR) 11/30/18 11/30/18 11/30/18 13:30 13:30 13:30 WBC RBC Hgb Hct MCV MCH MCHC RDW RDW Differential Plt Count MPV Immature Gran % (Auto) Neut % (Auto) Lymph % (Auto) [place] % (Auto) Eos % (Auto) Baso % (Auto) Absolute Neuts (auto) Absolute Lymphs (auto) Total Counted ESR PT INR Sodium Potassium Chloride Carbon Dioxide Anion Gap BUN Creatinine Estim Creat Clear Calc Est GFR (MDRD) Af Amer Est GFR (MDRD) Non-Af BUN/Creatinine Ratio Glucose Hemoglobin A1c Lactic Acid 3.7 H Calcium Phosphorus Magnesium 0.8 L* Troponin I C-React Prot Ext Range B-Natriuretic Peptide 206.5 H Triglycerides Cholesterol LDL Cholesterol VLDL Cholesterol HDL Cholesterol Urine Color Urine Clarity Urine pH Ur Specific [place] Urine Protein Urine Glucose (UA) Urine Ketones Urine Occult Blood Urine Nitrite Urine Bilirubin Urine Urobilinogen Ur Leukocyte Esterase Urine RBC Urine WBC Ur Squamous Epith Cells Urine Bacteria Urine Mucus S.aureus Protein A PCR MRSA (PCR) 11/30/18 11/30/18 11/30/18 13:30 15:05 18:00 WBC RBC Hgb Hct MCV MCH MCHC RDW RDW Differential Plt Count MPV Immature Gran % (Auto) Neut % (Auto) Lymph % (Auto) [place] % (Auto) Eos % (Auto) Baso % (Auto) Absolute Neuts (auto) Absolute Lymphs (auto) Total Counted ESR 69 H PT INR Sodium Potassium Chloride Carbon Dioxide Anion Gap BUN Creatinine Estim Creat Clear Calc Est GFR (MDRD) Af Amer Est GFR (MDRD) Non-Af BUN/Creatinine Ratio Glucose Hemoglobin A1c Lactic Acid Calcium Phosphorus Magnesium Troponin I C-React Prot Ext Range 291.00 H B-Natriuretic Peptide Triglycerides Cholesterol LDL Cholesterol VLDL Cholesterol HDL Cholesterol Urine Color Yellow Urine Clarity Clear Urine pH 6.0 Ur Specific [place] 1.020 Urine Protein 500 H Urine Glucose (UA) 1000 H Urine Ketones 5 H Urine Occult Blood 25 H Urine Nitrite Negative Urine Bilirubin Negative Urine Urobilinogen Normal Ur Leukocyte Esterase 1+ Urine RBC 0-5 SEEN Urine WBC 0 SEEN Ur Squamous Epith Cells 0-5 SEEN Urine Bacteria RARE Urine Mucus 0 SEEN S.aureus Protein A PCR MRSA (PCR) 11/30/18 11/30/18 11/30/18 18:00 18:00 18:45 WBC RBC Hgb Hct MCV MCH MCHC RDW RDW Differential Plt Count MPV Immature Gran % (Auto) Neut % (Auto) Lymph % (Auto) [place] % (Auto) Eos % (Auto) Baso % (Auto) Absolute Neuts (auto) Absolute Lymphs (auto) Total Counted ESR PT INR Sodium Potassium Chloride Carbon Dioxide Anion Gap BUN Creatinine Estim Creat Clear Calc Est GFR (MDRD) Af Amer Est GFR (MDRD) Non-Af BUN/Creatinine Ratio Glucose Hemoglobin A1c 10.9 H Lactic Acid 3.3 H Calcium Phosphorus Magnesium Troponin I C-React Prot Ext Range B-Natriuretic Peptide Triglycerides Cholesterol LDL Cholesterol VLDL Cholesterol HDL Cholesterol Urine Color Urine Clarity Urine pH Ur Specific [place] Urine Protein Urine Glucose (UA) Urine Ketones Urine Occult Blood Urine Nitrite Urine Bilirubin Urine Urobilinogen Ur Leukocyte Esterase Urine RBC Urine WBC Ur Squamous Epith Cells Urine Bacteria Urine Mucus S.aureus Protein A PCR NEGATIVE MRSA (PCR) Negative 11/30/18 12/01/18 12/01/18 23:45 06:10 06:10 WBC RBC Hgb Hct MCV MCH MCHC RDW RDW Differential Plt Count MPV Immature Gran % (Auto) Neut % (Auto) Lymph % (Auto) [place] % (Auto) Eos % (Auto) Baso % (Auto) Absolute Neuts (auto) Absolute Lymphs (auto) Total Counted ESR PT INR Sodium 138 140 Potassium 2.2 L* 2.3 L* Chloride 104 105 Carbon Dioxide 25.0 26.0 Anion Gap 9 9 BUN 15 15 Creatinine 0.95 0.90 Estim Creat Clear Calc 45.80 48.34 Est GFR (MDRD) Af Amer 77 82 Est GFR (MDRD) Non-Af 64 68 BUN/Creatinine Ratio 15.8 16.6 Glucose 388 H 279 H Hemoglobin A1c Lactic Acid Calcium 6.3 L* 6.8 L Phosphorus 1.9 L Magnesium 2.1 Troponin I C-React Prot Ext Range B-Natriuretic Peptide Triglycerides 99 Cholesterol 92 LDL Cholesterol 42 VLDL Cholesterol 20 HDL Cholesterol 30 L Urine Color Urine Clarity Urine pH Ur Specific [place] Urine Protein Urine Glucose (UA) Urine Ketones Urine Occult Blood Urine Nitrite Urine Bilirubin Urine Urobilinogen Ur Leukocyte Esterase Urine RBC Urine WBC Ur Squamous Epith Cells Urine Bacteria Urine Mucus S.aureus Protein A PCR MRSA (PCR) 12/01/18 12/01/18 06:10 06:10 WBC 18.2 H RBC 3.43 L Hgb 9.3 L Hct 28.5 L MCV 83.1 MCH 27.1 MCHC 32.6 RDW 14.7 H RDW Differential 43.6 Plt Count 265 MPV 10.8 Immature Gran % (Auto) 0.600 Neut % (Auto) 87.2 H Lymph % (Auto) 9.4 L [place] % (Auto) 2.7 Eos % (Auto) 0.0 Baso % (Auto) 0.1 Absolute Neuts (auto) 15.9 H Absolute Lymphs (auto) 1.72 Total Counted Not Reportable ESR PT INR Sodium Potassium Chloride Carbon Dioxide Anion Gap BUN Creatinine Estim Creat Clear Calc Est GFR (MDRD) Af Amer Est GFR (MDRD) Non-Af BUN/Creatinine Ratio Glucose Hemoglobin A1c Lactic Acid Calcium Phosphorus Cancelled Magnesium Troponin I C-React Prot Ext Range B-Natriuretic Peptide Triglycerides Cholesterol LDL Cholesterol VLDL Cholesterol HDL Cholesterol Urine Color Urine Clarity Urine pH Ur Specific [place] Urine Protein Urine Glucose (UA) Urine Ketones Urine Occult Blood Urine Nitrite Urine Bilirubin Urine Urobilinogen Ur Leukocyte Esterase Urine RBC Urine WBC Ur Squamous Epith Cells Urine Bacteria Urine Mucus S.aureus Protein A PCR MRSA (PCR) POC Glucose 12/01/18 12/01/18 12/01/18 06:11 02:49 01:40 POC Glucose 275 H 332 H 319 H 11/30/18 11/30/18 11/30/18 22:57 17:13 13:21 POC Glucose 396 H 357 H 412 H Medical Necessity - Tobacco Use Smoking Status: Never smoker Tobacco Use: Non-smoker Assessment/Plan All Active Problems Encephalopathy acute (Acute) Hypokalemia (Acute) Gastroenteritis (Acute) Acute respiratory failure with hypoxia (Acute) Severe sepsis (Acute) Hypomagnesemia (Acute) Osteomyelitis (Acute) CVA (cerebral vascular accident) (Acute) Gram-negative pneumonia (Acute) Foot abscess, left (Acute) 1. New Acute CVA 2/2 medication noncompliance - Neuro following. 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 MRA neck pending -Echo tomorrow -On asa/statin/eliquis -PT/OT/ST evals 2. Acute severe sepsis, with bacteremia, 2/2 multiple infectious sources - as evidenced by leukocytosis, tachypnea, tachycardia, lactic acidosis. Infectious sources include pneumonia, osteomyelitis, and gastroenteritis. -Blood culture showing Strep pneumo. -Lactate trending down -WBCs trending down 3. Acute hypoxic respiratory failure 2/2 Acute BL HCAP - strep ag +, along with blood culture. continue zosyn, no more vanc. legionella neg. Urine cx neg. Repeat CXR with bilateral pna. -Continue Aerosols, mucinex, pep/IS, O2, 4. L foot suspected osteomyelitis and cellulitis - MRSA/MSSA pcr negative - stop vanc continue zosyn. Foot XR shows possible osteo and cellulitis. Culture pending. -bedside debridement per Dr. Schmidt done, plans for OR when stable. -MRI foot tomorrow AM. -ESR 69, CRP 5. Acute gastroenteritis - suspect viral. seen on CT. Still with abd pain and tenderness, less tender than yesterday, Check Cdiff with recent hospitalization and abx use. Diarrhea continues. 6. Hypokalemia, hypomagnesemia, hyponatremia, hypophosphatemia - replete. check phos. 2/2 malnutrition and gastroenteritis, pt eating and drinking little at home. Dietary eval. CMP in AM. 7. T2DM with hyperglycemia - improving. Pt off DM meds x 1 week. A1C poor at 10.9. -Titrate up lantus, continue SSI. 8. PAfib - continue eliquis, lopressor. Echo as above. She is currently in SR. EKG shows SR with nonspecific ST changes, Long QTc: 517 - avoid QT prolonging agents. 9. HTN - stable, BP meds were held this AM. 10. Anx/Depression - zoloft. DVT ppx: eliquis DC planning: PTOT. Not caring for self at home as she is very disheveled and not taking her medications. She will likely benefit from placement. This patient was seen by Lucho Stephens PA-C under the supervision of Dr. Garcia <Humphrey Garcia - Last Filed: 12/01/18 13:23> - Physical Exam Vital Signs Temp Pulse Resp BP Pulse Ox 98.5 F 87 22 H 99/63 94 12/01/18 05:00 12/01/18 10:55 12/01/18 10:55 12/01/18 07:00 12/01/18 10:55 Oxygen Flow Rate (L/min) 4 Oxygen Delivery Method Nasal Cannula Weight: 128 lb 11.999 oz Body Mass Index (BMI) 25.1 Finger Stick Blood Glucose 497 Intake and Output for Last 24 Hours 11/29/18 11/30/18 12/01/18 23:59 23:59 23:59 Intake Total 1520 / 1520 820 / 820 Output Total 100 / 100 950 / 950 Balance 1420 / 1420 -130 / -130 Microbiology Past 72 Hours 11/30/18 18:05 Wound Culture - Preliminary Wound - Left Foot Gram negative bridgett Gram positive organism 11/30/18 15:05 Urine Culture - Preliminary Urine, Clean Catch Culture exhibits no growth. 11/30/18 13:30 Bacteria Detection (PCR) - Final Blood Culture (Wb) #2 - Left Forearm Streptococcus pneumoniae Blood Culture - Preliminary 11/30/18 18:05 Streptococcus pneumoniae Antigen (M - Final Urine Catheter - Catheter Streptococcus pneumonia Ag 11/30/18 18:05 Legionella Antigen - Final Urine Catheter - Catheter Laboratory Tests Past 24 Hrs 11/30/18 11/30/18 11/30/18 13:30 13:30 13:30 WBC 26.5 H RBC 4.74 Hgb 12.4 Hct 36.9 L MCV 77.8 L MCH 26.2 L MCHC 33.6 RDW 14.7 H RDW Differential 40.3 Plt Count 394 MPV 10.9 Immature Gran % (Auto) 1.000 H Neut % (Auto) 93.8 H Lymph % (Auto) 3.2 L [place] % (Auto) 2.0 Eos % (Auto) 0.0 Baso % (Auto) 0.0 Absolute Neuts (auto) 24.9 H Absolute Lymphs (auto) 0.85 Total Counted Not Reportable ESR PT 15.8 H INR 1.3 Sodium 135 L Potassium 1.9 L* Chloride 96 L Carbon Dioxide 27.0 Anion Gap 12 BUN 11 Creatinine 0.98 Estim Creat Clear Calc 44.40 Est GFR (MDRD) Af Amer 74 Est GFR (MDRD) Non-Af 62 BUN/Creatinine Ratio 11.2 Glucose 412 H Hemoglobin A1c Lactic Acid Calcium 7.3 L Phosphorus Magnesium Troponin I 0.030 C-React Prot Ext Range B-Natriuretic Peptide Triglycerides Cholesterol LDL Cholesterol VLDL Cholesterol HDL Cholesterol Urine Color Urine Clarity Urine pH Ur Specific [place] Urine Protein Urine Glucose (UA) Urine Ketones Urine Occult Blood Urine Nitrite Urine Bilirubin Urine Urobilinogen Ur Leukocyte Esterase Urine RBC Urine WBC Ur Squamous Epith Cells Urine Bacteria Urine Mucus S.aureus Protein A PCR MRSA (PCR) 11/30/18 11/30/18 11/30/18 13:30 13:30 13:30 WBC RBC Hgb Hct MCV MCH MCHC RDW RDW Differential Plt Count MPV Immature Gran % (Auto) Neut % (Auto) Lymph % (Auto) [place] % (Auto) Eos % (Auto) Baso % (Auto) Absolute Neuts (auto) Absolute Lymphs (auto) Total Counted ESR PT INR Sodium Potassium Chloride Carbon Dioxide Anion Gap BUN Creatinine Estim Creat Clear Calc Est GFR (MDRD) Af Amer Est GFR (MDRD) Non-Af BUN/Creatinine Ratio Glucose Hemoglobin A1c Lactic Acid 3.7 H Calcium Phosphorus Magnesium 0.8 L* Troponin I C-React Prot Ext Range B-Natriuretic Peptide 206.5 H Triglycerides Cholesterol LDL Cholesterol VLDL Cholesterol HDL Cholesterol Urine Color Urine Clarity Urine pH Ur Specific [place] Urine Protein Urine Glucose (UA) Urine Ketones Urine Occult Blood Urine Nitrite Urine Bilirubin Urine Urobilinogen Ur Leukocyte Esterase Urine RBC Urine WBC Ur Squamous Epith Cells Urine Bacteria Urine Mucus S.aureus Protein A PCR MRSA (PCR) 11/30/18 11/30/18 11/30/18 13:30 15:05 18:00 WBC RBC Hgb Hct MCV MCH MCHC RDW RDW Differential Plt Count MPV Immature Gran % (Auto) Neut % (Auto) Lymph % (Auto) [place] % (Auto) Eos % (Auto) Baso % (Auto) Absolute Neuts (auto) Absolute Lymphs (auto) Total Counted ESR 69 H PT INR Sodium Potassium Chloride Carbon Dioxide Anion Gap BUN Creatinine Estim Creat Clear Calc Est GFR (MDRD) Af Amer Est GFR (MDRD) Non-Af BUN/Creatinine Ratio Glucose Hemoglobin A1c Lactic Acid Calcium Phosphorus Magnesium Troponin I C-React Prot Ext Range 291.00 H B-Natriuretic Peptide Triglycerides Cholesterol LDL Cholesterol VLDL Cholesterol HDL Cholesterol Urine Color Yellow Urine Clarity Clear Urine pH 6.0 Ur Specific [place] 1.020 Urine Protein 500 H Urine Glucose (UA) 1000 H Urine Ketones 5 H Urine Occult Blood 25 H Urine Nitrite Negative Urine Bilirubin Negative Urine Urobilinogen Normal Ur Leukocyte Esterase 1+ Urine RBC 0-5 SEEN Urine WBC 0 SEEN Ur Squamous Epith Cells 0-5 SEEN Urine Bacteria RARE Urine Mucus 0 SEEN S.aureus Protein A PCR MRSA (PCR) 11/30/18 11/30/18 11/30/18 18:00 18:00 18:45 WBC RBC Hgb Hct MCV MCH MCHC RDW RDW Differential Plt Count MPV Immature Gran % (Auto) Neut % (Auto) Lymph % (Auto) [place] % (Auto) Eos % (Auto) Baso % (Auto) Absolute Neuts (auto) Absolute Lymphs (auto) Total Counted ESR PT INR Sodium Potassium Chloride Carbon Dioxide Anion Gap BUN Creatinine Estim Creat Clear Calc Est GFR (MDRD) Af Amer Est GFR (MDRD) Non-Af BUN/Creatinine Ratio Glucose Hemoglobin A1c 10.9 H Lactic Acid 3.3 H Calcium Phosphorus Magnesium Troponin I C-React Prot Ext Range B-Natriuretic Peptide Triglycerides Cholesterol LDL Cholesterol VLDL Cholesterol HDL Cholesterol Urine Color Urine Clarity Urine pH Ur Specific [place] Urine Protein Urine Glucose (UA) Urine Ketones Urine Occult Blood Urine Nitrite Urine Bilirubin Urine Urobilinogen Ur Leukocyte Esterase Urine RBC Urine WBC Ur Squamous Epith Cells Urine Bacteria Urine Mucus S.aureus Protein A PCR NEGATIVE MRSA (PCR) Negative 11/30/18 12/01/18 12/01/18 23:45 06:10 06:10 WBC RBC Hgb Hct MCV MCH MCHC RDW RDW Differential Plt Count MPV Immature Gran % (Auto) Neut % (Auto) Lymph % (Auto) [place] % (Auto) Eos % (Auto) Baso % (Auto) Absolute Neuts (auto) Absolute Lymphs (auto) Total Counted ESR PT INR Sodium 138 140 Potassium 2.2 L* 2.3 L* Chloride 104 105 Carbon Dioxide 25.0 26.0 Anion Gap 9 9 BUN 15 15 Creatinine 0.95 0.90 Estim Creat Clear Calc 45.80 48.34 Est GFR (MDRD) Af Amer 77 82 Est GFR (MDRD) Non-Af 64 68 BUN/Creatinine Ratio 15.8 16.6 Glucose 388 H 279 H Hemoglobin A1c Lactic Acid Calcium 6.3 L* 6.8 L Phosphorus 1.9 L Magnesium 2.1 Troponin I C-React Prot Ext Range B-Natriuretic Peptide Triglycerides 99 Cholesterol 92 LDL Cholesterol 42 VLDL Cholesterol 20 HDL Cholesterol 30 L Urine Color Urine Clarity Urine pH Ur Specific [place] Urine Protein Urine Glucose (UA) Urine Ketones Urine Occult Blood Urine Nitrite Urine Bilirubin Urine Urobilinogen Ur Leukocyte Esterase Urine RBC Urine WBC Ur Squamous Epith Cells Urine Bacteria Urine Mucus S.aureus Protein A PCR MRSA (PCR) 12/01/18 12/01/18 06:10 06:10 WBC 18.2 H RBC 3.43 L Hgb 9.3 L Hct 28.5 L MCV 83.1 MCH 27.1 MCHC 32.6 RDW 14.7 H RDW Differential 43.6 Plt Count 265 MPV 10.8 Immature Gran % (Auto) 0.600 Neut % (Auto) 87.2 H Lymph % (Auto) 9.4 L [place] % (Auto) 2.7 Eos % (Auto) 0.0 Baso % (Auto) 0.1 Absolute Neuts (auto) 15.9 H Absolute Lymphs (auto) 1.72 Total Counted Not Reportable ESR PT INR Sodium Potassium Chloride Carbon Dioxide Anion Gap BUN Creatinine Estim Creat Clear Calc Est GFR (MDRD) Af Amer Est GFR (MDRD) Non-Af BUN/Creatinine Ratio Glucose Hemoglobin A1c Lactic Acid Calcium Phosphorus Cancelled Magnesium Troponin I C-React Prot Ext Range B-Natriuretic Peptide Triglycerides Cholesterol LDL Cholesterol VLDL Cholesterol HDL Cholesterol Urine Color Urine Clarity Urine pH Ur Specific [place] Urine Protein Urine Glucose (UA) Urine Ketones Urine Occult Blood Urine Nitrite Urine Bilirubin Urine Urobilinogen Ur Leukocyte Esterase Urine RBC Urine WBC Ur Squamous Epith Cells Urine Bacteria Urine Mucus S.aureus Protein A PCR MRSA (PCR) POC Glucose 12/01/18 12/01/18 12/01/18 11:51 06:11 02:49 POC Glucose 200 H 275 H 332 H 12/01/18 11/30/18 11/30/18 01:40 22:57 17:13 POC Glucose 319 H 396 H 357 H 11/30/18 13:21 POC Glucose 412 H Code Visit Addendum: Dr. Garcia I personally examined the patient and reviewed the chart. I agree with the above. 58-year-old female who is very sick, with severe sepsis secondary to bacteremia from pneumonia as well as cellulitis, she has a new acute CVA since she has not been taking her Eliquis for her A. fib, she has possible osteomyelitis, and multiple electrolytes need to be replaced. She underwent the MRI demonstrating new acute CVA today. She is positive for strep pneumo and her pneumonia so we will will continue with Zosyn to treat her pneumonia as well as her cellulitis. The MRSA/MSSA PCR is negative therefore we will continue with just the Zosyn for now. She will have an MRI of her foot tomorrow, and will likely need to be transferred to a senior living facility at discharge. Otherwise we will proceed with standard workup for her CVA. Inpatient E&M: 27608 Subs Hosp L2
[2018-12-01 12:21] LABS: Bedside Glucose 200 mg/dL (70-110)
[2018-12-01] MEDS: APIXABAN 5 MG TABLET PO ×2 (14:40→22:37)
[2018-12-01] MEDS: Aspirin 81 MG TAB.CHEW PO (14:40)
[2018-12-01] MEDS: Menthol/Lanolin/Calamine/Znox 113 GM Tube 1 APPLIC TOPICAL ×2 (15:53→22:36)
[2018-12-01 16:20] LABS: Bedside Glucose 315 mg/dL (70-110)
[2018-12-01] MEDS: guaiFENesin 1,200 MG Tablet 1200 MG PO (17:19)
[2018-12-01] MEDS: Na Biphos/Potassium Phosphate PACKET 1 PACKET PO ×2 (17:19→22:44)
[2018-12-01] MEDS: Acetaminophen 325 MG Tablet 650 MG PO (17:19)
[2018-12-01] MEDS: Magnesium Oxide 400 MG Tablet 800 MG PO (19:06)
[2018-12-01 19:16] LABS: Bedside Glucose 275 mg/dL (70-110)
[2018-12-01] MEDS: guaiFENesin 10 ML UDC (200MG/10ML) PO (20:41)
[2018-12-01] MEDS: Atorvastatin Calcium 20 MG Tablet PO (22:38)
[2018-12-01] MEDS: Metoprolol Tartrate 25 MG Tablet PO (22:38)
[2018-12-02] VITALS (25 sets, daily range): BP systolic 126–159; BP diastolic 80–99; PULSE 79–96; RESP 14–23; TEMP 36.3–37.5; O2SAT 90–97; BMI 25.1; BMI 25.2
[2018-12-02] MEDS: guaiFENesin 10 ML UDC (200MG/10ML) PO (00:42)
[2018-12-02] MEDS: 0.9% NaCl Peripheral Flush Adult/Peds IV ×5 (00:52→10:56)
[2018-12-02 01:01] LABS: Bedside Glucose 284 mg/dL (70-110)
[2018-12-02] MEDS: Insulin Lispro 100 UNIT/ML INSULN.PEN SQ ×3 (02:42→21:25)
[2018-12-02 03:06] LABS: Bedside Glucose 221 mg/dL (70-110)
[2018-12-02 03:36] LABS: Vancomycin, Trough Level 9.2 ug/mL (5.0-15.0)
[2018-12-02] MEDS: Vancomycin IV 500 MG/100 ML BAG 100 MG IV (04:31)
--- NOTE | 2018-12-02 05:05 | PCM.RX.CS ---
Consult Pharmacy has been consulted to manage selected antiobiotic: Vancomycin Type of Consult: Follow-up Suspected Infection: Pneumonia Prior Doses of Antibiotics Received/Current Regimen: Medications Vancomycin HCl 1,000 mg/ (Sodium Chloride) 200 mls @ 200 mls/hr IV Q12H [facility] Discontinued Medications Vancomycin HCl () 500 mg in 100 mls @ 100 mls/hr IV Q12H [facility] Last Admin: 12/02/18 04:31 Dose: 100 mls/hr Labs: Sodium 140 mmol/L (136-145) 12/01/18 06:10 Potassium 2.3 mmol/L (3.5-5.1) L* 12/01/18 06:10 Chloride 105 mmol/L (98-107) 12/01/18 06:10 Carbon Dioxide 26.0 mmol/L (21.0-32.0) 12/01/18 06:10 Anion Gap 9 (5-15) 12/01/18 06:10 BUN 15 mg/dL (7-18) 12/01/18 06:10 Creatinine 0.90 mg/dL (0.55-1.02) 12/01/18 06:10 Est GFR (MDRD) Af Amer 82 mL/min (>60) 12/01/18 06:10 Est GFR (MDRD) Non-Af 68 mL/min (>60) 12/01/18 06:10 BUN/Creatinine Ratio 16.6 RATIO (10-20) 12/01/18 06:10 Glucose 279 mg/dL (74-106) H 12/01/18 06:10 Vancomycin Trough 9.2 ug/mL (5.0-15.0) 12/02/18 02:45 Microbiology: Microbiology 11/30/18 18:05 Wound - Left Foot Gram Stain - Final 11/30/18 18:05 Wound - Left Foot Wound Culture - Preliminary Gram negative bridgett Gram positive organism 11/30/18 15:05 Urine, Clean Catch Urine Culture - Preliminary Culture exhibits no growth. 11/30/18 13:30 Blood Culture (Wb) #2 - Left Forearm Bacteria Detection (PCR) - Final Streptococcus pneumoniae 11/30/18 13:30 Blood Culture (Wb) #2 - Left Forearm Blood Culture - Preliminary 11/30/18 18:05 Urine Catheter - Catheter Streptococcus pneumoniae Antigen (M - Final Streptococcus pneumonia Ag 11/30/18 18:05 Urine Catheter - Catheter Legionella Antigen - Final Weight used for dosin.4 kg Estimated Creatinine Clearance: 48 Goal Trough: 15-20 mcg/mL Pharmacy Plan for Drug Dosing: Trough level returned at 9.2, below the target range 15-20. Dose was increased to 1000mg q12h, and will redraw trough in 4 doses. Pharmacy Service will continue to monitor and adjust dosing as required. Follow-Up Labs: Trough Vancomycin Labs to be done on [date and time ordered]: 12/04/18 @[id number]
[2018-12-02 05:41] LABS: Absolute Lymphocyte Count 1.54 X10^3/ul (0.83-4.51); Absolute Neutrophil Count 8.5 X10^3/uL (2.0-7.7); Basophil# 0.01 X10^3/uL; Basophil% 0.1 % (0-1); Eosinophil# 0.02 X10^3/uL; Eosinophils% 0.2 % (0-5); Hematocrit 26.3 % (37-47); Hemoglobin 8.4 g/dl (12.0-15.0); Lymphocyte # 1.54 X10^3/ul (4.0); Lymphocyte % 14.7 % (19-41); Mean Corp Hgb Conc 31.9 g/gl (32-36); Mean Corpuscular Hgb 26.3 pg (27.0-32.0); Mean Corpuscular Volume 82.2 fL (81-99); Mean Platelet Vol. 11.1 fl (6.2-12.0); Monocyte# 0.38 X10^3/uL; Monocyte% 3.6 % (0-10); Neutrophil # 8.51 X10^3/uL (2.7-7.7); Neutrophil % 81.1 % (47-70); Platelet Count 270 K/mm3 (150-450); RBC Distribution Width CV 14.5 % (11.6-14.6); RBC Distribution Width SD 41.7 fl (35.1-43.9); White Blood Count 10.5 K/mm3 (4.4-11.0)
[2018-12-02 05:46] LABS: POSITIVE COUNT NO; POSITIVE DIFFERENTIAL NO; POSITIVE MORPHOLOGY NO
[2018-12-02 05:54] LABS: ALB/GLOB Ratio 0.4 RATIO (0.9-2.4); AST(SGOT) 16 U/L (15-37); Alanine Aminotransfer ALT/SGPT 10 U/L (13-56); Albumin, Serum 1.5 g/dL (3.2-5.0); Alkaline Phosphatase 80 U/L (45-117); Anion Gap 6 (5-15); BUN 15 mg/dL (7-18); Chloride 107 mmol/L (98-107); EST Glomerular Filtration Rate 109 mL/min (>60); Est Glom Filt Rate - Afr Amer 131 mL/min (>60); Estimated Creatinine Clearance 72.52 ml/min; Globulin 3.8 g/dL (2.2-4.2); Glucose 164 mg/dL (74-106); Phosphorus 1.6 mg/dL (2.5-4.9); Potassium 2.8 mmol/L (3.5-5.1); Protein, Total 5.3 g/dL (6.4-8.2); Sodium Level 141 mmol/L (136-145)
[2018-12-02] MEDS: Ipratropium/Albuterol Sulfate 3 ML AMPUL.NEB INHALATION ×3 (06:46→20:05)
[2018-12-02 08:47] LABS: Iron 37 ug/dL (50-170); Iron Binding Capacity,Total 179 ug/dL (250-450); PERCENT IRON SATURATION 20.7 % (15.0-55.0)
--- NOTE | 2018-12-02 09:00 | MRI_ITS ---
STUDY: MRI LEFT FOREFOOT WITHOUT CONTRAST REASON FOR EXAM: Left foot infection with ulcers, stepped on a staple approximately 1 week ago, suspicion of osteomyelitis of the second and third metatarsal heads on radiographs. TECHNIQUE: Standardized fat and water weighted pulse sequences were obtained in all 3 orthogonal planes. COMPARISON: Radiographs 11/30/2018. FINDINGS: Normal metatarsophalangeal joint of the hallux. Normal tibial and fibular sesamoids, with normal sesamoids-first metatarsal articulations. Normal interphalangeal joint of the hallux. There is mild bone edema of the base and diaphysis of the first proximal phalanx (inversion recovery sagittal images 5, 6) with mild decreased T1 bone marrow signal (T1 sagittal images 5, 6), suspicious of osteomyelitis. Normal medial and lateral heads of the flexor hallucis brevis tendons. Normal flexor and extensor hallucis longus tendons. There is bone edema of the second metatarsal head and second proximal phalanx (inversion recovery sagittal images 10, 11) with corresponding decreased T1 bone marrow signal (T1 sagittal images 10, 11) suspicious of osteomyelitis. There is bone edema of the head/neck of the third metatarsal and base and diaphysis of the third proximal phalanx (inversion recovery sagittal images 13, 14 with corresponding decreased T1 bone marrow signal (T1 sagittal images 13, 14) suspicious of osteomyelitis. Normal fourth and fifth metacarpophalangeal joints. Normal interphalangeal joints of the lesser toes. Normal flexor and extensor tendons of the second through fifth toes. There is edema in the intrinsic muscles of the forefoot (inversion recovery sagittal images 6-15) suggestive of myositis. There is edema in the subcutis adipose space particularly adjacent to the first and second metatarsophalangeal joints and gas in the subcutis adipose space dorsal to the third metatarsophalangeal joint (T1 axial series 4 image 15). There is no demonstrated focal fluid collection to indicate abscess. MRI/Lower Ext/No Jt/w/o IMPRESSION: Signal alterations of the second and third metatarsal heads and first through third proximal phalanges, suspicious of osteomyelitis. Edema in the intrinsic muscles of the forefoot suggestive of myositis. Edema in the subcutis adipose space without demonstrated soft tissue abscess. Electronically Signed: Estiven Erickson MD at 11:24 EDT Tel , Service support ,
[2018-12-02] MEDS: Aspirin 81 MG TAB.CHEW PO (09:11)
[2018-12-02] MEDS: Metoprolol Tartrate 25 MG Tablet PO ×2 (09:12→21:11)
[2018-12-02] MEDS: APIXABAN 5 MG TABLET PO ×2 (09:12→21:12)
[2018-12-02] MEDS: Menthol/Lanolin/Calamine/Znox 113 GM Tube 1 APPLIC TOPICAL ×2 (09:13→21:12)
--- NOTE | 2018-12-02 09:22 | NURSING ---
Patient leaving for MRI
[2018-12-02 09:26] LABS: Bedside Glucose 157 mg/dL (70-110)
[2018-12-02 09:30] LABS: Ferritin 361 ng/mL (8-252); Magnesium 1.7 mg/dL (1.6-2.6)
[2018-12-02] MEDS: Potassium Chloride 10mEq/100mL 10 MEQ/100 ML IV.SOLN. 100 MEQ IV BOLUS ×2 (10:23→11:37)
[2018-12-02] MEDS: Spironolactone 25 MG Tablet PO (10:23)
[2018-12-02] MEDS: Na Biphos/Potassium Phosphate PACKET 1 PACKET PO ×3 (10:23→21:12)
[2018-12-02 10:56] LABS: Bedside Glucose 121 mg/dL (70-110)
[2018-12-02] MEDS: Ketorolac 15 MG/ML Vial IV (10:56)
--- NOTE | 2018-12-02 11:13 | PN_ITS ---
Patient Problems: Active and Suspected Problems Hypokalemia (Acute) Gastroenteritis (Acute) Acute respiratory failure with hypoxia (Acute) Severe sepsis (Acute) Hypomagnesemia (Acute) Osteomyelitis (Acute) CVA (cerebral vascular accident) (Acute) Gram-negative pneumonia (Acute) Foot abscess, left (Acute) Subjective: Patient with multiple medical problems was seen today for follow up on left foot ulcer infection, patient had MRI, images and results pending. Had I+D over weekend by Dr. Schmidt. WBC is normal and patient afebrile at this time, she relates foot is feeling and looking better. She does not relate to any fever, chills, nausea or vomiting, she has no new complaints. - Physical Exam General: Alert, Oriented x3, Cooperative, No apparent distress Extremities: Capillary Refill Less than 3 Seconds, - - Left foot: open ulcerations to the 1st ID space as well as the dorsal central foot and medial 1st met head, there is receeding cellulitis (improved), there is noted granular tissue at the wound sites, the ulcerations do probe deep to subcutaneous tissue, tendon and capsule, concern for bone and osteomyelitis; there is some maloder to the wound sites with some purulence at the wound site of the 1st ID space - appears this is coming from sub 1st met head, there is less edema, there is POP to the wound sites, there is no evidence of acute ischemia present, no new ulcerations or tissue loss to the foot or ankle. Psych/Mental Status: Alert and oriented to time, place, person, mood and affect Vital Signs Temp Pulse Resp BP Pulse Ox 97.7 F L 87 18 154/98 H 90 12/02/18 08:59 12/02/18 09:12 12/02/18 08:59 12/02/18 08:59 12/02/18 09:25 Oxygen Flow Rate (L/min) 2 Oxygen Delivery Method Room Air Weight: 58.4 kg Body Mass Index (BMI) 25.1 Finger Stick Blood Glucose 497 Intake and Output for Last 24 Hours 11/30/18 12/01/18 12/02/18 23:59 23:59 23:59 Intake Total 1520 / 1520 2982.7 / 2982.7 414.3 / 414.3 Output Total 100 / 100 1550 / 1550 120 / 120 Balance 1420 / 1420 1432.7 / 1432.7 294.3 / 294.3 Microbiology Past 72 Hours 11/30/18 18:05 Gram Stain - Final Wound - Left Foot Wound Culture - Preliminary Gram negative bridgett 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 11/30/18 13:30 Bacteria Detection (PCR) - Final Blood Culture (Wb) #2 - Left Forearm Streptococcus pneumoniae Blood Culture - Preliminary Streptococcus pneumoniae 11/30/18 18:05 Streptococcus pneumoniae Antigen (M - Final Urine Catheter - Catheter Streptococcus pneumonia Ag 11/30/18 18:05 Legionella Antigen - Final Urine Catheter - Catheter Laboratory Tests Past 24 Hrs 12/02/18 12/02/18 12/02/18 02:45 05:00 05:02 WBC 10.5 RBC 3.20 L Hgb 8.4 L Hct 26.3 L MCV 82.2 MCH 26.3 L MCHC 31.9 L RDW 14.5 RDW Differential 41.7 Plt Count 270 MPV 11.1 Immature Gran % (Auto) 0.300 Neut % (Auto) 81.1 H Lymph % (Auto) 14.7 L Clark % (Auto) 3.6 Eos % (Auto) 0.2 Baso % (Auto) 0.1 Absolute Neuts (auto) 8.5 H Absolute Lymphs (auto) 1.54 Total Counted Not Reportable Sodium Potassium Chloride Carbon Dioxide Anion Gap BUN Creatinine Estim Creat Clear Calc Est GFR (MDRD) Af Amer Est GFR (MDRD) Non-Af BUN/Creatinine Ratio Glucose Calcium Phosphorus Magnesium Iron 37 L TIBC 179 L Iron Saturation 20.7 Ferritin Total Bilirubin AST ALT Alkaline Phosphatase Total Protein Albumin Globulin Albumin/Globulin Ratio Vancomycin Trough 9.2 12/02/18 12/02/18 05:02 05:02 WBC RBC Hgb Hct MCV MCH MCHC RDW RDW Differential Plt Count MPV Immature Gran % (Auto) Neut % (Auto) Lymph % (Auto) Clark % (Auto) Eos % (Auto) Baso % (Auto) Absolute Neuts (auto) Absolute Lymphs (auto) Total Counted Sodium 141 Potassium 2.8 L Chloride 107 Carbon Dioxide 28.0 Anion Gap 6 BUN 15 Creatinine 0.60 Estim Creat Clear Calc 72.52 Est GFR (MDRD) Af Amer 131 Est GFR (MDRD) Non-Af 109 BUN/Creatinine Ratio 25.0 H Glucose 164 H Calcium 7.0 L Phosphorus 1.6 L Magnesium 1.7 Iron TIBC Iron Saturation Ferritin 361 H Total Bilirubin 0.30 AST 16 ALT 10 L Alkaline Phosphatase 80 Total Protein 5.3 L Albumin 1.5 L Globulin 3.8 Albumin/Globulin Ratio 0.4 L Vancomycin Trough POC Glucose 12/02/18 12/02/18 12/02/18 10:44 06:28 02:40 POC Glucose 121 H 157 H 221 H 12/01/18 12/01/18 12/01/18 22:35 19:03 15:57 POC Glucose 284 H 275 H 315 H 12/01/18 11:51 POC Glucose 200 H Medical Necessity - Tobacco Use Smoking Status: Never smoker Tobacco Use: Non-smoker Assessment/Plan All Active Problems Encephalopathy acute (Acute) Hypokalemia (Acute) Gastroenteritis (Acute) Acute respiratory failure with hypoxia (Acute) Severe sepsis (Acute) Hypomagnesemia (Acute) Osteomyelitis (Acute) CVA (cerebral vascular accident) (Acute) Gram-negative pneumonia (Acute) Foot abscess, left (Acute) Ulcers left foot down to deep subcutaneous tissue, tendon, capsule Abscess left foot s/p I+D Cellulitis left foot - improving Possible osteomyelitis left foot DM with neuropathy Multiple other comorbidities This patient was carefully examined and evaluated in detail again today for open ulcers to left foot. Patient's WBC of down to 10.6. Patient is currently afebrile with vital signs stable. Clinically foot is improved today. Wound culture reviewed, with multiple organisms, final pending. Continue with IV antibiotics and continue to follow cultures. MRI has been ordered and obtained, however images pending. The images will be reviewed once they are available. The ulcer sites were cleansed of all purulence and were flushed with copious amounts of sterile normal saline, the were packed with 1/4'' gauze packing and then the foot was dressed with 4x4s, kerlix and a ALLIE bandage. Patient is to keep her foot elevated. She is to be non weight bearing to her left foot and if she absolutely has to be up, she is to be heel weight bearing to left foot. Nursing can reinforce dressing as needed. Also I did order a noninvasive lower extremity arterial study for further evaluation and check of lower extremity arterial flow. Continued medical management of this patient is appreciated by medical team. Spoke and reviewed with Dr. Myles today. Podiatry will continue to follow this patient closely while in house.
--- NOTE | 2018-12-02 11:13 | ART_ITS ---
Reason For Study: Ulcer Left Foot Procedure A bilateral lower extremity continuous wave Doppler with analog waveform analysis,segmental pressures,and ankle brachial indexes without exercise. Left Segmental Pressures Left brachial= 138mmHg. Left posterior tibial artery = 140mmHg. Left dorsalis pedis artery = 121mmHg. Right Segmental Pressures Right brachial= 147mmHg. Right calf = 162mmHg. Right posterior tibial artery = 142mmHg. Right dorsalis pedis artery = 150mmHg. Right digit = 85 mmHg. Indices The right ankle brachial index by the posterior tibial artery is 0.97. The right ankle brachial index by the dorsalis pedis is 1.02. The right digital-brachial index is 0.58. The left ankle brachial index by the posterior tibial artery is 0.95. The left ankle brachial index by the dorsalis pedis is 0.82. Interpretation Summary Triphasic and biphasic Doppler waveforms are noted at ankle level on the right. Biphasic Doppler waveforms are noted at ankle level on the left. Pulse-volume waveform amplitudes are diminished at ankle and digital levels. The resting right ankle-brachial index is normal. The resting left ankle- brachial index is low-normal. The right digital-brachial index is mildly diminished. The left digital-brachial index was not determined due to the presence of bandages. 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 There is mild impairment of arterial flow at digital level in the right lower extremity. Digital arterial flow in the left lower extremity was not assessed due to the presence of bandages. Ordering Physician: Chance Zamora Referring Physician: Michelle Wright Performed By: Pily Gutierrez RDCS/RVT
--- NOTE | 2018-12-02 11:48 | NURSING ---
Dr Zamora had just been in and changed the dressings from the left foot. Discussed with Dr Zamora. this nurse will do the dressing change in the am as ordered.
--- NOTE | 2018-12-02 11:57 | CASEMGMT ---
Social Work: Met with patient regarding D/C planning. Patient was functionally independent before this admission and currently lives with her two grown sons. Patient aware that recommendation has been made by physician for inpatient rehab at D/C. Discussed inpatient rehab with patient. Patient agreeable to inpatient rehab when medically ready. TC to [facility] in inpatient rehab. Referral made. [facility] will start precert when patient is medically ready. Will follow to assist as needed with D/C planning. SAURAV Rubin
--- NOTE | 2018-12-02 12:23 | CASEMGMT ---
Addendum entered and electronically signed by Charlotte Carpio 12/02/18 12:46: Reviewed and approve [employer] student digital media intern documentation below. -SAURAV Sandoval, GUEST EXPERIENCE CAPTAIN Original Note: Social Work Progressive Care Unit Patient was administered the PHQ9 due to possible stoke diagnosis. Patient answered all questions appropriately. Patient spoke about having little interest or pleasure in things and often feeling sad. Patient reported to have issues falling asleep and staying asleep as patient reports to be able to sleep for two hours and then be wide awake. Patient feels has been overeating recently and feeling like could not eat enough to be full. Patient has been feeling down about health changes. Patient denied any history or current feelings of anxiety or depression. Patient denied any mental health diagnosis although medical chart identifies diagnosis of anxiety and depression. Patient also denied any past or present thoughts or attempts of suicide. stock worker and deliverer digital media intern spoke with patient about counseling options and patient denies any interest. Patient reports two adults 39 and 40 year old sons to be supports. Reports them to be helpful and caring. When asked about coping skills patient did not report to have any but just tries to live through it all. Resource page provided to patient with signs/symptoms information and counseling options. No other services indicated or requested at this time. -Analy Graham, [employer] Student Pipeline Superintendent Division.
--- NOTE | 2018-12-02 13:14 | PCM.PROGNOTE ---
Patient Problems: Active and Suspected Problems Hypokalemia (Acute) Gastroenteritis (Acute) Acute respiratory failure with hypoxia (Acute) Severe sepsis (Acute) Hypomagnesemia (Acute) Osteomyelitis (Acute) CVA (cerebral vascular accident) (Acute) Gram-negative pneumonia (Acute) Foot abscess, left (Acute) Subjective: Ongoing severe foot pain. No fevers/chills/Sweats. Pt is going to the OR for I&D with Dr. Zamora today. MRI suspicious for osteo, also with abscess and edema. She has ongoing abdominal pain and liquid diarrhea - unfortunately we have not been able to send culture for C diff as she has been incontinent in the bed and it is soaking into the chux. Breathing is improved. She is now off o2. Still coughing coarsely, but unable to clear mucus. Right arm weakness has not improved. - Physical Exam General: Alert, Oriented x3, Cooperative HEENT: Atraumatic, PERRLA, EOMI, Normocephalic Neck: Supple, No JVD, Negative Carotid Bruits Lungs: Rales Cardiovascular: Regular rate, No murmurs Abdomen: Bowel Sounds Present, Soft, Non Tender Extremities: No edema, Capillary Refill Less than 3 Seconds Skin: No rashes, No breakdown Musculoskeletal: No Tenderness to Palpation of Joints or Extremities Neurological: Cranial nerves II-XII grossly intact, - - RUE weakness ongoing Psych/Mental Status: Normal Affect, Appropriate, Alert and oriented to time, place, person, mood and affect Vital Signs Temp Pulse Resp BP Pulse Ox 99.5 F H 81 16 158/99 H 96 12/02/18 11:15 12/02/18 11:20 12/02/18 11:20 12/02/18 11:15 12/02/18 11:20 Oxygen Flow Rate (L/min) 2 Oxygen Delivery Method Room Air Weight: 128 lb 11.999 oz Body Mass Index (BMI) 25.1 Finger Stick Blood Glucose 497 Intake and Output for Last 24 Hours 11/30/18 12/01/18 12/02/18 23:59 23:59 23:59 Intake Total 1520 / 1520 2982.7 / 2982.7 744.3 / 744.3 Output Total 100 / 100 1550 / 1550 220 / 220 Balance 1420 / 1420 1432.7 / 1432.7 524.3 / 524.3 Microbiology Past 72 Hours 11/30/18 13:30 Bacteria Detection (PCR) - Final Blood Culture (Wb) #2 - Left Forearm Streptococcus pneumoniae Blood Culture - Preliminary Streptococcus pneumoniae 11/30/18 18:05 Gram Stain - Final Wound - Left Foot Wound Culture - Preliminary Gram negative bridgett GNR lactose information technology advisor GNR lactose information technology advisor#2 Streptococcus group C Gram positive bridgett 11/30/18 15:05 Urine Culture - Final Urine, Clean Catch Lactobacillus sp. 11/30/18 18:05 Streptococcus pneumoniae Antigen (M - Final Urine Catheter - Catheter Streptococcus pneumonia Ag 11/30/18 18:05 Legionella Antigen - Final Urine Catheter - Catheter Laboratory Tests Past 24 Hrs 12/02/18 12/02/18 12/02/18 02:45 05:00 05:02 WBC 10.5 RBC 3.20 L Hgb 8.4 L Hct 26.3 L MCV 82.2 MCH 26.3 L MCHC 31.9 L RDW 14.5 RDW Differential 41.7 Plt Count 270 MPV 11.1 Immature Gran % (Auto) 0.300 Neut % (Auto) 81.1 H Lymph % (Auto) 14.7 L [place] % (Auto) 3.6 Eos % (Auto) 0.2 Baso % (Auto) 0.1 Absolute Neuts (auto) 8.5 H Absolute Lymphs (auto) 1.54 Total Counted Not Reportable Sodium Potassium Chloride Carbon Dioxide Anion Gap BUN Creatinine Estim Creat Clear Calc Est GFR (MDRD) Af Amer Est GFR (MDRD) Non-Af BUN/Creatinine Ratio Glucose Calcium Phosphorus Magnesium Iron 37 L TIBC 179 L Iron Saturation 20.7 Ferritin Total Bilirubin AST ALT Alkaline Phosphatase Total Protein Albumin Globulin Albumin/Globulin Ratio Vancomycin Trough 9.2 12/02/18 12/02/18 05:02 05:02 WBC RBC Hgb Hct MCV MCH MCHC RDW RDW Differential Plt Count MPV Immature Gran % (Auto) Neut % (Auto) Lymph % (Auto) [place] % (Auto) Eos % (Auto) Baso % (Auto) Absolute Neuts (auto) Absolute Lymphs (auto) Total Counted Sodium 141 Potassium 2.8 L Chloride 107 Carbon Dioxide 28.0 Anion Gap 6 BUN 15 Creatinine 0.60 Estim Creat Clear Calc 72.52 Est GFR (MDRD) Af Amer 131 Est GFR (MDRD) Non-Af 109 BUN/Creatinine Ratio 25.0 H Glucose 164 H Calcium 7.0 L Phosphorus 1.6 L Magnesium 1.7 Iron TIBC Iron Saturation Ferritin 361 H Total Bilirubin 0.30 AST 16 ALT 10 L Alkaline Phosphatase 80 Total Protein 5.3 L Albumin 1.5 L Globulin 3.8 Albumin/Globulin Ratio 0.4 L Vancomycin Trough POC Glucose 12/02/18 12/02/18 12/02/18 10:44 06:28 02:40 POC Glucose 121 H 157 H 221 H 12/01/18 12/01/18 12/01/18 22:35 19:03 15:57 POC Glucose 284 H 275 H 315 H Medical Necessity - Tobacco Use Smoking Status: Never smoker Tobacco Use: Non-smoker Assessment/Plan All Active Problems Encephalopathy acute (Acute) Hypokalemia (Acute) Gastroenteritis (Acute) Acute respiratory failure with hypoxia (Acute) Severe sepsis (Acute) Hypomagnesemia (Acute) Osteomyelitis (Acute) CVA (cerebral vascular accident) (Acute) Gram-negative pneumonia (Acute) Foot abscess, left (Acute) 1. New Acute CVA 2/2 medication noncompliance - Neuro following. 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 MRA neck pending -Echo tomorrow -On asa/statin/eliquis -PT/OT/ST evals 2. Acute severe sepsis, with bacteremia, 2/2 multiple infectious sources - as evidenced by leukocytosis, tachypnea, tachycardia, lactic acidosis. Infectious sources include pneumonia, osteomyelitis, and gastroenteritis. -Blood culture showing Strep pneumo. -Lactate trending down -WBCs resolved -afebrile 3. Acute hypoxic respiratory failure 2/2 Acute BL HCAP - strep ag +, along with blood culture. continue zosyn, no more vanc. legionella neg. Urine cx neg. Repeat CXR with bilateral pna. -Continue Aerosols, mucinex, pep/IS, O2, -off O2 -Dysphagia as well, so likely a component of aspiration. 4. L foot suspected osteomyelitis and cellulitis - MRSA/MSSA pcr negative - continue zosyn. Foot XR shows possible osteo and cellulitis. Cultures pending. -bedside debridement per Dr. Schmidt done -MRI foot suspicious for osteo, abscess+edema present. -ESR 69, CRP -Arterial studies with PAD left Ankle (DP) 0.82 MEL -To OR today with Dr. Zamora 5. Acute gastroenteritis - seen on CT. Check Cdiff with recent hospitalization and abx use. As per subjective further abd pain and diarrhea however incontinent so no culture obtained yet 6. Hypokalemia, hypomagnesemia, hyponatremia, hypophosphatemia - replete. Still deficient. Aldactone added. 2/2 malnutrition and gastroenteritis, pt eating and drinking little at home. Dietary eval. CMP in AM. 7. T2DM with hyperglycemia - improving. Pt off DM meds x 1 week. A1C poor at 10.9. -Titrate up lantus, continue SSI. 8. PAfib - continue eliquis, lopressor. Echo as above. She is currently in SR. EKG shows SR with nonspecific ST changes, Long QTc: 517 - avoid QT prolonging agents. 9. HTN - stable, BP meds were held this AM. 10. Anx/Depression - zoloft. 11. Anemia - normocytic. low iron/tibc, normal sat and high ferritin (reactive likely). 12. Dysphagia - advanced to mechanical soft and thin liquids. DVT ppx: eliquis ALEKSEY planning: PTOT. She is agreeable to placement. Likely will go to the Rehab Unit. This patient was seen by Lucho Stephens PA-C under the supervision of Dr. Myles
[2018-12-02 13:30] LABS: Bedside Glucose 177 mg/dL (70-110)
--- NOTE | 2018-12-02 14:00 | ABS_PTH ---
PATIENT: FERNANDO ZULETA LOC: [facility] U#:[id number] AGE/SX: 58/F ROOM: [facility] RE11/30/[address]: Dr. Jessie Myles DO : 1960 BED: 1 DIS: 12/06/2018 SPEC #: [id number] RECD: 12/02/18 16:25 STATUS: MICHAEL REJennifer #: [id number] LATRICIA: 12/02/18 14:[address]: Chance Zamora DEPT: SURGICAL PATHOLOGY RECD BY: Jw Kuo ENTERED: 12/03/18 11:31 SP TYPE: Abscess OTHR DR: DO Dr. Emeterio Villavicencio DO Dr. Michael Jack, XIAOM MD Dr. Etienne Dexter MD Jodi Swihart, OWNER ORAL SURGEON-C Tissues: A - Foot, NOS B - Foot, NOS Procedures: Special Stain Group II Surgery Specimen Level IV Iron Stain (control) Comments: @ Ordering doctor for SUIII edited from to @ by NAIMA at 12/03/18 1405 @ Submitting doctor edited from to @ by NAIMA at 12/03/18 1401 HEADER OPERATION: Incision and drainage abscess, foot PRE-OP DIAGNOSIS: Gas gangrene left foot TISSUE SUBMITTED: A - Left foot abscess tissue, B - Unknown tissue mass left foot MICROSCOPIC DIAGNOSIS A. Soft tissue of left foot abscess, biopsy: Acute and chronic inflammation and fibrinoid exudate consistent with abscess. Abundant bacterial colonies. B. Unknown soft tissue mass of left foot, biopsy: Fibrinopurulent material. Skin and soft tissue containing dermal collagenous nodule with exogenous pigment deposition and associated histiocytic reaction. Fibrocollagenous tissue with acute and chronic inflammation. See comment. AM:swathi 12/04/18 COMMENT B. Iron stain with matched control was used in the evaluation of this case. MICROSCOPIC DESCRIPTION Slides are reviewed. GROSS DESCRIPTION A - Received in fixative is one container labeled with the patient's name and designated left foot abscess tissue. The specimen consists of multiple irregular fragments of skin and soft tissue that in aggregate measure 3 x 3 x 0.4 cm. The entire specimen is submitted in one cassette. B - Received in fixative is one container labeled with the patient's name and designated unknown tissue mass left foot. The specimen consists of multiple pieces of skin that in aggregate measure 1.5 x 1 x 0.3 cm. A focal area of black discoloration is noted. A separate black fragment is also noted. The largest piece is serially sectioned. The entire specimen is submitted in one cassette. / SJ:rg 12/03/18 TC:2 CPT: 94810 x2, 36619
[2018-12-02] MEDS: Bupivacaine Mpf 0.5% 30 ML VIAL (14:59)
--- NOTE | 2018-12-02 15:38 | OP.PCM_ITS ---
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 Deep culture of infected tissue left foot sent to microbiology. 2. Debrided infected / nonviable tissue left foot sent to pathology. 3. Unknown mass/object from left foot sent to pathology Estimated Blood Loss (mL): 10mL Description of Procedure: Indications: This is a 58 year old female with history of multiple medical problems, including but not limited to uncontrolled diabetes, CVA, peripheral vascular disease, medical nonadherence who presented the ER over weekend, patient found to have stroke symptoms, pneumonia, as well as gas infection to the left foot. Patient was unstable to go to OR for I+D / debridement of left foot due to other medical issues, so bedside I+D was performed along with IV antibiotics. There has been some improvement, but this morning there was noted to be continued maloder, purulence, and gas (as noted on MRI) to the foot. Also MRI was consistent with osteomyelitis to 1-3 toes and 2nd and 3rd metatarsals. We discussed the options, and patient would like to proceed with limb salvage, so further I+D with debridement is planned, with goal of treating the osteomyelitis with IV antibiotics (Infectious Disease consulted). Reviewed the possible benefits vs risks, goals, expectations and estimated healing time (advised patient may take months up to a year, but did advise patient this may not ever heal, especially with her uncontrolled diabetes and medical history). Ultimately patient understands she is at risk for persistent or even worsening infection and she may lose limb or life. Also advised patient risks also include but are not limited to need for further surgery, blood clots, weakness, transfer lesions, ischemia, bleeding, pain, chronic pain, deformity, numbness, swelling, inability to walk or wear shoes, charcot foot, complex regional pain syndrome, and again loss of limb, and loss of life. Patient expressed understanding and agreement. All of her questions were answered. The consent form was reviewed with patient, and the patient freely signed it. I did speak with Dr. Myles and she agreed with plan, and patient stable enough at this time to go to OR today. Also with patient's consent I did review with patient's son Silvino (whom she lives with). Operative Procedure: The patient was brought back to the operating room and was placed on the operating room table in the supine position. The patient was carefully secured to the operating room table with a safety belt around her waist. The patient was already on IV antibiotics. A time out was performed and the patient was properly identified and the surgical plan was confirmed. The patient received MAC anesthesia per the anesthesia team, and 10mL of 0.5% Marcaine plain was given as a forefoot nerve block. A well padded pneumatic tourniquet was applied to the left ankle. The left foot was scrubbed, prepped and draped in the usual aseptic fashion. Further attention was directed to the left foot, there was cellulitis, draining purulence and maloder to the forefoot at level of 1-3 distal rays. There were open lesions to the 1st interdigital space and dorsal central forefoot with draining purulence. The left foot was elevated for 3 minutes and the left ankle pneumatic tourniquet was inflated to 250mmHg. At this time an incision was made along the dorsal central forefoot opening the already open wound site - there was significant purulence at this level, and tracked down to the 1st and 2nd intermetatarsal spaces and also sub 3rd metatarsal starting to go over to the 3rd intermetatarsal space, there was a small abscess formation here with nonviable tissue down to deep subcutaneous tissue, tendon, muscle and joint capsule. A deep culture of the foot was obtained at all of these areas and was sent to microbiology. The abscess was drained and excised using a 15 blade, all nonviable infected tissue was debrided away. An ncision was made along the 1st interdigital space extending planetary opening the already open wound site - there was again noted to be significant purulence at this level sub 1st metatarsal head and medial 1st metatarsal head, there was another small abscess formation here with nonviable tissue down to deep subcutaneous tissue, tendon, muscle and joint capsule, the abscess was drained and excised using a 15 blade, all nonviable infected tissue was debrided away. At the level of the plantar 3rd metatarsal there was a small black/dark cheng object which was debrided away and sent to pathology as a specimen. There did not appear to be any direct probe to bone or exposed bone as the overlying soft tissue did cover the bone and did appear healthy at this level, there was no evidence of cortical destruction or erosion of the osseous structures at this level. The surgical site was flushed out with copious amounts of normal saline solution. The sites were packed with 1/4inch gauze packing, and overlying dressing was applied which consisted of 4x4 gauze, kerlix, and benja (applied lightly). The pneumatic tourniquet was deflated and there was return of digital perfusion to all toes and to the foot. Total tourniquet time was 40 minutes. Of note an additional 13 mL of 0.5% Marcaine plain was given at the beginning of the procedure for further pain control. The patient tolerated the above procedure well and anesthesia well with no complications. The patient will return to the PCU and will be followed as an inpatient. No weightbearing left foot, and the dressing will be changed tomorr ow. Grafts/Implants Used: None - Complications None
[2018-12-02] MEDS: Vancomycin IV 1,000 MG/200 ML BAG 200 MG IV (16:45)
[2018-12-02 16:50] LABS: Bedside Glucose 131 mg/dL (70-110)
[2018-12-02 17:16] LABS: M R Staph aureus DNA By PCR Negative (Negative); Probe Check PASS; Staph aureus DNA By PCR NEGATIVE (Negative)
[2018-12-02] MEDS: Atorvastatin Calcium 20 MG Tablet PO (21:12)
[2018-12-02] MEDS: Acetaminophen 325 MG Tablet 650 MG PO (21:12)
[2018-12-02 22:25] LABS: Bedside Glucose 254 mg/dL (70-110)
[2018-12-03] VITALS (16 sets, daily range): BP systolic 135–196; BP diastolic 71–104; PULSE 80–102; RESP 16–18; TEMP 36.7–37; O2SAT 94–97; BMI 25.2
[2018-12-03] MEDS: Vancomycin IV 1,000 MG/200 ML BAG 200 MG IV (04:27)
[2018-12-03] MEDS: Na Biphos/Potassium Phosphate PACKET 1 PACKET PO ×4 (05:54→15:54)
[2018-12-03 05:57] LABS: BUN 9 mg/dL (7-18); Creatinine, Serum 0.48 mg/dL (0.55-1.02); EST Glomerular Filtration Rate 139 mL/min (>60); Estimated Creatinine Clearance 116.34 ml/min; Glucose 140 mg/dL (74-106)
[2018-12-03 05:58] LABS: Anion Gap 5 (5-15); BUN/Creat Ratio 18.6 RATIO (10-20); Calcium,Total 7.4 mg/dL (8.5-10.1); Chloride 110 mmol/L (98-107); Est Glom Filt Rate - Afr Amer 169 mL/min (>60); Magnesium 1.7 mg/dL (1.6-2.6); Potassium 3.4 mmol/L (3.5-5.1); Sodium Level 142 mmol/L (136-145)
[2018-12-03] MEDS: 0.9% NaCl Peripheral Flush Adult/Peds IV (06:00)
[2018-12-03 06:06] LABS: Phosphorus 2.1 mg/dL (2.5-4.9)
[2018-12-03] MEDS: Ipratropium/Albuterol Sulfate 3 ML AMPUL.NEB INHALATION ×3 (06:46→19:20)
[2018-12-03 06:55] LABS: Bedside Glucose 148 mg/dL (70-110)
[2018-12-03 08:01] LABS: Hematocrit 27.3 % (37-47); Hemoglobin 8.8 g/dl (12.0-15.0)
[2018-12-03] MEDS: Acetaminophen 325 MG Tablet 650 MG PO ×2 (08:28→22:11)
[2018-12-03] MEDS: Sertraline 50 MG Tablet 150 MG PO (08:28)
[2018-12-03] MEDS: Metoprolol Tartrate 25 MG Tablet PO ×2 (08:28→22:12)
[2018-12-03] MEDS: Spironolactone 25 MG Tablet PO (08:29)
[2018-12-03] MEDS: APIXABAN 5 MG TABLET PO ×2 (08:29→22:11)
[2018-12-03] MEDS: Aspirin 81 MG TAB.CHEW PO (08:29)
--- NOTE | 2018-12-03 10:09 | PCM.HP.ID ---
Problem List (1) Osteomyelitis Status: Acute Reason for Consult: osteo Consulted by: Dr. Myles History of Present Illness: The patient is a 58 year old F with DM neuropathy, presented 11/30 with several days of progressive L foot redness, pain, swelling. No fever or chills. She stepped on a staple, thinks it was in for a few days until she removed it, followed by progressive worsening of foot. Came to ED, found to have osteo and abscess of foot. On vanc, zosyn. Taken to OR by Dr. Zamora 12/02 for I&D. Now feeling better, foot still sore. Also c/o diarrhea for past week, no n/v, no abd pain. No h/o cdiff, no abx prior to admit. Full ROS performed and neg except as noted above. - Medical History Past Medical History (Chronic Problems): Chronic Problems CVA (cerebral vascular accident) (Chronic) Paroxysmal atrial fibrillation (Chronic) IBS (irritable bowel syndrome) (Chronic) HLD (hyperlipidemia) (Chronic) Esophageal reflux (Chronic) Type II diabetes mellitus, uncontrolled (Chronic) Anxiety and depression (Chronic) Cerebrovascular disease (Chronic) Possible small ischemic strokes versus sequela of chronic migraine Migraine (Chronic) reports hole in heart since (Chronic) Benign essential HTN (Chronic) Allergies/Adverse Reactions: Allergies codeine Adverse Reaction (Verified 11/30/18 13:28) Other pork derived (porcine) Adverse Reaction (Verified 11/30/18 13:28) Vomiting Home Medications: Ambulatory Orders Medication Instructions Recorded Apixaban [Eliquis] 5 mg PO BID 06/16/18 Ascorbic Acid [Vitamin C] 500 mg PO DAILY 06/16/18 Atorvastatin Calcium 20 mg PO QHS 06/16/18 Lisinopril 20 mg PO DAILY 06/16/18 Sertraline HCl [Zoloft] 100 mg PO DAILY 06/16/18 Amlodipine Besylate 5 mg PO DAILY 09/10/18 Dicyclomine HCl 20 mg PO Q12H PRN PRN 09/10/18 Fluconazole [Diflucan] 200 mg PO DAILY 09/10/18 Hydrocodone/Acetaminophen 1 tab PO Q6H PRN PRN 09/10/18 [Hydrocodon-Acetaminophen 5-325] Metoprolol Tartrate 25 mg PO BID 09/10/18 Sertraline HCl [Zoloft] 50 mg PO DAILY 09/10/18 - Social History Tobacco Use: non-smoker Vital Signs Temp Pulse Resp BP Pulse Ox 98.4 F 97 18 157/89 H 97 12/03/18 08:35 12/03/18 08:35 12/03/18 08:35 12/03/18 08:35 12/03/18 08:35 Oxygen Flow Rate (L/min) 2 Oxygen Delivery Method Room Air Weight: 58.4 kg Body Mass Index (BMI) 25.2 Finger Stick Blood Glucose 497 Microbiology Past 72 Hours 12/02/18 Unknown Gram Stain - Final Wound Abcess - Left Foot 11/30/18 18:05 Gram Stain - Final Wound - Left Foot Wound Culture - Preliminary Proteus vulgaris Klebsiella pneumoniae sp pneum Escherichia coli Streptococcus group C Gram negative bridgett Gram positive bridgett 11/30/18 13:30 Bacteria Detection (PCR) - Final Blood Culture (Wb) #2 - Left Forearm Streptococcus pneumoniae Blood Culture - Preliminary Streptococcus pneumoniae 11/30/18 15:05 Urine Culture - Final Urine, Clean Catch Lactobacillus sp. 11/30/18 18:05 Streptococcus pneumoniae Antigen (M - Final Urine Catheter - Catheter Streptococcus pneumonia Ag 11/30/18 18:05 Legionella Antigen - Final Urine Catheter - Catheter Laboratory Tests Past 24 Hrs 12/02/18 12/03/18 12/03/18 Unknown 05:20 05:20 Hgb Hct Sodium 142 Potassium 3.4 L Chloride 110 H Carbon Dioxide 27.0 Anion Gap 5 BUN 9 Creatinine 0.48 L Estim Creat Clear Calc 116.34 Est GFR (MDRD) Af Amer 169 Est GFR (MDRD) Non-Af 139 BUN/Creatinine Ratio 18.6 Glucose 140 H Calcium 7.4 L Phosphorus 2.1 L Magnesium 1.7 S.aureus Protein A PCR NEGATIVE MRSA (PCR) Negative 12/03/18 05:20 Hgb 8.8 L Hct 27.3 L Sodium Potassium Chloride Carbon Dioxide Anion Gap BUN Creatinine Estim Creat Clear Calc Est GFR (MDRD) Af Amer Est GFR (MDRD) Non-Af BUN/Creatinine Ratio Glucose Calcium Phosphorus Magnesium S.aureus Protein A PCR MRSA (PCR) - Other Studies Radiology: [] reviewed Other Studies: [] Route of nutrition/ use of supplements: [] Nutritional Intake: [] IV Site: [] Wise Catheter: [] - Physical Exam General: Alert, Oriented x3, Cooperative, No apparent distress HEENT: Atraumatic, PERRLA, EOMI Neck: Supple, No Nodes Lungs: Clear to auscultation, Normal air movement Cardiovascular: Tachycardic Abdomen: Soft, Non Tender, Non-Distended Skin: Ulcer/ Wound - L foot wrapped IV Site: Peripheral Musculoskeletal: No Tenderness to Palpation of Joints or Extremities Neurological: Cranial nerves II-XII grossly intact - Assessment/Plan Antibiotics: [] Assessment/Plan: [] Active and Suspected Problems Hypokalemia (Acute) Gastroenteritis (Acute) Acute respiratory failure with hypoxia (Acute) Severe sepsis (Acute) Hypomagnesemia (Acute) Osteomyelitis (Acute) CVA (cerebral vascular accident) (Acute) Gram-negative pneumonia (Acute) Foot abscess, left (Acute) severe sepsis (leukocytosis, lactic acidosis, tachycardia) due to L foot polymicrobial osteo and abscess with uncontrolled DM and neuropathy - now s/p I&D by Dr. Zamora 12/02/18. Staph aureus pcr neg. Wound cx with proteus, k.pneumo, ecoli, strep, GNR, and GPR. Labs and vitals improving. Narrow vanc/zosyn to ceftriaxone and po flagyl. Will order picc for planned 6 weeks of abx. diarrhea - cdiff pending. If neg and diarrhea continues, would send stool pcr panel. Will follow, thank you.
[2018-12-03] MEDS: Menthol/Lanolin/Calamine/Znox 113 GM Tube 1 APPLIC TOPICAL ×2 (10:50→22:10)
[2018-12-03] MEDS: guaiFENesin 10 ML UDC (200MG/10ML) PO (11:22)
[2018-12-03 11:40] LABS: Bedside Glucose 112 mg/dL (70-110)
--- NOTE | 2018-12-03 11:54 | NURSING ---
wound photo: left foot (dorsal view)
--- NOTE | 2018-12-03 11:54 | NURSING ---
wound photo: left foot (plantar view)
--- NOTE | 2018-12-03 13:45 | PN_ITS ---
Patient Problems: Active and Suspected Problems Hypokalemia (Acute) Gastroenteritis (Acute) Acute respiratory failure with hypoxia (Acute) Severe sepsis (Acute) Hypomagnesemia (Acute) Osteomyelitis (Acute) CVA (cerebral vascular accident) (Acute) Gram-negative pneumonia (Acute) Foot abscess, left (Acute) Subjective: Non productive cough ongoing. No fevers or chills. Ongoing nausea, vomiting, and diarrhea. Ongoing left foot severe pain. - Physical Exam General: Alert, Oriented x3, Cooperative HEENT: Atraumatic, PERRLA, EOMI, Normocephalic Neck: Supple, No JVD, Negative Carotid Bruits Lungs: Diminished, Rales Cardiovascular: Regular rate, No murmurs Abdomen: Bowel Sounds Present, Soft, Non Tender Extremities: No edema, Capillary Refill Less than 3 Seconds Skin: Ulcer/ Wound - left wound dressed appropriately. Musculoskeletal: No Tenderness to Palpation of Joints or Extremities Neurological: Cranial nerves II-XII grossly intact Psych/Mental Status: Normal Affect, Appropriate, Alert and oriented to time, place, person, mood and affect Vital Signs Temp Pulse Resp BP Pulse Ox 98.4 F 81 18 157/89 H 97 12/03/18 08:35 12/03/18 11:13 12/03/18 08:35 12/03/18 08:35 12/03/18 08:35 Oxygen Flow Rate (L/min) 2 Oxygen Delivery Method Room Air Weight: 128 lb 11.999 oz Body Mass Index (BMI) 25.2 Finger Stick Blood Glucose 497 Intake and Output for Last 24 Hours 12/01/18 12/02/18 12/03/18 23:59 23:59 23:59 Intake Total 2982.7 / 2982.7 2730.3 / 2730.3 703 / 703 Output Total 1550 / 1550 375 / 375 250 / 250 Balance 1432.7 / 1432.7 2355.3 / 2355.3 453 / 453 Microbiology Past 72 Hours 12/03/18 08:51 C. difficile DNA Amplification - Final Stool 12/02/18 Unknown Gram Stain - Final Wound Abcess - Left Foot Wound Culture - Preliminary Gram negative bridgett 12/03/18 08:51 Stool Occult Blood (CAITLIN) - Final Stool Occult Blood Positive 11/30/18 18:05 Gram Stain - Final Wound - Left Foot Wound Culture - Preliminary Proteus vulgaris Klebsiella pneumoniae sp pneum Escherichia coli Streptococcus group C Gram negative bridgett Gram positive bridgett 11/30/18 13:30 Bacteria Detection (PCR) - Final Blood Culture (Wb) #2 - Left Forearm Streptococcus pneumoniae Blood Culture - Preliminary Streptococcus pneumoniae 11/30/18 15:05 Urine Culture - Final Urine, Clean Catch Lactobacillus sp. 11/30/18 18:05 Streptococcus pneumoniae Antigen (M - Final Urine Catheter - Catheter Streptococcus pneumonia Ag 11/30/18 18:05 Legionella Antigen - Final Urine Catheter - Catheter Laboratory Tests Past 24 Hrs 12/02/18 12/03/18 12/03/18 Unknown 05:20 05:20 Hgb Hct Sodium 142 Potassium 3.4 L Chloride 110 H Carbon Dioxide 27.0 Anion Gap 5 BUN 9 Creatinine 0.48 L Estim Creat Clear Calc 116.34 Est GFR (MDRD) Af Amer 169 Est GFR (MDRD) Non-Af 139 BUN/Creatinine Ratio 18.6 Glucose 140 H Calcium 7.4 L Phosphorus 2.1 L Magnesium 1.7 S.aureus Protein A PCR NEGATIVE MRSA (PCR) Negative 12/03/18 05:20 Hgb 8.8 L Hct 27.3 L Sodium Potassium Chloride Carbon Dioxide Anion Gap BUN Creatinine Estim Creat Clear Calc Est GFR (MDRD) Af Amer Est GFR (MDRD) Non-Af BUN/Creatinine Ratio Glucose Calcium Phosphorus Magnesium S.aureus Protein A PCR MRSA (PCR) POC Glucose 12/03/18 12/03/18 12/02/18 11:24 06:47 21:25 POC Glucose 112 H 148 H 254 H 12/02/18 16:30 POC Glucose 131 H Medical Necessity - Tobacco Use Smoking Status: Never smoker Tobacco Use: Non-smoker Assessment/Plan All Active Problems Encephalopathy acute (Acute) Hypokalemia (Acute) Gastroenteritis (Acute) Acute respiratory failure with hypoxia (Acute) Severe sepsis (Acute) Hypomagnesemia (Acute) Osteomyelitis (Acute) CVA (cerebral vascular accident) (Acute) Gram-negative pneumonia (Acute) Foot abscess, left (Acute) 1. New Acute CVA 2/2 medication noncompliance - Neuro following. 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 MRA neck pending -Echo done this am. EF 65%, 1+MVI, normal LV function, no motion abnormalities -On asa/statin/eliquis -PT/OT/ST evals 2. Acute severe sepsis, with bacteremia, 2/2 multiple infectious sources - as evidenced by leukocytosis, tachypnea, tachycardia, lactic acidosis. Infectious sources include pneumonia, osteomyelitis, and gastroenteritis. -Blood culture showing Strep pneumo. -Lactate trending down -WBCs resolved -afebrile 3. Acute hypoxic respiratory failure 2/2 Acute BL HCAP - strep ag +, along with blood culture. rocephin and flagyl, off vanc/zosyn. legionella neg. Urine cx neg. Repeat CXR with bilateral pna. -Continue Aerosols, mucinex, pep/IS, O2, -off O2 -Dysphagia as well, so likely a component of aspiration. 4. L foot suspected osteomyelitis and cellulitis - MRSA/MSSA pcr negative - Foot XR shows possible osteo and cellulitis. Cultures pending. -Multiple bactermia - ID following. Abx changed to rocephin and flagyl. -MRI foot suspicious for osteo, abscess+edema present. -ESR 69, CRP -Arterial studies with PAD left Ankle (DP) 0.82 MEL -Post op D#1 - Dr. Zamora did I&D noted pus and a foreign body sent for path 5. Acute gastroenteritis - seen on CT. Check Cdiff with recent hospitalization and abx use. As per subjective further abd pain and diarrhea however incontinent so no culture obtained yet. 6. Hypokalemia, hypomagnesemia, hyponatremia, hypophosphatemia - replete. Still deficient. Aldactone. Probably 2/2 malnutrition and ongoing GI loss. Awaiting Cdiff. If neg check enteric panel. 7. T2DM with hyperglycemia - improving. Pt off DM meds x 1 week. A1C poor at 10.9. -Titrate up lantus, continue SSI. 8. PAfib - continue eliquis, lopressor. Echo as above. 9. HTN - stable 10. Anx/Depression - zoloft. 11. Anemia - normocytic. low iron/tibc, normal sat and high ferritin (reactive likely). Check hemoccult. 12. Dysphagia - Diet: mechanical soft and thin liquids. DVT ppx: elsi RYDER planning: PTOT. She is agreeable to placement. Likely will go to [facility]. This patient was seen by Lucho Stephens PA-C under the supervision of Dr. Myles
--- NOTE | 2018-12-03 13:51 | PCM.PROGNOTE ---
Patient Problems: Active and Suspected Problems Hypokalemia (Acute) Gastroenteritis (Acute) Acute respiratory failure with hypoxia (Acute) Severe sepsis (Acute) Hypomagnesemia (Acute) Osteomyelitis (Acute) CVA (cerebral vascular accident) (Acute) Gram-negative pneumonia (Acute) Foot abscess, left (Acute) Subjective: Patient was seen this morning for follow up on left foot. Improvement noted, patient afebrile, no new complaints. No complaints of fever, chills, nausea or vomiting. - Physical Exam General: Alert, Oriented x3, Cooperative, No apparent distress Extremities: Capillary Refill Less than 3 Seconds, - - s/p I+D and debridement to the left forefoot - tissues are viable with no purulence, no maloder, and significantly less/much improved cellulitis, no streaking, no fluctuance, no crepitus present, no evidence of acute ischemia, and tissues without evidence of ischemia noted at this time, pedal pulses palpable. Vital Signs Temp Pulse Resp BP Pulse Ox 98.4 F 81 18 157/89 H 97 12/03/18 08:35 12/03/18 11:13 12/03/18 08:35 12/03/18 08:35 12/03/18 08:35 Oxygen Flow Rate (L/min) 2 Oxygen Delivery Method Room Air Weight: 58.4 kg Body Mass Index (BMI) 25.2 Finger Stick Blood Glucose 497 Intake and Output for Last 24 Hours 12/01/18 12/02/18 12/03/18 23:59 23:59 23:59 Intake Total 2982.7 / 2982.7 2730.3 / 2730.3 703 / 703 Output Total 1550 / 1550 375 / 375 250 / 250 Balance 1432.7 / 1432.7 2355.3 / 2355.3 453 / 453 Microbiology Past 72 Hours 12/03/18 08:51 C. difficile DNA Amplification - Final Stool 12/02/18 Unknown Gram Stain - Final Wound Abcess - Left Foot Wound Culture - Preliminary Gram negative bridgett 12/03/18 08:51 Stool Occult Blood (CAITLIN) - Final Stool Occult Blood Positive 11/30/18 18:05 Gram Stain - Final Wound - Left Foot Wound Culture - Preliminary Proteus vulgaris Klebsiella pneumoniae sp pneum Escherichia coli Streptococcus group C Gram negative bridgett Gram positive bridgett 11/30/18 13:30 Bacteria Detection (PCR) - Final Blood Culture (Wb) #2 - Left Forearm Streptococcus pneumoniae Blood Culture - Preliminary Streptococcus pneumoniae 11/30/18 15:05 Urine Culture - Final Urine, Clean Catch Lactobacillus sp. 11/30/18 18:05 Streptococcus pneumoniae Antigen (M - Final Urine Catheter - Catheter Streptococcus pneumonia Ag 11/30/18 18:05 Legionella Antigen - Final Urine Catheter - Catheter Laboratory Tests Past 24 Hrs 12/02/18 12/03/18 12/03/18 Unknown 05:20 05:20 Hgb Hct Sodium 142 Potassium 3.4 L Chloride 110 H Carbon Dioxide 27.0 Anion Gap 5 BUN 9 Creatinine 0.48 L Estim Creat Clear Calc 116.34 Est GFR (MDRD) Af Amer 169 Est GFR (MDRD) Non-Af 139 BUN/Creatinine Ratio 18.6 Glucose 140 H Calcium 7.4 L Phosphorus 2.1 L Magnesium 1.7 S.aureus Protein A PCR NEGATIVE MRSA (PCR) Negative 12/03/18 05:20 Hgb 8.8 L Hct 27.3 L Sodium Potassium Chloride Carbon Dioxide Anion Gap BUN Creatinine Estim Creat Clear Calc Est GFR (MDRD) Af Amer Est GFR (MDRD) Non-Af BUN/Creatinine Ratio Glucose Calcium Phosphorus Magnesium S.aureus Protein A PCR MRSA (PCR) POC Glucose 12/03/18 12/03/18 12/02/18 11:24 06:47 21:25 POC Glucose 112 H 148 H 254 H 12/02/18 16:30 POC Glucose 131 H Medical Necessity - Tobacco Use Smoking Status: Never smoker Tobacco Use: Non-smoker Assessment/Plan All Active Problems Encephalopathy acute (Acute) Hypokalemia (Acute) Gastroenteritis (Acute) Acute respiratory failure with hypoxia (Acute) Severe sepsis (Acute) Hypomagnesemia (Acute) Osteomyelitis (Acute) CVA (cerebral vascular accident) (Acute) Gram-negative pneumonia (Acute) Foot abscess, left (Acute) Ulcers left foot down to deep subcutaneous tissue, tendon, capsule Abscess left foot s/p I+D Cellulitis left foot - much improved Osteomyelitis left foot - 1-3 toes and 2nd and 3rd metatarsals per MRI DM (uncontrolled) with neuropathy Multiple other comorbidities This patient was carefully examined and evaluated in detail again today - significant clinical improvement noted to the foot today. Wound culture reviewed, with multiple organisms, finals pending. Continue with IV antibiotics per Infectious Disease. The sites were packed with gauze and then the foot was dressed with gauze, kerlix and a ALLIE bandage. Patient is to keep her foot elevated. She is to be non weight bearing to her left foot. Reviewed noninvasive lower extremity arterial study, report pending. Continued medical management of this patient is appreciated by medical team. Spoke and reviewed with Dr. Myles today. Patient will be discharged to rehab soon. Podiatry will continue to follow this patient.
--- NOTE | 2018-12-03 15:18 | CASEMGMT ---
Social Work: TC to [facility], inpatient rehab. [facility] aware that pre cert can be started as patient is patient is medically ready. PLAN: Patient will be discharged to inpatient rehab once pre cert has been obtained. SAURAV Rubin
[2018-12-03] MEDS: metroNIDAZOLE 500 MG Tablet PO ×2 (15:57→22:11)
[2018-12-03] MEDS: oxyCODONE 5 MG Tablet PO (15:58)
[2018-12-03 16:06] LABS: Bedside Glucose 127 mg/dL (70-110)
[2018-12-03] MEDS: Atorvastatin Calcium 20 MG Tablet PO (22:13)
[2018-12-03 23:11] LABS: Bedside Glucose 101 mg/dL (70-110)
[2018-12-04] VITALS (26 sets, daily range): BP systolic 142–201; BP diastolic 74–111; PULSE 82–110; RESP 16–20; TEMP 36.4–36.8; O2SAT 92–97; BMI 25.2
[2018-12-04] MEDS: Metoprolol Tartrate 5 MG/5 ML Vial IV (00:48)
[2018-12-04] MEDS: 0.9% NaCl Peripheral Flush Adult/Peds IV ×3 (00:48→22:36)
[2018-12-04] MEDS: hydrALAZINE 20 MG/ML Vial 10 MG IV ×2 (02:45→19:48)
[2018-12-04 03:58] LABS: Absolute Neutrophil Count 9.8 X10^3/uL (2.0-7.7); Basophil# 0.02 X10^3/uL; Basophil% 0.2 % (0-1); Eosinophil# 0.04 X10^3/uL; Eosinophils% 0.3 % (0-5); Hematocrit 30.9 % (37-47); Hemoglobin 9.7 g/dl (12.0-15.0); Lymphocyte % 14.1 % (19-41); Mean Corp Hgb Conc 31.4 g/gl (32-36); Mean Corpuscular Hgb 25.5 pg (27.0-32.0); Mean Corpuscular Volume 81.3 fL (81-99); Mean Platelet Vol. 10.6 fl (6.2-12.0); Monocyte# 0.45 X10^3/uL; Monocyte% 3.7 % (0-10); Neutrophil # 9.76 X10^3/uL (2.7-7.7); Neutrophil % 81.1 % (47-70); Platelet Count 374 K/mm3 (150-450); RBC Distribution Width CV 15.1 % (11.6-14.6); RBC Distribution Width SD 43.6 fl (35.1-43.9)
[2018-12-04 04:04] LABS: Differential Indicated SCAN CRITERIA MET; POSITIVE COUNT NO; POSITIVE DIFFERENTIAL NO; POSITIVE MORPHOLOGY YES
[2018-12-04] MEDS: metroNIDAZOLE 500 MG Tablet PO ×2 (04:05→22:28)
[2018-12-04 04:21] LABS: Vancomycin, Trough Level 6.8 ug/mL (5.0-15.0)
[2018-12-04 04:35] LABS: Anion Gap 9 (5-15); BUN 8 mg/dL (7-18); BUN/Creat Ratio 18.6 RATIO (10-20); Calcium,Total 7.3 mg/dL (8.5-10.1); Chloride 110 mmol/L (98-107); Creatinine, Serum 0.43 mg/dL (0.55-1.02); EST Glomerular Filtration Rate 159 mL/min (>60); Est Glom Filt Rate - Afr Amer 193 mL/min (>60); Estimated Creatinine Clearance 129.87 ml/min; Glucose 153 mg/dL (74-106); Magnesium 1.6 mg/dL (1.6-2.6); Phosphorus 2.2 mg/dL (2.5-4.9); Potassium 3.8 mmol/L (3.5-5.1); Sodium Level 142 mmol/L (136-145)
[2018-12-04 06:46] LABS: Bedside Glucose 166 mg/dL (70-110)
[2018-12-04] MEDS: Ipratropium/Albuterol Sulfate 3 ML AMPUL.NEB INHALATION ×4 (07:04→18:59)
[2018-12-04] MEDS: Insulin Lispro 100 UNIT/ML INSULN.PEN SQ ×2 (08:07→22:30)
[2018-12-04] MEDS: Metoprolol Tartrate 25 MG Tablet PO ×2 (08:11→22:29)
[2018-12-04] MEDS: Menthol/Lanolin/Calamine/Znox 113 GM Tube 1 APPLIC TOPICAL ×2 (08:11→22:27)
[2018-12-04] MEDS: Aspirin 81 MG TAB.CHEW PO (08:11)
[2018-12-04] MEDS: Spironolactone 25 MG Tablet PO (08:11)
[2018-12-04] MEDS: Sertraline 50 MG Tablet 150 MG PO (08:12)
[2018-12-04] MEDS: APIXABAN 5 MG TABLET PO ×2 (10:25→22:36)
--- NOTE | 2018-12-04 10:37 | CASEMGMT ---
SW called [facility] in inpt rehab, asked her to let this SW know once she hears back from insurance. She will let this SW know. SAURAV Mcbride
[2018-12-04] MEDS: guaiFENesin 10 ML UDC (200MG/10ML) PO (11:21)
[2018-12-04 11:26] LABS: Bedside Glucose 167 mg/dL (70-110)
--- NOTE | 2018-12-04 12:25 | PN_ITS ---
Patient Problems: Active and Suspected Problems Hypokalemia (Acute) Gastroenteritis (Acute) Acute respiratory failure with hypoxia (Acute) Severe sepsis (Acute) Hypomagnesemia (Acute) Osteomyelitis (Acute) CVA (cerebral vascular accident) (Acute) Gram-negative pneumonia (Acute) Foot abscess, left (Acute) Subjective: Patient has ongoing diffuse abdominal pain. Diarrhea continues. No fever or chills. Nauseousness continues. Patient has not eaten since last week. She is incontinent of stool. Occult blood was positive, c diff was neg. She has never had a colonoscopy. She has never seen a surgeon here. No dizziness / LH. Pt had an episode of elevated BP last night. She denies having an increase of pain, nausea, vomiting, diarrhea at the time. Improved with hydralazine. - Physical Exam General: Alert, Oriented x3, Cooperative HEENT: Atraumatic, PERRLA, EOMI, Normocephalic Neck: Supple, No JVD, Negative Carotid Bruits Lungs: Clear to auscultation, Normal air movement Cardiovascular: Regular rate, No murmurs Abdomen: Bowel Sounds Present, Soft, Tender - diffuse tenderness Extremities: No edema, Capillary Refill Less than 3 Seconds Skin: No rashes, No breakdown Musculoskeletal: No Tenderness to Palpation of Joints or Extremities Neurological: Cranial nerves II-XII grossly intact Psych/Mental Status: Normal Affect, Appropriate, Alert and oriented to time, place, person, mood and affect Vital Signs Temp Pulse Resp BP Pulse Ox 98.3 F 91 18 154/96 H 96 12/04/18 11:17 12/04/18 11:17 12/04/18 11:17 12/04/18 11:17 12/04/18 11:17 Oxygen Flow Rate (L/min) 2 Oxygen Delivery Method Room Air Weight: 128 lb 11.999 oz Body Mass Index (BMI) 25.2 Finger Stick Blood Glucose 497 Intake and Output for Last 24 Hours 12/02/18 12/03/18 12/04/18 23:59 23:59 23:59 Intake Total 2730.3 / 2730.3 1513 / 1513 120 / 120 Output Total 375 / 375 250 / 250 Balance 2355.3 / 2355.3 1263 / 1263 120 / 120 Microbiology Past 72 Hours 12/02/18 Unknown Gram Stain - Final Wound Abcess - Left Foot Wound Culture - Preliminary Gram negative bridgett 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 difficile DNA Amplification - Final Stool 12/03/18 08:51 Stool Occult Blood (CAITLIN) - Final Stool Occult Blood Positive 11/30/18 13:30 Bacteria Detection (PCR) - Final Blood Culture (Wb) #2 - Left Forearm Streptococcus pneumoniae Blood Culture - Preliminary Streptococcus pneumoniae 11/30/18 15:05 Urine Culture - Final Urine, Clean Catch Lactobacillus sp. Laboratory Tests Past 24 Hrs 12/04/18 12/04/18 12/04/18 03:40 03:40 03:40 WBC 12.0 H RBC 3.80 L Hgb 9.7 L Hct 30.9 L MCV 81.3 MCH 25.5 L MCHC 31.4 L RDW 15.1 H RDW Differential 43.6 Plt Count 374 MPV 10.6 Immature Gran % (Auto) 0.600 Neut % (Auto) 81.1 H Lymph % (Auto) 14.1 L [place] % (Auto) 3.7 Eos % (Auto) 0.3 Baso % (Auto) 0.2 Absolute Neuts (auto) 9.8 H Absolute Lymphs (auto) 1.70 Total Counted Not Reportable Sodium 142 Potassium 3.8 Chloride 110 H Carbon Dioxide 23.0 Anion Gap 9 BUN 8 Creatinine 0.43 L Estim Creat Clear Calc 129.87 Est GFR (MDRD) Af Amer 193 Est GFR (MDRD) Non-Af 159 BUN/Creatinine Ratio 18.6 Glucose 153 H Calcium 7.3 L Phosphorus 2.2 L Magnesium 1.6 Vancomycin Trough 6.8 POC Glucose 12/04/18 12/04/18 12/03/18 11:15 06:42 22:00 POC Glucose 167 H 166 H 101 12/03/18 15:52 POC Glucose 127 H Medical Necessity - Tobacco Use Smoking Status: Never smoker Tobacco Use: Non-smoker Assessment/Plan All Active Problems Encephalopathy acute (Acute) Hypokalemia (Acute) Gastroenteritis (Acute) Acute respiratory failure with hypoxia (Acute) Severe sepsis (Acute) Hypomagnesemia (Acute) Osteomyelitis (Acute) CVA (cerebral vascular accident) (Acute) Gram-negative pneumonia (Acute) Foot abscess, left (Acute) 1. New Acute CVA 2/2 medication noncompliance - Neuro following. 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 MRA neck pending -Echo done this am. EF 65%, 1+MVI, normal LV function, no motion abnormalities -On asa/statin/eliquis -PT/OT/ST evals 2. Acute severe sepsis, with bacteremia, 2/2 multiple infectious sources - as evidenced by leukocytosis, tachypnea, tachycardia, lactic acidosis. Infectious sources include pneumonia, osteomyelitis, and ?gastroenteritis. -Blood culture showing Strep pneumo. -Lactate trending down -WBCs resolved -afebrile 3. Acute hypoxic respiratory failure 2/2 Acute BL HCAP - strep ag +, along with blood culture. rocephin and flagyl, off vanc/zosyn. legionella neg. Urine cx ne g. Repeat CXR with bilateral pna. -Continue Aerosols, mucinex, pep/IS, O2, -off O2 -Dysphagia as well, so likely a component of aspiration. 4. L foot suspected osteomyelitis and cellulitis - MRSA/MSSA pcr negative - Foot XR shows possible osteo and cellulitis. Cultures pending. -Multiple bactermia - ID following. Abx changed to rocephin and flagyl. -MRI foot suspicious for osteo, abscess+edema present. -ESR 69, CRP -Arterial studies with PAD left Ankle (DP) 0.82 MEL -Post op D#1 - Dr. Zamora did I&D noted pus and a foreign body sent for path 5. Acute gastroenteritis - seen on CT. Check Cdiff with recent hospitalization and abx use. As per subjective further abd pain and diarrhea however incontinent so no culture obtained yet. 6. Hypokalemia, hypomagnesemia, hyponatremia, hypophosphatemia - replete. Still deficient. Aldactone. Probably 2/2 malnutrition and ongoing GI loss. C diff neg - check enteric panel. 7. Anemia - Hemoccult positive. C diff neg. Consult to Dr. Loza for possible endoscopic workup. NPO now, has not eaten since last night. 8. PAfib - continue eliquis, lopressor. Echo as above. 9. HTN - stable 10. Anx/Depression - zoloft. 11. T2DM with hyperglycemia - improved. Pt was off DM meds x 1 week prior to admission. A1C poor at 10.9. -Titrate lantus, continue SSI. 12. Dysphagia - Diet: mechanical soft and thin liquids. DVT ppx: eliquis DC planning: refused to participate in therapy today, possibly endoscopy tomorrow with Dr. Loza. This patient was seen by Lucho Stephens PA-C under the supervision of Dr. Myles
--- NOTE | 2018-12-04 12:46 | PN.ID_ITS ---
Patient Problems: Active and Suspected Problems Hypokalemia (Acute) Gastroenteritis (Acute) Acute respiratory failure with hypoxia (Acute) Severe sepsis (Acute) Hypomagnesemia (Acute) Osteomyelitis (Acute) CVA (cerebral vascular accident) (Acute) Gram-negative pneumonia (Acute) Foot abscess, left (Acute) Subjective: Feeling better, but still some n/v/d. No fever. Picc in place. - Physical Exam General: Alert, Cooperative, No apparent distress Lungs: Clear to auscultation, Normal air movement Cardiovascular: Regular rate, Regular Rhythm Abdomen: Soft, Non Tender, Non-Distended Skin: No rashes, Ulcer/ Wound - wrapped Vital Signs Temp Pulse Resp BP Pulse Ox 98.3 F 91 18 154/96 H 96 12/04/18 11:17 12/04/18 11:17 12/04/18 11:17 12/04/18 11:17 12/04/18 11:17 Oxygen Flow Rate (L/min) 2 Oxygen Delivery Method Room Air Weight: 58.4 kg Body Mass Index (BMI) 25.2 Finger Stick Blood Glucose 497 Intake and Output for Last 24 Hours 12/02/18 12/03/18 12/04/18 23:59 23:59 23:59 Intake Total 2730.3 / 2730.3 1513 / 1513 120 / 120 Output Total 375 / 375 250 / 250 Balance 2355.3 / 2355.3 1263 / 1263 120 / 120 Microbiology Past 72 Hours 12/02/18 Unknown Gram Stain - Final Wound Abcess - Left Foot Wound Culture - Preliminary Gram negative bridgett 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 difficile DNA Amplification - Final Stool 12/03/18 08:51 Stool Occult Blood (CAITLIN) - Final Stool Occult Blood Positive 11/30/18 13:30 Bacteria Detection (PCR) - Final Blood Culture (Wb) #2 - Left Forearm Streptococcus pneumoniae Blood Culture - Preliminary Streptococcus pneumoniae 11/30/18 15:05 Urine Culture - Final Urine, Clean Catch Lactobacillus sp. Laboratory Tests Past 24 Hrs 12/04/18 12/04/18 12/04/18 03:40 03:40 03:40 WBC 12.0 H RBC 3.80 L Hgb 9.7 L Hct 30.9 L MCV 81.3 MCH 25.5 L MCHC 31.4 L RDW 15.1 H RDW Differential 43.6 Plt Count 374 MPV 10.6 Immature Gran % (Auto) 0.600 Neut % (Auto) 81.1 H Lymph % (Auto) 14.1 L [place] % (Auto) 3.7 Eos % (Auto) 0.3 Baso % (Auto) 0.2 Absolute Neuts (auto) 9.8 H Absolute Lymphs (auto) 1.70 Total Counted Not Reportable Sodium 142 Potassium 3.8 Chloride 110 H Carbon Dioxide 23.0 Anion Gap 9 BUN 8 Creatinine 0.43 L Estim Creat Clear Calc 129.87 Est GFR (MDRD) Af Amer 193 Est GFR (MDRD) Non-Af 159 BUN/Creatinine Ratio 18.6 Glucose 153 H Calcium 7.3 L Phosphorus 2.2 L Magnesium 1.6 Vancomycin Trough 6.8 POC Glucose 12/04/18 12/04/18 12/03/18 11:15 06:42 22:00 POC Glucose 167 H 166 H 101 12/03/18 15:52 POC Glucose 127 H Medical Necessity - Tobacco Use Smoking Status: Never smoker Tobacco Use: Non-smoker Route of nutrition/ use of supplements: [] Nutritional Intake: [] IV Site: [] Wise Catheter: [] - Assessment/Plan Antibiotics: [] Assessment/Plan: [] Active and Suspected Problems Hypokalemia (Acute) Gastroenteritis (Acute) Acute respiratory failure with hypoxia (Acute) Severe sepsis (Acute) Hypomagnesemia (Acute) Osteomyelitis (Acute) CVA (cerebral vascular accident) (Acute) Gram-negative pneumonia (Acute) Foot abscess, left (Acute) severe sepsis (leukocytosis, lactic acidosis, tachycardia) due to L foot polymicrobial osteo and abscess with uncontrolled DM and neuropathy - now s/p I&D by Dr. Zamora 12/02/18. Staph aureus pcr neg. Wound cx with proteus, k.pneumo, ecoli, strep, GPR. Surg cx also with entercoccus-like. Labs and vitals improving. Narrow vanc/zosyn to ceftriaxone and po flagyl. Picc in for planned 6 weeks of abx, stop date 01/13/19, weekly bmp, cbc, esr while on iv abx. diarrhea - cdiff neg. If neg and diarrhea continues, would send stool pcr panel. Will follow
[2018-12-04 16:50] LABS: Bedside Glucose 174 mg/dL (70-110)
[2018-12-04] MEDS: Acetaminophen 325 MG Tablet 650 MG PO (19:45)
[2018-12-04] MEDS: 0.9% NaCl PICC Flush IV (19:48)
--- NOTE | 2018-12-04 20:27 | PCM.CONS.B ---
- Consult Date of Consult: 12/04/18 - Reason for Consult Chief Complaint: anemia, diarrhea, abdominal pain - generalized, positive occult blood in stool History of Present Illness: 58 y/o WF presents with anemia Denies blood in stools No colon cancer known in family. Has had episodes of nausea/emesis yesterday, not present today. Denies previous EGD/colonoscopy - however had PEG tube placement in May 2018. Past Medical History: hypertension diabetes esophageal reflux anxiety/depressive disorder migraine headaches history of multiple CVA Past Surgical History: tubes tied tonsillectomy PEG tube placement 06/05/18 Medications: amlodipine atorvastatin insulin lisinopril vitamin D plavix aspirin zoloft Allergies: codeine, pork products Social history: TOB use denies resident of long term Review of Systems: General - has fevers Cardiovascular denies chest pain Pulmonary denies shortness of breath, denies coughing up blood Gastrointestinal feels hungry and with abdominal pain Neurological denies seizures Genitourinary denies blood in urine Hematological denies spontaneous/prolonged bleeding Skin denies rash Musculoskeletal has back pain Endocrine has diabetes Psychological denies hallucinations Physical examination: Vital signs Temp 98.2F HR 85 BP 128/81 RR 18 General WD/WN WF in no apparent distress, alert and oriented, not septic appearing HEENT Normocephalic. EOM intact with sclera clear and no icterus noted. Neck is supple with no jugular venous distention noted. Trachea is midline. Lungs normal breath sounds in all lung guerreor. No rales/rhonchi/wheezing noted. No labored breathing noted, such as retractions. No cough heard. Heart regular rate. Abdomen soft and benign, generalized tenderness with no peritoneal signs. Normal bowel sounds Extremities no calf tenderness noted. Genitourinary/Rectal deferred Skin normal skin integrity. Neurological non focal. Psychological normal affect, patient is calm and appropriate Impression: anemia, stool guaiac positive Discussion/Plan: I have discussed the above with the patient. I have offered the patient the procedure of upper and lower endoscopies. I have explained the procedures to the patient. I have counseled the patient as to the risks of the procedure, including but not limited to: infection, bleeding, injury to any blood vessels/nerves, perforation of the GI tract, inability to complete the procedure, injury to any intraabdominal organs such as liver/spleen, complications of anesthesia, etc. - the patient understands and agrees to proceed. Plan for upper and lower endoscopy on Sunday - time pending Begin colon cleansing preparation tomorrow. I have answered all questions to the patient?s satisfaction and the patient has no further questions.
--- NOTE | 2018-12-04 20:39 | CON.PCM_ITS ---
- Consult Date of Consult: 12/04/18 - Reason for Consult Chief Complaint: anemia, diarrhea, abdominal pain - generalized, positive occult blood in stool History of Present Illness: 58 y/o WF presents with anemia Denies blood in stools No colon cancer known in family. Has had episodes of nausea/emesis yesterday, not present today. Denies previous EGD/colonoscopy - however had PEG tube placement in May 2018. Past Medical History: hypertension diabetes esophageal reflux anxiety/depressive disorder migraine headaches history of multiple CVA Past Surgical History: tubes tied tonsillectomy PEG tube placement 06/05/18 Medications: amlodipine atorvastatin insulin lisinopril vitamin D plavix aspirin zoloft Allergies: codeine, pork products Social history: TOB use denies resident of [facility] Review of Systems: General - has fevers Cardiovascular denies chest pain Pulmonary denies shortness of breath, denies coughing up blood Gastrointestinal feels hungry and with abdominal pain Neurological denies seizures Genitourinary denies blood in urine Hematological denies spontaneous/prolonged bleeding Skin denies rash Musculoskeletal has back pain Endocrine has diabetes Psychological denies hallucinations Physical examination: Vital signs Temp 98.2F HR 85 BP 128/81 RR 18 General WD/WN WF in no apparent distress, alert and oriented, not septic appearing HEENT Normocephalic. EOM intact with sclera clear and no icterus noted. Neck is supple with no jugular venous distention noted. Trachea is midline. Lungs normal breath sounds in all lung guerrero. No rales/rhonchi/wheezing noted. No labored breathing noted, such as retractions. No cough heard. Heart regular rate. Abdomen soft and benign, generalized tenderness with no peritoneal signs. Normal bowel sounds Extremities no calf tenderness noted. Genitourinary/Rectal deferred Skin normal skin integrity. Neurological non focal. Psychological normal affect, patient is calm and appropriate Impression: anemia, stool guaiac positive Discussion/Plan: I have discussed the above with the patient. I have offered the patient the procedure of upper and lower endoscopies. I have explained the procedures to the patient. I have counseled the patient as to the risks of the procedure, including but not limited to: infection, bleeding, injury to any blood vessels/nerves, perforation of the GI tract, inability to complete the procedure, injury to any intraabdominal organs such as liver/spleen, complications of anesthesia, etc. - the patient understands and agrees to proceed. Plan for upper and lower endoscopy on Sunday - time pending Begin colon cleansing preparation tomorrow. I have answered all questions to the patient?s satisfaction and the patient has no further questions.
[2018-12-04] MEDS: Atorvastatin Calcium 20 MG Tablet PO (22:29)
[2018-12-04 22:55] LABS: Bedside Glucose 245 mg/dL (70-110)
[2018-12-05] VITALS (15 sets, daily range): BP systolic 121–189; BP diastolic 78–117; PULSE 81–98; RESP 14–18; TEMP 36.6–36.8; O2SAT 95–98; BMI 25.2
[2018-12-05] MEDS: hydrALAZINE 20 MG/ML Vial 10 MG IV (04:39)
[2018-12-05] MEDS: Electrolyte Solution/Peg's 4000 ML 2000 ML PO ×2 (06:53→17:58)
[2018-12-05] MEDS: metroNIDAZOLE 500 MG Tablet PO (06:53)
[2018-12-05 07:05] LABS: Bedside Glucose 137 mg/dL (70-110)
[2018-12-05] MEDS: Ipratropium/Albuterol Sulfate 3 ML AMPUL.NEB INHALATION ×2 (07:15→19:54)
--- NOTE | 2018-12-05 08:54 | CASEMGMT ---
SW called Lizzy in rehab, let her know that pt is having a scope today but may still be able to come to rehab if approved. SW asked Lizzy to let SW know if updates needed. SW attempted to speak w/pt however she is sleeping at present. CLEM will continue to follow. SAURAV Mcbride
[2018-12-05] MEDS: Sertraline 50 MG Tablet 150 MG PO (10:05)
[2018-12-05] MEDS: Aspirin 81 MG TAB.CHEW PO (10:05)
[2018-12-05] MEDS: Metoprolol Tartrate 25 MG Tablet PO ×2 (10:05→22:57)
[2018-12-05] MEDS: Spironolactone 25 MG Tablet PO (10:05)
[2018-12-05] MEDS: Menthol/Lanolin/Calamine/Znox 113 GM Tube 1 APPLIC TOPICAL ×2 (10:06→22:51)
--- NOTE | 2018-12-05 10:26 | PCM.PN.ID ---
Patient Problems: Active and Suspected Problems Hypokalemia (Acute) Gastroenteritis (Acute) Acute respiratory failure with hypoxia (Acute) Severe sepsis (Acute) Hypomagnesemia (Acute) Osteomyelitis (Acute) CVA (cerebral vascular accident) (Acute) Gram-negative pneumonia (Acute) Foot abscess, left (Acute) Subjective: Feeling better, nausea slightly improved, no fever - Physical Exam General: Alert, Cooperative, No apparent distress Lungs: Clear to auscultation, Normal air movement Cardiovascular: Regular rate, Regular Rhythm Abdomen: Soft, Non Tender, Non-Distended Skin: No rashes, Ulcer/ Wound - foot wrapped Vital Signs Temp Pulse Resp BP Pulse Ox 98.3 F 96 18 121/78 H 98 12/05/18 09:49 12/05/18 10:05 12/05/18 09:49 12/05/18 09:49 12/05/18 09:49 Oxygen Flow Rate (L/min) 2 Oxygen Delivery Method Room Air Weight: 58.4 kg Body Mass Index (BMI) 25.2 Finger Stick Blood Glucose 497 Intake and Output for Last 24 Hours 12/03/18 12/04/18 12/05/18 23:59 23:59 23:59 Intake Total 1513 / 1513 966 / 966 15.6 / 15.6 Output Total 250 / 250 Balance 1263 / 1263 966 / 966 15.6 / 15.6 Microbiology Past 72 Hours 12/02/18 Unknown Gram Stain - Final Wound Abcess - Left Foot Wound Culture - Final Proteus vulgaris Klebsiella pneumoniae sp pneum Escherichia coli Vancomycin Resist. E. faecalis 11/30/18 18:05 Gram Stain - Final Wound - Left Foot Wound Culture - Final Proteus vulgaris Klebsiella pneumoniae sp pneum Escherichia coli Streptococcus group C Gram positive bridgett 12/03/18 08:51 C. difficile DNA Amplification - Final Stool 12/03/18 08:51 Stool Occult Blood (CAITLIN) - Final Stool Occult Blood Positive 11/30/18 13:30 Bacteria Detection (PCR) - Final Blood Culture (Wb) #2 - Left Forearm Streptococcus pneumoniae Blood Culture - Preliminary Streptococcus pneumoniae 11/30/18 15:05 Urine Culture - Final Urine, Clean Catch Lactobacillus sp. POC Glucose 12/05/18 12/04/18 12/04/18 06:51 22:24 16:14 POC Glucose 137 H 245 H 174 H 12/04/18 11:15 POC Glucose 167 H Medical Necessity - Tobacco Use Smoking Status: Never smoker Tobacco Use: Non-smoker Route of nutrition/ use of supplements: [] Nutritional Intake: [] IV Site: [] Wise Catheter: [] - Assessment/Plan Antibiotics: [] Assessment/Plan: [] Active and Suspected Problems Hypokalemia (Acute) Gastroenteritis (Acute) Acute respiratory failure with hypoxia (Acute) Severe sepsis (Acute) Hypomagnesemia (Acute) Osteomyelitis (Acute) CVA (cerebral vascular accident) (Acute) Gram-negative pneumonia (Acute) Foot abscess, left (Acute) severe sepsis (leukocytosis, lactic acidosis, tachycardia) due to L foot polymicrobial osteo and abscess with uncontrolled DM and neuropathy - now s/p I&D by Dr. Zamora 12/02/18. Staph aureus pcr neg. Wound cx with proteus, k.pneumo, ecoli, strep, GPR. Surg cx now with VRE, ecoli, prot, klebs. Labs and vitals improving. With growth of VRE, will change ceftriaxone/flagyl to unasyn with po cipro. Picc in for planned 6 weeks of abx, stop date 01/13/19, weekly bmp, cbc, LFT, and esr while on iv abx. diarrhea - cdiff neg Will follow
--- NOTE | 2018-12-05 10:47 | NURSING ---
wound photo: left foot (dorsal view)
--- NOTE | 2018-12-05 10:49 | NURSING ---
wound photo: left foot (plantar view)
[2018-12-05] MEDS: Ciprofloxacin 500 MG Tablet PO ×2 (10:55→22:52)
[2018-12-05 11:20] LABS: Bedside Glucose 142 mg/dL (70-110)
--- NOTE | 2018-12-05 13:53 | CASEMGMT ---
Addendum entered by Tia Parmar 12/05/18 15:39: SW spoke w/[facility] at [facility], she received the referral. They can take pt and will start the precert. SW let pt know, will continue to follow. SAURAV Mcbride Original Note: Addendum entered by Tia Parmar 12/05/18 15:02: Lizzy called this SW, pt was denied for inpt rehab. SW spoke w/pt, explained that insurance denied rehab and [facility] has no beds. Pt agreeable to referral back to [facility]. SW called Virgen at [facility], message left and referral faxed. SW will continue to follow. SAURAV Mcbride Original Note: SW spoke w/pt in room in regard to discharge plan. SW explained that we are still working on getting precert for rehab. SW explained that we are not certain if she will be authorized for rehab or not. SW spoke w/pt about fpc placement if pt's insurance will not authorize for rehab. Pt initially stated she will not go to a fpc. SW spoke w/her about how she would manage at home, and if her sons would help her. Pt states she is not certain, states her sons are lazy. Upon further discussion, pt would be agreeable to [facility] . Pt was in [facility] at the end of the year and does not want to go back there. SW did attempt to give pt a list of nursing homes that take her insurance, pt states she cannot read it. SW reviewed the list briefly w/pt, she would possibly consider a SNF closer to home--[facility] next [facility] closest to home should [facility] not have a bed. SW spoke w/pt about all she has been going through, offered support to pt. SW will continue to follow, will see pt again tomorrow. CLEM did call TCU and put pt on the TCU list, though there may not be a bed until next week. SW will check in w/pt tomorrow. SAURAV Mcbride, SCRIPT EDITOR
--- NOTE | 2018-12-05 14:52 | PN_ITS ---
Patient Problems: Active and Suspected Problems Hypokalemia (Acute) Gastroenteritis (Acute) Acute respiratory failure with hypoxia (Acute) Severe sepsis (Acute) Hypomagnesemia (Acute) Osteomyelitis (Acute) CVA (cerebral vascular accident) (Acute) Gram-negative pneumonia (Acute) Foot abscess, left (Acute) Subjective: Patient seen and examined. Complains of nausea without emesis and abdominal cramping. She began bowel prep this morning in preparation for EGD/colonoscopy tomorrow. - Physical Exam General: Alert, Oriented x3, Cooperative HEENT: Atraumatic, PERRLA, EOMI, Normocephalic Neck: Supple, No JVD, Negative Carotid Bruits Lungs: Clear to auscultation, Normal air movement Cardiovascular: Regular rate, Regular Rhythm, Normal S1, Normal S2, No murmurs Abdomen: Bowel Sounds Present, Soft, Non Tender, Non-Distended Extremities: No clubbing, No cyanosis, No edema, Capillary Refill Less than 3 Seconds Skin: - - Left foot dressing clean dry and intact. Musculoskeletal: No Tenderness to Palpation of Joints or Extremities Neurological: Cranial nerves II-XII grossly intact, Neuro grossly intact Psych/Mental Status: Flat Affect Vital Signs Temp Pulse Resp BP Pulse Ox 98.3 F 96 18 121/78 H 98 12/05/18 09:49 12/05/18 10:05 12/05/18 09:49 12/05/18 09:49 12/05/18 09:49 Oxygen Flow Rate (L/min) 2 Oxygen Delivery Method Room Air Weight: 128 lb 11.999 oz Body Mass Index (BMI) 25.2 Finger Stick Blood Glucose 497 Intake and Output for Last 24 Hours 12/03/18 12/04/18 12/05/18 23:59 23:59 23:59 Intake Total 1513 / 1513 966 / 966 255.6 / 255.6 Output Total 250 / 250 Balance 1263 / 1263 966 / 966 255.6 / 255.6 Microbiology Past 72 Hours 12/02/18 Unknown Gram Stain - Final Wound Abcess - Left Foot Wound Culture - Final Proteus vulgaris Klebsiella pneumoniae sp pneum Escherichia coli Vancomycin Resist. E. faecalis Anaerobic Culture - Preliminary Checking for anaerobes, further studies to follow. 11/30/18 18:05 Gram Stain - Final Wound - Left Foot Wound Culture - Final Proteus vulgaris Klebsiella pneumoniae sp pneum Escherichia coli Streptococcus group C Gram positive bridgett 12/03/18 08:51 C. difficile DNA Amplification - Final Stool 12/03/18 08:51 Stool Occult Blood (CAITLIN) - Final Stool Occult Blood Positive 11/30/18 13:30 Bacteria Detection (PCR) - Final Blood Culture (Wb) #2 - Left Forearm Streptococcus pneumoniae Blood Culture - Preliminary Streptococcus pneumoniae POC Glucose 12/05/18 12/05/18 12/04/18 11:06 06:51 22:24 POC Glucose 142 H 137 H 245 H 12/04/18 16:14 POC Glucose 174 H Medical Necessity - Tobacco Use Smoking Status: Never smoker Tobacco Use: Non-smoker Assessment/Plan All Active Problems Encephalopathy acute (Acute) Hypokalemia (Acute) Gastroenteritis (Acute) Acute respiratory failure with hypoxia (Acute) Severe sepsis (Acute) Hypomagnesemia (Acute) Osteomyelitis (Acute) CVA (cerebral vascular accident) (Acute) Gram-negative pneumonia (Acute) Foot abscess, left (Acute) 1. Acute left subcortical infarct secondary to noncompliance with medication regimen-neurology consulted. MRI showed acute left swain radiata infarct, chronic right occipital infarct, chronic right cerebellar lacunar infarcts. MRA of head with unchanged right vertebral and bilateral posterior cerebral artery occlusions, basilar stenosis. 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 Echo showed an EF of 65%, +1 mitral valve insufficiency. Continue aspirin, statin, Eliquis. PT/OT/ST. Denies for rehab unit. SNF pending acceptance. 2. Acute severe sepsis secondary to left foot polymicrobial osteomyelitis with associated Streptococcus bacteremia and abscess complicated by uncontrolled diabetes mellitus and neuropathy- s/p I&D by Dr. Zamora 12/02/18. ID following. Wound culture with Proteus, Klebsiella pneumoniae, e.coli, and VRE faecalis. PICC line in place. Plan for IV Rocephin for 6 weeks with stop date 01/13/2019. Oral Flagyl as well. Weekly BMP, CBC and ESR while on IV antibiotics. Dressing changes per podiatry recommendations. Wound RN consult. 3. Acute hypoxic respiratory failure secondary to acute bilateral HCAP-chest x- ray with bilateral pneumonia. + strep pneumo. Oxygen now stable on room air. Continue albuterol and DuoNeb aerosols. IV Rocephin and oral Flagyl as noted above. Walking pulse ox prior to discharge. ST consult due to dysphagia. Continue dietary modifications per speech therapy recommendations including mechanical soft diet and nectar thick liquids. 4. Acute anemia with stool guaiac positive, gastroenteritis- General surgery, Dr. Loza consulted. Plan for EGD/Colonoscopy tomorrow. C.Diff negative. PRN antiemetics. Hgb stable. Trend CBC. 5. Electrolyte abnormalities including hypokalemia, hypomagnesia, hyponatremia, hypophosphatemia secondary to GI losses and poor oral intake-replace per protocol. Trend BMP. 6. Type 2 diabetes mellitus-hemoglobin A1c 10.9%. Continue sliding scale insulin and Lantus regimen. Accu-Cheks ACHS. 7. Hypertension-stable, continue current regimen. 8. Paroxysmal atrial fibrillation-continue Eliquis, Lopressor. 9. Anxiety/depression-continue Zoloft regimen. 10. Moderate protein calorie malnutrition-continue nutrition supplementation per dietitian recommendation. DVT prophylaxis-Eliquis Discharge planning: Anticipate SNF when accepted/medically stable. This patient was seen by India Peter NP-Monica under the supervision of Dr. Myles.
--- NOTE | 2018-12-05 15:10 | NURSING ---
Patient assisted x2 from chair to bed. Complete bed change and tobin care provided. Adult diaper changed, cleaned with bath wipes. Patient placed in position of comfort, warm blankets given. Patient sitting up and watching T.V. Patient denies needs at this time.
--- NOTE | 2018-12-05 15:45 | NURSING ---
Primary nurse Mitchell made aware of patient BP. Will continue to monitor.
[2018-12-05 16:06] LABS: Bedside Glucose 135 mg/dL (70-110)
[2018-12-05] MEDS: 0.9% NaCl Peripheral Flush Adult/Peds IV (22:06)
[2018-12-05] MEDS: Atorvastatin Calcium 20 MG Tablet PO (22:56)
[2018-12-05 23:46] LABS: Bedside Glucose 95 mg/dL (70-110)
[2018-12-06] VITALS (18 sets, daily range): BP systolic 106–183; BP diastolic 67–109; PULSE 78–96; RESP 16–18; TEMP 36.5–37.1; O2SAT 93–97; BMI 25.2
--- NOTE | 2018-12-06 | IMM_PTH ---
PATIENT: FERNANDO ZULETA LOC: [facility] U#:[id number] AGE/SX: 58/F ROOM: [facility] RE11/30/[address]: Dr. Jessie Myles DO : 1960 BED: 1 DIS: 12/06/2018 SPEC #: [id number] RECD: 12/06/18 14:13 STATUS: SOUT REQ #: [id number] LATRICIA: 12/06/18 00:[address]: Aranza Loza DEPT: IMMUNOHISTOCHEMISTRY RECD BY: Millie Brandon ENTERED: 12/06/18 14:16 SP TYPE: IMMUNO OTHR DR: DO Dr. Emeterio Villavicencio DO Dr. Jeffrey Wunning, DPM MD Dr. Aaron Green, XIAOM MD Dr. Etienne Dexter MD Jodi Swihart, TIRE ROOM SUPERVISOR-C Tissues: A - Stomach, NOS Procedures: H Pylori (initial) Comments: @ Ordering doctor for H.PYLORI edited from to @ by NAIMA at 12/06/181416 @ Submitting doctor edited from to @ by NAIMA at 12/06/181416 @ Ordering doctor for H.PYLORI edited from to @ darron MCNAMARA at 12/06/181418 @ Submitting doctor edited from to @ darron MCNAMARA at 12/06/181418 PHYSICIAN & INSTITUTION [address] [place] [address] SPECIMEN INFORMATION: Tissue Source: Biopsy gastric antrum Clinical Info: [facility] Specimen Number: [id number] CPT code: 13036 METHODOLOGY: Deparaffinized sections of prefer/formalin-fixed tissue or PAP/DQ stained slides are incubated with monoclonal/polyclonal antibodies/oligonucleotide probes. Localization is made via biotin free immunoperoxidase method. Appropriate controls are performed and reacted as expected. Results on target cell population are indicated in the following table: RESULTS: ANTIBODY / CLONE RESULT H Pylori (polyclonal) negative These tests were developed and their performance characteristics determined by [facility]. They may not have been cleared or approved by the U.[place]. Food and Drug Administration. The FDA has determined that such clearance or approval is not necessary. INTERPRETATION: Gastric antrum, biopsy: Negative for Helicobacter pylori organisms. SJ:swathi 12/09/18
--- NOTE | 2018-12-06 | GASB_PTH ---
PATIENT: FERNANDO ZULETA LOC: [facility] U#:[id number] AGE/SX: 58/F ROOM: [facility] RE11/30/[address]: Dr. Jessie Myles DO : 1960 BED: 1 DIS: 12/06/2018 SPEC #: [id number] RECD: 12/06/18 13:59 STATUS: MICHAEL REQ #: [id number] LATRICIA: 12/06/18 00:[address]: Aranza Loza DEPT: SURGICAL PATHOLOGY RECD BY: Jw Kuo ENTERED: 12/06/18 13:59 SP TYPE: Gastric Bx OTHR DR: DO Dr. Emeterio Villavicencio DO Dr. Jeffrey Wunning, DPM MD Dr. Aaron Green, DPM MD Dr. Etienne Dexter MD Jodi Swihart, BLACKTOP PAVER OPERATOR-C Tissues: Gastric mucous membrane Procedures: Surgery Specimen Level IV Comments: @ Ordering doctor for SUIV edited from to @ by NAIMA at 12/06/18 141 @ Submitting doctor edited from to @ by NAIMA at 12/06/18 141 @ Ordering doctor for SUIV edited from to @ darron MCNAMARA at 12/06/181418 @ Submitting doctor edited from to @ darron MCNAMARA at 12/06/181418 HEADER OPERATION: [place] [place] DIAGNOSIS: Anemia TISSUE SUBMITTED: Gastric antrum biopsy, histo/H. pylori MICROSCOPIC DIAGNOSIS Gastric antrum, biopsy: Mild to moderate gastritis. See microscopic description and comment. SJ:swathi 12/09/18 COMMENT The results of immunohistochemistry for Helicobacter pylori will be reported separately ([id number]). MICROSCOPIC DESCRIPTION Slides are reviewed. The specimen shows fragments of gastric mucosa with chronic inflammatory cell infiltrates in the lamina propria consisting of lymphocytes and plasma cells, consistent with mild to moderate chronic gastritis. GROSS DESCRIPTION Received in fixative is one container labeled with the patient's name and designated biopsy gastric antrum. The specimen consists of two irregular fragments of light gabriel soft tissue that in aggregate measure 0.3 x 0.2 x 0.1 cm. The specimen is totally submitted in one cassette. / SJ:rg 12/06/18 TC:3 CPT: 87484
--- NOTE | 2018-12-06 03:18 | NURSING ---
This RN and LASTING MACHINE OPERATOR BED's have encouraged patient to drink bowel prep for EGD and Colonoscopy throughout our shift. We have went in and stood with patient to get her to drink the prep, she will take a few sips, then she will states I cannot do anymore.
[2018-12-06] MEDS: hydrALAZINE 20 MG/ML Vial 10 MG IV ×2 (04:19→08:25)
[2018-12-06] MEDS: 0.9% NaCl PICC Flush IV ×3 (04:21→06:43)
[2018-12-06 04:56] LABS: Hematocrit 31.5 % (37-47); Mean Corp Hgb Conc 31.7 g/gl (32-36); Mean Corpuscular Hgb 25.8 pg (27.0-32.0); Mean Corpuscular Volume 81.2 fL (81-99); Mean Platelet Vol. 9.9 fl (6.2-12.0); Platelet Count 375 K/mm3 (150-450); RBC Distribution Width CV 15.3 % (11.6-14.6); RBC Distribution Width SD 43.8 fl (35.1-43.9); Red Blood Count 3.88 M/mm3 (4.2-5.4); White Blood Count 9.6 K/mm3 (4.4-11.0)
[2018-12-06 05:02] LABS: Scan Indicated on CBC? Y/N NO
[2018-12-06 05:07] LABS: International Normalized Ratio 1.3; Prothrombin Time (Protime)PT. 15.5 SECONDS (11.7-14.9)
[2018-12-06 05:08] LABS: Partial Thromboplast Time 30.8 Seconds (24.1-36.2)
[2018-12-06 05:10] LABS: Anion Gap 8 (5-15); BUN 8 mg/dL (7-18); BUN/Creat Ratio 16.5 RATIO (10-20); Calcium,Total 8.1 mg/dL (8.5-10.1); Chloride 108 mmol/L (98-107); Creatinine, Serum 0.49 mg/dL (0.55-1.02); EST Glomerular Filtration Rate 138 mL/min (>60); Est Glom Filt Rate - Afr Amer 167 mL/min (>60); Estimated Creatinine Clearance 113.97 ml/min; Glucose 100 mg/dL (74-106); Magnesium 1.5 mg/dL (1.6-2.6); Phosphorus 2.5 mg/dL (2.5-4.9); Potassium 4.2 mmol/L (3.5-5.1); Sodium Level 141 mmol/L (136-145)
[2018-12-06 05:48] LABS: Hemoglobin A1c 11.1 % (4.2-6.3)
--- NOTE | 2018-12-06 05:55 | EKG12_ITS ---
Test Reason : AM EKG Blood Pressure : / mmHG Vent. Rate : 090 BPM Atrial Rate : 090 BPM P-R Int : 144 ms QRS Dur : 090 ms QT Int : 386 ms P-R-T Axes : 031 056 045 degrees QTc Int : 472 ms Normal sinus rhythm Normal ECG When compared with ECG of 01-DEC-2018 05:08, Nonspecific T wave abnormality no longer evident in Lateral leads Confirmed by ROSE CURTIS, KIERSTEN ([id number]), news editor GUILLAUME MARIA ([id number]) on 12/11/2018 1:58:54 PM Referred By: DR ZUNIGA Confirmed By:KIERSTEN ROSE MD
[2018-12-06] MEDS: Ipratropium/Albuterol Sulfate 3 ML AMPUL.NEB INHALATION (06:48)
--- NOTE | 2018-12-06 07:02 | NURSING ---
This RN and DIRECTOR OF CORPORATE STRATEGY continued to encourage patient to drink bowel prep, she says I am trying but will not drink anymore.
[2018-12-06 07:06] LABS: Bedside Glucose 119 mg/dL (70-110)
[2018-12-06] MEDS: Fleet Enema 2 ML RECTAL (09:43)
--- NOTE | 2018-12-06 10:33 | NURSING ---
report called to AC
--- NOTE | 2018-12-06 10:40 | NURSING ---
pt off floor at this time for EGD/colonoscopy
--- NOTE | 2018-12-06 12:58 | OP.ENDO_ITS ---
12/06/2018 Chuyita Wright Re : Upper GI endoscopy procedure for Yazmin Fuentesr Kyle This procedure was performed on Thursday, December 06, 2018. My impressions and recommendations are as follows: Impressions : - Normal esophagus. - Normal stomach. Biopsied. - Normal first portion of the duodenum and second portion of the duodenum. Recommendations : - H pylori test pending - Continue present medications. My findings are described in the full procedure note, which is enclosed. If I can be of further assistance, please feel free to contact me at Doctor phone number(s): , Work: . Sincerely, MD Aranza Josue MD 12/06/2018 12:58:10 PM This report has been signed electronically.
--- NOTE | 2018-12-06 13:02 | OP.ENDO_ITS ---
12/06/2018 Chuyita Wright Re : Colonoscopy procedure for Yazmin Penn Dear Kyle This procedure was performed on Thursday, December 06, 2018. My impressions and recommendations are as follows: Impressions : - Preparation of the colon was unsatisfactory. - Non-bleeding internal hemorrhoids. - No specimens collected. Recommendations : - Repeat colonoscopy PRN because the bowel preparation was poor. - Return to primary care physician PRN. - Continue present medications. My findings are described in the full procedure note, which is enclosed. If I can be of further assistance, please feel free to contact me at Doctor phone number(s): , Work: . Sincerely, MD Aranza Josue MD 12/06/2018 1:02:25 PM This report has been signed electronically.
--- NOTE | 2018-12-06 13:44 | NURSING ---
pt returned to floor at this time
[2018-12-06] MEDS: Aspirin 81 MG TAB.CHEW PO (14:11)
[2018-12-06] MEDS: Ciprofloxacin 500 MG Tablet PO (14:11)
[2018-12-06] MEDS: Sertraline 50 MG Tablet 150 MG PO (14:11)
[2018-12-06] MEDS: APIXABAN 5 MG TABLET PO (14:12)
[2018-12-06] MEDS: Metoprolol Tartrate 25 MG Tablet PO (14:12)
--- NOTE | 2018-12-06 14:12 | PN_ITS ---
Patient Problems: Active and Suspected Problems Encephalopathy acute (Acute) CVA (cerebral vascular accident) (Acute) Hypokalemia (Acute) Gastroenteritis (Acute) Acute respiratory failure with hypoxia (Acute) Severe sepsis (Acute) Hypomagnesemia (Acute) Osteomyelitis (Acute) Gram-negative pneumonia (Acute) Foot abscess, left (Acute) Subjective: This 58-year-old female with multiple comorbidities was seen the LAD side left foot widespread incision and drainage due to abscess. The surgery was performed by Dr. Zamora on 12/02/2018. Her foot pain is mild and rated as a 2 out of 10. She denies fever or chills. She does have continued nausea. - Physical Exam General: Alert, Oriented x3, Cooperative HEENT: Atraumatic Extremities: No cyanosis, Capillary Refill Less than 3 Seconds, No Calf Tenderness, Diminished Peripheral Pulses, Edema Skin: Ulcer/ Wound - No purlence, no odor, no erythema, no streaking noted. deep tissue has healthy granulation tissue and healthy tendon tissue. no exposed bone seen today on exam. The adjacent skin is atrophic and hairless. No maceration or necrosis. No interdigital maceration. Musculoskeletal: No Tenderness to Palpation of Joints or Extremities, Muscle Wasting, - - compartments of foot remain soft to palpate. There is no bogginess or fluctuance on palpation to the surgical site left foot Neurological: - - Lack of epicritic sensation consistent with neuropathy Psych/Mental Status: Normal Affect, Appropriate Vital Signs Temp Pulse Resp BP Pulse Ox 97.7 F L 93 16 131/81 H 93 12/06/18 13:45 12/06/18 13:45 12/06/18 13:45 12/06/18 13:45 12/06/18 13:45 Oxygen Flow Rate (L/min) 2 Oxygen Delivery Method Room Air Weight: 58.4 kg Body Mass Index (BMI) 25.2 Finger Stick Blood Glucose 497 Intake and Output for Last 24 Hours 12/04/18 12/05/18 12/06/18 23:59 23:59 23:59 Intake Total 966 / 966 2314.6 / 2314.6 350 / 350 Balance 966 / 966 2314.6 / 2314.6 350 / 350 Microbiology Past 72 Hours 11/30/18 13:30 Bacteria Detection (PCR) - Final Blood Culture (Wb) #2 - Left Forearm Streptococcus pneumoniae Blood Culture - Final Streptococcus pneumoniae 12/02/18 Unknown Gram Stain - Final Wound Abcess - Left Foot Wound Culture - Final Proteus vulgaris Klebsiella pneumoniae sp pneum Escherichia coli Vancomycin Resist. E. faecalis Anaerobic Culture - Preliminary Checking for anaerobes, further studies to follow. 11/30/18 18:05 Gram Stain - Final Wound - Left Foot Wound Culture - Final Proteus vulgaris Klebsiella pneumoniae sp pneum Escherichia coli Streptococcus group C Gram positive bridgett 12/03/18 08:51 C. difficile DNA Amplification - Final Stool 12/03/18 08:51 Stool Occult Blood (CAITLIN) - Final Stool Occult Blood Positive Laboratory Tests Past 24 Hrs 12/06/18 12/06/18 12/06/18 04:45 04:45 04:45 WBC 9.6 RBC 3.88 L Hgb 10.0 L Hct 31.5 L MCV 81.2 MCH 25.8 L MCHC 31.7 L RDW 15.3 H RDW Differential 43.8 Plt Count 375 MPV 9.9 PT INR APTT Sodium 141 Potassium 4.2 Chloride 108 H Carbon Dioxide 25.0 Anion Gap 8 BUN 8 Creatinine 0.49 L Estim Creat Clear Calc 113.97 Est GFR (MDRD) Af Amer 167 Est GFR (MDRD) Non-Af 138 BUN/Creatinine Ratio 16.5 Glucose 100 Hemoglobin A1c 11.1 H Calcium 8.1 L Phosphorus 2.5 Magnesium 1.5 L 12/06/18 04:45 WBC RBC Hgb Hct MCV MCH MCHC RDW RDW Differential Plt Count MPV PT 15.5 H INR 1.3 APTT 30.8 Sodium Potassium Chloride Carbon Dioxide Anion Gap BUN Creatinine Estim Creat Clear Calc Est GFR (MDRD) Af Amer Est GFR (MDRD) Non-Af BUN/Creatinine Ratio Glucose Hemoglobin A1c Calcium Phosphorus Magnesium POC Glucose 12/06/18 12/05/18 12/05/18 06:52 22:54 15:52 POC Glucose 119 H 95 135 H Medical Necessity - Tobacco Use Smoking Status: Never smoker Tobacco Use: Non-smoker Assessment/Plan All Active Problems Encephalopathy acute (Acute) CVA (cerebral vascular accident) (Acute) Hypokalemia (Acute) Gastroenteritis (Acute) Acute respiratory failure with hypoxia (Acute) Severe sepsis (Acute) Hypomagnesemia (Acute) Osteomyelitis (Acute) Gram-negative pneumonia (Acute) Foot abscess, left (Acute) Ulcers left foot down to deep subcutaneous tissue, tendon, capsule Abscess left foot s/p I+D (12/02/18) Cellulitis resolved Osteomyelitis left foot - 1-3 toes and 2nd and 3rd metatarsals per MRI DM (uncontrolled) with neuropathy Multiple other comorbidities: Subcortical infarct, hypoxic respiratory failure, anemia, recent electrolytic abnormalities, hypertension, atrial fibrillation This patient was carefully examined and evaluated in detail again today - sign ificant clinical improvement noted to the foot continues. Wound culture reviewed, with multiple organisms: Proteus vulgaris, Klebsiella pneumonia Ssp pneum, E. coli, vancomycin resistant e. faecalis. MRI did suggest osteomyelitis. To ankle continue with IV antibiotics per Infectious Disease. Her current plan involves Unasyn IV and oral Cipro. Labs were reviewed with white blood cell count 9.6 and hemoglobin A1c of 11.1%. It is noted she had an I&D performed and her previous The sites were packed with gauze and then the foot was dressed with gauze, kerlix and a ALLIE bandage. I recommend daily dressing changes with Aquacel Ag. Patient is to keep her foot elevated. She is to be non weight bearing to her left foot with surgical shoe in place for protection. I recommend the use of an assistive device. Reviewed noninvasive lower extremity arterial study. Left ankle brachial indices for the PT is 0.95 and for the DP is 0.82. Continued medical management of this patient is appreciated by medical team. I recommended she continue to optimize healing with nutritional supplementation and proper glycemic control. Her foot is stabilized and it is okay to discharge from a podiatric surgical standpoint at this time. Weightbearing status and dressing recommendations for her fdc facility transfer will be entered electronically. [facility] within [address] Zamora or call sooner if there are any questions or concerns. Julieth Garcia DPM, FACFAS [facility] [phone]
[2018-12-06] MEDS: Spironolactone 25 MG Tablet PO (14:13)
[2018-12-06] MEDS: Menthol/Lanolin/Calamine/Znox 113 GM Tube 1 APPLIC TOPICAL (14:13)
--- NOTE | 2018-12-06 14:34 | PCM.EXTCARCO ---
- Diet 12/06/18 13:57 Diet: Regular Diet Dietary Modifications:: Mechanical Soft Diet [place] Thick Liquids Is pt able to select menu?: No Diet Comments: non-meat eater, small bites/sips, decreased rate, supervision, no straws, - Routine Orders/Code Status Enema Type: Fleetz Enema Frequency: Daily PRN Suppository Type: Dulcolax 10mg Suppository Frequency: Daily PRN O2 Liters per Minute: 2 O2 Frequency: PRN Keep PO Greater than or Equal to (%): 90 Routine Lab Work: - - CBC, BMP Q Week Code Status: Full Code - Wound(s) LEFT FOOT Wound Type: Neuropathic/Diabetic Foot Ulcer Dressing Change: Wet to Dry Dressing - Suggestions for Active Care Change Position every (hours): 2 Times a day to sit in chair: 3 - Therapies Weight Bearing: Non weight bearing - Left foot Physical Therapy: Eval and Treat Occupational Therapy: Eval and Treat Speech Therapy: Eval and Treat - Problem/Diagnosis (1) Encephalopathy acute Status: Acute Current Visit: Yes (2) CVA (cerebral vascular accident) Status: Acute Current Visit: Yes (3) Hypokalemia Status: Acute Current Visit: Yes (4) Gastroenteritis Status: Acute Current Visit: Yes (5) Acute respiratory failure with hypoxia Status: Acute Current Visit: Yes (6) Severe sepsis Status: Acute Current Visit: Yes (7) Hypomagnesemia Status: Acute Current Visit: Yes (8) Paroxysmal atrial fibrillation Status: Chronic Current Visit: No (9) Osteomyelitis Status: Acute Current Visit: Yes (10) Gram-negative pneumonia Status: Acute Current Visit: Yes (11) Foot abscess, left Status: Acute Current Visit: Yes (12) IBS (irritable bowel syndrome) Status: Chronic Current Visit: No (13) HLD (hyperlipidemia) Status: Chronic Current Visit: No (14) Esophageal reflux Status: Chronic Current Visit: No (15) Type II diabetes mellitus, uncontrolled Status: Chronic Current Visit: No (16) Anxiety and depression Status: Chronic Current Visit: No (17) Cerebrovascular disease Status: Chronic Comment: Possible small ischemic strokes versus sequela of chronic migraine Current Visit: No (18) Migraine Status: Chronic Current Visit: No (19) reports hole in heart since Status: Chronic Current Visit: No (20) Benign essential HTN Status: Chronic Current Visit: No - Allergies/Procedures Done in Hospital Allergies/Adverse Reactions: Allergies codeine Adverse Reaction (Verified 11/30/18 13:28) Other pork derived (porcine) Adverse Reaction (Verified 11/30/18 13:28) Vomiting Procedures: 2-D Echocardiogram, Colonoscopy, EGD, - - I&D left foot wound - Type of Care/Length of Stay Estimated LOS: Convalescent Care Less Than 30 days Type of Care Needed: Skilled Rehab Potential: Fair Prognosis: Fair - Additional Orders/Day of Discharge Additional Orders: Nonweightbearing left foot. Left foot surgical shoe. Change left foot dressing interspace incision and drainage sites daily with Aquacel ag, gauze, Kerlix and Jorge wrap. H&P will serve as current which was dated: 11/30/18 Day of Discharge: 12/06/18 - Dietary and Speech Recommendations Dietitian Recommendations/Changes: When medically able, rec CAITLYN to 2000 calorie/cardiac - consistency per COUNTY [employer], with Robert 1 packet BID for wound healing. Will provide ensure pudding or magic cup w/ meals when diet allows for increased nutrition to help w/ wound healing. - Follow Up Care Primary Care Physician: Chuyita Wright, FRUIT OR NUT FARMWORKER-C [Primary Care Provider] - Please follow up with your Primary Care Physician in: 1 Week Please Follow Up With: Chance Zamora DPM - [phone] When: 1 Week Please Follow Up With: Aranza Loza MD When: As needed if continued diarrhea, abdominal pain.
--- NOTE | 2018-12-06 14:38 | TREXTCA.CO_ITS ---
- Diet 12/06/18 13:57 Diet: Regular Diet Dietary Modifications:: Mechanical Soft Diet [place] Thick Liquids Is pt able to select menu?: No Diet Comments: non-meat eater, small bites/sips, decreased rate, supervision, no straws, - Routine Orders/Code Status Enema Type: [place] Enema Frequency: Daily PRN Suppository Type: Dulcolax 10mg Suppository Frequency: Daily PRN O2 Liters per Minute: 2 O2 Frequency: PRN Keep PO Greater than or Equal to (%): 90 Routine Lab Work: - - CBC, BMP Q Week Code Status: Full Code - Wound(s) LEFT FOOT Wound Type: Neuropathic/Diabetic Foot Ulcer Dressing Change: Wet to Dry Dressing - Suggestions for Active Care Change Position every (hours): 2 Times a day to sit in chair: 3 - Therapies Weight Bearing: Non weight bearing - Left foot Physical Therapy: Eval and Treat Occupational Therapy: Eval and Treat Speech Therapy: Eval and Treat - Problem/Diagnosis (1) Encephalopathy acute Status: Acute Current Visit: Yes (2) CVA (cerebral vascular accident) Status: Acute Current Visit: Yes (3) Hypokalemia Status: Acute Current Visit: Yes (4) Gastroenteritis Status: Acute Current Visit: Yes (5) Acute respiratory failure with hypoxia Status: Acute Current Visit: Yes (6) Severe sepsis Status: Acute Current Visit: Yes (7) Hypomagnesemia Status: Acute Current Visit: Yes (8) Paroxysmal atrial fibrillation Status: Chronic Current Visit: No (9) Osteomyelitis Status: Acute Current Visit: Yes (10) Gram-negative pneumonia Status: Acute Current Visit: Yes (11) Foot abscess, left Status: Acute Current Visit: Yes (12) IBS (irritable bowel syndrome) Status: Chronic Current Visit: No (13) HLD (hyperlipidemia) Status: Chronic Current Visit: No (14) Esophageal reflux Status: Chronic Current Visit: No (15) Type II diabetes mellitus, uncontrolled Status: Chronic Current Visit: No (16) Anxiety and depression Status: Chronic Current Visit: No (17) Cerebrovascular disease Status: Chronic Comment: Possible small ischemic strokes versus sequela of chronic migraine Current Visit: No (18) Migraine Status: Chronic Current Visit: No (19) reports hole in heart since Status: Chronic Current Visit: No (20) Benign essential HTN Status: Chronic Current Visit: No - Allergies/Procedures Done in Hospital Allergies/Adverse Reactions: Allergies codeine Adverse Reaction (Verified 11/30/18 13:28) Other pork derived (porcine) Adverse Reaction (Verified 11/30/18 13:28) Vomiting Procedures: 2-D Echocardiogram, Colonoscopy, EGD, - - I&D left foot wound - Type of Care/Length of Stay Estimated LOS: Convalescent Care Less Than 30 days Type of Care Needed: Skilled Rehab Potential: Fair Prognosis: Fair - Additional Orders/Day of Discharge Additional Orders: Nonweightbearing left foot. Left foot surgical shoe. Change left foot dressing interspace incision and drainage sites daily with Aquacel ag, gauze, Kerlix and Jorge wrap. H&P will serve as current which was dated: 11/30/18 Day of Discharge: 12/06/18 - Dietary and Speech Recommendations Dietitian Recommendations/Changes: When medically able, rec CAITLYN to 2000 calorie/cardiac - consistency per FIELD ORGANIZER, with Robert 1 packet BID for wound healing. Will provide ensure pudding or magic cup w/ meals when diet allows for increased nutrition to help w/ wound healing. - Follow Up Care Primary Care Physician: Chuyita Wright, NOISE ABATEMENT ENGINEER-C [Primary Care Provider] - Please follow up with your Primary Care Physician in: 1 Week Please Follow Up With: Chance Zamora DPM - [phone] When: 1 Week Please Follow Up With: Aranza Loza MD When: As needed if continued diarrhea, abdominal pain.
--- NOTE | 2018-12-06 14:53 | PN_ITS ---
Patient Problems: Active and Suspected Problems Encephalopathy acute (Acute) CVA (cerebral vascular accident) (Acute) Hypokalemia (Acute) Gastroenteritis (Acute) Acute respiratory failure with hypoxia (Acute) Severe sepsis (Acute) Hypomagnesemia (Acute) Osteomyelitis (Acute) Gram-negative pneumonia (Acute) Foot abscess, left (Acute) Subjective: Patient seen and examined. Reports abdominal cramping and nausea is improved. To undergo EGD/colonoscopy today. - Physical Exam General: Alert, Oriented x3, Cooperative HEENT: Atraumatic, PERRLA, EOMI, Normocephalic Oral: Moist Mucosa Neck: Supple, No JVD, Negative Carotid Bruits Lungs: Clear to auscultation, Normal air movement Cardiovascular: Regular rate, Regular Rhythm, Normal S1, Normal S2, No murmurs Abdomen: Bowel Sounds Present, Soft, Non Tender, Non-Distended Extremities: No edema, Capillary Refill Less than 3 Seconds Skin: No rashes, No breakdown, - - Left foot dressing clean dry and intact. Musculoskeletal: No Tenderness to Palpation of Joints or Extremities Neurological: Cranial nerves II-XII grossly intact, Neuro grossly intact Psych/Mental Status: Flat Affect Vital Signs Temp Pulse Resp BP Pulse Ox 97.7 F L 93 16 131/81 H 93 12/06/18 13:45 12/06/18 14:12 12/06/18 13:45 12/06/18 13:45 12/06/18 13:45 Oxygen Flow Rate (L/min) 2 Oxygen Delivery Method Room Air Weight: 128 lb 11.999 oz Body Mass Index (BMI) 25.2 Finger Stick Blood Glucose 497 Intake and Output for Last 24 Hours 12/04/18 12/05/18 12/06/18 23:59 23:59 23:59 Intake Total 966 / 966 2314.6 / 2314.6 350 / 350 Balance 966 / 966 2314.6 / 2314.6 350 / 350 Microbiology Past 72 Hours 11/30/18 13:30 Bacteria Detection (PCR) - Final Blood Culture (Wb) #2 - Left Forearm Streptococcus pneumoniae Blood Culture - Final Streptococcus pneumoniae 12/02/18 Unknown Gram Stain - Final Wound Abcess - Left Foot Wound Culture - Final Proteus vulgaris Klebsiella pneumoniae sp pneum Escherichia coli Vancomycin Resist. E. faecalis Anaerobic Culture - Preliminary Checking for anaerobes, further studies to follow. 11/30/18 18:05 Gram Stain - Final Wound - Left Foot Wound Culture - Final Proteus vulgaris Klebsiella pneumoniae sp pneum Escherichia coli Streptococcus group C Gram positive bridgett 12/03/18 08:51 C. difficile DNA Amplification - Final Stool Laboratory Tests Past 24 Hrs 12/06/18 12/06/18 12/06/18 04:45 04:45 04:45 WBC 9.6 RBC 3.88 L Hgb 10.0 L Hct 31.5 L MCV 81.2 MCH 25.8 L MCHC 31.7 L RDW 15.3 H RDW Differential 43.8 Plt Count 375 MPV 9.9 PT INR APTT Sodium 141 Potassium 4.2 Chloride 108 H Carbon Dioxide 25.0 Anion Gap 8 BUN 8 Creatinine 0.49 L Estim Creat Clear Calc 113.97 Est GFR (MDRD) Af Amer 167 Est GFR (MDRD) Non-Af 138 BUN/Creatinine Ratio 16.5 Glucose 100 Hemoglobin A1c 11.1 H Calcium 8.1 L Phosphorus 2.5 Magnesium 1.5 L 12/06/18 04:45 WBC RBC Hgb Hct MCV MCH MCHC RDW RDW Differential Plt Count MPV PT 15.5 H INR 1.3 APTT 30.8 Sodium Potassium Chloride Carbon Dioxide Anion Gap BUN Creatinine Estim Creat Clear Calc Est GFR (MDRD) Af Amer Est GFR (MDRD) Non-Af BUN/Creatinine Ratio Glucose Hemoglobin A1c Calcium Phosphorus Magnesium POC Glucose 12/06/18 12/05/18 12/05/18 06:52 22:54 15:52 POC Glucose 119 H 95 135 H Medical Necessity - Tobacco Use Smoking Status: Never smoker Tobacco Use: Non-smoker Assessment/Plan All Active Problems Encephalopathy acute (Acute) CVA (cerebral vascular accident) (Acute) Hypokalemia (Acute) Gastroenteritis (Acute) Acute respiratory failure with hypoxia (Acute) Severe sepsis (Acute) Hypomagnesemia (Acute) Osteomyelitis (Acute) Gram-negative pneumonia (Acute) Foot abscess, left (Acute) 1. Acute left subcortical infarct secondary to noncompliance with medication regimen-neurology consulted. MRI showed acute left swain radiata infarct, chronic right occipital infarct, chronic right cerebellar lacunar infarcts. MRA of head with unchanged right vertebral and bilateral posterior cerebral artery occlusions, basilar stenosis. 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 Echo showed an EF of 65%, +1 mitral valve insufficiency. Continue aspirin, statin, Eliquis. PT/OT/ST. Denies for rehab unit. SNF pending acceptance. 2. Acute severe sepsis secondary to left foot polymicrobial osteomyelitis with associated Streptococcus bacteremia and abscess complicated by uncontrolled diabetes mellitus and neuropathy- s/p I&D by Dr. Zamora 12/02/18. ID following. Wound culture with Proteus, Klebsiella pneumoniae, e.coli, and VRE faecalis. PICC line in place. Plan for IV Unasyn for 6 weeks with stop date 01/13/2019. Oral cipro as well. Weekly BMP, CBC and ESR while on IV antibiotics. Dressing changes per podiatry recommendations. Wound RN consult. 3. Acute hypoxic respiratory failure secondary to acute bilateral HCAP-chest x- ray with bilateral pneumonia. + strep pneumo. Oxygen now stable on room air. Continue albuterol and DuoNeb aerosols. IV Unasyn and oral Cipro as noted above. Walking pulse ox prior to discharge. ST consult due to dysphagia. Continue dietary modifications per speech therapy recommendations including mechanical soft diet and nectar thick liquids. 4. Acute anemia with stool guaiac positive, gastroenteritis- General surgery, Dr. Loza consulted. EGD/Colonoscopy 12/06/18 without evidence of bleed or acute findings. C.Diff negative. PRN antiemetics. Hgb stable. Trend CBC. 5. Electrolyte abnormalities including hypokalemia, hypomagnesia, hyponatremia, hypophosphatemia secondary to GI losses and poor oral intake-replace per protocol. Trend BMP. 6. Type 2 diabetes mellitus-hemoglobin A1c 10.9%. Continue sliding scale insulin and Lantus regimen. Accu-Cheks ACHS. 7. Hypertension-stable, continue current regimen. 8. Paroxysmal atrial fibrillation-continue Eliquis, Lopressor. 9. Anxiety/depression-continue Zoloft regimen. 10. Moderate protein calorie malnutrition-continue nutrition supplementation per dietitian recommendation. DVT prophylaxis-Eliquis Discharge planning: SNF pending acceptance. This patient was seen by [facility] under the supervision of Dr. Myles.
[2018-12-06] MEDS: oxyCODONE 5 MG Tablet PO (14:58)
--- NOTE | 2018-12-06 15:02 | DCINST_ITS ---
Discharge Activity: Use Walker Weight Bearing Status: No weight bearing - left foot. wear surgical shoe for protection Keep extremity elevated above heart level: Left Leg Call your doctor if your incision/area has: Continuous Slow Oozing, Sudden Increased Bleeding, Increased Pain/ Swelling, Increased Redness, Foul Smelling Discharge, Swelling at the incision site Call your doctor if you observe: Fever of 101 or Higher, Calf discomfort, Uncontrolled pain Change Dressing in (Days):: 1 Cleanse incision/area with: - - change left foot dressing interspace incisoin and drainage sites daily with aquacel at, gauze, kerlix, benja wrap Allergies/Adverse Reactions: Allergies codeine Adverse Reaction (Verified 11/30/18 13:28) Other pork derived (porcine) Adverse Reaction (Verified 11/30/18 13:28) Vomiting Medications to take at Discharge Apixaban [Eliquis] 5 mg PO BID 06/16/18 Ascorbic Acid [Vitamin C] 500 mg PO DAILY 06/16/18 Lisinopril 20 mg PO DAILY 06/16/18 Sertraline HCl [Zoloft] 100 mg PO DAILY 06/16/18 Dicyclomine HCl 20 mg PO Q12H PRN PRN 09/10/18 Hydrocodone/Acetaminophen [Hydrocodone-Acetamin 5-325 mg] 1 tab PO Q6H PRN PRN 09/10/18 Metoprolol Tartrate 25 mg PO BID 09/10/18 Sertraline HCl [Zoloft] 50 mg PO DAILY 09/10/18 Ampicillin/Sulbactam [Unasyn] 3 gm IV Q8 40 Days #120 vial 12/06/18 Aspirin [Aspirin, Baby] 81 mg PO DAILY@0800 tab.chew 12/06/18 Atorvastatin Calcium [Lipitor] 20 mg PO QHS tablet 12/06/18 Ciprofloxacin [Cipro] 500 mg PO BID 40 Days #80 tab 12/06/18 Insulin Glargine [Lantus SoloStar Pen] 10 units SC QHS pen 12/06/18 Insulin Lispro [Humalog KwikPen] See Protocol SQ ACHS insuln.pen 12/06/18 Menthol/Lanolin/Calamine/Znox [Calmoseptine Ointment] 1 applic TOPICAL BID tube 12/06/18 Pantoprazole Sodium [Protonix] 40 mg PO DAILY #30 tablet 12/06/18 Spironolactone [Aldactone] 25 mg PO DAILY tablet 12/06/18 The following prescriptions were given: Ampicillin/Sulbactam [Unasyn] 3 gm IV Q8 40 Days #120 vial Pantoprazole Sodium [Protonix] 40 mg PO DAILY #30 tablet Ciprofloxacin [Cipro] 500 mg PO BID 40 Days #80 tab Primary Care Physician: Chuyita Wright NP-C [Primary Care Provider] - Please follow up with your Primary Care Physician in: 1 Week Test Results: Test results from this visit will be discussed in further detail at your follow- up appointment, if applicable. Please Follow Up With: Chance Zamora DPM When: 1 week [facility]: call to confirm appointment time [phone] Proposed Discharge Date: 12/06/18
--- NOTE | 2018-12-06 15:50 | CASEMGMT ---
Social Work Progressive Care Unit Spoke with patient to inform about transfer to [facility]. Patient was agreeable and understanding. -Analy Graham, FLIGHT TECHNICIAN Student Television Servicer.
--- NOTE | 2018-12-06 15:52 | PCM.DC.SUM ---
Discharge Date and Diagnosis Date of Admission: 11/30/18 Date of Discharge: 12/06/18 - Primary Discharge Diagnosis Active and Suspected Problems 1. Acute left subcortical infarct secondary to noncompliance with medication regimen 2. Acute severe sepsis secondary to left foot polymicrobial osteomyelitis with associated Streptococcus bacteremia and abscess complicated by uncontrolled diabetes mellitus and neuropathy 3. Acute hypoxic respiratory failure secondary to acute bilateral HCAP 4. Acute anemia with stool guaiac positive, gastroenteritis 5. Electrolyte abnormalities including hypokalemia, hypomagnesia, hyponatremia, hypophosphatemia secondary to GI losses and poor oral intake 6. Type 2 diabetes mellitus 7. Hypertension 8. Paroxysmal atrial fibrillation 9. Anxiety/depression 10. Moderate protein calorie malnutrition 11. Dysphagia - Secondary Discharge Diagnosis Chronic Problems Paroxysmal atrial fibrillation (Chronic) IBS (irritable bowel syndrome) (Chronic) HLD (hyperlipidemia) (Chronic) Esophageal reflux (Chronic) Type II diabetes mellitus, uncontrolled (Chronic) Anxiety and depression (Chronic) Cerebrovascular disease (Chronic) Possible small ischemic strokes versus sequela of chronic migraine Migraine (Chronic) reports hole in heart since (Chronic) Benign essential HTN (Chronic) Hospital Course and Treatment Imaging Results: Diagnostic Data Abdomen/Pelvis CT 11/30/18 13:28 IMPRESSION: 1. Left more than right lower lobe pulmonary infiltrate/consolidation suggesting pneumonia. 2. Rectosigmoid (and right colon) fluid suggesting diarrheal disease/gastroenteritis 3. Circumferential wall thickening of the urinary bladder may be artifact of under distention although cystitis cannot be excluded. Electronically Signed: Siddhartha Park MD at 14:22 EDT , Service support , Brain CT 11/30/18 13:29 IMPRESSION: 1. No acute intracranial hemorrhage or mass effect. 2. Expected evolution of right occipital (WASTE RECYCLER territory) infarction as described on prior MRI of 09/11/2018. 3. Central parenchymal volume loss. White matter changes that are nonspecific but most commonly associated with chronic small vessel ischemic disease. N.B. : The above information has been verbally conveyed by Siddhartha Park MD to Steven Carmela on 11/30/2018 13:56:39 (ET). Electronically Signed: Siddhartha Park MD at 13:59 EDT , Service support , ADDENDUM: 11/30/18 1406 IMPRESSION: 1. No acute intracranial hemorrhage or mass effect. 2. Expected evolution of right occipital (WASTE RECYCLER territory) infarction as described on prior MRI of 09/11/2018. 3. Central parenchymal volume loss. White matter changes that are nonspecific but most commonly associated with chronic small vessel ischemic disease. N.B. : The above information has been verbally conveyed by Siddhartha Park MD to Steven Casey on 11/30/2018 13:56:39 (ET). Electronically Signed: Siddhartha Park MD at 13:59 EDT , Service support , Foot X-Ray 11/30/18 13:30 IMPRESSION: 1. Soft tissue swelling with soft tissue gas of the forefoot suggesting cellulitis/infection. Loss of cortical definition of the second and possibly third metatarsal heads suspicious for osteomyelitis. Electronically Signed: Siddhartha Park MD at 15:37 EDT , Service support , Chest X-Ray 11/30/18 23:50 IMPRESSION: Opacities in the lower halves of both lungs suggestive of pneumonias. Small left-sided effusion is suspected Electronically Signed: Surjit Gill MD at 0:12 EDT Tel , Service support , Brain MRI 12/01/18 09:00 IMPRESSION: Acute left swain radiata infarct. Chronic right occipital infarct. Chronic right cerebellar lacunar infarcts. Moderate chronic microvascular ischemic changes. Electronically Signed: Skip Cavazos MD at 10:57 EDT Tel , Service support , ADDENDUM: 12/01/18 1122 IMPRESSION: Acute left swain radiata infarct. Chronic right occipital infarct. Chronic right cerebellar lacunar infarcts. Moderate chronic microvascular ischemic changes. N.B. : The above information has been verbally conveyed by Skip Cavazos MD to Olivia Hughes RN, on 12/01/2018 11:15:00 (ET). Electronically Signed: Skip Cavazos MD at 10:57 EDT Tel , Service support , Head MRA 12/01/18 09:00 IMPRESSION: Unchanged right vertebral and bilateral posterior cerebral arteries occlusions. Basilar stenosis. Patent anterior circulation. 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 No significant stenoses are detected involving the carotid arteries in the neck. Electronically Signed: Monty Arias MD at 16:33 EDT Tel , Service support , Lower Extremity MRI 12/02/18 09:00 IMPRESSION: Signal alterations of the second and third metatarsal heads and first through third proximal phalanges, suspicious of osteomyelitis. Edema in the intrinsic muscles of the forefoot suggestive of myositis. Edema in the subcutis adipose space without demonstrated soft tissue abscess. Electronically Signed: Estiven Erickson MD at 11:24 EDT Tel , Service support , Consultations 11/30/18 17:19 Consult: Onc/Wound/mental health program director Routine Comment: Dr. Estevez- ID Dr. Loza- General Surgery Dr. Schmidt- Podiatry Dr. Chaudhry- Neurology Operations: None Procedures: 2-D Echocardiogram, Colonoscopy, EGD, - - Left foot I&D Summary of Care Provided: The patient is a 58 year old F admitted 11/30/2018 due to right upper extremity weakness. 1. Acute left subcortical infarct secondary to noncompliance with medication regimen-neurology consulted. MRI showed acute left swain radiata infarct, chronic right occipital infarct, chronic right cerebellar lacunar infarcts. MRA of head with unchanged right vertebral and bilateral posterior cerebral artery occlusions, basilar stenosis. 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 Echo showed an EF of 65%, +1 mitral valve insufficiency. Continue aspirin, statin, Eliquis. PT/OT/ST. SNF at discharge. 2. Acute severe sepsis secondary to left foot polymicrobial osteomyelitis with associated Streptococcus bacteremia and abscess complicated by uncontrolled diabetes mellitus and neuropathy- s/p I&D by Dr. Zamora 12/02/18. ID consulted. Wound culture with Proteus, Klebsiella pneumoniae, e.coli, and VRE faecalis. PICC line in place. Plan for IV Unasyn for 6 weeks with stop date 01/13/2019. Oral cipro as well. Weekly BMP, CBC and ESR while on IV antibiotics. Dressing changes per podiatry recommendations. Follow up with Dr. Zamora in 1 week. 3. Acute hypoxic respiratory failure secondary to acute bilateral HCAP-chest x-ray with bilateral pneumonia. + strep pneumo. Oxygen now stable on room air. IV Unasyn and oral Cipro as noted above. ST consult due to dysphagia. Continue dietary modifications per speech therapy recommendations including mechanical soft diet and nectar thick liquids. 4. Acute anemia with stool guaiac positive, gastroenteritis- General surgery, Dr. Loza consulted. EGD/Colonoscopy 12/06/18 without evidence of bleed or acute findings. C.Diff negative. PRN antiemetics. Hgb stable. Trend CBC. Follow up with Dr. Loza as needed if sx return. 5. Electrolyte abnormalities including hypokalemia, hypomagnesia, hyponatremia, hypophosphatemia secondary to GI losses and poor oral intake-replace per protocol. Resolved. 6. Type 2 diabetes mellitus-hemoglobin A1c 10.9%. Continue sliding scale insulin and Lantus regimen. Accu-Cheks ACHS. 7. Hypertension-stable, continue current regimen. 8. Paroxysmal atrial fibrillation-continue Eliquis, Lopressor. 9. Anxiety/depression-continue Zoloft regimen. 10. Moderate protein calorie malnutrition-continue nutrition supplementation per dietitian recommendation. General: Alert, Oriented x3, Cooperative HEENT: Atraumatic, PERRLA, EOMI, Normocephalic Oral: Moist Mucosa Neck: Supple, No JVD, Negative Carotid Bruits Lungs: Clear to auscultation, Normal air movement Cardiovascular: Regular rate, Regular Rhythm, Normal S1, Normal S2, No murmurs Abdomen: Bowel Sounds Present, Soft, Non Tender, Non-Distended Extremities: No edema, Capillary Refill Less than 3 Seconds Skin: No rashes, No breakdown, - - Left foot dressing clean dry and intact. Musculoskeletal: No Tenderness to Palpation of Joints or Extremities Neurological: Cranial nerves II-XII grossly intact, Neuro grossly intact Psych/Mental Status: Flat Affect Patient seen and examined prior to discharge. Physical assessment as noted above. Patient is stable for discharge with follow up recommendations as noted above. This patient was seen by SERENITY Greer under the supervision of Dr. Myles. - Physical Exam Vital Signs Temp Pulse Resp BP Pulse Ox 97.7 F L 78 16 131/81 H 93 12/06/18 13:45 12/06/18 15:18 12/06/18 13:45 12/06/18 13:45 12/06/18 13:45 Oxygen Flow Rate (L/min) 2 Oxygen Delivery Method Room Air Weight: 128 lb 11.999 oz Body Mass Index (BMI) 25.2 Finger Stick Blood Glucose 497 Intake and Output for Last 24 Hours 12/04/18 12/05/18 12/06/18 23:59 23:59 23:59 Intake Total 966 / 966 2314.6 / 2314.6 350 / 350 Balance 966 / 966 2314.6 / 2314.6 350 / 350 Microbiology Past 72 Hours 11/30/18 13:30 Bacteria Detection (PCR) - Final Blood Culture (Wb) #2 - Left Forearm Streptococcus pneumoniae Blood Culture - Final Streptococcus pneumoniae 12/02/18 Unknown Gram Stain - Final Wound Abcess - Left Foot Wound Culture - Final Proteus vulgaris Klebsiella pneumoniae sp pneum Escherichia coli Vancomycin Resist. E. faecalis Anaerobic Culture - Preliminary Checking for anaerobes, further studies to follow. 11/30/18 18:05 Gram Stain - Final Wound - Left Foot Wound Culture - Final Proteus vulgaris Klebsiella pneumoniae sp pneum Escherichia coli Streptococcus group C Gram positive bridgett 12/03/18 08:51 C. difficile DNA Amplification - Final Stool Laboratory Tests Past 24 Hrs 12/06/18 12/06/18 12/06/18 04:45 04:45 04:45 WBC 9.6 RBC 3.88 L Hgb 10.0 L Hct 31.5 L MCV 81.2 MCH 25.8 L MCHC 31.7 L RDW 15.3 H RDW Differential 43.8 Plt Count 375 MPV 9.9 PT INR APTT Sodium 141 Potassium 4.2 Chloride 108 H Carbon Dioxide 25.0 Anion Gap 8 BUN 8 Creatinine 0.49 L Estim Creat Clear Calc 113.97 Est GFR (MDRD) Af Amer 167 Est GFR (MDRD) Non-Af 138 BUN/Creatinine Ratio 16.5 Glucose 100 Hemoglobin A1c 11.1 H Calcium 8.1 L Phosphorus 2.5 Magnesium 1.5 L 12/06/18 04:45 WBC RBC Hgb Hct MCV MCH MCHC RDW RDW Differential Plt Count MPV PT 15.5 H INR 1.3 APTT 30.8 Sodium Potassium Chloride Carbon Dioxide Anion Gap BUN Creatinine Estim Creat Clear Calc Est GFR (MDRD) Af Amer Est GFR (MDRD) Non-Af BUN/Creatinine Ratio Glucose Hemoglobin A1c Calcium Phosphorus Magnesium POC Glucose 12/06/18 12/05/18 12/05/18 06:52 22:54 15:52 POC Glucose 119 H 95 135 H Discharge Activity: Use Walker Weight Bearing Status: No weight bearing - left foot. wear surgical shoe for protection Keep extremity elevated above heart level: Left Leg Call your doctor if your incision/area has: Continuous Slow Oozing, Sudden Increased Bleeding, Increased Pain/ Swelling, Increased Redness, Foul Smelling Discharge, Swelling at the incision site Call your doctor if you observe: Fever of 101 or Higher, Calf discomfort, Uncontrolled pain Change Dressing in (Days):: 1 Cleanse incision/area with: - - change left foot dressing interspace incisoin and drainage sites daily with aquacel at, gauze, kerlix, benja wrap Home Medications: Medications to take at Discharge Apixaban [Eliquis] 5 mg PO BID 06/16/18 Ascorbic Acid [Vitamin C] 500 mg PO DAILY 06/16/18 Lisinopril 20 mg PO DAILY 06/16/18 Sertraline HCl [Zoloft] 100 mg PO DAILY 06/16/18 Dicyclomine HCl 20 mg PO Q12H PRN PRN 09/10/18 Hydrocodone/Acetaminophen [Hydrocodone-Acetamin 5-325 mg] 1 tab PO Q6H PRN PRN 09/10/18 Metoprolol Tartrate 25 mg PO BID 09/10/18 Sertraline HCl [Zoloft] 50 mg PO DAILY 09/10/18 Ampicillin/Sulbactam [Unasyn] 3 gm IV Q8 40 Days #120 vial 12/06/18 Aspirin [Aspirin, Baby] 81 mg PO DAILY@0800 tab.chew 12/06/18 Atorvastatin Calcium [Lipitor] 20 mg PO QHS tablet 12/06/18 Ciprofloxacin [Cipro] 500 mg PO BID 40 Days #80 tab 12/06/18 Insulin Glargine [Lantus SoloStar Pen] 10 units SC QHS pen 12/06/18 Insulin Lispro [Humalog KwikPen] See Protocol SQ ACHS insuln.pen 12/06/18 Menthol/Lanolin/Calamine/Znox [Calmoseptine Ointment] 1 applic TOPICAL BID tube 12/06/18 Pantoprazole Sodium [Protonix] 40 mg PO DAILY #30 tablet 12/06/18 Spironolactone [Aldactone] 25 mg PO DAILY tablet 12/06/18 Following Prescrptions Were Given to Patient: Ampicillin/Sulbactam [Unasyn] 3 gm IV Q8 40 Days #120 vial Pantoprazole Sodium [Protonix] 40 mg PO DAILY #30 tablet Ciprofloxacin [Cipro] 500 mg PO BID 40 Days #80 tab Primary Care Physician: Chuyita Wright, [employer] [Primary Care Provider] - Please follow up with your Primary Care Physician in: 1 Week Please Follow Up With: Chance Zamora, [facility] - [phone] When: 1 Week Please Follow Up With: Aranza Loza MD When: As needed if continued diarrhea, abdominal pain. Disposition: [facility] facility Minutes spent on discharge:: 35 Patient Condition:: Stable Medical Necessity - Tobacco Use Smoking Status: Never smoker Tobacco Use: Non-smoker Meaningful Use Info Meaningful Use Diagnoses (Choose all that apply): None applicable
--- NOTE | 2018-12-06 15:58 | DS.PCM_ITS ---
Discharge Date and Diagnosis Date of Admission: 11/30/18 Date of Discharge: 12/06/18 - Primary Discharge Diagnosis Active and Suspected Problems 1. Acute left subcortical infarct secondary to noncompliance with medication regimen 2. Acute severe sepsis secondary to left foot polymicrobial osteomyelitis with associated Streptococcus bacteremia and abscess complicated by uncontrolled diabetes mellitus and neuropathy 3. Acute hypoxic respiratory failure secondary to acute bilateral HCAP 4. Acute anemia with stool guaiac positive, gastroenteritis 5. Electrolyte abnormalities including hypokalemia, hypomagnesia, hyponatremia, hypophosphatemia secondary to GI losses and poor oral intake 6. Type 2 diabetes mellitus 7. Hypertension 8. Paroxysmal atrial fibrillation 9. Anxiety/depression 10. Moderate protein calorie malnutrition 11. Dysphagia - Secondary Discharge Diagnosis Chronic Problems Paroxysmal atrial fibrillation (Chronic) IBS (irritable bowel syndrome) (Chronic) HLD (hyperlipidemia) (Chronic) Esophageal reflux (Chronic) Type II diabetes mellitus, uncontrolled (Chronic) Anxiety and depression (Chronic) Cerebrovascular disease (Chronic) Possible small ischemic strokes versus sequela of chronic migraine Migraine (Chronic) reports hole in heart since (Chronic) Benign essential HTN (Chronic) Hospital Course and Treatment Imaging Results: Diagnostic Data Abdomen/Pelvis CT 11/30/18 13:28 IMPRESSION: 1. Left more than right lower lobe pulmonary infiltrate/consolidation suggesting pneumonia. 2. Rectosigmoid (and right colon) fluid suggesting diarrheal disease/gastroenteritis 3. Circumferential wall thickening of the urinary bladder may be artifact of under distention although cystitis cannot be excluded. Electronically Signed: Siddhartha Park MD at 14:22 EDT , Service support , Brain CT 11/30/18 13:29 IMPRESSION: 1. No acute intracranial hemorrhage or mass effect. 2. Expected evolution of right occipital (DEPUTY HARBORMASTER territory) infarction as described on prior MRI of 09/11/2018. 3. Central parenchymal volume loss. White matter changes that are nonspecific but most commonly associated with chronic small vessel ischemic disease. N.B. : The above information has been verbally conveyed by Siddhartha Park MD to Steven Carmela on 11/30/2018 13:56:39 (ET). Electronically Signed: Siddhartha Park MD at 13:59 EDT , Service support , ADDENDUM: 11/30/18 1406 IMPRESSION: 1. No acute intracranial hemorrhage or mass effect. 2. Expected evolution of right occipital (DEPUTY HARBORMASTER territory) infarction as described on prior MRI of 09/11/2018. 3. Central parenchymal volume loss. White matter changes that are nonspecific but most commonly associated with chronic small vessel ischemic disease. N.B. : The above information has been verbally conveyed by Siddhartha Park MD to Steven Casey on 11/30/2018 13:56:39 (ET). Electronically Signed: Siddhartha Park MD at 13:59 EDT , Service support , Foot X-Ray 11/30/18 13:30 IMPRESSION: 1. Soft tissue swelling with soft tissue gas of the forefoot suggesting cellulitis/infection. Loss of cortical definition of the second and possibly third metatarsal heads suspicious for osteomyelitis. Electronically Signed: Siddhartha Park MD at 15:37 EDT , Service support , Chest X-Ray 11/30/18 23:50 IMPRESSION: Opacities in the lower halves of both lungs suggestive of pneumonias. Small left-sided effusion is suspected Electronically Signed: Surjit Gill MD at 0:12 EDT Tel , Service support , Brain MRI 12/01/18 09:00 IMPRESSION: Acute left swain radiata infarct. Chronic right occipital infarct. Chronic right cerebellar lacunar infarcts. Moderate chronic microvascular ischemic changes. Electronically Signed: Skip Cavazos MD at 10:57 EDT Tel , Service support , ADDENDUM: 12/01/18 1122 IMPRESSION: Acute left swain radiata infarct. Chronic right occipital infarct. Chronic right cerebellar lacunar infarcts. Moderate chronic microvascular ischemic changes. N.B. : The above information has been verbally conveyed by Skip Cavazos MD to Olivia Hughes RN, on 12/01/2018 11:15:00 (ET). Electronically Signed: Skip Cavazos MD at 10:57 EDT Tel , Service support , Head MRA 12/01/18 09:00 IMPRESSION: Unchanged right vertebral and bilateral posterior cerebral arteries occlusions. Basilar stenosis. Patent anterior circulation. 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 No significant stenoses are detected involving the carotid arteries in the neck. Electronically Signed: Monty Arias MD at 16:33 EDT Tel , Service support , Lower Extremity MRI 12/02/18 09:00 IMPRESSION: Signal alterations of the second and third metatarsal heads and first through third proximal phalanges, suspicious of osteomyelitis. Edema in the intrinsic muscles of the forefoot suggestive of myositis. Edema in the subcutis adipose space without demonstrated soft tissue abscess. Electronically Signed: Estiven Erickson MD at 11:24 EDT Tel , Service support , Consultations 11/30/18 17:19 Consult: Onc/Wound/mainframe applications developer Routine Comment: Dr. Estevez- ID Dr. Loza- General Surgery Dr. Schmidt- Podiatry Dr. Chaudhry- Neurology Operations: None Procedures: 2-D Echocardiogram, Colonoscopy, EGD, - - Left foot I&D Summary of Care Provided: The patient is a 58 year old F admitted 11/30/2018 due to right upper extremity weakness. 1. Acute left subcortical infarct secondary to noncompliance with medication regimen-neurology consulted. MRI showed acute left swain radiata infarct, chronic right occipital infarct, chronic right cerebellar lacunar infarcts. MRA of head with unchanged right vertebral and bilateral posterior cerebral artery occlusions, basilar stenosis. 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 Echo showed an EF of 65%, +1 mitral valve insufficiency. Continue aspirin, statin, Eliquis. PT/OT/ST. SNF at discharge. 2. Acute severe sepsis secondary to left foot polymicrobial osteomyelitis with associated Streptococcus bacteremia and abscess complicated by uncontrolled diabetes mellitus and neuropathy- s/p I&D by Dr. Zamora 12/02/18. ID consulted. Wound culture with Proteus, Klebsiella pneumoniae, e.coli, and VRE faecalis. PICC line in place. Plan for IV Unasyn for 6 weeks with stop date 01/13/2019. Oral cipro as well. Weekly BMP, CBC and ESR while on IV antibiotics. Dressing changes per podiatry recommendations. Follow up with Dr. Zamora in 1 week. 3. Acute hypoxic respiratory failure secondary to acute bilateral HCAP-chest x- ray with bilateral pneumonia. + strep pneumo. Oxygen now stable on room air. IV Unasyn and oral Cipro as noted above. ST consult due to dysphagia. Continue dietary modifications per speech therapy recommendations including mechanical soft diet and nectar thick liquids. 4. Acute anemia with stool guaiac positive, gastroenteritis- General surgery, Dr. Loza consulted. EGD/Colonoscopy 12/06/18 without evidence of bleed or acute findings. C.Diff negative. PRN antiemetics. Hgb stable. Trend CBC. Follow up with Dr. Loza as needed if sx return. 5. Electrolyte abnormalities including hypokalemia, hypomagnesia, hyponatremia, hypophosphatemia secondary to GI losses and poor oral intake-replace per protocol. Resolved. 6. Type 2 diabetes mellitus-hemoglobin A1c 10.9%. Continue sliding scale insulin and Lantus regimen. Accu-Cheks ACHS. 7. Hypertension-stable, continue current regimen. 8. Paroxysmal atrial fibrillation-continue Eliquis, Lopressor. 9. Anxiety/depression-continue Zoloft regimen. 10. Moderate protein calorie malnutrition-continue nutrition supplementation per dietitian recommendation. General: Alert, Oriented x3, Cooperative HEENT: Atraumatic, PERRLA, EOMI, Normocephalic Oral: Moist Mucosa Neck: Supple, No JVD, Negative Carotid Bruits Lungs: Clear to auscultation, Normal air movement Cardiovascular: Regular rate, Regular Rhythm, Normal S1, Normal S2, No murmurs Abdomen: Bowel Sounds Present, Soft, Non Tender, Non-Distended Extremities: No edema, Capillary Refill Less than 3 Seconds Skin: No rashes, No breakdown, - - Left foot dressing clean dry and intact. Musculoskeletal: No Tenderness to Palpation of Joints or Extremities Neurological: Cranial nerves II-XII grossly intact, Neuro grossly intact Psych/Mental Status: Flat Affect Patient seen and examined prior to discharge. Physical assessment as noted above. Patient is stable for discharge with follow up recommendations as noted above. This patient was seen by SERENITY Greer under the supervision of Dr. Se gutiérrez. - Physical Exam Vital Signs Temp Pulse Resp BP Pulse Ox 97.7 F L 78 16 131/81 H 93 12/06/18 13:45 12/06/18 15:18 12/06/18 13:45 12/06/18 13:45 12/06/18 13:45 Oxygen Flow Rate (L/min) 2 Oxygen Delivery Method Room Air Weight: 128 lb 11.999 oz Body Mass Index (BMI) 25.2 Finger Stick Blood Glucose 497 Intake and Output for Last 24 Hours 12/04/18 12/05/18 12/06/18 23:59 23:59 23:59 Intake Total 966 / 966 2314.6 / 2314.6 350 / 350 Balance 966 / 966 2314.6 / 2314.6 350 / 350 Microbiology Past 72 Hours 11/30/18 13:30 Bacteria Detection (PCR) - Final Blood Culture (Wb) #2 - Left Forearm Streptococcus pneumoniae Blood Culture - Final Streptococcus pneumoniae 12/02/18 Unknown Gram Stain - Final Wound Abcess - Left Foot Wound Culture - Final Proteus vulgaris Klebsiella pneumoniae sp pneum Escherichia coli Vancomycin Resist. E. faecalis Anaerobic Culture - Preliminary Checking for anaerobes, further studies to follow. 11/30/18 18:05 Gram Stain - Final Wound - Left Foot Wound Culture - Final Proteus vulgaris Klebsiella pneumoniae sp pneum Escherichia coli Streptococcus group C Gram positive bridgett 12/03/18 08:51 C. difficile DNA Amplification - Final Stool Laboratory Tests Past 24 Hrs 12/06/18 12/06/18 12/06/18 04:45 04:45 04:45 WBC 9.6 RBC 3.88 L Hgb 10.0 L Hct 31.5 L MCV 81.2 MCH 25.8 L MCHC 31.7 L RDW 15.3 H RDW Differential 43.8 Plt Count 375 MPV 9.9 PT INR APTT Sodium 141 Potassium 4.2 Chloride 108 H Carbon Dioxide 25.0 Anion Gap 8 BUN 8 Creatinine 0.49 L Estim Creat Clear Calc 113.97 Est GFR (MDRD) Af Amer 167 Est GFR (MDRD) Non-Af 138 BUN/Creatinine Ratio 16.5 Glucose 100 Hemoglobin A1c 11.1 H Calcium 8.1 L Phosphorus 2.5 Magnesium 1.5 L 12/06/18 04:45 WBC RBC Hgb Hct MCV MCH MCHC RDW RDW Differential Plt Count MPV PT 15.5 H INR 1.3 APTT 30.8 Sodium Potassium Chloride Carbon Dioxide Anion Gap BUN Creatinine Estim Creat Clear Calc Est GFR (MDRD) Af Amer Est GFR (MDRD) Non-Af BUN/Creatinine Ratio Glucose Hemoglobin A1c Calcium Phosphorus Magnesium POC Glucose 12/06/18 12/05/18 12/05/18 06:52 22:54 15:52 POC Glucose 119 H 95 135 H Discharge Activity: Use Walker Weight Bearing Status: No weight bearing - left foot. wear surgical shoe for protection Keep extremity elevated above heart level: Left Leg Call your doctor if your incision/area has: Continuous Slow Oozing, Sudden I ncreased Bleeding, Increased Pain/ Swelling, Increased Redness, Foul Smelling Discharge, Swelling at the incision site Call your doctor if you observe: Fever of 101 or Higher, Calf discomfort, Uncontrolled pain Change Dressing in (Days):: 1 Cleanse incision/area with: - - change left foot dressing interspace incisoin and drainage sites daily with aquacel at, gauze, kerlix, benja wrap Home Medications: Medications to take at Discharge Apixaban [Eliquis] 5 mg PO BID 06/16/18 Ascorbic Acid [Vitamin C] 500 mg PO DAILY 06/16/18 Lisinopril 20 mg PO DAILY 06/16/18 Sertraline HCl [Zoloft] 100 mg PO DAILY 06/16/18 Dicyclomine HCl 20 mg PO Q12H PRN PRN 09/10/18 Hydrocodone/Acetaminophen [Hydrocodone-Acetamin 5-325 mg] 1 tab PO Q6H PRN PRN 09/10/18 Metoprolol Tartrate 25 mg PO BID 09/10/18 Sertraline HCl [Zoloft] 50 mg PO DAILY 09/10/18 Ampicillin/Sulbactam [Unasyn] 3 gm IV Q8 40 Days #120 vial 12/06/18 Aspirin [Aspirin, Baby] 81 mg PO DAILY@0800 tab.chew 12/06/18 Atorvastatin Calcium [Lipitor] 20 mg PO QHS tablet 12/06/18 Ciprofloxacin [Cipro] 500 mg PO BID 40 Days #80 tab 12/06/18 Insulin Glargine [Lantus SoloStar Pen] 10 units SC QHS pen 12/06/18 Insulin Lispro [Humalog KwikPen] See Protocol SQ ACHS insuln.pen 12/06/18 Menthol/Lanolin/Calamine/Znox [Calmoseptine Ointment] 1 applic TOPICAL BID tube 12/06/18 Pantoprazole Sodium [Protonix] 40 mg PO DAILY #30 tablet 12/06/18 Spironolactone [Aldactone] 25 mg PO DAILY tablet 12/06/18 Following Prescrptions Were Given to Patient: Ampicillin/Sulbactam [Unasyn] 3 gm IV Q8 40 Days #120 vial Pantoprazole Sodium [Protonix] 40 mg PO DAILY #30 tablet Ciprofloxacin [Cipro] 500 mg PO BID 40 Days #80 tab Primary Care Physician: Chuyita Wright NP-C [Primary Care Provider] - Please follow up with your Primary Care Physician in: 1 Week Please Follow Up With: Chance Zamora, XIAOM - [phone] When: 1 Week Please Follow Up With: Aranza Loza MD When: As needed if continued diarrhea, abdominal pain. Disposition: [facility] facility Minutes spent on discharge:: 35 Patient Condition:: Stable Medical Necessity - Tobacco Use Smoking Status: Never smoker Tobacco Use: Non-smoker Meaningful Use Info Meaningful Use Diagnoses (Choose all that apply): None applicable
--- NOTE | 2018-12-06 16:15 | CASEMGMT ---
Precert attained for pt to go to [facility] today. SW completed hospital exemption in [place], faxed this with discharge instructions to [facility]. SW set up 5pm ambulance w/[facility]. SW let pt know, she is agreeable to go to [facility] today. CLEM also let RN here know and Elvia at [facility] know time of pickup. No further needs are anticipated. SAURAV Mcbride
--- NOTE | 2018-12-06 16:30 | NURSING ---
report called to CC at this time
[2018-12-06 17:25] LABS: Bedside Glucose 137 mg/dL (70-110)
[2018-12-06] MEDS: Alteplase 2 MG/2 ML Vial IV (17:44)
--- NOTE | 2018-12-07 08:39 | NURSING ---
12/06/181999 Carli nurse from [facility] called and said that prescription was not included in patient's discharge paperwork for Hydrocodone/Acetaminophen.This medication was listed on the discharge summary and discharge instructions but it did not carry over onto the home medication list with new meds, , continue meds and discontinued meds. Carli said that [facility] physician would not write script for patient. Discussed with Dr. Velasquez and she agreed to write script. This nurse took script and hand delivered to Carli at [facility] at 2100.
== END 2018-12-06 18:24 | disposition skilled nursing facility (03) | DRG 853 ==
LOC: ED 14:14 → PCU 16:12
PROVIDERS: Anesthesiology; Family Medicine; Hospitalist; Nurse Practitioner Family; Physician Assistant; Podiatrist; Surgery; Emergency Provider Emergency Medicine; Family Provider Nurse Practitioner Family; PCP Nurse Practitioner Family; Visit Provider Internal Medicine
PROC: 0JBR0ZZ Excision of Left Foot Subcutaneous Tissue and Fascia, Open Approach (ICD-10-PCS; principal; 2018-12-02 13:50)
PROC: 0DJD8ZZ Inspection of Lower Intestinal Tract, Via Natural or Artificial Opening Endoscopic (ICD-10-PCS; CPT 45378; principal; 2018-12-06 11:25)
DX: A40.3 Sepsis due to Streptococcus pneumoniae (principal); R65.20 Severe sepsis without septic shock; J96.01 Acute respiratory failure with hypoxia; I63.9 Cerebral infarction, unspecified; A48.0 Gas gangrene; J13 Pneumonia due to Streptococcus pneumoniae; M86.8X7 Other osteomyelitis, ankle and foot; E44.0 Moderate protein-calorie malnutrition; E87.2 Acidosis; E87.1 Hypo-osmolality and hyponatremia; L02.612 Cutaneous abscess of left foot; L03.116 Cellulitis of left lower limb; E11.69 Type 2 diabetes mellitus with other specified complication; E87.6 Hypokalemia; E11.65 Type 2 diabetes mellitus with hyperglycemia; Z91.14 Patient's other noncompliance with medication regimen; I48.0 Paroxysmal atrial fibrillation; D64.9 Anemia, unspecified; R19.5 Other fecal abnormalities; E83.42 Hypomagnesemia; E83.39 Other disorders of phosphorus metabolism; K52.9 Noninfective gastroenteritis and colitis, unspecified; R13.10 Dysphagia, unspecified; E11.40 Type 2 diabetes mellitus with diabetic neuropathy, unspecified; B96.20 Unspecified Escherichia coli [E. coli] as the cause of diseases classified elsewhere; B96.1 Klebsiella pneumoniae [K. pneumoniae] as the cause of diseases classified elsewhere; F32.9 Major depressive disorder, single episode, unspecified; B96.4 Proteus (mirabilis) (morganii) as the cause of diseases classified elsewhere; B95.4 Other streptococcus as the cause of diseases classified elsewhere; K64.8 Other hemorrhoids; I10 Essential (primary) hypertension; F41.9 Anxiety disorder, unspecified; Y95 Nosocomial condition; Z68.25 Body mass index [BMI] 25.0-25.9, adult; B95.2 Enterococcus as the cause of diseases classified elsewhere; Z16.21 Resistance to vancomycin; E78.5 Hyperlipidemia, unspecified; Z79.4 Long term (current) use of insulin
CPT/HCPCS: 36415; 36569; 70450; 70544; 70549; 70551; 71045; 73630; 73718; 74176; 80048; 80053; 80061; 80202; 81001; 82274; 82728; 82962; 83036; 83540; 83550; 83605; 83735; 83880; 84100; 84484; 85014; 85018; 85025; 85027; 85610; 85652; 85730; 86140; 87040; 87070; 87075; 87077; 87086; 87088; 87149; 87186; 87205; 87449; 87493; 87640; 88304; 88305; 88313; 88342; 92526; 92610; 93005; 93306; 93923; 94640; 94667; 94668; 97162; 97166; 97530; 97802; 99285; A9575; J2997; J7030; J7040; J7050; Q9957; A4216; C8929; J0295; J0610; J0696; J1940; J2405

== ENCOUNTER 2019-02-01 11:46 | Emergency (ER) | payer MEDICARE, MEDICAID, SELFPAY ==
[2019-02-01 11:46] VITALS: BMI 25.1
[2019-02-01 11:49] VITALS: BP 161/135; PULSE 78; RESP 17; TEMP 36.5; O2SAT 97; BMI 24.5
[2019-02-01 11:51] VITALS: BP 207/105
--- NOTE | 2019-02-01 12:07 | CT_ITS ---
STUDY: CT BRAIN WITHOUT CONTRAST REASON FOR EXAM: Female, 58 years old. RADIATION DOSAGE (If Supplied By Facility): CTDIvol = ( 44.99 ) mGy, DLP = ( 812.98 ) mGycm TECHNIQUE: Transaxial CT imaging of the brain was performed without administration of intravenous contrast material. Individualized dose optimization techniques were used for this CT. COMPARISON: 11/30/2018 FINDINGS: Normal soft tissue structures. Normal calvarium. There is mild cerebral atrophy with widening of the extra-axial spaces and ventricular dilatation. There are areas of decreased attenuation within the white matter tracts of the supratentorial brain, consistent with microvascular disease changes. Well-defined area of diminished density of the right occipital lobe is stable since the prior study. Normal basal ganglia and thalami. 1.1 cm hyperdense lesion in the central shyann as best seen on image 12, compatible with hemorrhage. This is new since the prior study. Normal cerebellum. Normal visualized paranasal sinuses. There are atherosclerotic calcifications of the vertebral arteries and carotid siphons. CT/Brain/Head without Contrast IMPRESSION: 1. 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 2. Stable right MANAGER [employer] territory (occipital lobe) infarction. 3. Central parenchymal volume loss. White matter changes that are nonspecific but most commonly associated with chronic small vessel ischemic disease. N.B. : The above information has been verbally conveyed by Siddhartha Park MD to Greg Perera on 02/01/2019 12:24:43 (ET). Electronically Signed: Siddhartha Park MD at 12:28 EDT , Service support ,
--- NOTE | 2019-02-01 12:07 | EKG12_ITS ---
Test Reason : NEURO Blood Pressure : / mmHG Vent. Rate : 075 BPM Atrial Rate : 075 BPM P-R Int : 142 ms QRS Dur : 092 ms QT Int : 406 ms P-R-T Axes : 004 067 031 degrees QTc Int : 453 ms Normal sinus rhythm Normal ECG Confirmed by ROSE CURTIS, KIERSTEN ([id number]), editor in chief newspaper DEVEN OLGUIN ([id number]) on 02/04/2019 7:53:03 AM Referred By: GERARDO Confirmed By:KIERSTEN ROSE MD
[2019-02-01 12:15] LABS: Bedside Glucose 242 mg/dL (70-110)
[2019-02-01 12:16] LABS: Absolute Lymphocyte Count 1.75 X10^3/ul (0.83-4.51); Absolute Neutrophil Count 8.3 X10^3/uL (2.0-7.7); Basophil# 0.04 X10^3/uL; Basophil% 0.4 % (0-1); Eosinophil# 0.23 X10^3/uL; Eosinophils% 2.1 % (0-5); Hematocrit 35.5 % (37-47); Hemoglobin 11.5 g/dl (12.0-15.0); Lymphocyte # 1.75 X10^3/ul (4.0); Lymphocyte % 16.1 % (19-41); Mean Corp Hgb Conc 32.4 g/gl (32-36); Mean Corpuscular Hgb 26.7 pg (27.0-32.0); Mean Corpuscular Volume 82.6 fL (81-99); Mean Platelet Vol. 10.5 fl (6.2-12.0); Monocyte# 0.58 X10^3/uL; Monocyte% 5.3 % (0-10); Neutrophil # 8.27 X10^3/uL (2.7-7.7); Neutrophil % 75.9 % (47-70); POSITIVE COUNT NO; POSITIVE DIFFERENTIAL NO; POSITIVE MORPHOLOGY NO; Platelet Count 189 K/mm3 (150-450); RBC Distribution Width SD 51.7 fl (35.1-43.9); White Blood Count 10.9 K/mm3 (4.4-11.0)
--- NOTE | 2019-02-01 12:18 | RAD_ITS ---
STUDY: X-RAY CHEST REASON FOR EXAM: Female, 58 years old. Weakness and confusion TECHNIQUE: AP COMPARISON: 11/30/2018 FINDINGS: EKG leads project over the chest. The lungs are clear and expanded. There is no demonstrated pleural abnormality. Normal size heart. Normal mediastinum and yuan. Normal visualized pulmonary arteries. Normal visualized aortic arch and descending thoracic aorta. No acute bony process. There is no demonstrated abnormality of the visualized soft tissue structures of the upper abdomen. RAD/Chest 1 View IMPRESSION: No airspace consolidation or pleural effusion. Electronically Signed: Siddhartha Park MD at 12:31 EDT , Service support ,
--- NOTE | 2019-02-01 12:20 | ED.RN ---
WILL PROCEED WITH [facility] AFTER CT CONFIRMATION OF BLEED.
[2019-02-01 12:22] LABS: International Normalized Ratio 1.2; Prothrombin Time (Protime)PT. 15.1 SECONDS (11.7-14.9)
[2019-02-01 12:31] LABS: Anion Gap 6 (5-15); BUN 17 mg/dL (7-18); Calcium,Total 9.4 mg/dL (8.5-10.1); Chloride 104 mmol/L (98-107); Creatinine, Serum 0.65 mg/dL (0.55-1.02); EST Glomerular Filtration Rate 98 mL/min (>60); Est Glom Filt Rate - Afr Amer 119 mL/min (>60); Glucose 244 mg/dL (74-106); Potassium 3.5 mmol/L (3.5-5.1); Sodium Level 139 mmol/L (136-145)
[2019-02-01] MEDS: 0.9% Normal Saline 1,000 ML 100 ML IV (12:35)
--- NOTE | 2019-02-01 12:55 | ED.VISSUMM ---
- ER Visit Summary Date of Service: 02/01/19 Chief Complaint: Possible stroke History of Present Illness: The patient is a 58 F who is currently from intermediate facility. She has had a prior stroke leaving some deficits on the left side. She is right side dominant. She states that she woke today from sleep around 10:30 in the morning. She states that she was nauseous and had blurred vision and weakness and numbness on the right side of her body. EMS notes and nystagmus involving the right eye. She is on Eliquis. She states she did have some vomiting and EMS gave Zofran. Physical Examination: Afebrile noted hypertension of 207/105. Gen: Well-nourished well-developed Head: Normocephalic atraumatic Eyes: The right eye is having nystagmus. The pupil is minimally reactive. The left eye is unable to look laterally. No apparent visual field cut. ENT: TMs clear no rhinorrhea moist mucous membranes Neck: Supple no lymphadenopathy no JVD nontender CVS: Regular rate rhythm no murmurs normal S1-S2 Respiratory: No distress clear to auscultation bilaterally chest nontender Abdomen: Soft nontender nondistended normal bowel sounds no masses Back: Nontender Extremity: Nontender no edema Skin: Normal color no rash Neuro: alert orientated ?3 reports decreased sensation on right face arm and leg. Right successfactors consultant strength is weak compared to left. Abnormal [id number] and [id number] Psych: Normal affect normal mood Test Results: CT the brain demonstrates a 1.1 cm central pontine hemorrhage. Stable right ORDER DESK CALLER infarction. EKG shows a normal sinus rhythm. Coags normal. Emergency Department Course and Treatment: I spoke with the patient and she states that she has been seen in [facility] in the past. I contacted the transfer line and she has been accepted to the neuro ICU. We have given her labetalol trying to achieve a blood pressure of less than 140. Kcentra was requested from receiving physician. This was ordered. Impression: 1. Central pontine brain hemorrhage 2. Critical care time 35 minutes This note was generated with [employer] dictation software. It may contain incorrect words, spelling, and punctuation that were not noted in review of the chart prior to signing ED Disposition - Plan for ED Patient: Referrals: Chuyita Wright NP-C [Primary Care Provider] -
[2019-02-01 12:59] VITALS: BP 155/86; PULSE 81; RESP 12; O2SAT 99
--- NOTE | 2019-02-01 12:59 | ED.DCSUM_ITS ---
- ER Visit Summary Date of Service: 02/01/19 Chief Complaint: Possible stroke History of Present Illness: The patient is a 58 F who is currently from assisted facility. She has had a prior stroke leaving some deficits on the left side. She is right side dominant. She states that she woke today from sleep around 10:30 in the morning. She states that she was nauseous and had blurred vision and weakness and numbness on the right side of her body. EMS notes and nystagmus involving the right eye. She is on Eliquis. She states she did have some vomiting and EMS gave Zofran. Physical Examination: Afebrile noted hypertension of 207/105. Gen: Well-nourished well-developed Head: Normocephalic atraumatic Eyes: The right eye is having nystagmus. The pupil is minimally reactive. The left eye is unable to look laterally. No apparent visual field cut. ENT: TMs clear no rhinorrhea moist mucous membranes Neck: Supple no lymphadenopathy no JVD nontender CVS: Regular rate rhythm no murmurs normal S1-S2 Respiratory: No distress clear to auscultation bilaterally chest nontender Abdomen: Soft nontender nondistended normal bowel sounds no masses Back: Nontender Extremity: Nontender no edema Skin: Normal color no rash Neuro: alert orientated ?3 reports decreased sensation on right face arm and leg. Right prison officer strength is weak compared to left. Abnormal [id number] and [id number] Psych: Normal affect normal mood Test Results: CT the brain demonstrates a 1.1 cm central pontine hemorrhage. Stable right FUR STRETCHER infarction. EKG shows a normal sinus rhythm. Coags normal. Emergency Department Course and Treatment: I spoke with the patient and she states that she has been seen in [facility] in the past. I contacted the transfer line and she has been accepted to the neuro ICU. We have given her labetalol trying to achieve a blood pressure of less than 140. Kcentra was requested from receiving physician. This was ordered. Impression: 1. Central pontine brain hemorrhage 2. Critical care time 35 minutes This note was generated with [employer] dictation software. It may contain incorrect words, spelling, and punctuation that were not noted in review of the chart prio r to signing ED Disposition - Plan for ED Patient: Referrals: Chuyita Wright NP-C [Primary Care Provider] -
[2019-02-01 13:21] VITALS: BP 146/82; PULSE 87; RESP 12; O2SAT 99
--- NOTE | 2019-02-01 13:31 | ED.RN ---
[facility] CARE HERE TO TRANSPORT PATIENT. [facility] NOTIFIED AND STATED THEY WOULD CONTACT PATIENTS FAMILY AND MAKE THEM AWARE THAT SHE WOULD BE TRANSFERRED AND THE ROOM NUMBER.
== END 2019-02-01 13:40 | disposition short-term general hospital (02) ==
LOC: ED 13:11
PROVIDERS: Emergency Provider Emergency Medicine; Family Provider Family Medicine; PCP Family Medicine
DX: I61.3 Nontraumatic intracerebral hemorrhage in brain stem (principal); H53.8 Other visual disturbances; H55.00 Unspecified nystagmus; R53.1 Weakness; I69.30 Unspecified sequelae of cerebral infarction; E11.9 Type 2 diabetes mellitus without complications; I48.91 Unspecified atrial fibrillation; Z79.01 Long term (current) use of anticoagulants; Z79.82 Long term (current) use of aspirin; Z79.4 Long term (current) use of insulin; Z79.899 Other long term (current) drug therapy
CPT/HCPCS: 70450; 71045; 80048; 82962; 84484; 85025; 85610; 85730; 93005; 96365; 96375; 99285; C9132; J7030; A4216; J2405; J3490

== ENCOUNTER → 2019-08-26 13:07 | Outpatient (CLI) | payer MEDICARE, SELFPAY ==
--- NOTE | 2019-08-26 13:12 | BI_ITS ---
MAMMOGRAPHY - BILATERAL SCREENING 3-D TOMOSYNTHESIS REASON FOR EXAM: Female, 59 years old. NO FAM HX -- LOST WEIGHT SINCE LAST EXAM -- NO SX PERTINENT HISTORY: No significant family history. TECHNIQUE: 2-D mammograms and 3-D Tomosynthesis of the breast (s) were performed. CAD was performed. COMPARISON: April 06, 2015. FINDINGS: The breast composition is composed of scattered fibroglandular density. Scattered benign calcifications are seen. No dense spiculated masses or suspicious microcalcifications are identified. No architectural distortion is identified. There is no skin thickening or retraction. There has been no significant change since the prior study. BI/SCREEN MAMM (CAD) W/TIMBO BILAT IMPRESSION: No mammographic signs of malignancy. Routine yearly mammograms recommended. ASSESSMENT CATEGORY: BIRADS Category 2: Benign. A letter regarding these results will be sent to the patient by the facility within 30 days. FOLLOW UP RECOMMENDATION: Yearly follow up mammogram recommended. (A) Approximately 10% of breast cancers are not detected by mammography. A normal mammogram should not delay biopsy of a clinically suspicious abnormality. Electronically Signed: Niall Sylvester MD at 10:32 EST , Service support ,
== END ==
PROVIDERS: Family Provider Family Medicine; PCP Family Medicine; Referring Provider Family Medicine; Visit Provider Family Medicine
DX: Z12.31 Encounter for screening mammogram for malignant neoplasm of breast (principal)
CPT/HCPCS: 77063; 77067

== ENCOUNTER 2019-11-13 01:54 | Inpatient (IN) | payer MEDICARE, MEDICAID, SELFPAY ==
[2019-11-13] VITALS (13 sets, daily range): BP systolic 95–145; BP diastolic 60–96; PULSE 81–100; RESP 16–20; TEMP 36.4–36.7; O2SAT 96–99; BMI 26.2; BMI 24.8; BMI 24.9
--- NOTE | 2019-11-13 02:40 | CT_ITS ---
STUDY: CT ABDOMEN AND PELVIS WITHOUT CONTRAST REASON FOR EXAM: Female, 59 years old. Abdominal and back pain, burning urination. Recent catheterization now with vaginal bleeding. RADIATION DOSAGE (If Supplied By Facility): CTDIvol = ( 9.82 ) mGy, DLP = ( 566.79 ) mGycm TECHNIQUE: Transaxial images were obtained from the dome of the diaphragm to the symphysis pubis without oral contrast, and without intravenous contrast. Sagittal and coronal images were reconstructed. Individualized dose optimization techniques were used for this CT. COMPARISON: November 30, 2018. June 16, 2018. FINDINGS: The visualized lung bases are unremarkable. The heart is not enlarged. Calcification of the mitral annulus. Subcentimeter low-attenuation lesion left lobe of liver, stable since May 2018, probably representing an incidental cyst or a hemangioma. 1.2 cm gallstone. Normal spleen. Normal pancreas. Normal bilateral adrenal glands. Normal right kidney. Normal left kidney. Normal visualized stomach. Normal small intestine. Normal colon. Extensive stool in the distal sigmoid colon and rectum suggestive of fecal retention. The appendix is well visualized and appears normal. There is atherosclerotic calcification of the abdominal aorta, without a demonstrated aneurysm. Normal inferior vena cava. Normal retroperitoneum. No intra-abdominal free air. 5.2 x 4.0 cm central area of high attenuation within the bladder is now present, representing either a mass or thrombus. Uterus grossly normal. No adnexal mass is seen. Normal abdominal wall. Degenerative changes of the lower thoracic spine. CT/Abdomen/Pelvis without Cont IMPRESSION: High attenuation mass versus thrombus within the bladder. Recommend urology consult. Minimal cholelithiasis. Stable low-attenuation lesion left lobe of liver unchanged probably representing a small cyst or hemangioma. Probable fecal retention. Additional nonemergent findings as above. Electronically Signed: Mason Tran MD at 3:37 EDT , Service support ,
[2019-11-13 02:51] LABS: Bacteria 0 SEEN /hpf (None Seen); Mucous, Urine 0 SEEN /hpf (<or=2+); Squamous Epithelial Cells - UA 0 SEEN /hpf (5-10)
[2019-11-13 02:53] LABS: Absolute Neutrophil Count 6.1 X10^3/uL (2.0-7.7); Basophil# 0.02 X10^3/uL; Basophil% 0.2 % (0-1); Eosinophils% 2.2 % (0-5); Hematocrit 28.7 % (37-47); Hemoglobin 9.2 g/dL (12.0-15.0); Lymphocyte % 23.2 % (19-41); Mean Corp Hgb Conc 32.1 g/dL (32-36); Mean Corpuscular Hgb 31.2 pg (27.0-32.0); Mean Corpuscular Volume 97.3 fL (81-99); Mean Platelet Vol. 10.4 fl (6.2-12.0); Monocyte# 0.61 X10^3/uL; Monocyte% 6.7 % (0-10); NRBC Flagged by Analyzer 0 % (0-5); Neutrophil # 6.06 X10^3/uL (2.7-7.7); Neutrophil % 66.9 % (47-70); Platelet Count 265 K/mm3 (150-450); RBC Distribution Width CV 15.1 % (11.6-14.6); RBC Distribution Width SD 52.7 fl (35.1-43.9); Red Blood Count 2.95 M/mm3 (4.2-5.4); White Blood Count 9.1 K/mm3 (4.4-11.0)
[2019-11-13 02:56] LABS: Glucose, Dipstick Normal (Normal); Ketone-Dipstick Negative (Negative); Leukocyte Esterase-Dipstick 25 /ul (Negative); Nitrite-Dipstick Negative (Negative); Occult Blood-Urine 250 /ul (Negative); Protein-Dipstick 100 mg/dl (Negative); Specific Gravity, Urine 1.015 (1.002-1.030); Urine Bilirubin Dipstick Negative (Negative); Urine Urobilinogen Normal (Normal)
[2019-11-13 02:58] LABS: Color, Urine RED (Yellow); Urine Clarity Turbid (Clear)
[2019-11-13 02:59] LABS: White Blood Cells 25-50 SEEN /hpf (0-5)
[2019-11-13 03:00] LABS: Red Blood Cells-Urine > 100 SEEN /hpf (0-5)
[2019-11-13 03:11] LABS: Anion Gap 7 (5-15); BUN 63 mg/dL (7-18); BUN/Creat Ratio 24.6 RATIO (10-20); Calcium,Total 9.3 mg/dL (8.5-10.1); Chloride 105 mmol/L (98-107); Creatinine, Serum 2.56 mg/dL (0.55-1.02); EST Glomerular Filtration Rate 20 mL/min (>60); Est Glom Filt Rate - Afr Amer 25 mL/min (>60); Estimated Creatinine Clearance 17.63 ml/min; Glucose 127 mg/dL (74-106); Potassium 5.9 mmol/L (3.5-5.1); Sodium Level 136 mmol/L (136-145)
--- NOTE | 2019-11-13 03:23 | EKG12_ITS ---
Test Reason : HYPERKALEMIA Blood Pressure : / mmHG Vent. Rate : 079 BPM Atrial Rate : 079 BPM P-R Int : 168 ms QRS Dur : 102 ms QT Int : 368 ms P-R-T Axes : 023 010 047 degrees QTc Int : 421 ms Normal sinus rhythm Inferior infarct , age undetermined Abnormal ECG Confirmed by DIANNA CURTIS, TIFFANY ([id number]), medical transcription editor GUILLAUME MARIA ([id number]) on 11/17/2019 1:24:44 PM Referred By: PAYAL Confirmed By:YOSVANY BUSTAMANTE MD
--- NOTE | 2019-11-13 03:33 | ED.RN ---
Update given to TOURS CAPTAIN at [facility].
--- NOTE | 2019-11-13 03:52 | ED.RN ---
SEE DOWNTIME DOCUMENTATION FROM 0215 UNTIL NOW
--- NOTE | 2019-11-13 03:58 | ED.VIS.GEN ---
History of Present Illness Chief Complaint: Complaint Informant: Patient Onset: Yesterday Narrative: Patient presents from [facility] secondary to hematuria. Patient reports having dysuria for quite some time. Apparently yesterday nursing staff at the [facility] noted either vaginal bleeding or hematuria. There was an order written to straight cath the patient for a urine sample. Patient states they attempted this but never actually got urine from her. She was sent in to the ED. She is also noted to be mildly hypotensive there was blood pressures in the 80s. Heart rate was 110 per nurse practitioner report. - Past Medical History (1) CVA (cerebral vascular accident) Status: Chronic (2) Type 2 diabetes mellitus with diabetic polyneuropathy Status: Chronic (3) Anxiety and depression Status: Chronic (4) Benign essential HTN Status: Chronic (5) Cerebrovascular disease Status: Chronic Comment: Possible small ischemic strokes versus sequela of chronic migraine (6) HLD (hyperlipidemia) Status: Chronic (7) IBS (irritable bowel syndrome) Status: Chronic (8) Migraine Status: Chronic (9) Paroxysmal atrial fibrillation Status: Chronic (10) Type II diabetes mellitus, uncontrolled Status: Chronic Past Medical History - Allergies and Home Meds Allergies/Adverse Reactions: Allergies codeine Adverse Reaction (Verified 02/01/19 11:47) Other pork derived (porcine) Adverse Reaction (Verified 02/01/19 11:47) Vomiting Primary Care Physician: Sergio Dean MD [Primary Care Provider] - Prior records reviewed: Yes Surgical History: - Lives: Long Term Smoking Status: Never smoker - Family History Maternal Family History: Reports: Heart Disease Paternal Family History: Reports: Heart Disease, Hypertension Review of Systems General: Denies: Chills, Fever Eyes: Denies: Visual changes - bilaterally ENT: Denies: Bilateral ear pain Cardiovascular: Denies: Chest pain Respiratory: Denies: Dyspnea, Cough Gastrointestinal: Reports: Abdominal pain - Mild suprapubic and left lower quadrant tenderness.. Denies: Nausea, Vomiting Genitourinary: Reports: Dysuria, Hematuria Musculoskeletal: Denies: Extremity Pain Neurological: Denies: Headache Hematologic: Denies: Easy bruising, Easy bleeding Allergy: Denies: Uticaria Physical Exam Vital Signs/Narrative: Vital Signs Temp Pulse Resp BP Pulse Ox 11/13/19 02:00 97.7 F L 81 20 H 100/86 H 98 11/13/19 01:55 97.7 F L 81 20 H 100/86 H 98 Inital Vital Signs reviewed: Yes General: Well nourished, Well developed Head: Normocephalic ENT: Moist mucous membranes Neck: Supple Cardiovascular: Regular rate, Regular rhythm Respiratory: No distress, CTA bilaterally Abdomen: Soft, Tender - Suprapubic tenderness palpation.. Negative for: Guarding, Rebound tenderness Skin: Normal color Neurological: - - Mild left-sided deficits secondary to prior stroke. Psychological: Normal affect Diagnostic/Tx/Re-eval Impressions Abdomen/Pelvis CT 11/13/19 02:40 IMPRESSION: High attenuation mass versus thrombus within the bladder. Recommend urology consult. Minimal cholelithiasis. Stable low-attenuation lesion left lobe of liver unchanged probably representing a small cyst or hemangioma. Probable fecal retention. Additional nonemergent findings as above. Electronically Signed: Mason Tran MD at 3:37 EDT , Service support , 11/13/19 02:40 Abdomen/Pelvis without Cont [CT] Stat Laboratory Results 11/13/19 11/13/19 11/13/19 02:20 02:40 02:40 WBC 9.1 RBC 2.95 L Hgb 9.2 L Hct 28.7 L MCV 97.3 MCH 31.2 MCHC 32.1 RDW Std Deviation 52.7 H RDW Coeff of Eliane 15.1 H Plt Count 265 MPV 10.4 Immature Gran % (Auto) 0.800 Neut % (Auto) 66.9 Lymph % (Auto) 23.2 [place] % (Auto) 6.7 Eos % (Auto) 2.2 Baso % (Auto) 0.2 Absolute Neuts (auto) 6.1 Absolute Lymphs (auto) 2.10 Nucleated RBC % 0 Sodium 136 Potassium 5.9 H Chloride 105 Carbon Dioxide 24.0 Anion Gap 7 BUN 63 H Creatinine 2.56 H Estim Creat Clear Calc 17.63 Est GFR (MDRD) Af Amer 25 L Est GFR (MDRD) Non-Af 20 L BUN/Creatinine Ratio 24.6 H Glucose 127 H Calcium 9.3 Urine Color RED Urine Clarity Turbid Urine pH 7.0 Ur Specific [place] 1.015 Urine Protein 100 H Urine Glucose (UA) Normal Urine Ketones Negative Urine Occult Blood 250 H Urine Nitrite Negative Urine Bilirubin Negative Urine Urobilinogen Normal Ur Leukocyte Esterase 25 H Urine RBC > 100 SEEN Urine WBC 25-50 SEEN Ur Squamous Epith Cells 0 SEEN Urine Bacteria 0 SEEN Urine Mucus 0 SEEN - EKG Initial EKG Interpretation: Sinus Rhythm - Sinus at 79. She does have rather prominent T waves, especially over the anterior precordial leads. This does appear similar to prior study from January 2019. T waves in the lateral precordial's may be slightly more pronounced now when compared to prior. - Medical Decision Making Patient was given IV fluids. Initial urine sample was taken from straight cath. When patient's labs returned with evidence of renal failure Wise catheter was placed. Nursing staff was able to hand irrigate bladder. She continues to have dark bloody urine but no evidence of clots. CT scan does raise concern for bladder mass versus thrombus. Patient was given Kayexalate, insulin, and glucose secondary to her hyperkalemia. She was discussed with Dr. Sanches who will see the patient for her urology issues. I will speak with the hospitalist for admission. ED Disposition - Plan for ED Patient: Disposition: Acute Care Hospital [facility] Diagnosis: Hyperkalemia, Renal failure, Hematuria Referrals: Sergio Dean MD [Primary Care Provider] -
--- NOTE | 2019-11-13 04:02 | PCM.HP.STD ---
Problem List (1) Bladder mass Status: Suspected (2) Hyperkalemia Status: Acute (3) Renal failure Status: Acute (4) Hematuria Status: Acute (5) Type 2 diabetes mellitus with diabetic polyneuropathy Status: Chronic (6) Benign essential HTN Status: Chronic (7) Chronic ulcer of left foot with necrosis of muscle Status: Chronic (8) CVA (cerebral vascular accident) Status: Chronic Qualifiers: Laterality of affected vessel: right (9) Paroxysmal atrial fibrillation Status: Chronic (10) IBS (irritable bowel syndrome) Status: Chronic Qualifiers: (11) HLD (hyperlipidemia) Status: Chronic (12) Esophageal reflux Status: Chronic Qualifiers: (13) Type II diabetes mellitus, uncontrolled Status: Chronic Qualifiers: (14) Anxiety and depression Status: Chronic (15) Cerebrovascular disease Status: Chronic Comment: Possible small ischemic strokes versus sequela of chronic migraine (16) Migraine Status: Chronic Qualifiers: Migraine type: unspecified Status migrainosus presence: without status migrainosus Intractability: not intractable Qualified Code(s): G43.909 - Migraine, unspecified, not intractable, without status migrainosus (17) reports hole in heart since Status: Chronic History of Present Illness Date of Admission: 11/13/19 Chief Complaint: hematuria The patient is a 59 [facility] F [facility] with a significant history of diabetes mellitus; hypertension; and CVA who presented to emergency department with gross hematuria that started a day before presentation. Associated with her symptoms is dysuria and abdominal pain. [facility]ly at the [facility] her systolic blood pressure was in the 80s. At the emergency department initially her systolic blood pressure was 100. Patient was found to have severely elevated creatinine and severely elevated potassium. Abdomen and pelvis CT showed mass versus thrombus within the bladder; minimal cholelithiasis and probable fecal retention as well as unchanged liver lesion. Past Medical History Past Medical History (Chronic Problems): Chronic Problems 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 ulcer of left foot with necrosis of muscle (Chronic) CVA (cerebral vascular accident) (Chronic) Paroxysmal atrial fibrillation (Chronic) IBS (irritable bowel syndrome) (Chronic) HLD (hyperlipidemia) (Chronic) Esophageal reflux (Chronic) Type II diabetes mellitus, uncontrolled (Chronic) Anxiety and depression (Chronic) Cerebrovascular disease (Chronic) Possible small ischemic strokes versus sequela of chronic migraine Migraine (Chronic) reports hole in heart since (Chronic) Benign essential HTN (Chronic) Allergies codeine Adverse Reaction (Verified 02/01/19 11:47) Other pork derived (porcine) Adverse Reaction (Verified 02/01/19 11:47) Vomiting Home Medications: Ambulatory Orders Medication Instructions Recorded Amlodipine [Norvasc] 10 mg PO DAILY 11/13/19 Ascorbic Acid [Vitamin C] 500 mg PO DAILY 11/13/19 Aspirin [Aspirin, Baby] 81 mg PO DAILY@0800 11/13/19 Atorvastatin Calcium [Lipitor] 20 mg PO QHS 11/13/19 Dicyclomine HCl [Bentyl] 20 mg PO BREAKFAST 11/13/19 Gabapentin [Neurontin] 300 mg PO TIDCM 11/13/19 Gemfibrozil 600 mg PO BID 11/13/19 Insulin Detemir [Levemir] 25 unit SQ QHS 11/13/19 Insulin Lispro [Humalog] See Protocol SQ TID 11/13/19 Melatonin 3 mg PO QHS 11/13/19 Metoprolol Tartrate 25 mg PO BID 11/13/19 Ondansetron HCl [Zofran] 4 mg PO PRN PRN 11/13/19 Pantoprazole Sodium [Protonix] 40 mg PO DAILY 11/13/19 Potassium Chloride 20 meq PO DAILY 11/13/19 Sertraline HCl [Zoloft] 150 mg PO DAILY 11/13/19 Spironolactone 25 mg PO DAILY 11/13/19 Surgical History: tonsillectomy, - Psychiatric History: Anxiety, Depression 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 Denies: Head Aches Cardiovascular: Denies: Chest Pain, Palpitations Respiratory: Reports: Cough. Denies: Sputum production Gastrointestinal: Denies: Abdominal Pain, Nausea, Vomiting Genitourinary: Reports: Dysuria, Hematuria Musculoskeletal: Denies: Joint Pain, Joint Tenderness Skin: Denies: Rash, Wounds Neurological: Reports: Focal weakness - Left upper and left lower extremities (chronic). Denies: Numbness, Tingling Psychiatric: Denies: Anxiety, Depression, Homicidal Ideations, Suicidal Ideations Hematologic/ Lymphatic: Denies: Easy Bruising, Easy Bleeding VTE Information - Inpt Only VTE Present on Admission: No VTE Mechan Device Prophylaxis: SCD's VTE Pharm Prophylaxis ordered?: No Patient Problems: Active and Suspected Problems Hyperkalemia (Acute) Renal failure (Acute) Hematuria (Acute) Bladder mass (Suspected) - Physical Exam Vitals/I&O's: Vital Signs Temp Pulse Resp BP Pulse Ox 97.7 F L 81 20 H 100/86 H 98 11/13/19 02:00 11/13/19 02:00 11/13/19 02:00 11/13/19 02:00 11/13/19 02:00 Oxygen Delivery Method Room Air Weight: 64.4 kg Body Mass Index (BMI) 26.2 Finger Stick Blood Glucose 242 General: Alert, Oriented x3, Cooperative HEENT: Atraumatic, PERRLA, EOMI, Normocephalic Oral: - - Poor dentition Neck: Supple, Trachea Midline Lungs: Clear to auscultation, Normal air movement, No rhonchi, No wheeze, No rales Cardiovascular: Regular rate, Regular Rhythm, Normal S1, Normal S2, No murmurs Abdomen: Bowel Sounds Present, Soft, Tender, - - Wise catheter with gross blood. Extremities: No edema, Capillary Refill Less than 3 Seconds Skin: No rashes, No breakdown Musculoskeletal: No Tenderness to Palpation of Joints or Extremities, - - Reduced range of motion of right upper extremity. Neurological: Cranial nerves II-XII grossly intact, - - Strength in right upper extremity 3 out of 5; strength in right lower extremity 3 out of 5. Strength in left upper extremity; and strength in the left lower extremity 5 out of 5. Psych/Mental Status: Normal Affect, Appropriate Laboratory Results 11/13/19 02:20: Urine Color RED, Urine Clarity Turbid, Urine pH 7.0, Ur Specific [place] 1.015, Urine Protein 100 H, Urine Glucose (UA) Normal, Urine Ketones Negative, Urine Occult Blood 250 H, Urine Nitrite Negative, Urine Bilirubin Negative, Urine Urobilinogen Normal, Ur Leukocyte Esterase 25 H, Urine RBC > 100 SEEN, Urine WBC 25-50 SEEN, Ur Squamous Epith Cells 0 SEEN, Urine Bacteria 0 SEEN, Urine Mucus 0 SEEN 11/13/19 02:40: WBC 9.1, RBC 2.95 L, Hgb 9.2 L, Hct 28.7 L, MCV 97.3, MCH 31.2, MCHC 32.1, RDW Std Deviation 52.7 H, RDW Coeff of Eliane 15.1 H, Plt Count 265, MPV 10.4, Immature Gran % (Auto) 0.800, Neut % (Auto) 66.9, Lymph % (Auto) 23.2, [place] % (Auto) 6.7, Eos % (Auto) 2.2, Baso % (Auto) 0.2, Absolute Neuts (auto) 6.1, Absolute Lymphs (auto) 2.10, Nucleated RBC % 0 11/13/19 02:40: Sodium 136, Potassium 5.9 H, Chloride 105, Carbon Dioxide 24.0, Anion Gap 7, BUN 63 H, Creatinine 2.56 H, Estim Creat Clear Calc 17.63, Est GFR (MDRD) Af Amer 25 L, Est GFR (MDRD) Non-Af 20 L, BUN/Creatinine Ratio 24.6 H, Glucose 127 H, Calcium 9.3 Assessment/Plan All Active Problems Hyperkalemia (Acute) Renal failure (Acute) Hematuria (Acute) The patient is a 59 year old F [facility] with a significant history of diabetes mellitus; hypertension; and CVA who presented to emergency department with gross hematuria; abdominal pain; dysuria and found to have severely elevated creatinine consistent with NIESHA; hyperkalemia; and probable bladder mass. Probable bladder mass Differential diagnoses include thrombosing bladder Patient had manual irrigation in the emergency department and a Wise cath was placed. Gross hematuria without any clots. Normal saline at 125 mL's per hour was started at the emergency department. We will give the patient's 1 L bolus of normal saline and then continue patient on 100 MLS per hour. We will trend H&H. N.p.o. except meds. Patient takes nectar thickened liquids. Thicken all liquids. [employer] DEVELOPER urology consult Hyperkalemia On presentation was 5.9. EKG showed T wave sensing compared to previous. Discussed emergent department doctor to give calcium gluconate. Reportedly patient received glucose and insulin at the emergency department. Also she received Kayexalate. Patient is scheduled to receive MiraLAX. Repeat BMP. IV fluids as above. Hold home potassium supplementation. Avoid nephrotoxins. Acute renal failure Creatinine presentation was 2.56. Creatinine baseline is less than 1. BUN is 63. BUN over creatinine is 24.6. Likely prerenal from hypovolemia. IV hydration as above. URI symptoms Flonase ordered. Diabetes mellitus with polyneuropathy On presentation blood glucose was elevated. Patient to be kept n.p.o. for now. Hold all home hypoglycemic regimen. Accu-Chek every 6 hours with correction scale insulin ordered. Because of NIESHA will decrease dose of gabapentin. GERD On home p.o. PPI. Limits by mouth medication. Protonix IV ordered. DVT Prophylaxis SCD Inpatient E&M: 57181 Init Hosp L3
--- NOTE | 2019-11-13 04:05 | ED.RN ---
per dr street,not a sepsis pt
[2019-11-13] MEDS: Calcium Gluconate 1 GM/10 ML Vial IV (04:45)
[2019-11-13 05:21] LABS: Bedside Glucose 120 mg/dL (70-110)
[2019-11-13] MEDS: Fluticasone 0.05% 1 SPRAY NASAL.SRY NASAL ×3 (05:50→21:33)
[2019-11-13] MEDS: 0.9% Normal Saline 1,000 ML 500 ML IV (05:51)
[2019-11-13 07:12] LABS: Hematocrit 25.9 % (37-47); Hemoglobin 8.3 g/dL (12.0-15.0)
[2019-11-13 07:49] LABS: Anion Gap 7 (5-15); BUN 63 mg/dL (7-18); BUN/Creat Ratio 25.6 RATIO (10-20); Calcium,Total 9.4 mg/dL (8.5-10.1); Chloride 111 mmol/L (98-107); Creatinine, Serum 2.46 mg/dL (0.55-1.02); EST Glomerular Filtration Rate 21 mL/min (>60); Est Glom Filt Rate - Afr Amer 26 mL/min (>60); Estimated Creatinine Clearance 18.35 ml/min; Glucose 105 mg/dL (74-106); Potassium 5.7 mmol/L (3.5-5.1); Sodium Level 138 mmol/L (136-145)
[2019-11-13] MEDS: 0.9% Normal Saline 1,000 ML 100 ML IV ×2 (08:46→18:50)
[2019-11-13] MEDS: Acetaminophen 325 MG Tablet 650 MG PO ×2 (08:58→18:09)
--- NOTE | 2019-11-13 11:18 | PCM.CONS.GEN ---
Problem List (1) Hematuria Status: Acute (2) Bladder mass Status: Suspected Reason for Consult Date of Consultation: 11/13/19 Reason for Consultation: Gross hematuria and possible bladder mass. History of Present Illness: The patient is a 59 year old F with a history of CVA, uncontrolled diabetes. She developed gross hematuria and presented to the emergency department. Her electrolytes are abnormal and on CT scan evaluation she was found to have a 5 cm bladder mass versus blood clot. On urinalysis no bacteria were seen microscopically. Culture is pending. With the patient's stroke history she does not answer questions very well. She reports she is having lower abdominal pain. She has never seen a urologist before and has never had gross hematuria before. She has been having some dysuria as well. She is also constipated. There is evidence of fecal impaction on CT scan. She reportedly has also been having upper respiratory infection symptoms. Past Medical History Past Medical History (Chronic Problems): Chronic Problems 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 ulcer of left foot with necrosis of muscle (Chronic) CVA (cerebral vascular accident) (Chronic) Paroxysmal atrial fibrillation (Chronic) IBS (irritable bowel syndrome) (Chronic) HLD (hyperlipidemia) (Chronic) Esophageal reflux (Chronic) Type II diabetes mellitus, uncontrolled (Chronic) Anxiety and depression (Chronic) Cerebrovascular disease (Chronic) Possible small ischemic strokes versus sequela of chronic migraine Migraine (Chronic) reports hole in heart since (Chronic) Benign essential HTN (Chronic) Allergies codeine Adverse Reaction (Verified 02/01/19 11:47) Other pork derived (porcine) Adverse Reaction (Verified 02/01/19 11:47) Vomiting Home Medications: Ambulatory Orders Medication Instructions Recorded Amlodipine [Norvasc] 10 mg PO DAILY 11/13/19 Ascorbic Acid [Vitamin C] 500 mg PO DAILY 11/13/19 Aspirin [Aspirin, Baby] 81 mg PO DAILY@0800 11/13/19 Atorvastatin Calcium [Lipitor] 20 mg PO QHS 11/13/19 Dicyclomine HCl [Bentyl] 20 mg PO BREAKFAST 11/13/19 Gabapentin [Neurontin] 300 mg PO TIDCM 11/13/19 Gemfibrozil 600 mg PO BID 11/13/19 Insulin Detemir [Levemir] 25 unit SQ QHS 11/13/19 Insulin Lispro [Humalog] See Protocol SQ TID 11/13/19 Melatonin 3 mg PO QHS 11/13/19 Metoprolol Tartrate 25 mg PO BID 11/13/19 Ondansetron HCl [Zofran] 4 mg PO PRN PRN 11/13/19 Pantoprazole Sodium [Protonix] 40 mg PO DAILY 11/13/19 Potassium Chloride 20 meq PO DAILY 11/13/19 Sertraline HCl [Zoloft] 150 mg PO DAILY 11/13/19 Spironolactone 25 mg PO DAILY 11/13/19 Surgical History: tonsillectomy, - Psychiatric 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: 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, 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 Lives: Snf Smoking Status: Never smoker Alcohol: None - *Family History Maternal History Items: Heart Disease, - - Pancreatic disease Paternal History Items: Heart Disease, Hypertension Review of Systems Constitutional: Denies: Weight Change Eyes: Denies: Vision Change HEENT: Denies: Visual Changes Cardiovascular: Denies: Chest Pain Respiratory: Reports: Cough Gastrointestinal: Reports: Abdominal Pain, Constipation Genitourinary: Reports: Dysuria, Hematuria Skin: Reports: Wounds Patient Problems: Active and Suspected Problems Hyperkalemia (Acute) Renal failure (Acute) Hematuria (Acute) Bladder mass (Suspected) - Physical Exam Vitals/I&O's: Vital Signs Temp Pulse Resp BP Pulse Ox 97.9 F 94 18 145/94 H 99 11/13/19 11:15 11/13/19 11:15 11/13/19 11:15 11/13/19 11:15 11/13/19 11:15 Oxygen Delivery Method Room Air Weight: 59.7 kg Body Mass Index (BMI) 24.8 Finger Stick Blood Glucose 242 Intake and Output for Last 24 Hours 11/11/19 11/12/19 11/13/19 23:59 23:59 23:59 Intake Total 1110 / 1110 Output Total 200 / 200 Balance 910 / 910 General: Alert, No apparent distress HEENT: Atraumatic, Normocephalic Oral: Moist Mucosa Neck: Supple Lungs: Normal air movement Abdomen: Soft, Distended, Tender - lower abdomen tender to palpation midline., - - [address] Fr. 3-way carey with CBI running. Irrigated several clots and CBI now light pink Skin: No rashes Laboratory Results 11/13/19 02:20: Urine Color RED, Urine Clarity Turbid, Urine pH 7.0, Ur Specific Elizabeth 1.015, Urine Protein 100 H, Urine Glucose (UA) Normal, Urine Ketones Negative, Urine Occult Blood 250 H, Urine Nitrite Negative, Urine Bilirubin Negative, Urine Urobilinogen Normal, Ur Leukocyte Esterase 25 H, Urine RBC > 100 SEEN, Urine WBC 25-50 SEEN, Ur Squamous Epith Cells 0 SEEN, Urine Bacteria 0 SEEN, Urine Mucus 0 SEEN 11/13/19 02:40: WBC 9.1, RBC 2.95 L, Hgb 9.2 L, Hct 28.7 L, MCV 97.3, MCH 31.2, MCHC 32.1, RDW Std Deviation 52.7 H, RDW Coeff of Eliane 15.1 H, Plt Count 265, MPV 10.4, Immature Gran % (Auto) 0.800, Neut % (Auto) 66.9, Lymph % (Auto) 23.2, [place] % (Auto) 6.7, Eos % (Auto) 2.2, Baso % (Auto) 0.2, Absolute Neuts (auto) 6.1, Absolute Lymphs (auto) 2.10, Nucleated RBC % 0 11/13/19 02:40: Sodium 136, Potassium 5.9 H, Chloride 105, Carbon Dioxide 24.0, Anion Gap 7, BUN 63 H, Creatinine 2.56 H, Estim Creat Clear Calc 17.63, Est GFR (MDRD) Af Amer 25 L, Est GFR (MDRD) Non-Af 20 L, BUN/Creatinine Ratio 24.6 H, Glucose 127 H, Calcium 9.3 11/13/19 05:15: POC Glucose 120 H 11/13/19 07:02: Sodium 138, Potassium 5.7 H, Chloride 111 H, Carbon Dioxide 20.0 L, Anion Gap 7, BUN 63 H, Creatinine 2.46 H, Estim Creat Clear Calc 18.35, Est GFR (MDRD) Af Amer 26 L, Est GFR (MDRD) Non-Af 21 L, BUN/Creatinine Ratio 25.6 H, Glucose 105, Calcium 9.4 11/13/19 07:02: Hgb 8.3 L, Hct 25.9 L Current Medications Acetaminophen (Tylenol) 650 mg PO Q6H PRN PRN PRN Reason: Pain Score 1-10/Temp > 100.7 F Last Admin: 11/13/19 08:58 Dose: 650 mg Documented by: Fluticasone Propionate (Flonase Nasal [place]) 1 spray NASAL BID [facility] Last Admin: 11/13/19 05:50 Dose: 1 spray Documented by: Gabapentin (Neurontin) 100 mg PO TIDCM [facility] Last Admin: 11/13/19 08:59 Dose: Not Given Documented by: Glucagon () 1 mg IM .X1 PRN PRN Reason: Hypoglycemia Sodium Chloride () 1,000 mls @ 100 mls/hr IV .Q10H [facility] Last Admin: 11/13/19 08:46 Dose: 100 mls/hr Documented by: Dextrose (Dextrose 10%-Water) 250 mls @ 999 mls/hr IV .Q16M PRN; Protocol PRN Reason: HYPOGLYCEMIA Pantoprazole Sodium 40 mg/ (Sodium Chloride) 110 mls @ 330 mls/hr IV Q24 [facility] Last Infusion: 11/13/19 06:18 Dose: Infused Documented by: Sodium Chloride () 250 mls @ 15 mls/hr IV .[id number] PRN PRN Reason: Saline Flush Sodium Chloride () 250 mls @ 15 mls/hr IV .[id number] PRN PRN Reason: Additional IVPB Infusion Insulin Human Lispro (Humalog Kwikpen (Bkc)) 0 unit SC Q6 [facility]; Protocol Last Admin: 11/13/19 05:48 Dose: Not Given Documented by: Melatonin (Melatonin) 3 mg PO QHS [facility] Ondansetron HCl (Zofran) 4 mg IV Q8H PRN PRN PRN Reason: NAUSEA/VOMITING Sertraline HCl (Zoloft) 150 mg PO DAILY [facility] Sodium Chloride () 10 - 40 ml IV UD PRN PRN Reason: SALINE FLUSH Assessment/Plan All Active Problems Hyperkalemia (Acute) Renal failure (Acute) Hematuria (Acute) CBI and manual irrigation will need cystoscopy at some point. trying to conserve equipment and supplies. If blood loss stops, urine clears, plan will be to send her home and have cystoscopy in the office. Will need resolution of fecal impaction/retention await urine culture antibiotics while on CBI continue PCU and supportive care
--- NOTE | 2019-11-13 12:04 | CASEMGMT ---
Pt is here from [facility]. SW called Norma at [facility], she states pt has been there since 2019, is under senior care care with her [facility] Medicaid. Pt is her own decision maker. If pt has therapy they can try to skill therapy. CLEM faxed updates. CLEM spoke w/pt in room, and Dr. Olivas. She states pt can have PT/OT tomorrow, not today. CLEM also confirmed w/pt that the plan is for pt to return to [facility] when ready. CLEM will continue to follow. SAURAV Mcbride
--- NOTE | 2019-11-13 12:32 | PN_ITS ---
<Lucho Stephens - Last Filed: 11/13/19 12:32> Patient Problems: Active and Suspected Problems Hyperkalemia (Acute) Renal failure (Acute) Hematuria (Acute) Bladder mass (Suspected) Reason for Visit: hematuria Subjective: CBI in place, at time of interview light red drainage. No fever/chills. C/o LLQ abd pain. No recent BM. No CP/dizziness/LH/SOB. Vitals/I&O's: Vital Signs Temp Pulse Resp BP Pulse Ox 97.9 F 94 18 145/94 H 99 11/13/19 11:15 11/13/19 11:15 11/13/19 11:15 11/13/19 11:15 11/13/19 11:15 Oxygen Delivery Method Room Air Weight: 131 lb 9.855 oz Body Mass Index (BMI) 24.8 Finger Stick Blood Glucose 242 Intake and Output for Last 24 Hours 11/11/19 11/12/19 11/13/19 23:59 23:59 23:59 Intake Total 1110 / 1110 Output Total 200 / 200 Balance 910 / 910 General: Alert, Oriented x3, Cooperative HEENT: Atraumatic, PERRLA, EOMI, Normocephalic Neck: Supple, No JVD, Negative Carotid Bruits Lungs: Clear to auscultation, Normal air movement Cardiovascular: Regular rate, No murmurs Abdomen: Bowel Sounds Present, Soft, Tender - LLQ Extremities: No edema, Capillary Refill Less than 3 Seconds Skin: No rashes, No breakdown Musculoskeletal: No Tenderness to Palpation of Joints or Extremities Neurological: Cranial nerves II-XII grossly intact Psych/Mental Status: Normal Affect, Appropriate, Alert and oriented to time, place, person, mood and affect Laboratory Results 11/13/19 02:20: Urine Color RED, Urine Clarity Turbid, Urine pH 7.0, Ur Specific Lulu 1.015, Urine Protein 100 H, Urine Glucose (UA) Normal, Urine Ketones Negative, Urine Occult Blood 250 H, Urine Nitrite Negative, Urine Bilirubin Negative, Urine Urobilinogen Normal, Ur Leukocyte Esterase 25 H, Urine RBC > 100 SEEN, Urine WBC 25-50 SEEN, Ur Squamous Epith Cells 0 SEEN, Urine Bacteria 0 SEEN, Urine Mucus 0 SEEN 11/13/19 02:40: WBC 9.1, RBC 2.95 L, Hgb 9.2 L, Hct 28.7 L, MCV 97.3, MCH 31.2, MCHC 32.1, RDW Std Deviation 52.7 H, RDW Coeff of Eliane 15.1 H, Plt Count 265, MPV 10.4, Immature Gran % (Auto) 0.800, Neut % (Auto) 66.9, Lymph % (Auto) 23.2, [place] % (Auto) 6.7, Eos % (Auto) 2.2, Baso % (Auto) 0.2, Absolute Neuts (auto) 6.1, Absolute Lymphs (auto) 2.10, Nucleated RBC % 0 11/13/19 02:40: Sodium 136, Potassium 5.9 H, Chloride 105, Carbon Dioxide 24.0, Anion Gap 7, BUN 63 H, Creatinine 2.56 H, Estim Creat Clear Calc 17.63, Est GFR (MDRD) Af Amer 25 L, Est GFR (MDRD) Non-Af 20 L, BUN/Creatinine Ratio 24.6 H, Glucose 127 H, Calcium 9.3 11/13/19 05:15: POC Glucose 120 H 11/13/19 07:02: Sodium 138, Potassium 5.7 H, Chloride 111 H, Carbon Dioxide 20.0 L, Anion Gap 7, BUN 63 H, Creatinine 2.46 H, Estim Creat Clear Calc 18.35, Est GFR (MDRD) Af Amer 26 L, Est GFR (MDRD) Non-Af 21 L, BUN/Creatinine Ratio 25.6 H , Glucose 105, Calcium 9.4 11/13/19 07:02: Hgb 8.3 L, Hct 25.9 L Current Medications Acetaminophen (Tylenol) 650 mg PO Q6H PRN PRN PRN Reason: Pain Score 1-10/Temp > 100.7 F Last Admin: 11/13/19 08:58 Dose: 650 mg Documented by: Fluticasone Propionate (Flonase Nasal [place]) 1 spray NASAL BID [facility] Last Admin: 11/13/19 05:50 Dose: 1 spray Documented by: Gabapentin (Neurontin) 100 mg PO TIDCM [facility] Last Admin: 11/13/19 08:59 Dose: Not Given Documented by: Glucagon () 1 mg IM .X1 PRN PRN Reason: Hypoglycemia Sodium Chloride () 1,000 mls @ 100 mls/hr IV .Q10H [facility] Last Admin: 11/13/19 08:46 Dose: 100 mls/hr Documented by: Dextrose (Dextrose 10%-Water) 250 mls @ 999 mls/hr IV .Q16M PRN; Protocol PRN Reason: HYPOGLYCEMIA Pantoprazole Sodium 40 mg/ (Sodium Chloride) 110 mls @ 330 mls/hr IV Q24 [facility] Last Infusion: 11/13/19 06:18 Dose: Infused Documented by: Sodium Chloride () 250 mls @ 15 mls/hr IV .[id number] PRN PRN Reason: Saline Flush Sodium Chloride () 250 mls @ 15 mls/hr IV .[id number] PRN PRN Reason: Additional IVPB Infusion Ceftriaxone Sodium (Rocephin) 1 gm in 50 mls @ 100 mls/hr IV Q24 [facility] Insulin Human Lispro (Humalog Kwikpen (Bkc)) 0 unit SC Q6 [facility]; Protocol Last Admin: 11/13/19 05:48 Dose: Not Given Documented by: Melatonin (Melatonin) 3 mg PO QHS [facility] Ondansetron HCl (Zofran) 4 mg IV Q8H PRN PRN PRN Reason: NAUSEA/VOMITING Polyethylene Glycol (Miralax) 17 gm PO DAILY [facility] Sertraline HCl (Zoloft) 150 mg PO DAILY [facility] Sodium Chloride () 10 - 40 ml IV UD PRN PRN Reason: SALINE FLUSH STROKE Vital Signs/Narrative: Vital Signs Temp Pulse Resp BP Pulse Ox 11/13/19 11:15 97.9 F 94 18 145/94 H 99 Medical Necessity - Tobacco Use Smoking Status: Never smoker Assessment/Plan All Active Problems Hyperkalemia (Acute) Renal failure (Acute) Hematuria (Acute) 1. Hematuria, with associated acute blood loss anemia - mass vs clot. Urology following. continue irrigation. start abx. monitor H/H, no indication for transfusion at this point. Continue protonix. Off aspirin. 2. Hyperkalemia - repeat kayex 3. Constipation - aggressive laxatives/enema/suppositories as needed. 4. NIESHA - improved. continue fluids. 5. pAfib - not on oral anticoagulation. rate controlled, SR. resume metoprolol. 6. Hx CVA chronic right sided deficits - ptot, return to snf at dc. 7. GERD - on ppi 8. DMt2 - SSI 9. IBS - hold bentyl with constipation. DVT ppx: SCDs DC planning: return to SNF when appropriate. This patient was seen by Lucho Stephens PA-C under the supervision of Dr. Olivas. <Eryn Olivas - Last Filed: 11/14/19 07:29> Vitals/I&O's: Vital Signs Temp Pulse Resp BP Pulse Ox 97.9 F 94 18 145/94 H 99 11/13/19 11:15 11/13/19 11:15 11/13/19 11:15 11/13/19 11:15 11/13/19 11:15 Oxygen Delivery Method Room Air Weight: 59.7 kg Body Mass Index (BMI) 24.8 Finger Stick Blood Glucose 242 Intake and Output for Last 24 Hours 11/11/19 11/12/19 11/13/19 23:59 23:59 23:59 Intake Total 1280 / 1280 Output Total 200 / 200 Balance 1080 / 1080 Laboratory Results 11/13/19 02:20: Urine Color RED, Urine Clarity Turbid, Urine pH 7.0, Ur Specific [place]ulu 1.015, Urine Protein 100 H, Urine Glucose (UA) Normal, Urine Ketones Negative, Urine Occult Blood 250 H, Urine Nitrite Negative, Urine Bilirubin Negative, Urine Urobilinogen Normal, Ur Leukocyte Esterase 25 H, Urine RBC > 100 SEEN, Urine WBC 25-50 SEEN, Ur Squamous Epith Cells 0 SEEN, Urine Bacteria 0 SEEN, Urine Mucus 0 SEEN 11/13/19 02:40: WBC 9.1, RBC 2.95 L, Hgb 9.2 L, Hct 28.7 L, MCV 97.3, MCH 31.2, MCHC 32.1, RDW Std Deviation 52.7 H, RDW Coeff of Eliane 15.1 H, Plt Count 265, MPV 10.4, Immature Gran % (Auto) 0.800, Neut % (Auto) 66.9, Lymph % (Auto) 23.2, [place] % (Auto) 6.7, Eos % (Auto) 2.2, Baso % (Auto) 0.2, Absolute Neuts (auto) 6.1, Absolute Lymphs (auto) 2.10, Nucleated RBC % 0 11/13/19 02:40: Sodium 136, Potassium 5.9 H, Chloride 105, Carbon Dioxide 24.0, Anion Gap 7, BUN 63 H, Creatinine 2.56 H, Estim Creat Clear Calc 17.63, Est GFR (MDRD) Af Amer 25 L, Est GFR (MDRD) Non-Af 20 L, BUN/Creatinine Ratio 24.6 H, Glucose 127 H, Calcium 9.3 11/13/19 05:15: POC Glucose 120 H 11/13/19 07:02: Sodium 138, Potassium 5.7 H, Chloride 111 H, Carbon Dioxide 20.0 L, Anion Gap 7, BUN 63 H, Creatinine 2.46 H, Estim Creat Clear Calc 18.35, Est GFR (MDRD) Af Amer 26 L, Est GFR (MDRD) Non-Af 21 L, BUN/Creatinine Ratio 25.6 H , Glucose 105, Calcium 9.4 11/13/19 07:02: Hgb 8.3 L, Hct 25.9 L 11/13/19 12:30: Hgb 8.1 L, Hct 25.5 L 11/13/19 13:22: POC Glucose 112 H 11/13/19 17:12: POC Glucose 115 H Current Medications Acetaminophen (Tylenol) 650 mg PO Q6H PRN PRN PRN Reason: Pain Score 1-10/Temp > 100.7 F Last Admin: 11/13/19 08:58 Dose: 650 mg Documented by: Fluticasone Propionate (Flonase Nasal [place]) 1 spray NASAL BID [facility] Last Admin: 11/13/19 12:59 Dose: 1 spray Documented by: Gabapentin (Neurontin) 100 mg PO TIDCM [facility] Last Admin: 11/13/19 13:40 Dose: 100 mg Documented by: Glucagon () 1 mg IM .X1 PRN PRN Reason: Hypoglycemia Sodium Chloride () 1,000 mls @ 100 mls/hr IV .Q10H [facility] Last Admin: 11/13/19 08:46 Dose: 100 mls/hr Documented by: Dextrose (Dextrose 10%-Water) 250 mls @ 999 mls/hr IV .Q16M PRN; Protocol PRN Reason: HYPOGLYCEMIA Pantoprazole Sodium 40 mg/ (Sodium Chloride) 110 mls @ 330 mls/hr IV Q24 [facility] Last Infusion: 11/13/19 06:18 Dose: Infused Documented by: Sodium Chloride () 250 mls @ 15 mls/hr IV .[id number] PRN PRN Reason: Saline Flush Sodium Chloride () 250 mls @ 15 mls/hr IV .[id number] PRN PRN Reason: Additional IVPB Infusion Ceftriaxone Sodium (Rocephin) 1 gm in 50 mls @ 100 mls/hr IV Q24 [facility] Last Infusion: 11/13/19 13:40 Dose: Infused Documented by: Insulin Human Lispro (Humalog Kwikpen (Bkc)) 0 unit SC Q6 [facility]; Protocol Last Admin: 11/13/19 17:15 Dose: Not Given Documented by: Melatonin (Melatonin) 3 mg PO QHS [facility] Metoprolol Tartrate (Lopressor (Beta Ondina)) 25 mg PO BID [facility] Ondansetron HCl (Zofran) 4 mg IV Q8H PRN PRN PRN Reason: NAUSEA/VOMITING Polyethylene Glycol (Miralax) 17 gm PO DAILY [facility] Sertraline HCl (Zoloft) 150 mg PO DAILY [facility] Last Admin: 11/13/19 12:59 Dose: 150 mg Documented by: Sodium Chloride () 10 - 40 ml IV UD PRN PRN Reason: SALINE FLUSH Assessment/Plan This patient was seen in conjunction with JEF Capellan. I have independently interviewed and examined the patient and reviewed pertinent historical, laboratory, and other data. Please refer to JEF Capellan note for his patient's presentation, findings, and recommendations. I have reviewed and his note and concur with his documentation Patient was seen and examined. She complains of general abdominal discomfort. She had not moved her bowels at that time of being seen. Denied any chest pain or dizziness palpitation. Physical Exam: Gen: Looks in some discomfort, not pale, not jaundiced CVS:HS I +II, regular, no murmurs RESP: Diminished at lung bases GI: BS present and normal, soft, nontender, no palpable organs EXT: Trace to +1 bipedal edema ASSESSMENT: 1. Hematuria 2. Acute blood loss anemia 3. Hyperkalemia 4. Constipation 5. NIESHA 6. PAF 7. Type 2 DM Plan: Appreciate urology consult Continue on IV ceftriaxone Continue with continuous bladder irrigation Agree with aggressive bowel regimen Inpatient E&M: 67847 Subs Hosp L2
[2019-11-13 12:39] LABS: Hematocrit 25.5 % (37-47); Hemoglobin 8.1 g/dL (12.0-15.0)
[2019-11-13] MEDS: Sodium Polystyrene Sulfonate 15 GM/60 ML UDC 30 GM RECTAL (12:58)
[2019-11-13] MEDS: Polyethylene Glycol 3350 17 GM PACKET PO (12:58)
[2019-11-13] MEDS: Sertraline 50 MG Tablet 150 MG PO (12:59)
[2019-11-13] MEDS: Ceftriaxone 1 GM/50 ML BAG IV (13:10)
[2019-11-13 13:30] LABS: Bedside Glucose 112 mg/dL (70-110)
[2019-11-13] MEDS: Gabapentin 100 MG Capsule PO (13:40)
[2019-11-13 17:16] LABS: Bedside Glucose 115 mg/dL (70-110)
[2019-11-13 19:01] LABS: Hematocrit 26.9 % (37-47); Hemoglobin 8.3 g/dL (12.0-15.0)
[2019-11-13] MEDS: Metoprolol Tartrate 25 MG Tablet PO (21:33)
[2019-11-13] MEDS: MELATONIN 3 MG TABLET PO (21:35)
[2019-11-14] VITALS (18 sets, daily range): BP systolic 91–159; BP diastolic 47–79; PULSE 84–103; RESP 16–18; TEMP 36.7–37.1; O2SAT 93–99
[2019-11-14 00:21] LABS: Hemoglobin 7.5 g/dL (12.0-15.0)
[2019-11-14] MEDS: Acetaminophen 325 MG Tablet 650 MG PO ×2 (00:25→06:56)
[2019-11-14 00:30] LABS: Bedside Glucose 138 mg/dL (70-110)
[2019-11-14] MEDS: 0.9% Normal Saline 1,000 ML 100 ML IV ×2 (04:55→16:22)
[2019-11-14 06:46] LABS: Bedside Glucose 123 mg/dL (70-110)
[2019-11-14 06:54] LABS: Absolute Lymphocyte Count 1.24 X10^3/uL (0.83-4.51); Absolute Neutrophil Count 11.5 X10^3/uL (2.0-7.7); Basophil# 0.02 X10^3/uL; Basophil% 0.1 % (0-1); Eosinophil# 0.05 X10^3/uL; Eosinophils% 0.4 % (0-5); Hematocrit 20.8 % (37-47); Hemoglobin 6.6 g/dL (12.0-15.0); Lymphocyte # 1.24 X10^3/ul (4.0); Lymphocyte % 9.1 % (19-41); Mean Corp Hgb Conc 31.7 g/dL (32-36); Mean Corpuscular Hgb 30.6 pg (27.0-32.0); Mean Corpuscular Volume 96.3 fL (81-99); Mean Platelet Vol. 10.4 fl (6.2-12.0); Monocyte# 0.64 X10^3/uL; Monocyte% 4.7 % (0-10); NRBC Flagged by Analyzer 0 % (0-5); Neutrophil # 11.54 X10^3/uL (2.7-7.7); Platelet Count 246 K/mm3 (150-450); RBC Distribution Width CV 15.2 % (11.6-14.6); RBC Distribution Width SD 52.5 fl (35.1-43.9); Red Blood Count 2.16 M/mm3 (4.2-5.4); White Blood Count 13.6 K/mm3 (4.4-11.0)
[2019-11-14 07:18] LABS: Anion Gap 8 (5-15); BUN 45 mg/dL (7-18); BUN/Creat Ratio 33.6 RATIO (10-20); Calcium,Total 8.7 mg/dL (8.5-10.1); Chloride 117 mmol/L (98-107); Creatinine, Serum 1.34 mg/dL (0.55-1.02); EST Glomerular Filtration Rate 43 mL/min (>60); Est Glom Filt Rate - Afr Amer 52 mL/min (>60); Estimated Creatinine Clearance 33.69 ml/min; Glucose 130 mg/dL (74-106); Sodium Level 146 mmol/L (136-145)
[2019-11-14] MEDS: Gabapentin 100 MG Capsule PO ×3 (08:20→16:31)
[2019-11-14] MEDS: Morphine 2 MG/ML Syringe 1 MG IV ×5 (09:09→23:30)
--- NOTE | 2019-11-14 10:42 | PCM.PN.GU ---
Physical Exam Subjective: Having BM at present. Having same abdominal discomfort. - Physical Exam Vital Signs Temp 98.8 F 11/14/19 08:34 Pulse 99 11/14/19 08:34 Resp 18 11/14/19 08:34 BP 159/79 H 11/14/19 08:34 Pulse Ox 97 11/14/19 08:34 Intake & Output 11/12/19 11/13/19 11/14/19 23:59 23:59 23:59 Intake Total 5520 / 5520 1000 / 1000 Output Total 75616 / 66546 7050 / 7050 Balance -8230 / -8230 -6050 / -6050 Weight: 59.7 kg Intake: Oral 360 / 360 Intake, IV Amount 2160 / 2160 1000 / 1000 0.9% Normal Saline 1,000 ML @ 1000 / 1000 1000 / 1000 100 mls/hr IV .Q10H [facility] Rx#: [id number] 0.9% Normal Saline 1,000 ML @ 1000 / 1000 500 mls/hr IV .Q2H [facility] Rx#: [id number] Protonix 40 MG In 0.9% Normal 110 / 110 Saline 100 ML @ 330 mls/hr IV Q24 [facility] Rx#:[id number] Rocephin 1 gm In 50 ml @ 100 50 / 50 mls/hr IV Q24 [facility] Rx#:[id number] Other 3000 / 3000 Output: Urine 44886 / 94089 7050 / 7050 Other: Intake, Continuous Bladder 9,600 6,300 Irrigation Number of Bowel Movements 4 General: Alert, Cooperative, No apparent distress HEENT: Atraumatic, Normocephalic Oral: Moist Mucosa Neck: Trachea Midline Lungs: Normal air movement Abdomen: Soft, Distended, Tender, - - BM in diaper at this time. Continuing to work on severe stool retention. The urine/CBI is clear. I stopped the irrigation. Rectal: Exam deferred Extremities: No Calf Tenderness Skin: No rashes Microbiology Past 72 Hours 11/13/19 02:40 Urine Culture - Preliminary Urine, Catheterized Presumptive E. coli Laboratory Tests Past 24 Hrs 11/13/19 11/13/19 11/13/19 02:40 12:30 18:55 WBC RBC Hgb 8.1 L 8.3 L Hct 25.5 L 26.9 L MCV MCH MCHC RDW Std Deviation RDW Coeff of Eliane Plt Count MPV Immature Gran % (Auto) Neut % (Auto) Lymph % (Auto) [place] % (Auto) Eos % (Auto) Baso % (Auto) Absolute Neuts (auto) Absolute Lymphs (auto) Nucleated RBC % Sodium Potassium Chloride Carbon Dioxide Anion Gap BUN Creatinine Estim Creat Clear Calc Est GFR (MDRD) Af Amer Est GFR (MDRD) Non-Af BUN/Creatinine Ratio Glucose Calcium Blood Type Pending Antibody Screen Pending Crossmatch See Detail 11/14/19 11/14/19 11/14/19 00:10 06:00 06:00 WBC 13.6 H RBC 2.16 L Hgb 7.5 L 6.6 L Hct 23.0 L 20.8 L MCV 96.3 MCH 30.6 MCHC 31.7 L RDW Std Deviation 52.5 H RDW Coeff of Eliane 15.2 H Plt Count 246 MPV 10.4 Immature Gran % (Auto) 0.700 Neut % (Auto) 85.0 H Lymph % (Auto) 9.1 L [place] % (Auto) 4.7 Eos % (Auto) 0.4 Baso % (Auto) 0.1 Absolute Neuts (auto) 11.5 H Absolute Lymphs (auto) 1.24 Nucleated RBC % 0 Sodium 146 H Potassium 4.0 Chloride 117 H Carbon Dioxide 21.0 Anion Gap 8 BUN 45 H Creatinine 1.34 H Estim Creat Clear Calc 33.69 Est GFR (MDRD) Af Amer 52 L Est GFR (MDRD) Non-Af 43 L BUN/Creatinine Ratio 33.6 H Glucose 130 H Calcium 8.7 Blood Type Antibody Screen Crossmatch Medical Necessity - Tobacco Use Smoking Status: Never smoker Assessment/Plan All Active Problems Hyperkalemia (Acute) Renal failure (Acute) Hematuria (Acute) Urine/CBI is now clear. CBI turned off. I will recheck the fluid this afternoon. If it remains clear, will plan to remove the carey catheter and watch. Anemia per primary team Culture with Ecoli. continue antibiotics and await final results continue bowel management at present, will plan for cystoscopy as an outpatient
[2019-11-14] MEDS: Phenazopyridine 95 MG Tablet PO ×3 (10:57→21:29)
[2019-11-14] MEDS: Fluticasone 0.05% 1 SPRAY NASAL.SRY NASAL ×2 (10:57→21:30)
[2019-11-14] MEDS: Sertraline 50 MG Tablet 150 MG PO (11:02)
--- NOTE | 2019-11-14 11:07 | TREXTCA.CO_ITS ---
- Diet 11/13/19 11:19 Diet: Cardiac: Calorie-Controlled Liquid Consistency:: [place] Thick Is pt able to select menu?: Yes Diet Comments: Except meds- Give meds with nectar thickened water How many daily calories?: 1800 calorie - Routine Orders/Code Status Suppository Type: Dulcolax 10mg Suppository Frequency: Daily PRN Routine Lab Work: CBC - 3 days, BMP - 3 days Code Status: Full Code - Wound(s) BLE Wound Type: Abrasion COCCYX Wound Type: Pressure Injury - Therapies Physical Therapy: Eval and Treat Occupational Therapy: Eval and Treat - Problem/Diagnosis (1) Hyperkalemia Status: Acute Current Visit: Yes (2) Renal failure Status: Acute Current Visit: Yes (3) Hematuria Status: Acute Current Visit: Yes (4) UTI (urinary tract infection) Status: Acute Current Visit: Yes (5) Bladder mass Status: Suspected Current Visit: Yes (6) Type 2 diabetes mellitus with diabetic polyneuropathy Status: Chronic Current Visit: No (7) CVA (cerebral vascular accident) Status: Chronic Current Visit: No - Allergies/Procedures Done in Hospital Allergies/Adverse Reactions: Allergies codeine Adverse Reaction (Verified 02/01/19 11:47) Other pork derived (porcine) Adverse Reaction (Verified 02/01/19 11:47) Vomiting Procedures: - - continuous bladder irrigation - Type of Care/Length of Stay Estimated LOS: Convalescent Care Less Than 30 days Type of Care Needed: Skilled Rehab Potential: Fair Prognosis: Fair - Additional Orders/Day of Discharge Day of Discharge: 11/14/19 - Dietary and Speech Recommendations Dietitian Recommendations/Changes: Recommend HISTORIAN RESEARCH ASSISTANT consult prior to PO diet advanced. Recommend 1600 calorie controlled, low sodium diet. Potassium restriction as indicated. Robert BID for pressure injury. Glucerna ONS w/ medpass if PO intake at meals is poor. - Follow Up Care Primary Care Physician: Sergio Dean MD [Primary Care Provider] - Please follow up with your Primary Care Physician in: 1-2 weeks Please Follow Up With: Mechelle Sanches MD When: 1 week
--- NOTE | 2019-11-14 11:37 | PHA.DC.MR ---
Pharmacy Service has performed discharge medication reconciliation for this patient. The patient's discharge medication list was reviewed for discrepancies and discrepancies were resolved. Home Medications Amlodipine [Norvasc] 10 mg PO DAILY 11/13/19 Ascorbic Acid [Vitamin C] 500 mg PO DAILY 11/13/19 Atorvastatin Calcium [Lipitor] 20 mg PO QHS 11/13/19 Dicyclomine HCl [Bentyl] 20 mg PO BREAKFAST 11/13/19 Gabapentin [Neurontin] 300 mg PO TIDCM 11/13/19 Gemfibrozil 600 mg PO BID 11/13/19 Insulin Detemir [Levemir] 25 unit SQ QHS 11/13/19 Insulin Lispro [Humalog] See Protocol SQ TID 11/13/19 Melatonin 3 mg PO QHS 11/13/19 Metoprolol Tartrate 25 mg PO BID 11/13/19 Ondansetron HCl [Zofran] 4 mg PO PRN PRN 11/13/19 Pantoprazole Sodium [Protonix] 40 mg PO DAILY 11/13/19 Potassium Chloride 20 meq PO DAILY 11/13/19 Sertraline HCl [Zoloft] 150 mg PO DAILY 11/13/19 Spironolactone 25 mg PO DAILY 11/13/19 Cefdinir [Omnicef [equiv]] 300 mg PO Q12H #6 cap 11/14/19 Phenazopyridine HCl [Azo Urinary Pain Relief] 95 mg PO TID PRN PRN #6 tab 11/14/19 Polyethylene Glycol 3350 [Miralax] 17 gm PO DAILY #30 packet 11/14/19
--- NOTE | 2019-11-14 11:38 | CASEMGMT ---
CLEM called [facility] and notified Norma that patient will be discharged today however it will not be until this evening as she is getting 2 units of blood. CLEM can send orders prior. Carmina THOMAS
[2019-11-14] MEDS: Ceftriaxone 1 GM/50 ML BAG IV (11:57)
[2019-11-14 12:11] LABS: Bedside Glucose 150 mg/dL (70-110)
--- NOTE | 2019-11-14 12:21 | CASEMGMT ---
Patient will be ready for d/c back to [facility] today after her 2 units of blood. CLEM notified Norma at [facility]. SW faxed orders to [facility]. Staff will need to arrange transport as patient will not be ready until later this evening. Plan: d/c back to [facility]. Carmina MEREDITH MSW
--- NOTE | 2019-11-14 13:37 | PN_ITS ---
<Lucho Stephens - Last Filed: 11/14/19 13:37> Patient Problems: Active and Suspected Problems Hyperkalemia (Acute) Renal failure (Acute) Hematuria (Acute) Bladder mass (Suspected) UTI (urinary tract infection) (Acute) Reason for Visit: Complaints of some bladder spasms this morning. Ongoing walter red drainage in the carey. No dizziness/LH. No SOB. No CP. Vitals/I&O's: Vital Signs Temp Pulse Resp BP Pulse Ox 98.8 F 99 18 159/79 H 97 11/14/19 08:34 11/14/19 08:34 11/14/19 08:34 11/14/19 08:34 11/14/19 08:34 Oxygen Delivery Method Room Air Weight: 131 lb 9.855 oz Body Mass Index (BMI) 24.8 Finger Stick Blood Glucose 242 Intake and Output for Last 24 Hours 11/12/19 11/13/19 11/14/19 23:59 23:59 23:59 Intake Total 5520 / 5520 / Output Total 26939 / 02431 7250 / 7250 Balance -8230 / -8230 -5245.00 / -5245.00 General: Alert, Oriented x3, Cooperative HEENT: Atraumatic, PERRLA, EOMI, Normocephalic Neck: Supple, No JVD, Negative Carotid Bruits Lungs: Clear to auscultation, Normal air movement Cardiovascular: Regular rate, No murmurs Abdomen: Bowel Sounds Present, Soft, Non Tender Extremities: No edema, Capillary Refill Less than 3 Seconds Skin: No rashes, No breakdown, - - pallor Musculoskeletal: No Tenderness to Palpation of Joints or Extremities Neurological: Cranial nerves II-XII grossly intact Psych/Mental Status: Normal Affect, Appropriate Microbiology Past 72 Hours 11/13/19 02:40 Urine, Catheterized Urine Culture - Preliminary Presumptive E. coli Laboratory Results 11/13/19 02:40: Blood Type Pending, Antibody Screen Pending, Crossmatch See Detail 11/13/19 17:12: POC Glucose 115 H 11/13/19 18:55: Hgb 8.3 L, Hct 26.9 L 11/14/19 00:10: Hgb 7.5 L, Hct 23.0 L 11/14/19 00:24: POC Glucose 138 H 11/14/19 06:00: WBC 13.6 H, RBC 2.16 L, Hgb 6.6 L, Hct 20.8 L, MCV 96.3, MCH 30.6, MCHC 31.7 L, RDW Std Deviation 52.5 H, RDW Coeff of Eliane 15.2 H, Plt Count 246, MPV 10.4, Immature Gran % (Auto) 0.700, Neut % (Auto) 85.0 H, Lymph % (Auto) 9.1 L, [place] % (Auto) 4.7, Eos % (Auto) 0.4, Baso % (Auto) 0.1, Absolute Neuts (auto) 11.5 H, Absolute Lymphs (auto) 1.24, Nucleated RBC % 0 11/14/19 06:00: Sodium 146 H, Potassium 4.0, Chloride 117 H, Carbon Dioxide 21.0, Anion Gap 8, BUN 45 H, Creatinine 1.34 H, Estim Creat Clear Calc 33.69, Est GFR (MDRD) Af Amer 52 L, Est GFR (MDRD) Non-Af 43 L, BUN/Creatinine Ratio 33.6 H, Glucose 130 H, Calcium 8.7 11/14/19 06:11: POC Glucose 123 H 11/14/19 11:51: POC Glucose 150 H Current Medications Acetaminophen (Tylenol) 650 mg PO Q6H PRN PRN PRN Reason: Pain Score 1-10/Temp > 100.7 F Last Admin: 11/14/19 06:56 Dose: 650 mg Documented by: Fluticasone Propionate (Flonase Nasal [place]) 1 spray NASAL BID [facility] Last Admin: 11/14/19 10:57 Dose: 1 spray Documented by: Gabapentin (Neurontin) 100 mg PO TIDCM [facility] Last Admin: 11/14/19 11:03 Dose: 100 mg Documented by: Glucagon () 1 mg IM .X1 PRN PRN Reason: Hypoglycemia Sodium Chloride () 1,000 mls @ 100 mls/hr IV .Q10H [facility] Last Infusion: 11/14/19 11:58 Dose: 0 mls/hr Documented by: Dextrose (Dextrose 10%-Water) 250 mls @ 999 mls/hr IV .Q16M PRN; Protocol PRN Reason: HYPOGLYCEMIA Pantoprazole Sodium 40 mg/ (Sodium Chloride) 110 mls @ 330 mls/hr IV Q24 [facility] Last Infusion: 11/14/19 11:12 Dose: Infused Documented by: Sodium Chloride () 250 mls @ 15 mls/hr IV .[id number] PRN PRN Reason: Saline Flush Sodium Chloride () 250 mls @ 15 mls/hr IV .[id number] PRN PRN Reason: Additional IVPB Infusion Ceftriaxone Sodium (Rocephin) 1 gm in 50 mls @ 100 mls/hr IV Q24 [facility] Last Admin: 11/14/19 11:57 Dose: 100 mls/hr Documented by: Iron Sucrose 200 mg/ Sodium (Chloride) 110 mls @ 220 mls/hr IV X1 ONE Stop: 11/14/19 13:55 Insulin Human Lispro (Humalog Kwikpen (Bkc)) 0 unit SC Q6 [facility]; Protocol Last Admin: 11/14/19 11:59 Dose: Not Given Documented by: Melatonin (Melatonin) 3 mg PO QHS [facility] Last Admin: 11/13/19 21:35 Dose: 3 mg Documented by: Metoprolol Tartrate (Lopressor (Beta Ondina)) 25 mg PO BID [facility] Last Admin: 11/14/19 11:02 Dose: Not Given Documented by: Morphine Sulfate () 1 mg IV Q3H PRN PRN PRN Reason: Pain Score 6-10/10 Last Admin: 11/14/19 09:09 Dose: 1 mg Documented by: Ondansetron HCl (Zofran) 4 mg IV Q8H PRN PRN PRN Reason: NAUSEA/VOMITING Phenazopyridine HCl (Azo Standard) 95 mg PO TID [facility] Stop: 11/15/19 22:01 Last Admin: 11/14/19 10:57 Dose: 95 mg Documented by: Polyethylene Glycol (Miralax) 17 gm PO DAILY [facility] Last Admin: 11/14/19 11:03 Dose: Not Given Documented by: Sertraline HCl (Zoloft) 150 mg PO DAILY [facility] Last Admin: 11/14/19 11:02 Dose: 150 mg Documented by: Sodium Chloride () 10 - 40 ml IV UD PRN PRN Reason: SALINE FLUSH Medical Necessity - Tobacco Use Smoking Status: Never smoker Assessment/Plan All Active Problems Hyperkalemia (Acute) Renal failure (Acute) Hematuria (Acute) UTI (urinary tract infection) (Acute) 1. Hematuria, with associated acute blood loss anemia - mass vs clot. Urology following. continue irrigation. start abx. monitor H/H, no indication for transfusion at this point. Continue protonix. Off aspirin. Suspect associated Acute UTI - e coli on culture. continue rocephin. follow cultures. -transuse 2 units prbc -urology to continue irrigation. -cbc in am. 2. Hyperkalemia - repeat kayex 3. Constipation - aggressive laxatives/enema/suppositories as needed. 4. NIESHA - improved. continue fluids. 5. pAfib - not on oral anticoagulation. rate controlled, SR. resume metoprolol. 6. Hx CVA chronic right sided deficits - ptot, return to snf at dc. 7. GERD - on ppi 8. DMt2 - SSI 9. IBS - hold bentyl with constipation. DVT ppx: SCDs DC planning: return to SNF when appropriate. This patient was seen by Lucho Stephens PA-C under the supervision of Dr. Olivas. <Eryn Olivas - Last Filed: 11/14/19 14:38> Vitals/I&O's: Vital Signs Temp Pulse Resp BP Pulse Ox 98.8 F 99 18 159/79 H 97 11/14/19 08:34 11/14/19 08:34 11/14/19 08:34 11/14/19 08:34 11/14/19 08:34 Oxygen Delivery Method Room Air Weight: 59.7 kg Body Mass Index (BMI) 24.8 Finger Stick Blood Glucose 242 Intake and Output for Last 24 Hours 11/12/19 11/13/19 11/14/19 23:59 23:59 23:59 Intake Total 5520 / 5520 Output Total 22586 / 75650 7250 / 7250 Balance -8230 / -8230 -5245.00 / -5245.00 Microbiology Past 72 Hours 11/13/19 02:40 Urine, Catheterized Urine Culture - Preliminary Presumptive E. coli Laboratory Results 11/13/19 02:40: Blood Type Pending, Antibody Screen Pending, Crossmatch See Detail 11/13/19 17:12: POC Glucose 115 H 11/13/19 18:55: Hgb 8.3 L, Hct 26.9 L 11/14/19 00:10: Hgb 7.5 L, Hct 23.0 L 11/14/19 00:24: POC Glucose 138 H 11/14/19 06:00: WBC 13.6 H, RBC 2.16 L, Hgb 6.6 L, Hct 20.8 L, MCV 96.3, MCH 30.6, MCHC 31.7 L, RDW Std Deviation 52.5 H, RDW Coeff of Eliane 15.2 H, Plt Count 246, MPV 10.4, Immature Gran % (Auto) 0.700, Neut % (Auto) 85.0 H, Lymph % (Auto) 9.1 L, [place] % (Auto) 4.7, Eos % (Auto) 0.4, Baso % (Auto) 0.1, Absolute Neuts (auto) 11.5 H, Absolute Lymphs (auto) 1.24, Nucleated RBC % 0 11/14/19 06:00: Sodium 146 H, Potassium 4.0, Chloride 117 H, Carbon Dioxide 21.0, Anion Gap 8, BUN 45 H, Creatinine 1.34 H, Estim Creat Clear Calc 33.69, Est GFR (MDRD) Af Amer 52 L, Est GFR (MDRD) Non-Af 43 L, BUN/Creatinine Ratio 33.6 H, Glucose 130 H, Calcium 8.7 11/14/19 06:11: POC Glucose 123 H 11/14/19 11:51: POC Glucose 150 H Current Medications Acetaminophen (Tylenol) 650 mg PO Q6H PRN PRN PRN Reason: Pain Score 1-10/Temp > 100.7 F Last Admin: 11/14/19 06:56 Dose: 650 mg Documented by: Fluticasone Propionate (Flonase Nasal [place]) 1 spray NASAL BID [facility] Last Admin: 11/14/19 10:57 Dose: 1 spray Documented by: Gabapentin (Neurontin) 100 mg PO TIDCM [facility] Last Admin: 11/14/19 11:03 Dose: 100 mg Documented by: Glucagon () 1 mg IM .X1 PRN PRN Reason: Hypoglycemia Sodium Chloride () 1,000 mls @ 100 mls/hr IV .Q10H [facility] Last Infusion: 11/14/19 11:58 Dose: 0 mls/hr Documented by: Dextrose (Dextrose 10%-Water) 250 mls @ 999 mls/hr IV .Q16M PRN; Protocol PRN Reason: HYPOGLYCEMIA Pantoprazole Sodium 40 mg/ (Sodium Chloride) 110 mls @ 330 mls/hr IV Q24 [facility] Last Infusion: 11/14/19 11:12 Dose: Infused Documented by: Sodium Chloride () 250 mls @ 15 mls/hr IV .[id number] PRN PRN Reason: Saline Flush Sodium Chloride () 250 mls @ 15 mls/hr IV .[id number] PRN PRN Reason: Additional IVPB Infusion Ceftriaxone Sodium (Rocephin) 1 gm in 50 mls @ 100 mls/hr IV Q24 [facility] Last Admin: 11/14/19 11:57 Dose: 100 mls/hr Documented by: Insulin Human Lispro (Humalog Kwikpen (Bkc)) 0 unit SC Q6 [facility]; Protocol Last Admin: 11/14/19 11:59 Dose: Not Given Documented by: Melatonin (Melatonin) 3 mg PO QHS [facility] Last Admin: 11/13/19 21:35 Dose: 3 mg Documented by: Metoprolol Tartrate (Lopressor (Beta Ondina)) 25 mg PO BID [facility] Last Admin: 11/14/19 11:02 Dose: Not Given Documented by: Morphine Sulfate () 1 mg IV Q3H PRN PRN PRN Reason: Pain Score 6-10/10 Last Admin: 11/14/19 13:48 Dose: 1 mg Documented by: Ondansetron HCl (Zofran) 4 mg IV Q8H PRN PRN PRN Reason: NAUSEA/VOMITING Phenazopyridine HCl (Azo Standard) 95 mg PO TID [facility] Stop: 11/15/19 22:01 Last Admin: 11/14/19 10:57 Dose: 95 mg Documented by: Polyethylene Glycol (Miralax) 17 gm PO DAILY [facility] Last Admin: 11/14/19 11:03 Dose: Not Given Documented by: Sertraline HCl (Zoloft) 150 mg PO DAILY [facility] Last Admin: 11/14/19 11:02 Dose: 150 mg Documented by: Sodium Chloride () 10 - 40 ml IV UD PRN PRN Reason: SALINE FLUSH Assessment/Plan This patient was seen in conjunction with JEF Capellan. I have independently interviewed and examined the patient and reviewed pertinent historical, laboratory, and other data. Please refer to JFE Capellan note for his patient's presentation, findings, and recommendations. I have reviewed and his note and concur with his documentation Patient was seen and examined. Still has dark blood in carey catheter. Denied any chest pain or dizziness palpitation. Moved her bowels yesterday. Physical Exam: Gen: Looks in some discomfort, not on oxygen, not pale, not jaundiced CVS:HS I +II, regular, no murmurs RESP: CTA GI: BS present and normal, soft, nontender, no palpable organs EXT: Trace bipedal edema ASSESSMENT: 1. Hematuria 2. Acute blood loss anemia 3. Hyperkalemia 4. Constipation 5. NIESHA 6. PAF 7. Type 2 DM Plan: Continue on IV ceftriaxone Continue with continuous bladder irrigation Will transfuse 2 units or pRBCs today Recheck blood work in am Inpatient E&M: [id number] Subs Hosp L2
--- NOTE | 2019-11-14 13:56 | PCM.PN.BLA ---
Progress Note Wise clotted. I replaced it with new 24Fr 3 way, 30cc in balloon. Irrigated to clear with moderate clots out. Will keep CBI running for next 3-4 hours. Stop it if it remains clear. Will re-evaluate in the morning.
[2019-11-14 16:26] LABS: Bedside Glucose 161 mg/dL (70-110)
[2019-11-14] MEDS: Insulin Lispro 100 UNIT/ML INSULN.PEN SC (16:30)
[2019-11-14] MEDS: 0.9% Saline Lock 10 ML Syringe IV ×3 (20:16→23:29)
[2019-11-14] MEDS: MELATONIN 3 MG TABLET PO (21:30)
[2019-11-14] MEDS: Metoprolol Tartrate 25 MG Tablet PO (21:30)
[2019-11-15 00:21] LABS: Bedside Glucose 142 mg/dL (70-110)
[2019-11-15 03:00] VITALS: PULSE 79
[2019-11-15 04:15] VITALS: BP 121/67; PULSE 80; RESP 16; TEMP 36.6; O2SAT 95
[2019-11-15] MEDS: Morphine 2 MG/ML Syringe 1 MG IV ×4 (04:21→13:58)
[2019-11-15] MEDS: Phenazopyridine 95 MG Tablet PO (05:54)
[2019-11-15 05:56] LABS: Absolute Neutrophil Count 7.3 X10^3/uL (2.0-7.7); Basophil# 0.04 X10^3/uL; Basophil% 0.4 % (0-1); Eosinophil# 0.33 X10^3/uL; Eosinophils% 3.2 % (0-5); Hematocrit 26.8 % (37-47); Hemoglobin 8.6 g/dL (12.0-15.0); Lymphocyte % 16.6 % (19-41); Mean Corp Hgb Conc 32.1 g/dL (32-36); Mean Corpuscular Hgb 30.3 pg (27.0-32.0); Mean Corpuscular Volume 94.4 fL (81-99); Mean Platelet Vol. 10.3 fl (6.2-12.0); Monocyte# 0.52 X10^3/uL; Monocyte% 5.1 % (0-10); NRBC Flagged by Analyzer 0 % (0-5); Platelet Count 219 K/mm3 (150-450); RBC Distribution Width CV 15.1 % (11.6-14.6); RBC Distribution Width SD 50.9 fl (35.1-43.9); Red Blood Count 2.84 M/mm3 (4.2-5.4); White Blood Count 10.3 K/mm3 (4.4-11.0)
[2019-11-15 06:01] LABS: Bedside Glucose 103 mg/dL (70-110)
[2019-11-15 06:23] LABS: Anion Gap 7 (5-15); BUN 23 mg/dL (7-18); BUN/Creat Ratio 28.1 RATIO (10-20); Calcium,Total 8.4 mg/dL (8.5-10.1); Chloride 119 mmol/L (98-107); Creatinine, Serum 0.82 mg/dL (0.55-1.02); EST Glomerular Filtration Rate 76 mL/min (>60); Est Glom Filt Rate - Afr Amer 92 mL/min (>60); Estimated Creatinine Clearance 55.05 ml/min; Glucose 117 mg/dL (74-106); Potassium 3.3 mmol/L (3.5-5.1); Sodium Level 147 mmol/L (136-145)
[2019-11-15 07:00] VITALS: PULSE 77
[2019-11-15] MEDS: 0.9% Normal Saline 1,000 ML 100 ML IV (07:24)
[2019-11-15 07:56] VITALS: PULSE 79
[2019-11-15] MEDS: Gabapentin 100 MG Capsule PO ×2 (07:56→12:02)
[2019-11-15] MEDS: Metoprolol Tartrate 25 MG Tablet PO (07:56)
[2019-11-15] MEDS: Sertraline 50 MG Tablet 150 MG PO (07:57)
--- NOTE | 2019-11-15 08:03 | PCM.PN.GU ---
Physical Exam - Physical Exam Vital Signs Temp 97.9 F 11/15/19 04:15 Pulse 79 11/15/19 07:56 Resp 16 11/15/19 04:15 BP 121/67 H 11/15/19 04:15 Pulse Ox 95 11/15/19 04:15 Intake & Output 11/13/19 11/14/19 11/15/19 23:59 23:59 23:59 Intake Total 5520 / 5520 2971.66 / 2971.66 851.67 / 851.67 Output Total 71527 / 79468 8400 / 8400 400 / 400 Balance -8230 / -8230 -5428.34 / -5428.34 451.67 / 451.67 Weight: 59.7 kg Intake: Oral 360 / 360 600 / 600 30 / 30 Intake, IV Amount 2160 / 2160 2371.66 / 2371.66 741.67 / 741.67 0.9% Normal Saline 1,000 ML @ 1000 / 1000 2101.66 / 2101.66 741.67 / 741.67 100 mls/hr IV .Q10H [facility] Rx#: [id number] 0.9% Normal Saline 1,000 ML @ 1000 / 1000 500 mls/hr IV .Q2H [facility] Rx#: [id number] Protonix 40 MG In 0.9% Normal 110 / 110 110 / 110 Saline 100 ML @ 330 mls/hr IV Q24 [facility] Rx#:[id number] Rocephin 1 gm In 50 ml @ 100 50 / 50 50 / 50 mls/hr IV Q24 [facility] Rx#:[id number] Venofer 200 MG In 0.9% Normal 110 / 110 Saline 100 ML @ 220 mls/hr IV X1 ONE Rx#:[id number] Blood Product 0 / 0 Leuko-Reduced Red Blood Cells 0 / 0 Unit [id number] Leuko-Reduced Red Blood Cells 0 / 0 Unit [id number] Other 3000 / 3000 80 / 80 Output: Urine 07230 / 50522 8400 / 8400 300 / 300 Other 100 / 100 Other: Intake, Continuous Bladder 9,600 3,000 3,150 Irrigation Number of Bowel Movements 4 Output, Continuous Bladder 4,100 3,450 Irrigation General: Alert, No apparent distress HEENT: Atraumatic, Normocephalic Oral: Moist Mucosa Neck: Trachea Midline Lungs: Normal air movement Cardiovascular: Regular rate Abdomen: Soft, Non Tender, Non-Distended, - - urine is clear yellow in the catheter Rectal: Exam deferred Skin: No rashes Microbiology Past 72 Hours 11/13/19 02:40 Urine Culture - Final Urine, Catheterized Presumptive E. coli Laboratory Tests Past 24 Hrs 11/13/19 11/14/19 11/15/19 02:40 Unknown 05:22 WBC 10.3 RBC 2.84 L Hgb 8.6 L Hct 26.8 L MCV 94.4 MCH 30.3 MCHC 32.1 RDW Std Deviation 50.9 H RDW Coeff of Eliane 15.1 H Plt Count 219 MPV 10.3 Immature Gran % (Auto) 3.700 H Neut % (Auto) 71.0 H Lymph % (Auto) 16.6 L [place] % (Auto) 5.1 Eos % (Auto) 3.2 Baso % (Auto) 0.4 Absolute Neuts (auto) 7.3 Absolute Lymphs (auto) 1.70 Nucleated RBC % 0 Sodium Potassium Chloride Carbon Dioxide Anion Gap BUN Creatinine Estim Creat Clear Calc Est GFR (MDRD) Af Amer Est GFR (MDRD) Non-Af BUN/Creatinine Ratio Glucose Calcium Blood Type A POSITIVE Antibody Screen POSITIVE H Antibody Identification ANTI-N Antigen Identification Cancelled Red Cell Ag Phenotyp Cancelled Crossmatch See Detail 11/15/19 05:22 WBC RBC Hgb Hct MCV MCH MCHC RDW Std Deviation RDW Coeff of Eliane Plt Count MPV Immature Gran % (Auto) Neut % (Auto) Lymph % (Auto) [place] % (Auto) Eos % (Auto) Baso % (Auto) Absolute Neuts (auto) Absolute Lymphs (auto) Nucleated RBC % Sodium 147 H Potassium 3.3 L Chloride 119 H Carbon Dioxide 21.0 Anion Gap 7 BUN 23 H Creatinine 0.82 Estim Creat Clear Calc 55.05 Est GFR (MDRD) Af Amer 92 Est GFR (MDRD) Non-Af 76 BUN/Creatinine Ratio 28.1 H Glucose 117 H Calcium 8.4 L Blood Type Antibody Screen Antibody Identification Antigen Identification Red Cell Ag Phenotyp Crossmatch Medical Necessity - Tobacco Use Smoking Status: Never smoker Assessment/Plan All Active Problems Hyperkalemia (Acute) Renal failure (Acute) Hematuria (Acute) UTI (urinary tract infection) (Acute) does not appear to have any further active bleeding. hgb appropriate after 2 units transfused, Cr now normal. will resume diet stop CBI now. ok to manually irrigate as needed if urine stays clear plan to remove carey at noon. will need cystoscopy, plan for the office given short supplies antibiotics for ecoli and irrigations thank you.
--- NOTE | 2019-11-15 08:10 | NURSING ---
CBI HELD AT THIS TIME BY MELISSA
[2019-11-15 09:05] VITALS: BP 121/71; PULSE 77; RESP 14; TEMP 36.8; O2SAT 99
[2019-11-15] MEDS: Ceftriaxone 1 GM/50 ML BAG IV (09:25)
--- NOTE | 2019-11-15 11:50 | DS.PCM_ITS ---
<Lucho Stephens - Last Filed: 11/15/19 11:50> Discharge Date and Diagnosis - Problem List Patient Problems: Active and Suspected Problems Hyperkalemia (Acute) Renal failure (Acute) Hematuria (Acute) Bladder mass (Suspected) UTI (urinary tract infection) (Acute) Date of Admission: 11/13/19 Date of Discharge: 11/15/19 - Primary Discharge Diagnosis Active and Suspected Problems Hematuria, bladder mass suspected thrombus Acute blood loss anemia 2/2 hematuria Acute UTI, e coli Severe constipation NIESHA 2/2 uti, resolved pAfib hx CVA GERD DMt2 IBS - Secondary Discharge Diagnosis Chronic Problems 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 ulcer of left foot with necrosis of muscle (Chronic) CVA (cerebral vascular accident) (Chronic) Paroxysmal atrial fibrillation (Chronic) IBS (irritable bowel syndrome) (Chronic) HLD (hyperlipidemia) (Chronic) Esophageal reflux (Chronic) Type II diabetes mellitus, uncontrolled (Chronic) Anxiety and depression (Chronic) Cerebrovascular disease (Chronic) Possible small ischemic strokes versus sequela of chronic migraine Migraine (Chronic) reports hole in heart since (Chronic) Benign essential HTN (Chronic) Hospital Course and Treatment Imaging Results: CT/Abdomen/Pelvis without Cont IMPRESSION: High attenuation mass versus thrombus within the bladder. Recommend urology consult. Minimal cholelithiasis. Stable low-attenuation lesion left lobe of liver unchanged probably representing a small cyst or hemangioma. Probable fecal retention. Additional nonemergent findings as above. Consults: Urology - [place] Operations: None Procedures: - - Continuous bladder irrigation Summary of Care Provided: Hospital course: The patient is a 59 year old F with past medical history of paroxysmal atrial fibrillation, prior CVA with ongoing right-sided weakness, SNF resident, type 2 diabetes, IBS, who presented to the emergency room with complaints of hematuria. She came to the emergency room from the [facility] home and was found to have a mass versus thrombus within the bladder on CT scan of the abdomen and pelvis, probable fecal retention, with hemoglobin of 9.2, mild leukocytosis. Urinalysis suggested urinary tract infection as well, and BMP demonstrated hyperkalemia with acute kidney injury. Fluids were given for acute kidney injury. She was admitted to the PCU and placed on telemetry. She was given Kayexalate and calcium gluconate for hyperkalemia. Continuous bladder irrigation was ordered, urology was consulted. She was placed on Rocephin for UTI. She continued to have significant blood from the bladder irrigation. Urology felt this was likely thrombus and not a mass. She continued to have significant constipation and was started on daily MiraLAX which successfully saranya ared the stool. Her hemoglobin continued to drop down to 6.6 and she was transfused with 2 units of packed red blood cells with appropriate improvement in hemoglobin. NIESHA resolved. She was reassessed by urology and continuous bladder irrigation was discontinued. Wise was removed. She was [facility] condition. She will need close follow-up with urology as directed, likely will undergo cystoscopy as an outpatient. She will need to remain off aspirin for now. She will also need to follow-up with her PCP in 1 to 2 weeks. She should remain off of Bentyl for now as she had significant constipation while here, she can continue daily MiraLAX to ensure that her bowels are moving at least once daily, she may discontinue this for loose stools and if needed may return back to Bentyl if her IBS flares up. This patient was seen by Lucho Stephens PA-C under the supervision of Doctor Olivas. [] Patient Problems: Active and Suspected Problems Hyperkalemia (Acute) Renal failure (Acute) Hematuria (Acute) Bladder mass (Suspected) UTI (urinary tract infection) (Acute) - Physical Exam Vitals/I&O's: Vital Signs Temp Pulse Resp BP Pulse Ox 98.3 F 77 14 121/71 H 99 11/15/19 09:05 11/15/19 09:05 11/15/19 09:05 11/15/19 09:05 11/15/19 09:05 Oxygen Delivery Method Room Air Weight: 131 lb 9.855 oz Body Mass Index (BMI) 24.8 Finger Stick Blood Glucose 242 Intake and Output for Last 24 Hours 11/13/19 11/14/19 11/15/19 23:59 23:59 23:59 Intake Total 5520 / 5520 2971.66 / 2971.66 1183.34 / 1183.34 Output Total 10438 / 20595 8400 / 8400 400 / 400 Balance -8230 / -8230 -5428.34 / -5428.34 783.34 / 783.34 General: Alert, Oriented x3, Cooperative HEENT: Atraumatic, PERRLA, EOMI, Normocephalic Neck: Supple, No JVD, Negative Carotid Bruits Lungs: Clear to auscultation, Normal air movement Cardiovascular: Regular rate, No murmurs Abdomen: Bowel Sounds Present, Soft, Non Tender Extremities: No edema, Capillary Refill Less than 3 Seconds Skin: No rashes, No breakdown, - - pallor Musculoskeletal: No Tenderness to Palpation of Joints or Extremities Neurological: Cranial nerves II-XII grossly intact, Slurred Speech, - - right sided weakness Psych/Mental Status: Normal Affect, Appropriate Microbiology Past 72 Hours 11/13/19 02:40 Urine, Catheterized Urine Culture - Final Presumptive E. coli Laboratory Results 11/13/19 02:40: Blood Type A POSITIVE, Antibody Screen POSITIVE H, Antibody Identification ANTI-N, Crossmatch See Detail 11/14/19 11:51: POC Glucose 150 H 11/14/19 16:16: POC Glucose 161 H 11/14/19 : Antigen Identification Cancelled, Red Cell Ag Phenotyp Cancelled 11/15/19 00:08: POC Glucose 142 H 11/15/19 05:22: WBC 10.3, RBC 2.84 L, Hgb 8.6 L, Hct 26.8 L, MCV 94.4, MCH 30.3, MCHC 32.1, RDW Std Deviation 50.9 H, RDW Coeff of Eliane 15.1 H, Plt Count 219, MPV 10.3, Immature Gran % (Auto) 3.700 H, Neut % (Auto) 71.0 H, Lymph % (Auto) 16.6 L, Merrick % (Auto) 5.1, Eos % (Auto) 3.2, Baso % (Auto) 0.4, Absolute Neuts (auto) 7.3, Absolute Lymphs (auto) 1.70, Nucleated RBC % 0 11/15/19 05:22: Sodium 147 H, Potassium 3.3 L, Chloride 119 H, Carbon Dioxide 21.0, Anion Gap 7, BUN 23 H, Creatinine 0.82, Estim Creat Clear Calc 55.05, Est GFR (MDRD) Af Amer 92, Est GFR (MDRD) Non-Af 76, BUN/Creatinine Ratio 28.1 H, Glucose 117 H, Calcium 8.4 L 11/15/19 05:43: POC Glucose 103 Current Medications Acetaminophen (Tylenol) 650 mg PO Q6H PRN PRN PRN Reason: Pain Score 1-10/Temp > 100.7 F Last Admin: 11/14/19 06:56 Dose: 650 mg Documented by: Fluticasone Propionate (Flonase Nasal Acme) 1 spray NASAL BID [facility] Last Admin: 11/15/19 07:56 Dose: Not Given Documented by: Gabapentin (Neurontin) 100 mg PO TIDCM [facility] Last Admin: 11/15/19 07:56 Dose: 100 mg Documented by: Glucagon () 1 mg IM .X1 PRN PRN Reason: Hypoglycemia Sodium Chloride () 1,000 mls @ 100 mls/hr IV .Q10H [facility] Last Infusion: 11/15/19 09:55 Dose: 100 mls/hr Documented by: Dextrose (Dextrose 10%-Water) 250 mls @ 999 mls/hr IV .Q16M PRN; Protocol PRN Reason: HYPOGLYCEMIA Pantoprazole Sodium 40 mg/ (Sodium Chloride) 110 mls @ 330 mls/hr IV Q24 [facility] Last Infusion: 11/15/19 08:24 Dose: Infused Documented by: Sodium Chloride () 250 mls @ 15 mls/hr IV .[id number] PRN PRN Reason: Saline Flush Sodium Chloride () 250 mls @ 15 mls/hr IV .[id number] PRN PRN Reason: Additional IVPB Infusion Ceftriaxone Sodium (Rocephin) 1 gm in 50 mls @ 100 mls/hr IV Q24 [facility] Last Infusion: 11/15/19 09:55 Dose: Infused Documented by: Insulin Human Lispro (Humalog Kwikpen (Bkc)) 0 unit SC Q6 [facility]; Protocol Last Admin: 11/15/19 05:54 Dose: Not Given Documented by: Melatonin (Melatonin) 3 mg PO QHS [facility] Last Admin: 11/14/19 21:30 Dose: 3 mg Documented by: Metoprolol Tartrate (Lopressor (Beta Ondina)) 25 mg PO BID [facility] Last Admin: 11/15/19 07:56 Dose: 25 mg Documented by: Morphine Sulfate () 1 mg IV Q3H PRN PRN PRN Reason: Pain Score 6-10/10 Last Admin: 11/15/19 10:54 Dose: 1 mg Documented by: Ondansetron HCl (Zofran) 4 mg IV Q8H PRN PRN PRN Reason: NAUSEA/VOMITING Phenazopyridine HCl (Azo Standard) 95 mg PO TID [facility] Stop: 11/15/19 22:01 Last Admin: 11/15/19 05:54 Dose: 95 mg Documented by: Polyethylene Glycol (Miralax) 17 gm PO DAILY [facility] Last Admin: 11/15/19 07:56 Dose: Not Given Documented by: Sertraline HCl (Zoloft) 150 mg PO DAILY [facility] Last Admin: 11/15/19 07:57 Dose: 150 mg Documented by: Sodium Chloride () 10 - 40 ml IV UD PRN PRN Reason: SALINE FLUSH Last Admin: 11/14/19 23:29 Dose: 10 ml Documented by: Discharge Diet: Low fat/ Low Cholesterol, 1800 Calorie Control Diet, 2000 mg Sodium Diet Discharge Activity: Return to Normal Activity Home Medications: Medications to take at Discharge Amlodipine [Norvasc] 10 mg PO DAILY 11/13/19 Ascorbic Acid [Vitamin C] 500 mg PO DAILY 11/13/19 Atorvastatin Calcium [Lipitor] 20 mg PO QHS 11/13/19 Gabapentin [Neurontin] 300 mg PO TIDCM 11/13/19 Gemfibrozil 600 mg PO BID 11/13/19 Insulin Detemir [Levemir] 25 unit SQ QHS 11/13/19 Insulin Lispro [Humalog] See Protocol SQ TID 11/13/19 Melatonin 3 mg PO QHS 11/13/19 Metoprolol Tartrate 25 mg PO BID 11/13/19 Ondansetron HCl [Zofran] 4 mg PO PRN PRN 11/13/19 Pantoprazole Sodium [Protonix] 40 mg PO DAILY 11/13/19 Potassium Chloride 20 meq PO DAILY 11/13/19 Sertraline HCl [Zoloft] 150 mg PO DAILY 11/13/19 Spironolactone 25 mg PO DAILY 11/13/19 Cefdinir [Omnicef [equiv]] 300 mg PO Q12H #6 cap 11/14/19 Phenazopyridine HCl [Azo Urinary Pain Relief] 95 mg PO TID PRN PRN #6 tab 11/14/19 Polyethylene Glycol 3350 [Miralax] 17 gm PO DAILY #30 packet 03/20/20 Following Prescrptions Were Given to Patient: Phenazopyridine HCl [Azo Urinary Pain Relief] 95 mg PO TID PRN PRN #6 tab PRN Reason: Bladder Spasm Polyethylene Glycol 3350 [Miralax] 17 gm PO DAILY #30 packet Transmission Status: Received by [id number] Cefdinir [Omnicef [equiv]] 300 mg PO Q12H #6 cap Primary Care Physician: Sergio Dean MD [Primary Care Provider] - Please follow up with your Primary Care Physician in: 1-2 weeks Please Follow Up With: Mechelle Sanches MD When: 1 week Disposition: Jail facility Minutes spent on discharge:: 35 Patient Condition:: Stable Medical Necessity - Tobacco Use Smoking Status: Never smoker Meaningful Use Info Meaningful Use Diagnoses (Choose all that apply): None applicable <[place] - Last Filed: 11/15/19 14:27> Discharge Date and Diagnosis - Primary Discharge Diagnosis Active and Suspected Problems Hyperkalemia (Acute) Renal failure (Acute) Hematuria (Acute) Bladder mass (Suspected) UTI (urinary tract infection) (Acute) - Secondary Discharge Diagnosis Chronic Problems 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 ulcer of left foot with necrosis of muscle (Chronic) CVA (cerebral vascular accident) (Chronic) Paroxysmal atrial fibrillation (Chronic) IBS (irritable bowel syndrome) (Chronic) HLD (hyperlipidemia) (Chronic) Esophageal reflux (Chronic) Type II diabetes mellitus, uncontrolled (Chronic) Anxiety and depression (Chronic) Cerebrovascular disease (Chronic) Possible small ischemic strokes versus sequela of chronic migraine Migraine (Chronic) reports hole in heart since (Chronic) Benign essential HTN (Chronic) Hospital Course and Treatment Summary of Care Provided: This patient was seen in conjunction with JEF Capellan. I have independently interviewed and examined the patient and reviewed pertinent historical, laboratory, and other data. Please refer to JEF Capellan note for his patient's presentation, findings, and recommendations. I have reviewed and his note and concur with his documentation 59-year-old female with past medical history of paroxysmal atrial fibrillation, history of CVA with right-sided weakness, resident in a [facility] facility who presented with hematuria. Patient's work-up in the emergency room showed a possible mass in the bladder. CT scan of the abdomen and pelvis showed fecal retention. Urinalysis was suggestive of UTI and her BMP showed hyperkalemia with potassium 5.9 as well as acute kidney injury. Patient was admitted to the PCU and given IV fluids, her living Kayexalate and calcium gluconate. Urology was consulted. Continued bladder radiation was initiated. Patient was also started on IV ceftriaxone. Her urine cultures grew E. coli. Patient dropped her hemoglobin to 6.6 and received 2 units of packed RBCs. She was followed by urology. Her Wise catheter was removed on the day of discharge, PVRs were negative. She will follow-up with urology in the outpatient. On the day of discharge, patient was seen and examined. Denied any new complaints. Physical Exam: Gen: Looks in some discomfort, not on oxygen, not pale, not jaundiced CVS:HS I +II, regular, no murmurs RESP: CTA GI: BS present and normal, soft, nontender, no palpable organs EXT: Trace bipedal edema - Physical Exam Vitals/I&O's: Vital Signs Temp Pulse Resp BP Pulse Ox 98.3 F 77 14 121/71 H 99 11/15/19 09:05 11/15/19 09:05 11/15/19 09:05 11/15/19 09:05 11/15/19 09:05 Oxygen Delivery Method Room Air Weight: 59.7 kg Body Mass Index (BMI) 24.8 Finger Stick Blood Glucose 242 Intake and Output for Last 24 Hours 11/13/19 11/14/19 11/15/19 23:59 23:59 23:59 Intake Total 5520 / 5520 2971.66 / 2971.66 1565.01 / 1565.01 Output Total 33483 / 59879 8400 / 8400 800 / 800 Balance -8230 / -8230 -5428.34 / -5428.34 765.01 / 765.01 Microbiology Past 72 Hours 11/13/19 02:40 Urine, Catheterized Urine Culture - Final Presumptive E. coli Laboratory Results 11/13/19 02:40: Blood Type A POSITIVE, Antibody Screen POSITIVE H, Antibody Identification ANTI-N, Crossmatch See Detail 11/14/19 16:16: POC Glucose 161 H 11/14/19 : Antigen Identification Cancelled, Red Cell Ag Phenotyp Cancelled 11/15/19 00:08: POC Glucose 142 H 11/15/19 05:22: WBC 10.3, RBC 2.84 L, Hgb 8.6 L, Hct 26.8 L, MCV 94.4, MCH 30.3, MCHC 32.1, RDW Std Deviation 50.9 H, RDW Coeff of Eliane 15.1 H, Plt Count 219, MPV 10.3, Immature Gran % (Auto) 3.700 H, Neut % (Auto) 71.0 H, Lymph % (Auto) 16.6 L, Merrick % (Auto) 5.1, Eos % (Auto) 3.2, Baso % (Auto) 0.4, Absolute Neuts (auto) 7.3, Absolute Lymphs (auto) 1.70, Nucleated RBC % 0 11/15/19 05:22: Sodium 147 H, Potassium 3.3 L, Chloride 119 H, Carbon Dioxide 21.0, Anion Gap 7, BUN 23 H, Creatinine 0.82, Estim Creat Clear Calc 55.05, Est GFR (MDRD) Af Amer 92, Est GFR (MDRD) Non-Af 76, BUN/Creatinine Ratio 28.1 H, Glucose 117 H, Calcium 8.4 L 11/15/19 05:43: POC Glucose 103 11/15/19 11:56: POC Glucose 95 Current Medications Acetaminophen (Tylenol) 650 mg PO Q6H PRN PRN PRN Reason: Pain Score 1-10/Temp > 100.7 F Last Admin: 11/14/19 06:56 Dose: 650 mg Documented by: Fluticasone Propionate (Flonase Nasal Acme) 1 spray NASAL BID [facility] Last Admin: 11/15/19 07:56 Dose: Not Given Documented by: Gabapentin (Neurontin) 100 mg PO TIDCM [facility] Last Admin: 11/15/19 12:02 Dose: 100 mg Documented by: Glucagon () 1 mg IM .X1 PRN PRN Reason: Hypoglycemia Sodium Chloride () 1,000 mls @ 100 mls/hr IV .Q10H [facility] Last Infusion: 11/15/19 12:14 Dose: 100 mls/hr Documented by: Dextrose (Dextrose 10%-Water) 250 mls @ 999 mls/hr IV .Q16M PRN; Protocol PRN Reason: HYPOGLYCEMIA Pantoprazole Sodium 40 mg/ (Sodium Chloride) 110 mls @ 330 mls/hr IV Q24 [facility] Last Infusion: 11/15/19 08:24 Dose: Infused Documented by: Sodium Chloride () 250 mls @ 15 mls/hr IV .[id number] PRN PRN Reason: Saline Flush Sodium Chloride () 250 mls @ 15 mls/hr IV .[id number] PRN PRN Reason: Additional IVPB Infusion Ceftriaxone Sodium (Rocephin) 1 gm in 50 mls @ 100 mls/hr IV Q24 [facility] Last Infusion: 11/15/19 09:55 Dose: Infused Documented by: Insulin Human Lispro (Humalog Kwikpen (Bkc)) 0 unit SC Q6 [facility]; Protocol Last Admin: 11/15/19 12:03 Dose: Not Given Documented by: Melatonin (Melatonin) 3 mg PO QHS [facility] Last Admin: 11/14/19 21:30 Dose: 3 mg Documented by: Metoprolol Tartrate (Lopressor (Beta Ondina)) 25 mg PO BID [facility] Last Admin: 11/15/19 07:56 Dose: 25 mg Documented by: Morphine Sulfate () 1 mg IV Q3H PRN PRN PRN Reason: Pain Score 6-10/10 Last Admin: 11/15/19 13:58 Dose: 1 mg Documented by: Ondansetron HCl (Zofran) 4 mg IV Q8H PRN PRN PRN Reason: NAUSEA/VOMITING Last Admin: 11/15/19 13:58 Dose: 4 mg Documented by: Phenazopyridine HCl (Azo Standard) 95 mg PO TID [facility] Stop: 11/15/19 22:01 Last Admin: 11/15/19 05:54 Dose: 95 mg Documented by: Polyethylene Glycol (Miralax) 17 gm PO DAILY [facility] Last Admin: 11/15/19 07:56 Dose: Not Given Documented by: Sertraline HCl (Zoloft) 150 mg PO DAILY [facility] Last Admin: 11/15/19 07:57 Dose: 150 mg Documented by: Sodium Chloride () 10 - 40 ml IV UD PRN PRN Reason: SALINE FLUSH Last Admin: 11/15/19 13:58 Dose: 10 ml Documented by: Inpatient E&M: [id number] [facility]
[2019-11-15 12:11] LABS: Bedside Glucose 95 mg/dL (70-110)
--- NOTE | 2019-11-15 13:52 | NURSING ---
report called to [facility]
[2019-11-15] MEDS: Ondansetron 4 MG/2 ML Vial IV (13:58)
[2019-11-15] MEDS: 0.9% Saline Lock 10 ML Syringe IV (13:58)
[2019-11-15 14:16] VITALS: BP 141/79; PULSE 85; RESP 14; TEMP 36.8; O2SAT 95
== END 2019-11-15 14:05 | disposition skilled nursing facility (03) | DRG 699 ==
LOC: ED 04:03 → PCU 04:50
PROVIDERS: Physician Assistant; Admitting Provider Hospitalist; Emergency Provider Emergency Medicine; PCP Family Medicine; Visit Provider Internal Medicine
DX: N32.89 Other specified disorders of bladder (principal); N17.9 Acute kidney failure, unspecified; N39.0 Urinary tract infection, site not specified; D62 Acute posthemorrhagic anemia; I69.351 Hemiplegia and hemiparesis following cerebral infarction affecting right dominant side; B96.20 Unspecified Escherichia coli [E. coli] as the cause of diseases classified elsewhere; R31.0 Gross hematuria; E87.5 Hyperkalemia; K59.09 Other constipation; K21.9 Gastro-esophageal reflux disease without esophagitis; K58.1 Irritable bowel syndrome with constipation; I48.0 Paroxysmal atrial fibrillation; I10 Essential (primary) hypertension; E11.42 Type 2 diabetes mellitus with diabetic polyneuropathy; E11.621 Type 2 diabetes mellitus with foot ulcer; L97.523 Non-pressure chronic ulcer of other part of left foot with necrosis of muscle; E78.5 Hyperlipidemia, unspecified; E11.65 Type 2 diabetes mellitus with hyperglycemia; F32.9 Major depressive disorder, single episode, unspecified; F41.9 Anxiety disorder, unspecified; G43.909 Migraine, unspecified, not intractable, without status migrainosus; Z79.4 Long term (current) use of insulin; Z79.899 Other long term (current) drug therapy
CPT/HCPCS: 36415; 51702; 74176; 80048; 81001; 82962; 85014; 85018; 85025; 86850; 86870; 86900; 86901; 86920; 86922; 87086; 87088; 87186; 93005; 99285; J1756; J7030; J7040; P9016; P9612; A4216; J0610; J2405

== ENCOUNTER → 2019-12-24 | Outpatient (CLI) | payer MEDICARE, MEDICAID, SELFPAY ==
[2019-11-13 05:15] VITALS: BMI 24.8
== END | disposition home or self-care (01) ==
PROVIDERS: PCP Family Medicine; Visit Provider Family Medicine
DX: U07.1 COVID-19 (principal); J98.8 Other specified respiratory disorders
CPT/HCPCS: 87635; U0004

== ENCOUNTER → 2020-01-14 11:39 | Outpatient (CLI) | payer MEDICARE, MEDICAID, SELFPAY ==
[2019-11-13 05:15] VITALS: BMI 24.8
== END ==
PROVIDERS: PCP Family Medicine; Referring Provider Nurse Practitioner Adult Health; Visit Provider Nurse Practitioner Adult Health
DX: J98.8 Other specified respiratory disorders (principal)
CPT/HCPCS: 87635; U0004